=== PATIENT | male | born 1945 | race Caucasian/White ===

== ENCOUNTER 2024-12-24 07:53 | Inpatient (IN) | payer MEDICARE, OTHER, SELFPAY ==
[2024-12-24] VITALS (36 sets, daily range): BP systolic 103–167; BP diastolic 47–131; PULSE 38–113; RESP 10–22; TEMP 36.4–36.8; O2SAT 91–98; BMI 27.1; BMI 26.4; BMI 27.6
--- NOTE | 2024-12-24 08:01 | ECG_ITS ---
APPROVED REPORT Exam: Resting ECG HR:100 bpm ECG Measurements Heart Rate 100 AXES LA 153 P 52 QRSd 88 QRS 58 QT 340 T 80 QTc 397 Conclusion Sinus tachycardia with numerous PVCs Electronically signed by : IRASEMA GAONA, 12/24/2024 15:26:17
[2024-12-24] MEDS: ASPIRIN 81MG CHEWABLE TABLET 324 MG PO (08:07)
--- OUTSIDE RECORDS SUMMARY | 2024-12-24 08:07 | XMS_ITS | Encounter Summary ---
Author Name [facility] [place] [facility] [place] [facility] [place] Address [address] [place] [address] Care Team Providers Care Flue Dust Laborer Name Role Phone MALU MCKENZIE Primary Care Provider Unavailabl e Insurance Providers: All historical and current Section Date Range: From patient's date of to the date document was created. This section includes the names of all active insurance providers for the patient. Insurance Provider Type of Coverage Plan Name Start of Policy Coverage End of Policy Coverage Group Number Member ID Insurance Provider's Telephone Number Policy Coker's Name Patient's Relationship to Policy Coker MEDICARE (WNR) MEDICARE (M) PART A Sep 09, 2011 PART A [id number] RODDY CARRILLO PATIENT MEDICARE (WNR) MEDICARE (M) PART B Sep 09, 2011 PART B [id number] [id number] RODDY CARRILLO PATIENT MEDICARE (WNR) MEDICARE (M) PART A Sep 09, 2011 PART A [id number] RODDY CARRILLO PATIENT MEDICARE (WNR) MEDICARE (M) PART B Sep 09, 2011 PART B [id number] RODDY CARRILLO PATIENT FOR LIFE TRICA RE FOR LIFE Sep 09, 2009 FOR LIFE [id number] RODDY CARRILLO PATIENT Selected Encounter This section includes the information on record at [place] for the Encounter. Date/Time Encounter Type Encounter Description Reason Provider Source Jun 10, 2024 08:30 AM INTRM OPH EXAM EST PATIENT OPHTHALMOLOGY ICD-10-CM H25.811 Combined forms of age-related cataract, right eye PENNY ALVAREZ IHMarielos Encounter Template Text not used by [place] Assessments - Encounter Diagnoses This section includes the primary and secondary diagnoses documented for the Encounter. Date/Time Primary/Secondary Diagnosis Diagnosis Name Provider Source Jun 10, 2024 12:01 PM PRIMARY Combined forms of age-related cataract, right eye [facility] Jun 10, 2024 12:01 PM SECONDARY Cataract extraction status, left eye PAMELARITESH BOLIVAR [facility] Jun 10, 2024 12:01 PM SECONDARY Dry eye syndrome of bilateral lacrimal glands RITESH REINOSO [facility] Plan of Treatment: Future Appointments (+ 6 months) and Future Tests (+/- 45 days) The Plan of Treatment section includes future care activities for the patient from all [place] treatmentfacilities. This section includes future appointments and future orders which are active, pending or scheduled. Future Appointments This section includes appointments that were scheduled to occur 6 months from the date of the Encounter, up to a maximum of 20 appointments. The data comes from all [place] treatment facilities. Appointment Date/Time Appointment Type Appointme nt Facility Name Sep 29, 2024 09:30 AM AMBULATORY - MEDICINE [facility] Social History: Smoking Status (Most current) and Tobacco Use (All prior to encounter date) This section includes the most current, and the historical, smoking and tobacco- related health factors from the [place] facility where the Encounter took place. Current Smoking Status This section includes the most current smoking, or tobacco-related health factor, from the [place] facility where the Encounter took place. Date/Time Current Smoking Status Comment Svitlana ity Jul 06, 2004 10:16 AM HF V9 CURRENT NON-SMOKER pipe [facility] Tobacco Use History This section includes a history of the smoking, or tobacco-related health factors, that were collected on or before the date of the Encounter. The data comes from the [place] facility where the Encounter took place. 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 [facility] Encounter Notes: All associated encounter notes This section contains the clinical notes associated to the Encounter. Date/Time Encounter Note(s) Provider Source Jun 10, 2024 11:59 AM OPHTHALMOLOGY RESI DENT NOTE: LOCAL TITLE: OPHTHALMOLOGY CLINIC PHYSICIAN NOTE STANDARD TITLE: OPHTHALMOLOGY RESIDENT NOTE DATE OF NOTE: JUN 10, 2024@11:59 ENTRY DATE: JUN 10, 2024@11:59:11 AUTHOR: RITESH REINOSO COSIGNER: PENNY ALVAREZ URGENCY: STATUS: COMPLETED OPHTHALMOLOGY CLINIC PHYSICIAN NOTE Has ADDENDA Please see scanned note for details of this examination. Education on instillation of drops provided. I have seen and discussed the patient with Dr. Alvarez and they agree with the assessment and plan. Date VA:OD ^ VA:OS IOP Notes 06/10/24 *40-2/ NI ^ *-2/ -- Sub-specialty Specific HX: Right Eye: # Senile Combined Cataracts OD - Likely approaching visual significance, but pt content with VA and is able to conduct all activities of daily living. -MAC OCT flat today - Prefers to wait. > Obs # BARBIE OU - PEE OS inferiorly. No lagophthalmos. > Recommend artificial tears PRN Left Eye: # PCIOL OS - Doing well, clear lens. MAC OCT flat today - Wears readers only. > obs # BARBIE OU - PEE OS inferiorly. No lagophthalmos. > Recommend artificial tears PRN Plan: Obs F/U: 1 year general * in VA column= without correction * in IOP column= didn't take most recent dose or otherwise non-adherent = Not Addressed at this visit /italo/ RITESH REINOSO Ophthalmology Resident Signed: 06/10/2024 12:02 /itlao/ PENNY ALVAREZ Attending Physician Cosigned: 06/10/2024 14:52 06/10/2024 ADDENDUM STATUS: COMPLETED This service was performed in whole or in part by a resident at a [place] Medical Center or Clinic, supervised in accordance with [place] policy. I have discussed the patient with the examining resident. I agree with the assessment and plan. /italo/ PENNY ALVAREZ Attending Physician Signed: 06/10/2024 14:53 RITESH REINOSO-RENAY [facility] Jun 10, 2024 10:21 AM SURGERY SCANNED NO TE: LOCAL TITLE: OPHTHALMOLOGY SCANNING NOTE STANDARD TITLE: SURGERY SCANNED NOTE DATE OF NOTE: JUN 10, 2024@10:21 ENTRY DATE: JUN 11, 2024@10:22:07 AUTHOR: MAK VELAZQUEZER: URGENCY: STATUS: COMPLETED The scanned document may be viewed in [employer]. /italo/ MAK VELAZQUEZ COMMERCIAL REAL ESTATE BROKER Signed: 06/11/2024 10:22 MAK VELAZQUEZINGTON-CDD [facility] Jun 10, 2024 08:42 AM OPHTHALMOLOGY NOTE : LOCAL TITLE: OPHTHALMOLOGY NURSE/TECH CLINIC NOTE STANDARD TITLE: OPHTHALMOLOGY NOTE DATE OF NOTE: JUN 10, 2024@08:42 ENTRY DATE: JUN 10, 2024@08:42:03 AUTHOR: MONTSERRAT ANTONYIGNER: URGENCY: STATUS: COMPLETED Date VA:OD ^ VA:OS IOP Notes 06/10/24 *40-2/ NI ^ *20-2/ -- Sub-specialty Specific HX: Right Eye: Left Eye: Plan: F/U: * in VA column= without correction * in IOP column= didn't take most recent dose or otherwise non-adherent = Not Addressed at this visit /italo/ MONTSERRAT ANTONY Signed: 06/10/2024 08:47 MONTSERRAT ANTONY-JUDYD [facility] Jun 10, 2024 08:40 AM SURGERY NURSING NO TE: LOCAL TITLE: SURGERY CLINIC INTAKE NOTE STANDARD TITLE: SURGERY NURSING NOTE DATE OF NOTE: JUN 10, 2024@08:40 ENTRY DATE: JUN 10, 2024@08:40:17 AUTHOR: MONTSERRAT ANTONY EXP COSIGNER: URGENCY: STATUS: COMPLETED The patient was given a list of his/her medications, instructed to review and discuss any changes or problems with their provider. Patient advised to carry a list of current medications and any allergies with them in the event of emergency situations. Allergies: local and remote Patient has answered NKA No Remote Allergy/ADR Data available for this patient Medication Reconciliation MRR1 - Med Reconciliation INCLUDED IN THIS LIST: Alphabetical list of active outpatient prescriptions dispensed from this [place] (local) and dispensed from another [place] or [facility] facility (remote) as well as inpatient orders (local pending and active), local clinic medications, locally documented non-VA medications, and local prescriptions that have or been discontinued in the past 90 days. Non-VA Meds Last Documented On: Mar 14, 2017 NOTE The display of VA prescriptions dispensed from another [place] or [facility] facility (remote) is limited to active outpatient prescription entries matched to National Drug File at the originating site and may not include some items such as investigational drugs, compounds, etc. NOT INCLUDED IN THIS LIST: Medications self-entered by the patient into personal health records (i.e. [employer]) are NOT included in this list. Non-VA medications documented outside this [place], remote inpatient orders (regardless of status) and remote clinic medications are NOT included in this list. The patient and provider must always discuss medications the patient is taking, regardless of where the medication was dispensed or obtained. Non-VA ATENOLOL 25MG TAB TAKE ONE-HALF TABLET BY MOUTH DAILY Patient wants to buy from Non-VA pharmacy. Non-VA TRAZODONE HCL 50MG TAB TAKE ONE TABLET BY MOUTH AT BEDTIME NEEDED Patient wants to buy from Non-VA pharmacy. SUPPLIES /italo/ MONTSERRAT ANTONY Signed: 06/10/2024 08:41 MONTSERRAT ANTONY-RENAY [facility]
--- OUTSIDE RECORDS SUMMARY | 2024-12-24 08:08 | XMS_ITS | Encounter Summary ---
Author Name [facility] [place] Address [address] [place] [address] Care Team Providers Care Media Marketing Coordinator Name Role Phone MALU MCKENZIE Primary Care [...] PART A Sep 09, 2011 PART A [id number] 68A RODDY CARRILLO PATIENT MEDICARE (WNR) MEDICARE (M) PART B Sep 09, 2011 PART B [id number] 68A RODDY CARRILLO PATIENT MEDICARE (WNR) MEDICARE (M) PART A Sep 09, 2011 PART A [id number] FR06 RODDY CARRILLO PATIENT MEDICARE (WNR) MEDICARE (M) PART B Sep 09, 2011 PART B [id number] FR06 RODDY CARRILLO PATIENT FOR LIFE TRICA RE FOR LIFE Sep 09, 2009 FOR LIFE [id number] RODDY CARRILLO PATIENT Selected Encounter This section includes the information on record at [place] for the Encounter. Date/Time Encounter Type Encounter Description Reason Pro vider Source Dec 21, 2024 01:12 PM Outpatient Encounter ADMIN PAT ACTIVTIES (EMILYNONCT) IHMarielos Encounter Template Text not used by [place] Social History: Smoking Status (Most current) and Tobacco Use (All prior to encounter date) This section includes the most current, and the historical, smoking and tobacco- related health factors from the [place] facility where the Encounter took place. Current Smoking Status This section includes the most current smoking, or tobacco-related health factor, from the [place] facility where the Encounter took place. Date/Time Current Smoking Status Comment Svitlana ity Jul 06, 2004 10:16 AM HF V9 CURRENT NON-SMOKER pipe [facility] Tobacco Use History This section includes a history of the smoking, or tobacco-related health factors, that were collected on or before the date of the Encounter. The data comes from the [place] facility where the Encounter took place. 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 [facility] Encounter Notes: All associated encounter notes This section contains the clinical notes associated to the Encounter. Date/Time Encounter Note(s) Provider Source Dec 21, 2024 01:12 PM PRIMARY CARE ADMIN ISTRATIVE NOTE: LOCAL TITLE: PC ADMINISTRATIVE NOTE STANDARD TITLE: PRIMARY CARE ADMINISTRATIVE NOTE DATE OF NOTE: DEC 21, 2024@13:12 ENTRY DATE: DEC 21, 2024@13:12:39 AUTHOR: BOUBACAR SORIANO COSIGNER: URGENCY: STATUS: COMPLETED PC ADMINISTRATIVE NOTE Has ADDENDA Received Fax from: [employer] Placed in Provider's Box. /italo/ Boubacar TINEO Signed: 12/21/2024 13:13 12/23/2024 ADDENDUM STATUS: COMPLETED Signed, please fax it back. /es/ MALU MCKENZIE M.D. PRIMARY CARE STAFF PHYSICIAN Signed: 12/23/2024 10:55 Receipt Acknowledged By: * AWAITING SIGNATURE * ML BELLAMY,BOUBACAR LOUISE-Karey [facility]
--- OUTSIDE RECORDS SUMMARY | 2024-12-24 08:08 | XMS_ITS | Encounter Summary ---
Author Name [facility] [place] [facility] [place] Address [address] [place] [address] Care Team Providers Care Manager Quality Systems Name Role Phone MALU MCKENZIE Primary Care [...] PART A Sep 09, 2011 PART A [id number] 68A RODDY CARRILLO PATIENT MEDICARE (WNR) MEDICARE (M) PART B Sep 09, 2011 PART B [id number] 68A RODDY CARRILLO PATIENT MEDICARE (WNR) MEDICARE (M) PART A Sep 09, 2011 PART A [id number] FR06 RODDY CARRILLO PATIENT MEDICARE (WNR) MEDICARE (M) PART B Sep 09, 2011 PART B [id number] RODDY CARRILLO PATIENT FOR LIFE TRICA RE FOR LIFE Sep 09, 2009 FOR LIFE [id number] RODDY CARRILLO PATIENT Selected Encounter This section includes the information on record at [place] for the Encounter. Date/Time Encounter Type Encounter Description Reason Pro vider Source Nov 06, 2024 11:33 AM Outpatient Encounter ADMIN HEATHER RUSHING (EMILYNONCT) IHMarielos Encounter Template Text not used by [place] Lab Results: +/- 30 days of the encounter This section includes the Chemistry and Hematology Lab Results on record with [place] for the patient. Radiology Reports and Pathology Reports are provided separately, in subsequent sections. Lab Results This section contains the Chemistry/Hematology Results that were resulted 30 days before or 30 daysafter the date of the Encounter. Date/Time Source Result Type Result - Unit Interpretation Reference Range Specimen Type Comment Oct 19, 2024 12:00 AM [facility] N OCCULT BLOOD FIT X1 SCREEN FECES Specimen Typ e: FECES Comment: Test cancelled. Collection date could not be determined. Sample integrity cannot be ensured. Please recollect specimen and resubmit for testing. Ordering Provider: MALU MCKENZIE Report Released Date/Time: Sep 29, 2024 09:36 AM Reporting Lab: [address] [id number] Performing Lab: [address] [address] OCCULT BLOOD (FIT) #1 OF 1 can [employer]at [employer] Social History: Smoking Status (Most current) and Tobacco Use (All prior to encounter date) This section includes the most current, and the historical, smoking and tobacco- related health factors from the [place] facility where the Encounter took place. Current Smoking Status This section includes the most current smoking, or tobacco-related health factor, from the [place] facility where the Encounter took place. Date/Time Current Smoking Status Comment Facil ity Sep 29, 2024 09:30 AM [place]-TOBACCO USE MELODY E DAYS OTHER TYPE [facility] Tobacco Use History This section includes a history of the smoking, or tobacco-related health factors, that were collected on or before the date of the Encounter. The data comes from the [place] facility where the Encounter took place. Date/Time Smoking Status/Tobacco Use Comment F acility Sep 29, 2024 09:30 AM MO-TOBACCO USE ADVICE [facility] Sep 29, 2024 09:30 AM [place]-TOBACCO USE BIT SETTER NO [facility] Sep 29, 2024 09:30 AM VA-TOBACCO USE FOR JARRETT CIGARETTES [facility] Sep 29, 2024 09:30 AM VA-TOBACCO USE MED NO [facility] Sep 29, 2024 09:30 AM VA-TOBACCO USE MELODY E DAYS CIGARS/PIPES [facility] Sep 29, 2024 09:30 AM VA-TOBACCO USE MELODY E DAYS OTHER TYPE [facility] Oct 03, 2023 08:30 AM VA-TOBACCO USE 5 TO 15 YEARS [facility] Oct 03, 2023 08:30 AM VA-TOBACCO USE ADVICE [facility] Oct 03, 2023 08:30 AM VA-TOBACCO USE BIT SETTER NO [facility] Oct 03, 2023 08:30 AM VA-TOBACCO USE MED NO [facility] Oct 03, 2023 08:30 AM VA-TOBACCO USE WI 30 MIN OF WAKEUP [facility] Oct 03, 2023 08:30 AM VA-TOBACCO USER SOME DAYS [facility] Oct 03, 2022 10:00 AM VA-TOBACCO DOESNT USE WI 30 MIN WAKEUP [facility] Oct 03, 2022 10:00 AM VA-TOBACCO USE 5 TO 15 YEARS [facility] Oct 03, 2022 10:00 AM VA-TOBACCO USE ADVICE [facility] Oct 03, 2022 10:00 AM VA-TOBACCO USE BIT SETTER NO [facility] Oct 03, 2022 10:00 AM VA-TOBACCO USE MED NO [facility] Oct 03, 2022 10:00 AM VA-TOBACCO USER SOME DAYS [facility] Jun 28, 2021 08:00 AM VA-TOBACCO DOESNT USE WI 30 MIN WAKEUP [facility] Jun 28, 2021 08:00 AM VA-TOBACCO USE 30 YEARS OR MORE [facility] Jun 28, 2021 08:00 AM VA-TOBACCO USE ADVICE [facility] Jun 28, 2021 08:00 AM VA-TOBACCO USE BIT SETTER NO [facility] Jun 28, 2021 08:00 AM VA-TOBACCO USE MED NO [facility] Jun 28, 2021 08:00 AM VA-TOBACCO USER SOME DAYS [facility] May 23, 2020 01:19 PM VA-TOBACCO FORMER USER [facility] May 23, 2020 01:19 PM VA-TOBACCO QUIT 15 YRS OR MORE [facility] Sep 08, 2018 09:20 AM VA-TOBACCO FORMER USER [facility] Sep 08, 2018 09:20 AM VA-TOBACCO QUIT 15 YRS OR MORE [facility] Mar 14, 2018 07:49 AM V9 LIFETIME NON-USER OF TOBACCO [facility] Mar 14, 2017 08:12 AM V9 LIFETIME NON-USER OF TOBACCO [facility] Mar 09, 2016 08:41 AM V9 LIFETIME NON-USER OF TOBACCO [facility] Mar 09, 2015 07:49 AM V9 QUIT TOBACCO >7 YEARS AGO [facility] Mar 24, 2014 09:06 AM V9 QUIT TOBACCO >7 YEARS AGO [facility] Mar 24, 2014 09:06 AM V9 TOBACCO OFFERED [facility] Mar 23, 2013 10:19 AM TOBACCO OFFERRED P T MEDS (PROVIDER) [facility] Mar 23, 2013 10:19 AM V9 CURRENT TOBACCO USER [facility] Mar 23, 2013 10:19 AM V9 TOBACCO OFFERED [facility] May 28, 2012 08:45 AM TOBACCO OFFERRED P T MEDS (PROVIDER) [facility] May 28, 2012 08:45 AM V9 CURRENT TOBACCO USER [facility] May 28, 2012 08:45 AM V9 TOBACCO OFFERED [facility] May 28, 2011 08:12 AM TOBACCO OFFERRED P T MEDS (PROVIDER) [facility] May 28, 2011 08:12 AM V9 CURRENT TOBACCO USER [facility] May 28, 2011 08:12 AM V9 TOBACCO OFFERED [facility] Apr 20, 2011 10:34 AM V9 CURRENT TOBACCO USER [facility] May 24, 2010 07:45 AM TOBACCO OFFERRED P T MEDS (PROVIDER) [facility] May 24, 2010 07:45 AM V9 CURRENT TOBACCO USER [facility] May 24, 2010 07:45 AM V9 TOBACCO OFFERED [facility] May 17, 2009 08:40 AM TOBACCO OFFERRED P T MEDS (PROVIDER) [facility] May 17, 2009 08:40 AM V9 CURRENT TOBACCO USER [facility] May 17, 2009 08:40 AM V9 TOBACCO OFFERED [facility] Oct 14, 2008 09:59 AM V9 CURRENT TOBACCO USER [facility] Oct 14, 2008 09:59 AM V9 TOBACCO OFFERED [facility] January 20, 2007 06:36 AM TOBACCO OFFERRED P T MEDS (PROVIDER) [facility] January 20, 2007 06:36 AM V9 CURRENT TOBACCO USER [facility] January 20, 2007 06:36 AM V9 TOBACCO OFFERED [facility] Jul 17, 2006 12:49 PM HF V9 CURRENT SMOKER pipe [facility] Encounter Notes: All associated encounter notes This section contains the clinical notes associated to the Encounter. Date/Time Encounter Note(s) Provider Source Oct 27, 2024 11:33 AM NONVA NOTE: LOCAL TITLE: OUTSIDE MEDICAL RECORD-OTHER STANDARD TITLE: NONVA NOTE DATE OF NOTE: OCT 27, 2024@11:33 ENTRY DATE: NOV 06, 2024@11:33:15 AUTHOR: DHAVAL CARTER EXP COSIGNER: URGENCY: STATUS: COMPLETED The scanned image may be viewed in [employer]. /italo/ DHAVAL CARTER fileclerk Signed: 11/06/2024 11:33 DHAVAL CARTER [facility]
--- OUTSIDE RECORDS SUMMARY | 2024-12-24 08:08 | XMS_ITS | Encounter Summary ---
Author Name [facility] [place] [facility] [facility] [place] Address [address] [place] [address] Care Team Providers Care Weatherseal Technician Name Role Phone MALU MCKENZIE Primary Care [...] PART A Sep 09, 2011 PART A [id number] RODDY PEREZ PATIENT MEDICARE (WNR) MEDICARE (M) PART B Sep 09, 2011 PART B [id number] RODDY PEREZ PATIENT MEDICARE (WNR) MEDICARE (M) PART A Sep 09, 2011 PART A [id number] RODDY PEREZ PATIENT MEDICARE (WNR) MEDICARE (M) PART B Sep 09, 2011 PART B [id number] [phone] RODDY PEREZ PATIENT FOR LIFE TRICA RE FOR LIFE Sep 09, 2009 FOR LIFE [id number] RODDY PEREZ PATIENT Selected Encounter This section includes the information on record at [place] for the Encounter. Date/Time Encounter Type Encounter Description Reason Provider Source Sep 29, 2024 09:30 AM OFFICE O/P EST MOD 30 MIN PRIMARY CARE/MEDICINE ICD-10-CM I10 Essential (primary) hypertension MALU MCKENZIE [facility] Encounter Template Text not used by [place] Assessments - Encounter Diagnoses This section includes the primary and secondary diagnoses documented for the Encounter. Date/Time Primary/Secondary Diagnosis Diagnosis Name Provider Source Sep 29, 2024 10:08 AM PRIMARY Essential (primary) hypertension [facility] Sep 29, 2024 10:08 AM SECONDARY Insomnia, unspecified MALU MCKENZIE [facility] Sep 29, 2024 10:08 AM SECONDARY Tobacco use MALU MCKENZIE [facility] Lab Results: +/- 30 days of the encounter This section includes the Chemistry and Hematology Lab Results on record with [place] for the patient. Radiology Reports and Pathology Reports are provided separately, in subsequent sections. Lab Results This section contains the Chemistry/Hematology Results that were resulted 30 days before or 30 daysafter the date of the Encounter. Date/Time Source Result Type Result - Unit Interpretation Reference Range Specimen Type Comment Oct 19, 2024 12:00 AM [facility] N OCCULT BLOOD FIT X1 SCREEN FECES Specimen Typ e: FECES Comment: Test cancelled. Collection date could not be determined. Sample integrity cannot be ensured. Please recollect specimen and resubmit for testing. Ordering Provider: MALU MCKENZIE Report Released Date/Time: Sep 29, 2024 09:36 AM Reporting Lab: [address] [address] Performing Lab: [address] [address] OCCULT BLOOD (FIT) #1 OF 1 canc Negat marvel Sep 29, 2024 10:01 AM [facility] GLYCOHEMOGLOBIN BLOOD Specimen Type: BLOOD Comment: [place] guidelines for A1c interpretation: Glycemic control targets are based on Shared Decision Making between clinicians and patients. Criteria used to establish an A1c target recommendation can be found at https://www.co.gov/qualityandpatientsafety/ and include the use of result accuracy and precision(CV) of the A1c tests clinicians utilize at their own sites of practice. Values obtained from A1C measurements can vary. For typical A1C assays, a reported value of 7.0 could actually be between 6.72 and 7.28 if measured by a reference method. A reported value of 9.0 could actually be between 8.73 and 9.27. Ref: https://ngsp.org/CAPdata.asp. The in-house [employer] D-100 analyzer has a historical CV <= 2%. Contact the laboratory for further performance characteristics of this assay. Ordering Provider: MALU MCKENZIE Report Released Date/Time: Sep 29, 2024 09:36 AM Reporting Lab: [address] [address] Performing Lab: [address] [address] GLYCOHEMOGLOBIN 5.3 4.4-6.4 Sep 29, 2024 10:01 AM [facility] ALT PLASMA Specimen Type: PLASM A Comment: Estimated Glomerular Filtration Rate (eGFR) calculated using the 2020 Chronic Kidney Disease-Epidemiology (CKD-EPI) Collaboration creatinine equation; units of measure are mL/min/1.73 m2. Results are only valid for adults (>=18 years) whose serum creatinine is in a steady state. eGFR calculations are not valid for patients with acute kidney injury and for patients on dialysis. Creatinine-based estimates of kidney function may also be inaccurate in patients with reduced creatinine generation due to decreased muscle mass (e.g., malnutrition, severe hypoalbuminemia, sarcopenia, chronic neuromuscular disease, amputations, severe heart failure or liver disease) and in patients with increased creatinine generation due to increased muscle mass (e.g., muscle builders, anabolic steroids) or increased dietary intake. As drug clearance is proportional to total GFR and not GFR indexed to body surface area (BSA), in individuals with a BSA substantially different than 1.73 m2, drug dosing should be based on the reported eGFR value de-indexed from BSA by multiplying by the individual's BSA and dividing by 1.73. CKD is diagnosed based on abnormalities of kidney structure or function, present for >3 months, with implications for health and disease. CKD is classified and staged based on cause, eGFR and albuminuria (quantified as urine albumin to creatinine ratio). An eGFR >60 mL/min/1.73 m2 in the absence of increased urine albumin excretion or structural abnormalities does not represent CKD. eGFR CKD Interpretation (mL/min/1.73 m2) stage >=90 G1 Normal 60-89 G2 Mild decrease 45-59 G3A Mild to moderate decrease 30-44 G3B Moderate to severe decrease 15-29 G4 Severe decrease <15 G5 Kidney failure Ordering Provider: MALU MCKENZIE Report Released Date/Time: Sep 29, 2024 09:36 AM Reporting Lab: [address] [address] Performing Lab: [address] [address] ALT 11 U/L 0-55 Sep 29, 2024 10:01 AM [facility] AST PLASMA Specimen Type: PLASM A Comment: Estimated Glomerular Filtration Rate (eGFR) calculated using the 2020 Chronic Kidney Disease-Epidemiology (CKD-EPI) Collaboration creatinine equation; units of measure are mL/min/1.73 m2. Results are only valid for adults (>=18 years) whose serum creatinine is in a steady state. eGFR calculations are not valid for patients with acute kidney injury and for patients on dialysis. Creatinine-based estimates of kidney function may also be inaccurate in patients with reduced creatinine generation due to decreased muscle mass (e.g., malnutrition, severe hypoalbuminemia, sarcopenia, chronic neuromuscular disease, amputations, severe heart failure or liver disease) and in patients with increased creatinine generation due to increased muscle mass (e.g., muscle builders, anabolic steroids) or increased dietary intake. As drug clearance is proportional to total GFR and not GFR indexed to body surface area (BSA), in individuals with a BSA substantially different than 1.73 m2, drug dosing should be based on the reported eGFR value de-indexed from BSA by multiplying by the individual's BSA and dividing by 1.73. CKD is diagnosed based on abnormalities of kidney structure or function, present for >3 months, with implications for health and disease. CKD is classified and staged based on cause, eGFR and albuminuria (quantified as urine albumin to creatinine ratio). An eGFR >60 mL/min/1.73 m2 in the absence of increased urine albumin excretion or structural abnormalities does not represent CKD. eGFR CKD Interpretation (mL/min/1.73 m2) stage >=90 G1 Normal 60-89 G2 Mild decrease 45-59 G3A Mild to moderate decrease 30-44 G3B Moderate to severe decrease 15-29 G4 Severe decrease <15 G5 Kidney failure Ordering Provider: MALU MCKENZIE Report Released Date/Time: Sep 29, 2024 09:36 AM Reporting Lab: [address] [address] Performing Lab: [address] [address] AST 14 U/L 5-34 Sep 29, 2024 10:01 AM [facility] LIPID PROFILE PLASMA Specimen Type: PLASM A Comment: Estimated Glomerular Filtration Rate (eGFR) calculated using the 2020 Chronic Kidney Disease-Epidemiology (CKD-EPI) Collaboration creatinine equation; units of measure are mL/min/1.73 m2. Results are only valid for adults (>=18 years) whose serum creatinine is in a steady state. eGFR calculations are not valid for patients with acute kidney injury and for patients on dialysis. Creatinine-based estimates of kidney function may also be inaccurate in patients with reduced creatinine generation due to decreased muscle mass (e.g., malnutrition, severe hypoalbuminemia, sarcopenia, chronic neuromuscular disease, amputations, severe heart failure or liver disease) and in patients with increased creatinine generation due to increased muscle mass (e.g., muscle builders, anabolic steroids) or increased dietary intake. As drug clearance is proportional to total GFR and not GFR indexed to body surface area (BSA), in individuals with a BSA substantially different than 1.73 m2, drug dosing should be based on the reported eGFR value de-indexed from BSA by multiplying by the individual's BSA and dividing by 1.73. CKD is diagnosed based on abnormalities of kidney structure or function, present for >3 months, with implications for health and disease. CKD is classified and staged based on cause, eGFR and albuminuria (quantified as urine albumin to creatinine ratio). An eGFR >60 mL/min/1.73 m2 in the absence of increased urine albumin excretion or structural abnormalities does not represent CKD. eGFR CKD Interpretation (mL/min/1.73 m2) stage >=90 G1 Normal 60-89 G2 Mild decrease 45-59 G3A Mild to moderate decrease 30-44 G3B Moderate to severe decrease 15-29 G4 Severe decrease <15 G5 Kidney failure Ordering Provider: MALU MCKENZIE Report Released Date/Time: Sep 29, 2024 09:36 AM Reporting Lab: [address] [address] Performing Lab: [address] [address] CHOLESTEROL 161 mg/dL 0-199 TRIGLYCERIDE 72 mg/dL 0-149 HDL CHOLESTEROL 61 mg/dL 40-69 DIRECT LDL CHOL. 94 mg/dL 0-100 Sep 29, 2024 10:01 AM [facility] PANEL 1 PLASMA Specimen Type: PLASM A Comment: Estimated Glomerular Filtration Rate (eGFR) calculated using the 2020 Chronic Kidney Disease-Epidemiology (CKD-EPI) Collaboration creatinine equation; units of measure are mL/min/1.73 m2. Results are only valid for adults (>=18 years) whose serum creatinine is in a steady state. eGFR calculations are not valid for patients with acute kidney injury and for patients on dialysis. Creatinine-based estimates of kidney function may also be inaccurate in patients with reduced creatinine generation due to decreased muscle mass (e.g., malnutrition, severe hypoalbuminemia, sarcopenia, chronic neuromuscular disease, amputations, severe heart failure or liver disease) and in patients with increased creatinine generation due to increased muscle mass (e.g., muscle builders, anabolic steroids) or increased dietary intake. As drug clearance is proportional to total GFR and not GFR indexed to body surface area (BSA), in individuals with a BSA substantially different than 1.73 m2, drug dosing should be based on the reported eGFR value de-indexed from BSA by multiplying by the individual's BSA and dividing by 1.73. CKD is diagnosed based on abnormalities of kidney structure or function, present for >3 months, with implications for health and disease. CKD is classified and staged based on cause, eGFR and albuminuria (quantified as urine albumin to creatinine ratio). An eGFR >60 mL/min/1.73 m2 in the absence of increased urine albumin excretion or structural abnormalities does not represent CKD. eGFR CKD Interpretation (mL/min/1.73 m2) stage >=90 G1 Normal 60-89 G2 Mild decrease 45-59 G3A Mild to moderate decrease 30-44 G3B Moderate to severe decrease 15-29 G4 Severe decrease <15 G5 Kidney failure Ordering Provider: MALU MCKENZIE Report Released Date/Time: Sep 29, 2024 09:36 AM Reporting Lab: [address] [address] Performing Lab: [address] [address] CREATININE 1.18 mg/dL 0.72-1.25 UREA NITROGEN 16 mg/dL 9-25 GLUCOSE 115 mg/dL H 74-100 SODIUM 141 mmol/L 136-145 POTASSIUM 4.5 mmol/L 3.5-5.1 CHLORIDE 104 mmol/L 98-107 CO2 30 mmol/L H 22-29 CALCIUM 9.7 mg/dL 8.4-10.2 ANION GAP 7 meq/L 3-19 eGFR (CKD-EPI) 64 Sep 29, 2024 10:01 AM [facility] CBC/PLT BLOOD Specimen Type: BLOOD No comment entered. Ordering Provider: MALU MCKENZIE Report Released Date/Time: Sep 29, 2024 09:36 AM Reporting Lab: [address] [address] Performing Lab: [address] [address] WBC 7.6 10*3/uL 5.0-10.0 RBC 4.69 10*6/uL 4.6-6.2 HGB 15.0 g/dL 14.0-18.0 HCT 45.9 42.0-52.0 MCV 97.9 fL H 80.0-94.0 MCH 32.0 pg H 27.0-31.0 MCHC 32.7 g/dL 32.0-36.0 PLT 216 10*3/uL 150-450 MPV 10.5 fL 9.0-13.1 RDW 13.0 11.0-16.0 NRBC 0.0 0.0-0.0 Vital Signs: All taken on the encounter date This section contains inpatient and outpatient Vital Signs collected on the date of the Encounter. Date/Time Temperature Pulse Blood Pressure Respiratory Rate SP02 Pain Height Weight Body Mass Index Source Sep 29, 2024 09:17 AM 80 138/[address] [place] [facility] Sep 29, 2024 09:16 AM 97.4 82 144/72 93 0 71 200.[address] [place] [facility] Social History: Smoking Status (Most current) and Tobacco Use (All prior to encounter date) This section includes the most current, and the historical, smoking and tobacco- related health factors from the [place] facility where the Encounter took place. Current Smoking Status This section includes the most current smoking, or tobacco-related health factor, from the [place] facility where the Encounter took place. Date/Time Current Smoking Status Comment Svitlana garcia Sep 29, 2024 09:30 AM VA-TOBACCO USE FOR JARRETT CIGARETTES [facility] Tobacco Use History This section includes a history of the smoking, or tobacco-related health factors, that were collected on or before the date of the Encounter. The data comes from the [place] facility where the Encounter took place. 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 [facility] Sep 29, 2024 09:30 AM VA-TOBACCO USE FOR JARRETT CIGARETTES [facility] Sep 29, 2024 09:30 AM VA-TOBACCO USE MED NO [facility] Sep 29, 2024 09:30 AM VA-TOBACCO USE MELODY E DAYS CIGARS/PIPES [facility] Sep 29, 2024 09:30 AM VA-TOBACCO USE MELODY E DAYS OTHER TYPE [facility] Oct 03, 2023 08:30 AM VA-TOBACCO USE 5 TO 15 YEARS [facility] Oct 03, 2023 08:30 AM VA-TOBACCO USE ADVICE [facility] Oct 03, 2023 08:30 AM 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 [facility] Oct 03, 2023 08:30 AM VA-TOBACCO USE MED NO [facility] Oct 03, 2023 08:30 AM VA-TOBACCO USE WI 30 MIN OF WAKEUP [facility] Oct 03, 2023 08:30 AM VA-TOBACCO USER SOME DAYS [facility] Oct 03, 2022 10:00 AM VA-TOBACCO DOESNT USE WI 30 MIN WAKEUP [facility] Oct 03, 2022 10:00 AM VA-TOBACCO USE 5 TO 15 YEARS [facility] Oct 03, 2022 10:00 AM VA-TOBACCO USE ADVICE [facility] Oct 03, 2022 10:00 AM 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 [facility] Oct 03, 2022 10:00 AM VA-TOBACCO USE MED NO [facility] Oct 03, 2022 10:00 AM VA-TOBACCO USER SOME DAYS [facility] Jun 28, 2021 08:00 AM VA-TOBACCO DOESNT USE WI 30 MIN WAKEUP [facility] Jun 28, 2021 08:00 AM VA-TOBACCO USE 30 YEARS OR MORE [facility] Jun 28, 2021 08:00 AM VA-TOBACCO USE ADVICE [facility] Jun 28, 2021 08:00 AM 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 [facility] Jun 28, 2021 08:00 AM VA-TOBACCO USE MED NO [facility] Jun 28, 2021 08:00 AM VA-TOBACCO USER SOME DAYS [facility] May 23, 2020 01:19 PM VA-TOBACCO FORMER USER [facility] May 23, 2020 01:19 PM VA-TOBACCO QUIT 15 YRS OR MORE [facility] Sep 08, 2018 09:20 AM VA-TOBACCO FORMER USER [facility] Sep 08, 2018 09:20 AM VA-TOBACCO QUIT 15 YRS OR MORE [facility] Mar 14, 2018 07:49 AM V9 LIFETIME NON-USER OF TOBACCO [facility] Mar 14, 2017 08:12 AM V9 LIFETIME NON-USER OF TOBACCO [facility] Mar 09, 2016 08:41 AM V9 LIFETIME NON-USER OF TOBACCO [facility] Mar 09, 2015 07:49 AM V9 QUIT TOBACCO >7 YEARS AGO [facility] Mar 24, 2014 09:06 AM V9 QUIT TOBACCO >7 YEARS AGO [facility] Mar 24, 2014 09:06 AM V9 TOBACCO OFFERED [facility] Mar 23, 2013 10:19 AM TOBACCO OFFERRED P T MEDS (PROVIDER) [facility] Mar 23, 2013 10:19 AM V9 CURRENT TOBACCO USER [facility] Mar 23, 2013 10:19 AM V9 TOBACCO OFFERED [facility] May 28, 2012 08:45 AM TOBACCO OFFERRED P T MEDS (PROVIDER) [facility] May 28, 2012 08:45 AM V9 CURRENT TOBACCO USER [facility] May 28, 2012 08:45 AM V9 TOBACCO OFFERED [facility] May 28, 2011 08:12 AM TOBACCO OFFERRED P T MEDS (PROVIDER) [facility] May 28, 2011 08:12 AM V9 CURRENT TOBACCO USER [facility] May 28, 2011 08:12 AM V9 TOBACCO OFFERED [facility] Apr 20, 2011 10:34 AM V9 CURRENT TOBACCO USER [facility] May 24, 2010 07:45 AM TOBACCO OFFERRED P T MEDS (PROVIDER) [facility] May 24, 2010 07:45 AM V9 CURRENT TOBACCO USER [facility] May 24, 2010 07:45 AM V9 TOBACCO OFFERED [facility] May 17, 2009 08:40 AM TOBACCO OFFERRED P T MEDS (PROVIDER) [facility] May 17, 2009 08:40 AM V9 CURRENT TOBACCO USER [facility] May 17, 2009 08:40 AM V9 TOBACCO OFFERED [facility] Oct 14, 2008 09:59 AM V9 CURRENT TOBACCO USER [facility] Oct 14, 2008 09:59 AM V9 TOBACCO OFFERED [facility] January 20, 2007 06:36 AM TOBACCO OFFERRED P T MEDS (PROVIDER) [facility] January 20, 2007 06:36 AM V9 CURRENT TOBACCO USER [facility] January 20, 2007 06:36 AM V9 TOBACCO OFFERED [facility] Jul 17, 2006 12:49 PM HF V9 CURRENT SMOKER pipe [facility] Encounter Notes: All associated encounter notes This section contains the clinical notes associated to the Encounter. Date/Time Encounter Note(s) Provider Source Sep 30, 2024 09:28 AM PRIMARY CARE LETTE RS: LOCAL TITLE: PC LETTER TEST RESULTS STANDARD TITLE: PRIMARY CARE LETTERS DATE OF NOTE: SEP 30, 2024@09:28 ENTRY DATE: SEP 30, 2024@09:28:11 AUTHOR: MALU MCKENZIEER: URGENCY: STATUS: COMPLETED [facility] [address] [place] [address] Nolvia PEREZ [address] [place] [address] SEP 30, 2024 Dear Mr. JAY PEREZ Your Primary Care Provider has reviewed your recent tests, and wanted to let you know that everything was in acceptable range. Sincerely, /italo/ MALU MCKENZIE M.D. PRIMARY CARE STAFF PHYSICIAN Patient Record Number [id number] MALU MCKENZIE [facility] Sep 29, 2024 10:09 AM MEDICATION MGT NOT E: LOCAL TITLE: OUTPATIENT ESSENTIAL MEDICATION LIST FOR REVIEW (EM STANDARD TITLE: MEDICATION MGT NOTE DATE OF NOTE: SEP 29, 2024@10:09 ENTRY DATE: SEP 29, 2024@10:09:24 AUTHOR: MALU MCKENZIE: URGENCY: STATUS: COMPLETED Review of medications include: Patient allergies (Remote and Local) and active and pending prescriptions dispensed from this [place] (local) and dispensed from another [place] or [place] facility (remote and pending) as well as local inpatient orders (pending and active) and clinic medications (IMOs), locally documented non-VA medications and local prescriptions that have or been discontinued in the past 90 days. With the exception of Allergies, if a category is not listed below, it means there were no relevant medications for the patient. ALLERGIES: Patient has answered NKA No Remote Allergy/ADR Data available for this patient ACTIVE OUTPATIENT MEDICATIONS LOCAL/REMOTE No local medications found. No remote medications found. PENDING OUTPATIENT MEDICATIONS (LOCAL/REMOTE): No local medications found. No remote medications found. ACTIVE NONVA MEDICATIONS (LOCAL): ATENOLOL 25MG TAB Directions: 12.5MG MOUTH DAILY Status: ACTIVE TRAZODONE HCL 50MG TAB Directions: 50MG MOUTH AT BEDTIME NEEDED Status: ACTIVE OUTPATIENT MEDICATIONS (LOCAL)WITHIN 90 DAYS: No local medications found. DISCONTINUED OUTPATIENT MEDICATIONS (LOCAL) WITHIN 90 DAYS: No local medications found. CLINIC MEDICATIONS (LOCAL): No local medications found. /italo/ MALU MCKENZIE M.D. PRIMARY CARE STAFF PHYSICIAN Signed: 09/29/2024 10:09 MALU MCKENZIE [facility] Sep 29, 2024 09:36 AM PRIMARY CARE NOTE: LOCAL TITLE: PC PROGRESS NOTE STANDARD TITLE: PRIMARY CARE NOTE DATE OF NOTE: SEP 29, 2024@09:36 ENTRY DATE: SEP 29, 2024@09:36:52 AUTHOR: MALU MCKENZIE EXP COSIGNER: URGENCY: STATUS: COMPLETED ch com: f/up on ongoing med issues. HPI: Mr Perez presents today for f/up on ongoing med issues. He has Essential HTN, on low dose Atenolol, home BP logs in 120/70 range. He takes trazadone prn (about 5 times/week) for Insomnia. Pt occasionally smokes pipe (about once a month), quit cigs about 30 yrs ago, declines help with quitting. Pt offers no complaints today and claims to be doing well. list of problems and related history: Active problems - Computerized Problem List is the source for the followin. Tobacco use 2. Low back pain 3. Hypertension 4. Gastroesophageal reflux disease 5. Overweight 6. Insomnia 7. Overweight 8. VACCIN FOR INFLUENZA 9. Hyperlipidemia 10. Insomnia * 11. Tobacco dependence syndrome 12. Osteoarthritis * 13. Dermatitis * 14. INHIBITED SEX EXCITEMENT 15. HYPERTENSION NOS 16. CHRONIC SINUSITIS NOS 17. ESOPHAGEAL REFLUX 18. Low back pain ros: no cp, sob, garcia, dizziness, gi, gu problems reported all: Patient has answered NKA med: Active Outpatient Medications (including Supplies): Active Non-VA Medications Status 1) Non-VA ATENOLOL 25MG TAB 12.5MG MOUTH DAILY ACTIVE 2) Non-VA TRAZODONE HCL 50MG TAB 50MG MOUTH AT BEDTIME ACTIVE NEEDED sh: quit cigs >30 yrs ago, rare pipe smoker, rare etoh use pe: bp: 138/70 (09/29/2024 09:17) pulse: 80 (09/29/2024 09:17) resp: 12 (06/28/2021 07:53) temp: 97.4 F [36.3 C] (09/29/2024 09:16) ht: 71 in [180.3 cm] (09/29/2024 09:16) wt: 200.6 lb [90.99 kg] (09/29/2024 09:16) pain: 0 (09/29/2024 09:16) bmi: BODY MASS INDEX - 28.0 gen: nad head: no trauma eyes: conjunctivae clear neck: supple lungs: ctab heart: s1s2+ reg abd: soft, ntnd back: nt ext: no edema neuro: grossly intact assessment/plan: 1. Essential HTN: ct Atenolol, panel 1 today 2. Insomnia: ct prn Trazadone 3. Tobacco use: rare pipe smoker, quit cigs about 30 yrs ago, declines help with quitting, pt aware of risks including CA. 4. Last colonoscopy in 2009 normal, pt prefers FIT test for colon CA screening 5. CBC, HbA1c, lipid profile, Panel 1 etc today, f/up in 1yr The Outpatient Essential Medication List for review (EMLR) was reviewed with the patient/caregiver and the patient was provided an updated reconciled medication list. Discrepancies were corrected or sent to the ordering provider to correct. Problem list updated as needed and pt will be notified of lab results. The voiced understanding of topics covered/discussed at today's visit and has no further questions at this time. Follow Up Colonoscopy: Colonoscopy is due based on information available to this reminder. Patient declined screening/surveillance. Comment: Pt will do FIT test Tobacco Use Screening: The patient is a former cigarette smoker. The patient uses other type(s) of tobacco some days. Other Tobacco Type(s) used: Cigars/pipes/small cigars Patient was advised to stop smoking and/or using other tobacco products. Advised patient that a combination of behavioral counseling and FDA-approved cessation medications is the most effective way to ensure their success in stopping to smoke and/or using other tobacco products. The patient was not interested in additional information about behavioral counseling and other support strategies discussed. Informed patient that medications can help with cravings and withdrawal symptoms, and they greatly increase the chances of successfully stopping your tobacco use. The patient was not interested in a prescription for tobacco cessation medications. PCV20: The patient declines to receive the recommended dose of PPSV23 vaccine. Immunization: PNEUMOCOCCAL POLYSACCHARIDE PPV23 Refusal Reason: PATIENT DECISION Patient refuses all immunization(s) in the PneumoPPV group Date Documented: 09/29/24 09:41 RSV Immunization: Respiratory Syncytial Virus (RSV) Vaccine: Refused [email or web address] (RSV vaccine, adjuvanted, Arexvy). Immunization: RSV, RECOMBINANT, PROTEIN SUBUNIT RSVPREF3, ADJUVANT RECONSTITUTED, 0.5 ML, PF Refusal Reason: PATIENT DECISION Patient refuses all immunization(s) in the RSV group Date Documented: 09/29/24 09:41 /italo/ MALU MCKENZIE M.D. PRIMARY CARE STAFF PHYSICIAN Signed: 09/29/2024 10:09 MALU MCKENZIE [facility] Sep 29, 2024 09:18 AM PRIMARY CARE NURSI NG NOTE: LOCAL TITLE: [employer]/newspaper correspondent Note STANDARD TITLE: PRIMARY CARE NURSING NOTE DATE OF NOTE: SEP 29, 2024@09:18 ENTRY DATE: SEP 29, 2024@09:18:11 AUTHOR: VERA AMES COSIGNER: URGENCY: STATUS: COMPLETED The patient was given a list of his current medications, instructed to review and discuss any changes or problems with their provider. Patient advised to carry a list of current medications and any allergies with them in the event of emergency situations. Yes - /Caregiver verbalized understanding of topics discussed and education provided Provider notified of elevated B/P >/= 140/90. Not Applicable Alcohol Use Screen (AUDIT-C): Alcohol Screen: SCREEN FOR ALCOHOL (AUDIT-C) An alcohol screening test (AUDIT-C) was negative (score=2). 1. How often did you have a drink containing alcohol in the past year? Consider a drink to be a 12 ounce can or bottle of regular beer, 8 ounces of malt liquor, a 5 ounce glass of table wine, or a 1.5 ounce shot of liquor (like scotch, gin, or vodka). Monthly or less 2. How many drinks containing alcohol did you have on a typical day when you were drinking in the past year? One or two drinks 3. How often did you have six or more drinks on one occasion in the past year? Less than monthly Depression Screening: Perform PHQ-2 A PHQ-2 screen was performed. The score was 0 which is a negative screen for depression. Over the past two weeks, how often have you been bothered by the following problems? 1. Little interest or pleasure in doing things Not at all 2. Feeling down, depressed, or hopeless Not at all Homelessness/Food Insecurity Screen: In the past 2 months, have you been living in stable housing that you own, rent, or stay in as part of a household? Yes - Living in stable housing. Are you worried or concerned that in the next 2 months you may NOT have stable housing that you own, rent, or stay in as part of a household? No - Not worried about housing near future The [place] reports the following: Within the past 12 months, you worried whether your food would run out before you got money to buy more. Never true Within the past 12 months, the food you bought just didn't last and you didn't have money to get more. Never true Suicide Screen: C-SSRS Screening [place]-Suicide Severity Rating Scale (C-SSRS Screener) 1. Over the past month, have you wished you were or wished you could go to sleep and not wake up? No 2. Over the past month, have you had any actual thoughts of killing yourself? No 3. Over the past month, have you been thinking about how you might do this? Response not required due to responses to other questions. 4. Over the past month, have you had these thoughts and had some intention of acting on them? Response not required due to responses to other questions. 5. Over the past month, have you started to work out or worked out the details of how to kill yourself? Response not required due to responses to other questions. 6. If yes, at any time in the past month did you intend to carry out this plan? Response not required due to responses to other questions. 7. In your lifetime, have you ever done anything, started to do anything, or prepared to do anything to end your life (for example, collected pills, obtained a gun, gave away valuables, went to the roof but didn't jump)? No 8. If YES, was this within the past 3 months? Response not required due to responses to other questions. Sexual Orientation: The patient thinks of their sexual orientation as: Straight or Heterosexual MST Screening: Patient denies experiencing sexual trauma (MST). PTSD Screening: PC-PTSD-5 A PTSD screening test (PC-PTSD-5) was negative (score=0). IN THE PAST MONTH, have you ever had any experience that was so frightening, horrible or traumatic. For example: A serious accident or fire a physical or sexual assault or abuse An earthquake or flood A war Seeing someone be killed or seriously injured Having a loved one through homicide or suicide 1. Have you ever experienced this kind of event? NO 2. Had nightmares about the event(s) or thought about the event(s) when you did not want to? Response not required due to responses to other questions. 3. Tried hard not to think about the event(s) or went out of your way to avoid situations that reminded you of the event(s)? Response not required due to responses to other questions. 4. Been constantly on guard, watchful, or easily startled? Response not required due to responses to other questions. 5. [place] numb or detached from people, activities, or your surroundings? Response not required due to responses to other questions. 6. [place] guilty or unable to stop blaming yourself or others for the event(s) or any problems the event(s) may have caused? Response not required due to responses to other questions. /italo/ VERA AMES Signed: 09/29/2024 09:20 VERA AMES [facility]
--- OUTSIDE RECORDS SUMMARY | 2024-12-24 08:08 | XMS_ITS | Encounter Summary ---
Author Name [facility] [facility] [place] [facility] [place] Address [address] [place] [address] Care Team Providers Care Awning Hanger Supervisor Name Role Phone MALU MCKENZIE Primary Care [...] PART A Sep 09, 2011 PART A [id number] RODDY CARRILLO PATIENT MEDICARE (WNR) MEDICARE (M) PART B Sep 09, 2011 PART B [id number] [phone] [id number] RODDY CARRILLO PATIENT MEDICARE (WNR) MEDICARE (M) PART A Sep 09, 2011 PART A [id number] [id number] RODDY CARRILLO PATIENT MEDICARE (WNR) MEDICARE (M) PART B Sep 09, 2011 PART B [id number] RODDY CARRILLO PATIENT FOR LIFE TRICA RE FOR LIFE Sep 09, 2009 FOR LIFE [id number] RODDY CARRILLO PATIENT Selected Encounter This section includes the information on [place] at [place] for the Encounter. Date/Time Encounter Type Encounter Description Reason Pro vider Source Oct 27, 2024 11:16 AM Outpatient Encounter ADMIN HEATHER RUSHING (EMILYNONCT) [facility] Encounter Template Text not used by [place] Lab Results: +/- 30 days of the encounter This section includes the Chemistry and Hematology Lab Results on record with [place] for the patient. Radiology Reports and Pathology Reports are provided separately, in subsequent sections. Lab Results This section contains the Chemistry/Hematology Results that were resulted 30 days before or 30 daysafter the date of the Encounter. Date/Time Source Result Type Result - Unit Interpretation Reference Range Specimen Type Comment Oct 19, 2024 12:00 AM [facility] OCCULT BLOOD FIT X1 SCREEN FECES Specimen Typ e: FECES Comment: Test cancelled. Collection date could not be determined. Sample integrity cannot be ensured. Please recollect specimen and resubmit for testing. Ordering Provider: MALU MCKENZIE Report Released Date/Time: Sep 29, 2024 09:36 AM Reporting Lab: [address] [address] Performing Lab: [address] [address] OCCULT BLOOD (FIT) #1 OF 1 canc Negat marvel Sep 29, 2024 10:01 AM [facility] ALT PLASMA Specimen Type: PLASM A Comment: [...] Sep 29, 2024 09:36 AM Reporting Lab: [address] [address] Performing Lab: [address] [address] ALT 11 U/L 0-55 Sep 29, 2024 10:01 AM [facility] LIPID PROFILE PLASMA Specimen Type: PLASM A [...] Sep 29, 2024 09:36 AM Reporting Lab: [address] [address] Performing Lab: [address] [address] CHOLESTEROL 161 mg/dL 0-199 TRIGLYCERIDE 72 mg/dL 0-149 HDL CHOLESTEROL 61 mg/dL 40-69 DIRECT LDL CHOL. 94 mg/dL 0-100 Sep 29, 2024 10:01 AM [facility] AST PLASMA Specimen Type: PLASM A [...] Sep 29, 2024 09:36 AM Reporting Lab: [address] [address] Performing Lab: [address] [address] AST 14 U/L 5-34 Sep 29, 2024 10:01 AM [facility] GLYCOHEMOGLOBIN BLOOD Specimen Type: BLOOD Comment: [place] guidelines for A1c interpretation: Glycemic control targets are based on Shared Decision Making between clinicians and patients. Criteria used to establish an A1c target recommendation can be found at https://www.va.gov/qualityandpatientsafety/ and include the use of result accuracy [...] 8.73 and 9.27. Ref: https://ngsp.org/CAPdata.asp. The in-house [employer] D-100 analyzer has a historical CV <= 2%. Contact the laboratory for further performance characteristics of this assay. Ordering Provider: MALU MCKENZIE Report Released Date/Time: Sep 29, 2024 09:36 AM Reporting Lab: [address] [address] Performing Lab: [address] [address] GLYCOHEMOGLOBIN 5.3 4.4-6.4 Sep 29, 2024 10:01 AM [facility] PANEL 1 PLASMA Specimen Type: PLASM A [...] Sep 29, 2024 09:36 AM Reporting Lab: [address] [address] Performing Lab: [place] [id number] CREATININE 1.18 mg/dL 0.72-1.25 UREA NITROGEN 16 mg/dL 9-25 GLUCOSE 115 mg/dL H 74-100 SODIUM 141 mmol/L 136-145 POTASSIUM 4.5 mmol/L 3.5-5.1 CHLORIDE 104 mmol/L 98-107 CO2 30 mmol/L H 22-29 CALCIUM 9.7 mg/dL 8.4-10.2 ANION GAP 7 meq/L 3-19 eGFR (CKD-EPI) 64 Sep 29, 2024 10:01 AM [facility] CBC/PLT BLOOD Specimen Type: BLOOD No comment entered. Ordering Provider: MALU MCKENZIE Report Released Date/Time: Sep 29, 2024 09:36 AM Reporting Lab: [address] [address] Performing Lab: [address] [address] WBC 7.6 10*3/uL 5.0-10.0 RBC 4.69 10*6/uL 4.6-6.2 HGB 15.0 g/dL 14.0-18.0 HCT 45.9 42.0-52.0 MCV 97.9 fL H 80.0-94.0 MCH 32.0 pg H 27.0-31.0 MCHC 32.7 g/dL 32.0-36.0 PLT 216 10*3/uL 150-450 MPV 10.5 fL 9.0-13.1 RDW 13.0 11.0-16.0 NRBC 0.0 0.0-0.0 Social History: Smoking Status (Most current) and Tobacco Use (All prior to encounter date) This section includes the most current, and the historical, smoking and tobacco- related health factors from the [place] facility where the Encounter took place. Current Smoking Status This section includes the most current smoking, or tobacco-related health factor, from the [facility] where the Encounter took place. Date/Time Current Smoking Status Comment Svitlana garcia Jul 06, 2004 10:16 AM HF V9 CURRENT NON-SMOKER pipe [facility] Tobacco Use History This section includes a history of the smoking, or tobacco-related health factors, that were collected on or before the date of the Encounter. The data comes from the [place] facility where the Encounter took place. 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 [facility] Encounter Notes: All associated encounter notes This section contains the clinical notes associated to the Encounter. Date/Time Encounter Note(s) Provider Source Oct 27, 2024 12:34 PM ADDENDUM: LOCAL TITLE: Addendum STANDARD TITLE: ADDENDUM DATE OF NOTE: OCT 27, 2024@12:34:17 ENTRY DATE: OCT 27, 2024@12:34:18 AUTHOR: MALU MCKENZIE EXP COSIGNER: URGENCY: STATUS: COMPLETED Atenolol 12.5mg daily x 90 days with 3 refills ordered, please fax it back. /italo/ MALU MCKENZIE M.D. PRIMARY CARE STAFF PHYSICIAN Signed: 10/27/2024 12:34 Receipt Acknowledged By: 10/29/2024 09:40 /italo/ ML BELLAMY ADVANCED OVENS SUPERVISOR --- Original Document --- 10/27/24 PC ADMINISTRATIVE NOTE: Received Fax from: [facility] Total of 1 page Renewal Atenolol tabs 25 mg. Placed into Provider's Box. /italo/ Boubacar TINEO Signed: 10/27/2024 11:17 MALU MCKENZIE [facility] Oct 27, 2024 11:16 AM PRIMARY CARE ADMIN ISTRATIVE NOTE: LOCAL TITLE: PC ADMINISTRATIVE NOTE STANDARD TITLE: PRIMARY CARE ADMINISTRATIVE NOTE DATE OF NOTE: OCT 27, 2024@11:16 ENTRY DATE: OCT 27, 2024@11:16:10 AUTHOR: BOUBACAR SORIANO EXP COSIGNER: URGENCY: STATUS: COMPLETED PC ADMINISTRATIVE NOTE Has ADDENDA Received Fax from: [facility] Total of 1 page Renewal Atenolol tabs 25 mg. Placed into Provider's Box. /italo/ Boubacar TINEO Signed: 10/27/2024 11:17 10/27/2024 ADDENDUM STATUS: COMPLETED Atenolol 12.5mg daily x 90 days with 3 refills ordered, please fax it back. /italo/ MALU MCKENZIE M.D. PRIMARY CARE STAFF PHYSICIAN Signed: 10/27/2024 12:34 Receipt Acknowledged By: 10/29/2024 09:40 /rocky BELLAMY ADVANCED OVENS SUPERVISOR 10/29/2024 ADDENDUM STATUS: COMPLETED faxed back [id number] confirmation rec'd /rocky BELLAMY ADVANCED OVENS SUPERVISOR Signed: 10/29/2024 09:41 BOUBACAR SORIANOKarey [facility]
--- OUTSIDE RECORDS SUMMARY | 2024-12-24 08:08 | XMS_ITS | Encounter Summary ---
Author Name [facility] [place] [facility] [place] Address [address] [place] [address] Care Team Providers Care Platinum And Palladium Kettle Tender Name Role Phone MALU MCKENZIE Primary Care [...] PART A Sep 09, 2011 PART A [id number] RODDY CARRILLO PATIENT MEDICARE (WNR) MEDICARE (M) PART B Sep 09, 2011 PART B [id number] [id number] RODDY CARRILLO PATIENT MEDICARE (WNR) MEDICARE (M) PART A Sep 09, 2011 PART A [id number] RODDY CARRILLO PATIENT MEDICARE (WNR) MEDICARE (M) PART B Sep 09, 2011 PART B [id number] RODDY CARRILLO PATIENT FOR LIFE TRICA RE FOR LIFE Sep 09, 2009 FOR LIFE [id number] RODDY CARRILLO PATIENT Selected Encounter This section includes the information on record at [place] for the Encounter. Date/Time Encounter Type Encounter Description Reason Pro vider Source Dec 21, 2024 02:27 PM Outpatient Encounter ADMIN PAT ACTIVTIES (MERCEDEZ) [facility] Encounter Template Text not used by [place] Social History: Smoking Status (Most current) and Tobacco Use (All prior to encounter date) This section includes the most current, and the historical, smoking and tobacco- related health factors from the [place] facility where the Encounter took place. Current Smoking Status This section includes the most current smoking, or tobacco-related health factor, from the [place] facility where the Encounter took place. Date/Time Current Smoking Status Comment Facil ity Sep 29, 2024 09:30 AM VA-TOBACCO USE FOR JARRETT CIGARETTES [facility] Tobacco Use History This section includes a history of the smoking, or tobacco-related health factors, that were collected on or before the date of the Encounter. The data comes from the [place] facility where the Encounter took place. Date/Time Smoking Status/Tobacco Use Comment F acility Sep 29, 2024 09:30 AM VA-TOBACCO USE ADVICE [facility] Sep 29, 2024 09:30 AM VA-TOBACCO USE CHIEF MINISTER NO [facility] Sep 29, 2024 09:30 AM VA-TOBACCO USE FOR JARRETT CIGARETTES [facility] Sep 29, 2024 09:30 AM VA-TOBACCO USE MED NO [facility] Sep 29, 2024 09:30 AM VA-TOBACCO USE MELODY E DAYS CIGARS/PIPES [facility] Sep 29, 2024 09:30 AM VA-TOBACCO USE MELODY E DAYS OTHER TYPE [facility] Oct 03, 2023 08:30 AM VA-TOBACCO USE 5 TO 15 YEARS [facility] Oct 03, 2023 08:30 AM VA-TOBACCO USE ADVICE [facility] Oct 03, 2023 08:30 AM VA-TOBACCO USE CHIEF MINISTER NO [facility] Oct 03, 2023 08:30 AM VA-TOBACCO USE MED NO [facility] Oct 03, 2023 08:30 AM VA-TOBACCO USE WI 30 MIN OF WAKEUP [facility] Oct 03, 2023 08:30 AM VA-TOBACCO USER SOME DAYS [facility] Oct 03, 2022 10:00 AM VA-TOBACCO DOESNT USE WI 30 MIN WAKEUP [facility] Oct 03, 2022 10:00 AM VA-TOBACCO USE 5 TO 15 YEARS [facility] Oct 03, 2022 10:00 AM VA-TOBACCO USE ADVICE [facility] Oct 03, 2022 10:00 AM VA-TOBACCO USE CHIEF MINISTER NO [facility] Oct 03, 2022 10:00 AM VA-TOBACCO USE MED NO [facility] Oct 03, 2022 10:00 AM VA-TOBACCO USER SOME DAYS [facility] Jun 28, 2021 08:00 AM VA-TOBACCO DOESNT USE WI 30 MIN WAKEUP [facility] Jun 28, 2021 08:00 AM VA-TOBACCO USE 30 YEARS OR MORE [facility] Jun 28, 2021 08:00 AM VA-TOBACCO USE ADVICE [facility] Jun 28, 2021 08:00 AM VA-TOBACCO USE CHIEF MINISTER NO [facility] Jun 28, 2021 08:00 AM VA-TOBACCO USE MED NO [facility] Jun 28, 2021 08:00 AM VA-TOBACCO USER SOME DAYS [facility] May 23, 2020 01:19 PM VA-TOBACCO FORMER USER [facility] May 23, 2020 01:19 PM VA-TOBACCO QUIT 15 YRS OR MORE [facility] Sep 08, 2018 09:20 AM VA-TOBACCO FORMER USER [facility] Sep 08, 2018 09:20 AM VA-TOBACCO QUIT 15 YRS OR MORE [facility] Mar 14, 2018 07:49 AM V9 LIFETIME NON-USER OF TOBACCO [facility] Mar 14, 2017 08:12 AM V9 LIFETIME NON-USER OF TOBACCO [facility] Mar 09, 2016 08:41 AM V9 LIFETIME NON-USER OF TOBACCO [facility] Mar 09, 2015 07:49 AM V9 QUIT TOBACCO >7 YEARS AGO [facility] Mar 24, 2014 09:06 AM V9 QUIT TOBACCO >7 YEARS AGO [facility] Mar 24, 2014 09:06 AM V9 TOBACCO OFFERED [facility] Mar 23, 2013 10:19 AM TOBACCO OFFERRED P T MEDS (PROVIDER) [facility] Mar 23, 2013 10:19 AM V9 CURRENT TOBACCO USER [facility] Mar 23, 2013 10:19 AM V9 TOBACCO OFFERED [facility] May 28, 2012 08:45 AM TOBACCO OFFERRED P T MEDS (PROVIDER) [facility] May 28, 2012 08:45 AM V9 CURRENT TOBACCO USER [facility] May 28, 2012 08:45 AM V9 TOBACCO OFFERED [facility] May 28, 2011 08:12 AM TOBACCO OFFERRED P T MEDS (PROVIDER) [facility] May 28, 2011 08:12 AM V9 CURRENT TOBACCO USER [facility] May 28, 2011 08:12 AM V9 TOBACCO OFFERED [facility] Apr 20, 2011 10:34 AM V9 CURRENT TOBACCO USER [facility] May 24, 2010 07:45 AM TOBACCO OFFERRED P T MEDS (PROVIDER) [facility] May 24, 2010 07:45 AM V9 CURRENT TOBACCO USER [facility] May 24, 2010 07:45 AM V9 TOBACCO OFFERED [facility] May 17, 2009 08:40 AM TOBACCO OFFERRED P T MEDS (PROVIDER) [facility] May 17, 2009 08:40 AM V9 CURRENT TOBACCO USER [facility] May 17, 2009 08:40 AM V9 TOBACCO OFFERED [facility] Oct 14, 2008 09:59 AM V9 CURRENT TOBACCO USER [facility] Oct 14, 2008 09:59 AM V9 TOBACCO OFFERED [facility] January 20, 2007 06:36 AM TOBACCO OFFERRED P T MEDS (PROVIDER) [facility] January 20, 2007 06:36 AM V9 CURRENT TOBACCO USER [facility] January 20, 2007 06:36 AM V9 TOBACCO OFFERED [facility] Jul 17, 2006 12:49 PM HF V9 CURRENT SMOKER pipe [facility] Encounter Notes: All associated encounter notes This section contains the clinical notes associated to the Encounter. Date/Time Encounter Note(s) Provider Source Dec 04, 2024 02:27 PM NONVA NOTE: LOCAL TITLE: OUTSIDE MEDICAL RECORD-OTHER STANDARD TITLE: NONVA NOTE DATE OF NOTE: DEC 04, 2024@14:27 ENTRY DATE: DEC 21, 2024@14:27:46 AUTHOR: DHAVAL CARTER EXP COSIGNER: URGENCY: STATUS: COMPLETED The scanned image may be viewed in [employer]. /italo/ DHAVAL CARTER fileclerk Signed: 12/21/2024 14:28 DHAVAL CARTER[facility]
--- OUTSIDE RECORDS SUMMARY | 2024-12-24 08:08 | XMS_ITS | Encounter Summary ---
Author Name [facility] Address [address] [place] [address] Care Team Providers Care Skid Adzer Name Role Phone MALU MCKENZIE Primary Care [...] PART A Sep 09, 2011 PART A [id number] RODDY CARRILLO PATIENT MEDICARE (WNR) MEDICARE (M) PART B Sep 09, 2011 PART B [id number] RODDY CARRILLO PATIENT MEDICARE (WNR) MEDICARE (M) PART A Sep 09, 2011 PART A [id number] RODDY CARRILLO PATIENT MEDICARE (WNR) MEDICARE (M) PART B Sep 09, 2011 PART B [id number] RODDY CARRILLO PATIENT FOR LIFE [facility] RE FOR LIFE Sep 09, 2009 FOR LIFE [id number] RODDY CARRILLO PATIENT Selected Encounter This section includes the information on record at [place] for the Encounter. Date/Time Encounter Type Encounter Description Reason Pro vider Source Dec 03, 2024 11:12 AM Outpatient Encounter ADMIN PAT ACTIVTIES (EMILYNONCT) [facility] Encounter Template Text not used by [place] Social History: Smoking Status (Most current) and Tobacco Use (All prior to encounter date) This section includes the most current, and the historical, smoking and tobacco- related health factors from the [place] facility where the Encounter took place. Current Smoking Status This section includes the most current smoking, or tobacco-related health factor, from the [place] facility where the Encounter took place. Date/Time Current Smoking Status Comment Svitlana ity Jul 06, 2004 10:16 AM HF V9 CURRENT NON-SMOKER pipe [facility] Tobacco Use History This section includes a history of the smoking, or tobacco-related health factors, that were collected on or before the date of the Encounter. The data comes from the [place] facility where the Encounter took place. 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 [facility] Encounter Notes: All associated encounter notes This section contains the clinical notes associated to the Encounter. Date/Time Encounter Note(s) Provider Source Dec 04, 2024 03:49 PM ADDENDUM: LOCAL TITLE: Addendum STANDARD TITLE: ADDENDUM DATE OF NOTE: DEC 04, 2024@15:49:44 ENTRY DATE: DEC 04, 2024@15:49:45 AUTHOR: MALU MCKENZIE EXP COSIGNER: URGENCY: STATUS: COMPLETED Med ordered, please fax it back. /italo/ MALU MCKENZIE M.D. PRIMARY CARE STAFF PHYSICIAN Signed: 12/04/2024 15:49 Receipt Acknowledged By: 12/07/2024 10:55 /es/ ML BELLAMY [employer]ER --- Original Document --- 12/03/24 PC ADMINISTRATIVE NOTE: [facility] rec for Trazodone placed in provider's inbox. /italo/ WILL HOWE [employer]ER TENDER Signed: 12/03/2024 11:16 12/07/2024 ADDENDUM STATUS: COMPLETED faxed back, confirmationed rec'd /rocky BELLAMY [employer] T[employer]ER Signed: 12/07/2024 10:56 MALU MCKENZIE [facility] Dec 03, 2024 11:13 AM PRIMARY CARE ADMIN ISTRATIVE NOTE: LOCAL TITLE: PC ADMINISTRATIVE NOTE STANDARD TITLE: PRIMARY CARE ADMINISTRATIVE NOTE DATE OF NOTE: DEC 03, 2024@11:13 ENTRY DATE: DEC 03, 2024@11:16:14 AUTHOR: WILL HOWE EXP COSIGNER: URGENCY: STATUS: COMPLETED PC ADMINISTRATIVE NOTE Has ADDENDA [employer] rec for Trazodone placed in provider's inbox. /rocky HOWE [employer] T[employer]ER Signed: 12/03/2024 11:16 12/04/2024 ADDENDUM STATUS: COMPLETED Med ordered, please fax it back. /italo/ MALU MCKENZIE M.D. PRIMARY CARE STAFF PHYSICIAN Signed: 12/04/2024 15:49 Receipt Acknowledged By: 12/07/2024 10:55 /rocky [employer]LL[employer]ER 12/07/2024 ADDENDUM STATUS: COMPLETED faxed back, confirmationed rec'd /rocky BELLAMY [employer] T[employer]ER Signed: 12/07/2024 10:56 WILL HOWE [facility]
--- OUTSIDE RECORDS SUMMARY | 2024-12-24 08:08 | XMS_ITS | Continuity of Care Document ---
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 It does not include entries that were removed or entered in error. Problem Status Onset Date Problem Type Date of Resolution Comments Source CHRONIC SINUSITIS NOS Active Condition [facility] Dermatitis * (ICD-9-CM 692.9) Active Condition [facility] ESOPHAGEAL REFLUX [facility] Gastroesophageal reflux disease Active Condition [facility] Hyperlipidemia Active [facility] Hy[facility]ension Active Condition [facility] HYPERTENSION NOS Active Condition [facility] INHIBITED SEX EXCITEMENT Active Condition [facility] Insomnia Active Condition [facility] Insomnia * (ICD-9-CM 780.52) Active Condition [facility] Low back pain Active Condition [facility] Osteoarthritis * (ICD-9-CM 715.90) Active 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 Diagnosis: ICD-10-CM H90.3 Sensorineural hearing loss, bilateral Active Diagnosis [facility] Medications Combined list of outpatient medications from [facility] and [facility] facilities.Medications provided include 1) outpatient medications from the last 15 months, and 2) patient-reported medications. Medication Details Route Status Patient Instructions Prescription Expires Prescription Number Last Dispense Date Ordering Provider Order Date Order Qty Source ATENOLOL 25MG TAB TAKE ONE-HALF TABLET BY MOUTH DAILY ORAL ACTIVE AIXA PRASAD 2010 [place] [facility] CARBAMIDE PEROXIDE 6.5%/GLYCER IN SOLN,OTIC INSTILL 4 DROPS IN BOTH EARS TWICE A DAY FOR EAR WAX REMOVAL -ALLOW DROPS TO REMAIN IN EAR FOR AT LEAST 15 MINUTES. FLUSH EAR WITH WARM WATER USING BULB EAR SYRINGE. AURICU LAR (OTIC) 11/02/2023 [id number] KALA MCKENZIE EK R 2023 15 [place] [facility] TRAZODONE HCL 50MG TAB TAKE ONE TABLET BY MOUTH AT BEDTIME NEEDED ORAL ACTIVE KALA MCKENZIE EK R 2016 [facility] Immunizations Combined list of available immunizations from the Department of Defense and Veterans Affairs facilities. Immunization Series Date Given Administered By Site Reaction Lot Number CVX Code Drug Program Project Manager Status Comments Source COVID-19 (PFIZER), MRNA, LNP-S, PF, GEOVANNA-SUCROSE, 30 MCG/0.3 ML (AGES 12+ YEARS) 5 2023 309 complet ed HISTORICA L INFORMATI ON - FROM OTHER REGISTRY, [facility] INFLUENZA, HIGH-DOSE, TRIVALENT, PF 7 2023 135 complet ed HISTORICA L INFORMATI ON - FROM OTHER REGISTRY, [facility] INFLUENZA, UNSPECIFIED FORMULATION 2022 88 complet ed Completed Series, HISTORICA L INFORMATI ON - FROM PATIENT'S RECALL, [facility] INFLUENZA VACCINE, QUADRIVALENT, ADJUVANTED 6 2022 205 complet ed HISTORICA L INFORMATI ON - FROM OTHER REGISTRY, [facility] [facility] COVID-19 (MODERNA), MRNA, LNP-S, BIVALENT BOOSTER, PF, 50 MCG/0.5 ML OR 25MCG/0.25 ML DOSE 2021 229 complet ed Booster for Series, HISTORICA L INFORMATI ON - FROM PARENT'S RECALL, [place] [facility] COVID-19 (MODERNA), MRNA, LNP-S, BIVALENT BOOSTER, PF, 50 MCG/0.5 ML OR 25MCG/0.25 ML DOSE 2021 229 complet ed Booster for Series, HISTORICA L INFORMATI ON - FROM PARENT'S RECALL, [place] [facility] INFLUENZA, HIGH-DOSE, QUADRIVALENT 5 2021 197 complet ed HISTORICA L INFORMATI ON - FROM OTHER REGISTRY, [place] [facility] INFLUENZA, UNSPECIFIED FORMULATION 2021 88 complet ed Completed Series, HISTORICA L INFORMATI ON - FROM PARENT'S RECALL, [place] [facility] COVID-19 (MODERNA), MRNA, LNP-S, PF, 100 MCG/0.5ML DOSE OR 50 MCG/0.25ML DOSE 3 2020 207 complet ed HISTORICA L INFORMATI ON - FROM OTHER REGISTRY, [place] [facility] INFLUENZA, UNSPECIFIED FORMULATION 2020 88 complet ed [facility] INFLUENZA, HIGH-DOSE, QUADRIVALENT 4 2020 197 complet ed HISTORICA L INFORMATI ON - FROM OTHER REGISTRY, [place] [facility] COVID-19 (MODERNA), MRNA, LNP-S, PF, 100 MCG/0.5 ML DOSE 2 2020 207 complet ed [facility] COVID-19 (MODERNA), MRNA, LNP-S, PF, 100 MCG/0.5 ML DOSE 1 2020 207 complet ed [facility] INFLUENZA, HIGH-DOSE, QUADRIVALENT 3 2019 197 complet ed HISTORICA L INFORMATI ON - FROM OTHER REGISTRY, [place] [facility] INFLUENZA, UNSPECIFIED FORMULATION 2019 88 complet ed [facility] ZOSTER RECOMBINANT 1 2018 187 complet ed [place] [facility] INFLUENZA, SEASONAL, INJECTABLE 2017 141 complet ed [facility] ZOSTER RECOMBINANT 2 2017 187 complet ed [place] [facility] INFLUENZA A & B (HISTORICAL) 2016 88 complet ed [facility] INFLUENZA, HIGH DOSE SEASONAL 2 2016 135 complet ed HISTORICA L INFORMATI ON - FROM OTHER REGISTRY, [place] [facility] PNEUMOCOCCAL CONJUGATE PCV 13 2016 133 complet ed [place] [facility] 115 complet [facility] ZOSTER LIVE 2016 121 complet ed [facility] INFLUENZA A & B (HISTORICAL) 2015 88 complet ed [facility] INFLUENZA, HIGH DOSE SEASONAL 1 2015 135 complet ed HISTORICA L INFORMATI ON - FROM OTHER REGISTRY, [place] [facility] INFLUENZA A & B (HISTORICAL) 2014 88 complet ed [facility] [facility] OTHPIT23-QIK (HISTORICAL) 2014 33 complet ed [facility] [facility] PNEUMOCOCCAL, UNSPECIFIED FORMULATION 2014 109 complet ed [facility] INFLUENZA A & B (HISTORICAL) 2013 88 complet ed [facility] INFLUENZA A & B (HISTORICAL) 2012 88 complet ed [place] [facility] FLU,3 YRS (HISTORICAL) 2011 88 complet ed [facility] FLU,3 YRS (HISTORICAL) 2010 88 complet ed [facility] INFLUENZA A & B (HISTORICAL) 2009 88 complet ed [facility] FLU,3 YRS (HISTORICAL) 2008 88 complet ed [facility] INFLUENZA A & B (HISTORICAL) 2008 88 complet ed [facility] FLU,3 YRS (HISTORICAL) 2006 88 complet ed [facility] INFLUENZA A & B (HISTORICAL) 2005 88 complet ed [facility] TD(ADULT) UNSPECIFIED FORMULATION 2005 139 complet ed less than 10 years ago/unsur e of [facility] 2005 115 complet ed [facility] INFLUENZA, UNSPECIFIED FORMULATION 2002 NONE 88 complet ed Completed Series, [id number] [place] INFLUENZA, UNSPECIFIED FORMULATION 2001 88 complet ed up to date. [place] [facility] INFLUENZA, UNSPECIFIED FORMULATION 2000 88 complet ed takes yearly [facility] [facility] TD(ADULT) UNSPECIFIED FORMULATION 1996 139 complet ed up to date. [place] [facility] Results Combined list of recent chemistry, hematology and other laboratory results from Department of Defense and Veterans Affairs, ranging from 15 months to all on record, depending upon the facility. Order Name Results Value Reference Range Date Interpretation Specimen Comments Source OCCULT BLOOD FIT X1 SCREEN HEMOGLOBIN. GASTROINTES TINAL.LOWER [PRESENCE] IN STOOL BY IMMUNOASSAY [facility] 10/19 Specimen Type: FECES Comment: Test cancelled. Collection date could not be determined. Sample integrity cannot be ensured. Please recollect specimen and resubmit for testing. Ordering Provider: MALU MCKENZIE Report Released Date/Time: Sep 29, 2024 09:36 AM Reporting Lab: [facility] [address] [address] Performing Lab: [facility] [address] [address] PSYCHIATRIC GLYCOHEMO GLOBIN HEMOGLOBIN A1C/HEMOGLO BIN.TOTAL IN BLOOD BY HPLC 5.3 4.4 - 6.4 09/29 Specimen Type: BLOOD Comment: [place]-DoD guidelines for A1c interpretat ion: Glycemic control targets are based on Shared Decision Making between clinicians and patients. Criteria used to establish an A1c target recommendat ion can be found at https://www .va.gov/elias lityandpati entsafety/ and include the use of result accuracy and precision(C V) of the A1c tests clinicians utilize at their own sites of practice. Values obtained from A1C measurement s can vary. For typical A1C assays, a reported value of 7.0 could actually be between 6.72 and 7.28 if measured by a reference method. A reported value of 9.0 could actually be between 8.73 and 9.27. Ref: https://ngs p.org/CAPda ta.asp. The in-house [employer] D-100 analyzer has a historical CV <= 2%. Contact the laboratory for further performance characteris tics of this assay. Ordering Provider: MALU MCKENZIE Report Released Date/Time: Sep 29, 2024 09:36 AM Reporting Lab: [address] [phone] Performing Lab: [address] [address] PSYCHIATRIC ALT ALANINE AMINOTRANSF ERASE [ENZYMATIC ACTIVITY/VO LUME] IN SERUM OR PLASMA 11 U/L 0 - 55 09/29 Specimen Type: PLASMA Comment: Estimated Glomerular Filtration Rate (eGFR) calculated using the 2020 Chronic Kidney Disease-Epi demiology (CKD-EPI) Collaborati on creatinine equation; units of measure are mL/min/1.73 m2. Results are only valid for adults (>=18 years) whose serum creatinine is in a steady state. eGFR calculation s are not valid for patients with acute kidney injury and for patients on dialysis. Creatinine- based estimates of kidney function may also be inaccurate in patients with reduced creatinine generation due to decreased muscle mass (e.g., malnutritio n, severe hypoalbumin emia, sarcopenia, chronic neuromuscul ar disease, amputations , severe heart failure or liver disease) and in patients with increased creatinine generation due to increased muscle mass (e.g., muscle builders, anabolic steroids) or increased dietary intake. As drug clearance is proportiona l to total GFR and not GFR indexed to body surface area (BSA), in individuals with a BSA substantial ly different than 1.73 m2, drug dosing should be based on the reported eGFR value de-indexed from BSA by multiplying by the individual' s BSA and dividing by 1.73. CKD is diagnosed based on abnormaliti es of kidney structure or function, present for >3 months, with implication s for health and disease. CKD is classified and staged based on cause, eGFR and albuminuria (quantified as urine albumin to creatinine ratio). An eGFR >60 mL/min/1.73 m2 in the absence of increased urine albumin excretion or structural abnormaliti es does not represent CKD. eGFR CKD Interpretat ion (mL/min/1.7 3 m2) stage >=90 G1 Normal 60-89 G2 Mild decrease 45-59 G3A Mild to moderate decrease 30-44 G3B Moderate to severe decrease 15-29 G4 Severe decrease <15 G5 Kidney failure Ordering Provider: MALU MCKENZIE Report Released Date/Time: Sep 29, 2024 09:36 AM Reporting Lab: [address] [phone] Performing Lab: [address] [address] PSYCHIATRIC AST ASPARTATE AMINOTRANSF ERASE [ENZYMATIC ACTIVITY/VO LUME] IN SERUM OR PLASMA 14 U/L 5 - 34 09/29 Specimen Type: PLASMA Comment: Estimated Glomerular Filtration Rate (eGFR) calculated using the 2020 Chronic Kidney Disease-Epi demiology (CKD-EPI) Collaborati on creatinine equation; units of measure are mL/min/1.73 m2. Results are only valid for adults (>=18 years) whose serum creatinine is in a steady state. eGFR calculation s are not valid for patients with acute kidney injury and for patients on dialysis. Creatinine- based estimates of kidney function may also be inaccurate in patients with reduced creatinine generation due to decreased muscle mass (e.g., malnutritio n, severe hypoalbumin emia, sarcopenia, chronic neuromuscul ar disease, amputations , severe heart failure or liver disease) and in patients with increased creatinine generation due to increased muscle mass (e.g., muscle builders, anabolic steroids) or increased dietary intake. As drug clearance is proportiona l to total GFR and not GFR indexed to body surface area (BSA), in individuals with a BSA substantial ly different than 1.73 m2, drug dosing should be based on the reported eGFR value de-indexed from BSA by multiplying by the individual' s BSA and dividing by 1.73. CKD is diagnosed based on abnormaliti es of kidney structure or function, present for >3 months, with implication s for health and disease. CKD is classified and staged based on cause, eGFR and albuminuria (quantified as urine albumin to creatinine ratio). An eGFR >60 mL/min/1.73 m2 in the absence of increased urine albumin excretion or structural abnormaliti es does not represent CKD. eGFR CKD Interpretat ion (mL/min/1.7 3 m2) stage >=90 G1 Normal 60-89 G2 Mild decrease 45-59 G3A Mild to moderate decrease 30-44 G3B Moderate to severe decrease 15-29 G4 Severe decrease <15 G5 Kidney failure Ordering Provider: MALU MCKENZIE Report Released Date/Time: Sep 29, 2024 09:36 AM Reporting Lab: [facility] [address] [phone] Performing Lab: [facility] [address] [address] PSYCHIATRIC LIPID PROFILE CHOLESTEROL [MASS/VOLUM E] IN SERUM OR PLASMA 161 mg/dL 0 - 199 09/29 Specimen Type: PLASMA Comment: Estimated Glomerular Filtration Rate (eGFR) calculated using the 2020 Chronic Kidney Disease-Epi demiology (CKD-EPI) Collaborati on creatinine equation; units of measure are mL/min/1.73 m2. Results are only valid for adults (>=18 years) whose serum creatinine is in a steady state. eGFR calculation s are not valid for patients with acute kidney injury and for patients on dialysis. Creatinine- based estimates of kidney function may also be inaccurate in patients with reduced creatinine generation due to decreased muscle mass (e.g., malnutritio n, severe hypoalbumin emia, sarcopenia, chronic neuromuscul ar disease, amputations , severe heart failure or liver disease) and in patients with increased creatinine generation due to increased muscle mass (e.g., muscle builders, anabolic steroids) or increased dietary intake. As drug clearance is proportiona l to total GFR and not GFR indexed to body surface area (BSA), in individuals with a BSA substantial ly different than 1.73 m2, drug dosing should be based on the reported eGFR value de-indexed from BSA by multiplying by the individual' s BSA and dividing by 1.73. CKD is diagnosed based on abnormaliti es of kidney structure or function, present for >3 months, with implication s for health and disease. CKD is classified and staged based on cause, eGFR and albuminuria (quantified as urine albumin to creatinine ratio). An eGFR >60 mL/min/1.73 m2 in the absence of increased urine albumin excretion or structural abnormaliti es does not represent CKD. eGFR CKD Interpretat ion (mL/min/1.7 3 m2) stage >=90 G1 Normal 60-89 G2 Mild decrease 45-59 G3A Mild to moderate decrease 30-44 G3B Moderate to severe decrease 15-29 G4 Severe decrease <15 G5 Kidney failure Ordering Provider: MALU MCKENZIE Report Released Date/Time: Sep 29, 2024 09:36 AM Reporting Lab: [facility] [address] [address] Performing Lab: [facility] [address] [phone] PSYCHIATRIC LIPID PROFILE TRIGLYCERID E [MASS/VOLUM E] IN SERUM OR PLASMA 72 mg/dL 0 - 149 09/29 Specimen Type: PLASMA Comment: Estimated Glomerular Filtration Rate (eGFR) calculated using the 2020 Chronic Kidney Disease-Epi demiology (CKD-EPI) Collaborati on creatinine equation; units of measure are mL/min/1.73 m2. Results are only valid for adults (>=18 years) whose serum creatinine is in a steady state. eGFR calculation s are not valid for patients with acute kidney injury and for patients on dialysis. Creatinine- based estimates of kidney function may also be inaccurate in patients with reduced creatinine generation due to decreased muscle mass (e.g., malnutritio n, severe hypoalbumin emia, sarcopenia, chronic neuromuscul ar disease, amputations , severe heart failure or liver disease) and in patients with increased creatinine generation due to increased muscle mass (e.g., muscle builders, anabolic steroids) or increased dietary intake. As drug clearance is proportiona l to total GFR and not GFR indexed to body surface area (BSA), in individuals with a BSA substantial ly different than 1.73 m2, drug dosing should be based on the reported eGFR value de-indexed from BSA by multiplying by the individual' s BSA and dividing by 1.73. CKD is diagnosed based on abnormaliti es of kidney structure or function, present for >3 months, with implication s for health and disease. CKD is classified and staged based on cause, eGFR and albuminuria (quantified as urine albumin to creatinine ratio). An eGFR >60 mL/min/1.73 m2 in the absence of increased urine albumin excretion or structural abnormaliti es does not represent CKD. eGFR CKD Interpretat ion (mL/min/1.7 3 m2) stage >=90 G1 Normal 60-89 G2 Mild decrease 45-59 G3A Mild to moderate decrease 30-44 G3B Moderate to severe decrease 15-29 G4 Severe decrease <15 G5 Kidney failure Ordering Provider: MALU MCKENZIE Report Released Date/Time: Sep 29, 2024 09:36 AM Reporting Lab: [facility] [address] [phone] Performing Lab: [facility] [address] [phone] PSYCHIATRIC LIPID PROFILE CHOLESTEROL IN HDL [MASS/VOLUM E] IN SERUM OR PLASMA 61 mg/dL 40 - 69 09/29 Specimen Type: PLASMA Comment: Estimated Glomerular Filtration Rate (eGFR) calculated using the 2020 Chronic Kidney Disease-Epi demiology (CKD-EPI) Collaborati on creatinine equation; units of measure are mL/min/1.73 m2. Results are only valid for adults (>=18 years) whose serum creatinine is in a steady state. eGFR calculation s are not valid for patients with acute kidney injury and for patients on dialysis. Creatinine- based estimates of kidney function may also be inaccurate in patients with reduced creatinine generation due to decreased muscle mass (e.g., malnutritio n, severe hypoalbumin emia, sarcopenia, chronic neuromuscul ar disease, amputations , severe heart failure or liver disease) and in patients with increased creatinine generation due to increased muscle mass (e.g., muscle builders, anabolic steroids) or increased dietary intake. As drug clearance is proportiona l to total GFR and not GFR indexed to body surface area (BSA), in individuals with a BSA substantial ly different than 1.73 m2, drug dosing should be based on the reported eGFR value de-indexed from BSA by multiplying by the individual' s BSA and dividing by 1.73. CKD is diagnosed based on abnormaliti es of kidney structure or function, present for >3 months, with implication s for health and disease. CKD is classified and staged based on cause, eGFR and albuminuria (quantified as urine albumin to creatinine ratio). An eGFR >60 mL/min/1.73 m2 in the absence of increased urine albumin excretion or structural abnormaliti es does not represent CKD. eGFR CKD Interpretat ion (mL/min/1.7 3 m2) stage >=90 G1 Normal 60-89 G2 Mild decrease 45-59 G3A Mild to moderate decrease 30-44 G3B Moderate to severe decrease 15-29 G4 Severe decrease <15 G5 Kidney failure Ordering Provider: MALU MCKENZIE Report Released Date/Time: Sep 29, 2024 09:36 AM Reporting Lab: [facility] [address] [address] Performing Lab: [facility] [address] [address] PSYCHIATRIC LIPID PROFILE CHOLESTEROL IN LDL [MASS/VOLUM E] IN SERUM OR PLASMA BY DIRECT ASSAY 94 mg/dL 0 - 100 09/29 Specimen Type: PLASMA Comment: Estimated Glomerular Filtration Rate (eGFR) calculated using the 2020 Chronic Kidney Disease-Epi demiology (CKD-EPI) Collaborati on creatinine equation; units of measure are mL/min/1.73 m2. Results are only valid for adults (>=18 years) whose serum creatinine is in a steady state. eGFR calculation s are not valid for patients with acute kidney injury and for patients on dialysis. Creatinine- based estimates of kidney function may also be inaccurate in patients with reduced creatinine generation due to decreased muscle mass (e.g., malnutritio n, severe hypoalbumin emia, sarcopenia, chronic neuromuscul ar disease, amputations , severe heart failure or liver disease) and in patients with increased creatinine generation due to increased muscle mass (e.g., muscle builders, anabolic steroids) or increased dietary intake. As drug clearance is proportiona l to total GFR and not GFR indexed to body surface area (BSA), in individuals with a BSA substantial ly different than 1.73 m2, drug dosing should be based on the reported eGFR value de-indexed from BSA by multiplying by the individual' s BSA and dividing by 1.73. CKD is diagnosed based on abnormaliti es of kidney structure or function, present for >3 months, with implication s for health and disease. CKD is classified and staged based on cause, eGFR and albuminuria (quantified as urine albumin to creatinine ratio). An eGFR >60 mL/min/1.73 m2 in the absence of increased urine albumin excretion or structural abnormaliti es does not represent CKD. eGFR CKD Interpretat ion (mL/min/1.7 3 m2) stage >=90 G1 Normal 60-89 G2 Mild decrease 45-59 G3A Mild to moderate decrease 30-44 G3B Moderate to severe decrease 15-29 G4 Severe decrease <15 G5 Kidney failure Ordering Provider: MALU MCKENZIE Report Released Date/Time: Sep 29, 2024 09:36 AM Reporting Lab: [facility] [address] [address] Performing Lab: [facility] [address] [address] PSYCHIATRIC PANEL 1 CREATININE [MASS/VOLUM E] IN SERUM OR PLASMA 1.18 mg/dL 0.72 - 1.25 09/29 Specimen Type: PLASMA Comment: Estimated Glomerular Filtration Rate (eGFR) calculated using the 2020 Chronic Kidney Disease-Epi demiology (CKD-EPI) Collaborati on creatinine equation; units of measure are mL/min/1.73 m2. Results are only valid for adults (>=18 years) whose serum creatinine is in a steady state. eGFR calculation s are not valid for patients with acute kidney injury and for patients on dialysis. Creatinine- based estimates of kidney function may also be inaccurate in patients with reduced creatinine generation due to decreased muscle mass (e.g., malnutritio n, severe hypoalbumin emia, sarcopenia, chronic neuromuscul ar disease, amputations , severe heart failure or liver disease) and in patients with increased creatinine generation due to increased muscle mass (e.g., muscle builders, anabolic steroids) or increased dietary intake. As drug clearance is proportiona l to total GFR and not GFR indexed to body surface area (BSA), in individuals with a BSA substantial ly different than 1.73 m2, drug dosing should be based on the reported eGFR value de-indexed from BSA by multiplying by the individual' s BSA and dividing by 1.73. CKD is diagnosed based on abnormaliti es of kidney structure or function, present for >3 months, with implication s for health and disease. CKD is classified and staged based on cause, eGFR and albuminuria (quantified as urine albumin to creatinine ratio). An eGFR >60 mL/min/1.73 m2 in the absence of increased urine albumin excretion or structural abnormaliti es does not represent CKD. eGFR CKD Interpretat ion (mL/min/1.7 3 m2) stage >=90 G1 Normal 60-89 G2 Mild decrease 45-59 G3A Mild to moderate decrease 30-44 G3B Moderate to severe decrease 15-29 G4 Severe decrease <15 G5 Kidney failure Ordering Provider: MALU MCKENZIE Report Released Date/Time: Sep 29, 2024 09:36 AM Reporting Lab: [facility]ON[facility] SOR[facility] [address] [address] Performing Lab: [facility]ONICA SOR[facility] [address] [address] PSYCHIATRIC PANEL 1 UREA NITROGEN [MASS/VOLUM E] IN SERUM OR PLASMA 16 mg/dL 09/29 Specimen Type: PLASMA Comment: Estimated Glomerular Filtration Rate (eGFR) calculated using the 2020 Chronic Kidney Disease-Epi demiology (CKD-EPI) Collaborati on creatinine equation; units of measure are mL/min/1.73 m2. Results are only valid for adults (>=18 years) whose serum creatinine is in a steady state. eGFR calculation s are not valid for patients with acute kidney injury and for patients on dialysis. Creatinine- based estimates of kidney function may also be inaccurate in patients with reduced creatinine generation due to decreased muscle mass (e.g., malnutritio n, severe hypoalbumin emia, sarcopenia, chronic neuromuscul ar disease, amputations , severe heart failure or liver disease) and in patients with increased creatinine generation due to increased muscle mass (e.g., muscle builders, anabolic steroids) or increased dietary intake. As drug clearance is proportiona l to total GFR and not GFR indexed to body surface area (BSA), in individuals with a BSA substantial ly different than 1.73 m2, drug dosing should be based on the reported eGFR value de-indexed from BSA by multiplying by the individual' s BSA and dividing by 1.73. CKD is diagnosed based on abnormaliti es of kidney structure or function, present for >3 months, with implication s for health and disease. CKD is classified and staged based on cause, eGFR and albuminuria (quantified as urine albumin to creatinine ratio). An eGFR >60 mL/min/1.73 m2 in the absence of increased urine albumin excretion or structural abnormaliti es does not represent CKD. eGFR CKD Interpretat ion (mL/min/1.7 3 m2) stage >=90 G1 Normal 60-89 G2 Mild decrease 45-59 G3A Mild to moderate decrease 30-44 G3B Moderate to severe decrease 15-29 G4 Severe decrease <15 G5 Kidney failure Ordering Provider: MALU MCKENZIE Report Released Date/Time: Sep 29, 2024 09:36 AM Reporting Lab: [facility]ON[facility] [address] [address] Performing Lab: [facility]ONICA SOR[facility] [address] [address] PSYCHIATRIC PANEL 1 GLUCOSE [MASS/VOLUM E] IN SERUM OR PLASMA 115 mg/dL 74 - 100 09/29 H Specimen Type: PLASMA Comment: Estimated Glomerular Filtration Rate (eGFR) calculated using the 2020 Chronic Kidney Disease-Epi demiology (CKD-EPI) Collaborati on creatinine equation; units of measure are mL/min/1.73 m2. Results are only valid for adults (>=18 years) whose serum creatinine is in a steady state. eGFR calculation s are not valid for patients with acute kidney injury and for patients on dialysis. Creatinine- based estimates of kidney function may also be inaccurate in patients with reduced creatinine generation due to decreased muscle mass (e.g., malnutritio n, severe hypoalbumin emia, sarcopenia, chronic neuromuscul ar disease, amputations , severe heart failure or liver disease) and in patients with increased creatinine generation due to increased muscle mass (e.g., muscle builders, anabolic steroids) or increased dietary intake. As drug clearance is proportiona l to total GFR and not GFR indexed to body surface area (BSA), in individuals with a BSA substantial ly different than 1.73 m2, drug dosing should be based on the reported eGFR value de-indexed from BSA by multiplying by the individual' s BSA and dividing by 1.73. CKD is diagnosed based on abnormaliti es of kidney structure or function, present for >3 months, with implication s for health and disease. CKD is classified and staged based on cause, eGFR and albuminuria (quantified as urine albumin to creatinine ratio). An eGFR >60 mL/min/1.73 m2 in the absence of increased urine albumin excretion or structural abnormaliti es does not represent CKD. eGFR CKD Interpretat ion (mL/min/1.7 3 m2) stage >=90 G1 Normal 60-89 G2 Mild decrease 45-59 G3A Mild to moderate decrease 30-44 G3B Moderate to severe decrease 15-29 G4 Severe decrease <15 G5 Kidney failure Ordering Provider: MALU MCKENZIE Report Released Date/Time: Sep 29, 2024 09:36 AM Reporting Lab: [facility] [address] [address] Performing Lab: VERONICA SOR[facility] [address] [address] PSYCHIATRIC PANEL 1 SODIUM [MOLES/VOLU ME] IN SERUM OR PLASMA 141 mmol/L 136 - 145 09/29 Specimen Type: PLASMA Comment: Estimated Glomerular Filtration Rate (eGFR) calculated using the 2020 Chronic Kidney Disease-Epi demiology (CKD-EPI) Collaborati on creatinine equation; units of measure are mL/min/1.73 m2. Results are only valid for adults (>=18 years) whose serum creatinine is in a steady state. eGFR calculation s are not valid for patients with acute kidney injury and for patients on dialysis. Creatinine- based estimates of kidney function may also be inaccurate in patients with reduced creatinine generation due to decreased muscle mass (e.g., malnutritio n, severe hypoalbumin emia, sarcopenia, chronic neuromuscul ar disease, amputations , severe heart failure or liver disease) and in patients with increased creatinine generation due to increased muscle mass (e.g., muscle builders, anabolic steroids) or increased dietary intake. As drug clearance is proportiona l to total GFR and not GFR indexed to body surface area (BSA), in individuals with a BSA substantial ly different than 1.73 m2, drug dosing should be based on the reported eGFR value de-indexed from BSA by multiplying by the individual' s BSA and dividing by 1.73. CKD is diagnosed based on abnormaliti es of kidney structure or function, present for >3 months, with implication s for health and disease. CKD is classified and staged based on cause, eGFR and albuminuria (quantified as urine albumin to creatinine ratio). An eGFR >60 mL/min/1.73 m2 in the absence of increased urine albumin excretion or structural abnormaliti es does not represent CKD. eGFR CKD Interpretat ion (mL/min/1.7 3 m2) stage >=90 G1 Normal 60-89 G2 Mild decrease 45-59 G3A Mild to moderate decrease 30-44 G3B Moderate to severe decrease 15-29 G4 Severe decrease <15 G5 Kidney failure Ordering Provider: MALU MCKENZIE Report Released Date/Time: Sep 29, 2024 09:36 AM Reporting Lab: [facility]ONICA SORIANO [place] [id number] [facility] [phone] Performing Lab: VERONICA SORIANO [place] [id number] [facility] [address] PSYCHIATRIC PANEL 1 POTASSIUM [MOLES/VOLU ME] IN SERUM OR PLASMA 4.5 mmol/L 3.5 - 5.1 09/29 Specimen Type: PLASMA Comment: Estimated Glomerular Filtration Rate (eGFR) calculated using the 2020 Chronic Kidney Disease-Epi demiology (CKD-EPI) Collaborati on creatinine equation; units of measure are mL/min/1.73 m2. Results are only valid for adults (>=18 years) whose serum creatinine is in a steady state. eGFR calculation s are not valid for patients with acute kidney injury and for patients on dialysis. Creatinine- based estimates of kidney function may also be inaccurate in patients with reduced creatinine generation due to decreased muscle mass (e.g., malnutritio n, severe hypoalbumin emia, sarcopenia, chronic neuromuscul ar disease, amputations , severe heart failure or liver disease) and in patients with increased creatinine generation due to increased muscle mass (e.g., muscle builders, anabolic steroids) or increased dietary intake. As drug clearance is proportiona l to total GFR and not GFR indexed to body surface area (BSA), in individuals with a BSA substantial ly different than 1.73 m2, drug dosing should be based on the reported eGFR value de-indexed from BSA by multiplying by the individual' s BSA and dividing by 1.73. CKD is diagnosed based on abnormaliti es of kidney structure or function, present for >3 months, with implication s for health and disease. CKD is classified and staged based on cause, eGFR and albuminuria (quantified as urine albumin to creatinine ratio). An eGFR >60 mL/min/1.73 m2 in the absence of increased urine albumin excretion or structural abnormaliti es does not represent CKD. eGFR CKD Interpretat ion (mL/min/1.7 3 m2) stage >=90 G1 Normal 60-89 G2 Mild decrease 45-59 G3A Mild to moderate decrease 30-44 G3B Moderate to severe decrease 15-29 G4 Severe decrease <15 G5 Kidney failure Ordering Provider: MALU MCKENZIE Report Released Date/Time: Sep 29, 2024 09:36 AM Reporting Lab: VERONICA SORIANO [address] [address] Performing Lab: VERONICA SORIANO [address] [address] PSYCHIATRIC PANEL 1 CHLORIDE [MOLES/VOLU ME] IN SERUM OR PLASMA 104 mmol/L 98 - 107 09/29 Specimen Type: PLASMA Comment: Estimated Glomerular Filtration Rate (eGFR) calculated using the 2020 Chronic Kidney Disease-Epi demiology (CKD-EPI) Collaborati on creatinine equation; units of measure are mL/min/1.73 m2. Results are only valid for adults (>=18 years) whose serum creatinine is in a steady state. eGFR calculation s are not valid for patients with acute kidney injury and for patients on dialysis. Creatinine- based estimates of kidney function may also be inaccurate in patients with reduced creatinine generation due to decreased muscle mass (e.g., malnutritio n, severe hypoalbumin emia, sarcopenia, chronic neuromuscul ar disease, amputations , severe heart failure or liver disease) and in patients with increased creatinine generation due to increased muscle mass (e.g., muscle builders, anabolic steroids) or increased dietary intake. As drug clearance is proportiona l to total GFR and not GFR indexed to body surface area (BSA), in individuals with a BSA substantial ly different than 1.73 m2, drug dosing should be based on the reported eGFR value de-indexed from BSA by multiplying by the individual' s BSA and dividing by 1.73. CKD is diagnosed based on abnormaliti es of kidney structure or function, present for >3 months, with implication s for health and disease. CKD is classified and staged based on cause, eGFR and albuminuria (quantified as urine albumin to creatinine ratio). An eGFR >60 mL/min/1.73 m2 in the absence of increased urine albumin excretion or structural abnormaliti es does not represent CKD. eGFR CKD Interpretat ion (mL/min/1.7 3 m2) stage >=90 G1 Normal 60-89 G2 Mild decrease 45-59 G3A Mild to moderate decrease 30-44 G3B Moderate to severe decrease 15-29 G4 Severe decrease <15 G5 Kidney failure Ordering Provider: MALU MCKENZIE Report Released Date/Time: Sep 29, 2024 09:36 AM Reporting Lab: VERONICA SOR[facility] [address] [address] Performing Lab: VERONICA SORIANO [address] [address] PSYCHIATRIC PANEL 1 CARBON DIOXIDE, TOTAL [MOLES/VOLU ME] IN SERUM OR PLASMA 30 mmol/L 22 - 09/29 H Specimen Type: PLASMA Comment: Estimated Glomerular Filtration Rate (eGFR) calculated using the 2020 Chronic Kidney Disease-Epi demiology (CKD-EPI) Collaborati on creatinine equation; units of measure are mL/min/1.73 m2. Results are only valid for adults (>=18 years) whose serum creatinine is in a steady state. eGFR calculation s are not valid for patients with acute kidney injury and for patients on dialysis. Creatinine- based estimates of kidney function may also be inaccurate in patients with reduced creatinine generation due to decreased muscle mass (e.g., malnutritio n, severe hypoalbumin emia, sarcopenia, chronic neuromuscul ar disease, amputations , severe heart failure or liver disease) and in patients with increased creatinine generation due to increased muscle mass (e.g., muscle builders, anabolic steroids) or increased dietary intake. As drug clearance is proportiona l to total GFR and not GFR indexed to body surface area (BSA), in individuals with a BSA substantial ly different than 1.73 m2, drug dosing should be based on the reported eGFR value de-indexed from BSA by multiplying by the individual' s BSA and dividing by 1.73. CKD is diagnosed based on abnormaliti es of kidney structure or function, present for >3 months, with implication s for health and disease. CKD is classified and staged based on cause, eGFR and albuminuria (quantified as urine albumin to creatinine ratio). An eGFR >60 mL/min/1.73 m2 in the absence of increased urine albumin excretion or structural abnormaliti es does not represent CKD. eGFR CKD Interpretat ion (mL/min/1.7 3 m2) stage >=90 G1 Normal 60-89 G2 Mild decrease 45-59 G3A Mild to moderate decrease 30-44 G3B Moderate to severe decrease 15-29 G4 Severe decrease <15 G5 Kidney failure Ordering Provider: MALU MCKENZIE Report Released Date/Time: Sep 29, 2024 09:36 AM Reporting Lab: [facility] [address] [address] Performing Lab: [facility] [address] [address] PSYCHIATRIC PANEL 1 CALCIUM [MASS/VOLUM E] IN SERUM OR PLASMA 9.7 mg/dL 8.4 - 10.2 09/29 Specimen Type: PLASMA Comment: Estimated Glomerular Filtration Rate (eGFR) calculated using the 2020 Chronic Kidney Disease-Epi demiology (CKD-EPI) Collaborati on creatinine equation; units of measure are mL/min/1.73 m2. Results are only valid for adults (>=18 years) whose serum creatinine is in a steady state. eGFR calculation s are not valid for patients with acute kidney injury and for patients on dialysis. Creatinine- based estimates of kidney function may also be inaccurate in patients with reduced creatinine generation due to decreased muscle mass (e.g., malnutritio n, severe hypoalbumin emia, sarcopenia, chronic neuromuscul ar disease, amputations , severe heart failure or liver disease) and in patients with increased creatinine generation due to increased muscle mass (e.g., muscle builders, anabolic steroids) or increased dietary intake. As drug clearance is proportiona l to total GFR and not GFR indexed to body surface area (BSA), in individuals with a BSA substantial ly different than 1.73 m2, drug dosing should be based on the reported eGFR value de-indexed from BSA by multiplying by the individual' s BSA and dividing by 1.73. CKD is diagnosed based on abnormaliti es of kidney structure or function, present for >3 months, with implication s for health and disease. CKD is classified and staged based on cause, eGFR and albuminuria (quantified as urine albumin to creatinine ratio). An eGFR >60 mL/min/1.73 m2 in the absence of increased urine albumin excretion or structural abnormaliti es does not represent CKD. eGFR CKD Interpretat ion (mL/min/1.7 3 m2) stage >=90 G1 Normal 60-89 G2 Mild decrease 45-59 G3A Mild to moderate decrease 30-44 G3B Moderate to severe decrease 15-29 G4 Severe decrease <15 G5 Kidney failure Ordering Provider: MALU MCKENZIE Report Released Date/Time: Sep 29, 2024 09:36 AM Reporting Lab: VERONICA SOR[facility] [address] [address] Performing Lab: VERONICA SORIANO [address] [address] PSYCHIATRIC PANEL 1 ANION GAP 3 IN SERUM OR PLASMA 7 meq/L 3 - 19 09/29 Specimen Type: PLASMA Comment: Estimated Glomerular Filtration Rate (eGFR) calculated using the 2020 Chronic Kidney Disease-Epi demiology (CKD-EPI) Collaborati on creatinine equation; units of measure are mL/min/1.73 m2. Results are only valid for adults (>=18 years) whose serum creatinine is in a steady state. eGFR calculation s are not valid for patients with acute kidney injury and for patients on dialysis. Creatinine- based estimates of kidney function may also be inaccurate in patients with reduced creatinine generation due to decreased muscle mass (e.g., malnutritio n, severe hypoalbumin emia, sarcopenia, chronic neuromuscul ar disease, amputations , severe heart failure or liver disease) and in patients with increased creatinine generation due to increased muscle mass (e.g., muscle builders, anabolic steroids) or increased dietary intake. As drug clearance is proportiona l to total GFR and not GFR indexed to body surface area (BSA), in individuals with a BSA substantial ly different than 1.73 m2, drug dosing should be based on the reported eGFR value de-indexed from BSA by multiplying by the individual' s BSA and dividing by 1.73. CKD is diagnosed based on abnormaliti es of kidney structure or function, present for >3 months, with implication s for health and disease. CKD is classified and staged based on cause, eGFR and albuminuria (quantified as urine albumin to creatinine ratio). An eGFR >60 mL/min/1.73 m2 in the absence of increased urine albumin excretion or structural abnormaliti es does not represent CKD. eGFR CKD Interpretat ion (mL/min/1.7 3 m2) stage >=90 G1 Normal 60-89 G2 Mild decrease 45-59 G3A Mild to moderate decrease 30-44 G3B Moderate to severe decrease 15-29 G4 Severe decrease <15 G5 Kidney failure Ordering Provider: MALU MCKENZIE Report Released Date/Time: Sep 29, 2024 09:36 AM Reporting Lab: [facility]ONICA SOR[facility] [address] [address] Performing Lab: VERONICA SORIANO [address] [address] [facility] 1 GLOMERULAR FILTRATION RATE/1.73 SQ M.PREDICTED [VOLUME RATE/AREA] IN SERUM, PLASMA OR BLOOD BY CREATININE- BASED FORMULA (CKD-EPI 2020) 64 09/29 Specimen Type: PLASMA Comment: Estimated Glomerular Filtration Rate (eGFR) calculated using the 2020 Chronic Kidney Disease-Epi demiology (CKD-EPI) Collaborati on creatinine equation; units of measure are mL/min/1.73 m2. Results are only valid for adults (>=18 years) whose serum creatinine is in a steady state. eGFR calculation s are not valid for patients with acute kidney injury and for patients on dialysis. Creatinine- based estimates of kidney function may also be inaccurate in patients with reduced creatinine generation due to decreased muscle mass (e.g., malnutritio n, severe hypoalbumin emia, sarcopenia, chronic neuromuscul ar disease, amputations , severe heart failure or liver disease) and in patients with increased creatinine generation due to increased muscle mass (e.g., muscle builders, anabolic steroids) or increased dietary intake. As drug clearance is proportiona l to total GFR and not GFR indexed to body surface area (BSA), in individuals with a BSA substantial ly different than 1.73 m2, drug dosing should be based on the reported eGFR value de-indexed from BSA by multiplying by the individual' s BSA and dividing by 1.73. CKD is diagnosed based on abnormaliti es of kidney structure or function, present for >3 months, with implication s for health and disease. CKD is classified and staged based on cause, eGFR and albuminuria (quantified as urine albumin to creatinine ratio). An eGFR >60 mL/min/1.73 m2 in the absence of increased urine albumin excretion or structural abnormaliti es does not represent CKD. eGFR CKD Interpretat ion (mL/min/1.7 3 m2) stage >=90 G1 Normal 60-89 G2 Mild decrease 45-59 G3A Mild to moderate decrease 30-44 G3B Moderate to severe decrease 15-29 G4 Severe decrease <15 G5 Kidney failure Ordering Provider: MALU MCKENZIE Report Released Date/Time: Sep 29, 2024 09:36 AM Reporting Lab: [place] [phone] Performing Lab: [address] CBC/PLT LEUKOCYTES [#/VOLUME] IN BLOOD BY AUTOMATED COUNT 7.6 10*3/u L 5.0 - 10.0 09/29 Specimen Type: BLOOD No comment entered. Ordering Provider: MALU MCKENZIE Report Released Date/Time: Sep 29, 2024 09:36 AM Reporting Lab: [place] [phone] Performing Lab: [place] [id number] PSYCHIATRIC CBC/PLT ERYTHROCYTE S [#/VOLUME] IN BLOOD BY AUTOMATED COUNT 4.69 10*6/u L 4.6 - 6.2 09/29 Specimen Type: BLOOD No comment entered. Ordering Provider: MALU MCKENZIE Report Released Date/Time: Sep 29, 2024 09:36 AM Reporting Lab: [place] [phone] Performing Lab: [place] [phone] [place] [address] CBC/PLT HEMOGLOBIN [MASS/VOLUM E] IN BLOOD 15.0 g/dL 14.0 - 18.0 09/29 Specimen Type: BLOOD No comment entered. Ordering Provider: MALU MCKENZIE Report Released Date/Time: Sep 29, 2024 09:36 AM Reporting Lab: [place] [phone] Performing Lab: [place] [phone] PSYCHIATRIC CBC/PLT HEMATOCRIT [VOLUME FRACTION] OF BLOOD BY AUTOMATED COUNT 45.9 42.0 - 52.0 09/29 Specimen Type: BLOOD No comment entered. Ordering Provider: MALU MCKENZIE Report Released Date/Time: Sep 29, 2024 09:36 AM Reporting Lab: [place] [phone] Performing Lab: [place] [phone] PSYCHIATRIC CBC/PLT MCV [ENTITIC VOLUME] BY AUTOMATED COUNT 97.9 fL 80.0 - 94.0 09/29 H Specimen Type: BLOOD No comment entered. Ordering Provider: MALU MCKENZIE Report Released Date/Time: Sep 29, 2024 09:36 AM Reporting Lab: [place] [phone] Performing Lab: [place] [phone] PSYCHIATRIC CBC/PLT MCH [ENTITIC MASS] BY AUTOMATED COUNT 32.0 pg 27.0 - 31.0 09/29 H Specimen Type: BLOOD No comment entered. Ordering Provider: MALU MCKENZIE Report Released Date/Time: Sep 29, 2024 09:36 AM Reporting Lab: [address] [phone] Performing Lab: [address] [address] PSYCHIATRIC CBC/PLT MCHC [MASS/VOLUM E] BY AUTOMATED COUNT 32.7 g/dL 32.0 - 36.0 09/29 Specimen Type: BLOOD No comment entered. Ordering Provider: MALU MCKENZIE Report Released Date/Time: Sep 29, 2024 09:36 AM Reporting Lab: [place] [address] Performing Lab: [place] [phone] CBC/PLT PLATELETS [#/VOLUME] IN BLOOD 216 10*3/u L 150 - 450 09/29 Specimen Type: BLOOD No comment entered. Ordering Provider: MALU MCKENZIE Report Released Date/Time: Sep 29, 2024 09:36 AM Reporting Lab: [place] [address] Performing Lab: [address] CBC/PLT PLATELET MEAN VOLUME [ENTITIC VOLUME] IN BLOOD 10.5 fL 9.0 - 13.1 09/29 Specimen Type: BLOOD No comment entered. Ordering Provider: MALU MCKENZIE Report Released Date/Time: Sep 29, 2024 09:36 AM Reporting Lab: [place] [phone] Performing Lab: [address] CBC/PLT ERYTHROCYTE DISTRIBUTIO N WIDTH [ENTITIC VOLUME] BY AUTOMATED COUNT 13.0 11.0 - 16.0 09/29 Specimen Type: BLOOD No comment entered. Ordering Provider: MALU MCKENZIE Report Released Date/Time: Sep 29, 2024 09:36 AM Reporting Lab: [place] [address] Performing Lab: [address] CBC/PLT NUCLEATED ERYTHROCYTE S/100 ERYTHROCYTE S IN BLOOD 0.0 0.0 - 0.0 09/29 Specimen Type: BLOOD No comment entered. Ordering Provider: MALU MCKENZIE Report Released Date/Time: Sep 29, 2024 09:36 AM Reporting Lab: [address] [address] Performing Lab: [address] [address] PSYCHIATRIC OCCULT BLOOD FIT X1 SCREEN HEMOGLOBIN. GASTROINTES TINAL.LOWER [PRESENCE] IN STOOL BY IMMUNOASSAY [facility] 10/16 Specimen Type: FECES Comment: Test cancelled. Collection date could not be determined. Sample integrity cannot be ensured. Please recollect specimen and resubmit for testing. Ordering Provider: MALU MCKENZIE Report Released Date/Time: Oct 03, 2023 08:31 AM Reporting Lab: [address] [phone] Performing Lab: [address] [address] PSYCHIATRIC ALT ALANINE AMINOTRANSF ERASE [ENZYMATIC ACTIVITY/VO LUME] IN SERUM OR PLASMA 11 U/L 0 - 55 10/03 Specimen Type: PLASMA Comment: Estimated Glomerular Filtration Rate (eGFR) calculated using the 2020 Chronic Kidney Disease-Epi demiology (CKD-EPI) Collaborati on creatinine equation; units of measure are mL/min/1.73 m2. Results are only valid for adults (>=18 years) whose serum creatinine is in a steady state. eGFR calculation s are not valid for patients with acute kidney injury and for patients on dialysis. Creatinine- based estimates of kidney function may also be inaccurate in patients with reduced creatinine generation due to decreased muscle mass (e.g., malnutritio n, severe hypoalbumin emia, sarcopenia, chronic neuromuscul ar disease, amputations , severe heart failure or liver disease) and in patients with increased creatinine generation due to increased muscle mass (e.g., muscle builders, anabolic steroids) or increased dietary intake. As drug clearance is proportiona l to total GFR and not GFR indexed to body surface area (BSA), in individuals with a BSA substantial ly different than 1.73 m2, drug dosing should be based on the reported eGFR value de-indexed from BSA by multiplying by the individual' s BSA and dividing by 1.73. CKD is diagnosed based on abnormaliti es of kidney structure or function, present for >3 months, with implication s for health and disease. CKD is classified and staged based on cause, eGFR and albuminuria (quantified as urine albumin to creatinine ratio). An eGFR >60 mL/min/1.73 m2 in the absence of increased urine albumin excretion or structural abnormaliti es does not represent CKD. eGFR CKD Interpretat ion (mL/min/1.7 3 m2) stage >=90 G1 Normal 60-89 G2 Mild decrease 45-59 G3A Mild to moderate decrease 30-44 G3B Moderate to severe decrease 15-29 G4 Severe decrease <15 G5 Kidney failure Ordering Provider: MALU MCKENZIE Report Released Date/Time: Oct 03, 2023 08:31 AM Reporting Lab: [facility] S[facility] [address] [address] Performing Lab: [facility] [address] [address] PSYCHIATRIC LIPID PROFILE CHOLESTEROL [MASS/VOLUM E] IN SERUM OR PLASMA 158 mg/dL 0 - 199 10/03 Specimen Type: PLASMA Comment: Estimated Glomerular Filtration Rate (eGFR) calculated using the 2020 Chronic Kidney Disease-Epi demiology (CKD-EPI) Collaborati on creatinine equation; units of measure are mL/min/1.73 m2. Results are only valid for adults (>=18 years) whose serum creatinine is in a steady state. eGFR calculation s are not valid for patients with acute kidney injury and for patients on dialysis. Creatinine- based estimates of kidney function may also be inaccurate in patients with reduced creatinine generation due to decreased muscle mass (e.g., malnutritio n, severe hypoalbumin emia, sarcopenia, chronic neuromuscul ar disease, amputations , severe heart failure or liver disease) and in patients with increased creatinine generation due to increased muscle mass (e.g., muscle builders, anabolic steroids) or increased dietary intake. As drug clearance is proportiona l to total GFR and not GFR indexed to body surface area (BSA), in individuals with a BSA substantial ly different than 1.73 m2, drug dosing should be based on the reported eGFR value de-indexed from BSA by multiplying by the individual' s BSA and dividing by 1.73. CKD is diagnosed based on abnormaliti es of kidney structure or function, present for >3 months, with implication s for health and disease. CKD is classified and staged based on cause, eGFR and albuminuria (quantified as urine albumin to creatinine ratio). An eGFR >60 mL/min/1.73 m2 in the absence of increased urine albumin excretion or structural abnormaliti es does not represent CKD. eGFR CKD Interpretat ion (mL/min/1.7 3 m2) stage >=90 G1 Normal 60-89 G2 Mild decrease 45-59 G3A Mild to moderate decrease 30-44 G3B Moderate to severe decrease 15-29 G4 Severe decrease <15 G5 Kidney failure Ordering Provider: MALU MCKENZIE Report Released Date/Time: Oct 03, 2023 08:31 AM Reporting Lab: [facility] [address] [address] Performing Lab: [facility] [address] [address] PSYCHIATRIC LIPID PROFILE TRIGLYCERID E [MASS/VOLUM E] IN SERUM OR PLASMA 71 mg/dL 0 - 149 10/03 Specimen Type: PLASMA Comment: Estimated Glomerular Filtration Rate (eGFR) calculated using the 2020 Chronic Kidney Disease-Epi demiology (CKD-EPI) Collaborati on creatinine equation; units of measure are mL/min/1.73 m2. Results are only valid for adults (>=18 years) whose serum creatinine is in a steady state. eGFR calculation s are not valid for patients with acute kidney injury and for patients on dialysis. Creatinine- based estimates of kidney function may also be inaccurate in patients with reduced creatinine generation due to decreased muscle mass (e.g., malnutritio n, severe hypoalbumin emia, sarcopenia, chronic neuromuscul ar disease, amputations , severe heart failure or liver disease) and in patients with increased creatinine generation due to increased muscle mass (e.g., muscle builders, anabolic steroids) or increased dietary intake. As drug clearance is proportiona l to total GFR and not GFR indexed to body surface area (BSA), in individuals with a BSA substantial ly different than 1.73 m2, drug dosing should be based on the reported eGFR value de-indexed from BSA by multiplying by the individual' s BSA and dividing by 1.73. CKD is diagnosed based on abnormaliti es of kidney structure or function, present for >3 months, with implication s for health and disease. CKD is classified and staged based on cause, eGFR and albuminuria (quantified as urine albumin to creatinine ratio). An eGFR >60 mL/min/1.73 m2 in the absence of increased urine albumin excretion or structural abnormaliti es does not represent CKD. eGFR CKD Interpretat ion (mL/min/1.7 3 m2) stage >=90 G1 Normal 60-89 G2 Mild decrease 45-59 G3A Mild to moderate decrease 30-44 G3B Moderate to severe decrease 15-29 G4 Severe decrease <15 G5 Kidney failure Ordering Provider: MALU MCKENZIE Report Released Date/Time: Oct 03, 2023 08:31 AM Reporting Lab: [facility] [address] [address] Performing Lab: [facility] S[facility] [address] [address] PSYCHIATRIC LIPID PROFILE CHOLESTEROL IN HDL [MASS/VOLUM E] IN SERUM OR PLASMA 58 mg/dL 40 - 69 10/03 Specimen Type: PLASMA Comment: Estimated Glomerular Filtration Rate (eGFR) calculated using the 2020 Chronic Kidney Disease-Epi demiology (CKD-EPI) Collaborati on creatinine equation; units of measure are mL/min/1.73 m2. Results are only valid for adults (>=18 years) whose serum creatinine is in a steady state. eGFR calculation s are not valid for patients with acute kidney injury and for patients on dialysis. Creatinine- based estimates of kidney function may also be inaccurate in patients with reduced creatinine generation due to decreased muscle mass (e.g., malnutritio n, severe hypoalbumin emia, sarcopenia, chronic neuromuscul ar disease, amputations , severe heart failure or liver disease) and in patients with increased creatinine generation due to increased muscle mass (e.g., muscle builders, anabolic steroids) or increased dietary intake. As drug clearance is proportiona l to total GFR and not GFR indexed to body surface area (BSA), in individuals with a BSA substantial ly different than 1.73 m2, drug dosing should be based on the reported eGFR value de-indexed from BSA by multiplying by the individual' s BSA and dividing by 1.73. CKD is diagnosed based on abnormaliti es of kidney structure or function, present for >3 months, with implication s for health and disease. CKD is classified and staged based on cause, eGFR and albuminuria (quantified as urine albumin to creatinine ratio). An eGFR >60 mL/min/1.73 m2 in the absence of increased urine albumin excretion or structural abnormaliti es does not represent CKD. eGFR CKD Interpretat ion (mL/min/1.7 3 m2) stage >=90 G1 Normal 60-89 G2 Mild decrease 45-59 G3A Mild to moderate decrease 30-44 G3B Moderate to severe decrease 15-29 G4 Severe decrease <15 G5 Kidney failure Ordering Provider: MALU MCKENZIE Report Released Date/Time: Oct 03, 2023 08:31 AM Reporting Lab: [facility] [address] [address] Performing Lab: [facility]ON[facility] SOR[facility] [address] [address] PSYCHIATRIC LIPID PROFILE CHOLESTEROL IN LDL [MASS/VOLUM E] IN SERUM OR PLASMA BY DIRECT ASSAY 83 mg/dL 0 - 100 10/03 Specimen Type: PLASMA Comment: Estimated Glomerular Filtration Rate (eGFR) calculated using the 2020 Chronic Kidney Disease-Epi demiology (CKD-EPI) Collaborati on creatinine equation; units of measure are mL/min/1.73 m2. Results are only valid for adults (>=18 years) whose serum creatinine is in a steady state. eGFR calculation s are not valid for patients with acute kidney injury and for patients on dialysis. Creatinine- based estimates of kidney function may also be inaccurate in patients with reduced creatinine generation due to decreased muscle mass (e.g., malnutritio n, severe hypoalbumin emia, sarcopenia, chronic neuromuscul ar disease, amputations , severe heart failure or liver disease) and in patients with increased creatinine generation due to increased muscle mass (e.g., muscle builders, anabolic steroids) or increased dietary intake. As drug clearance is proportiona l to total GFR and not GFR indexed to body surface area (BSA), in individuals with a BSA substantial ly different than 1.73 m2, drug dosing should be based on the reported eGFR value de-indexed from BSA by multiplying by the individual' s BSA and dividing by 1.73. CKD is diagnosed based on abnormaliti es of kidney structure or function, present for >3 months, with implication s for health and disease. CKD is classified and staged based on cause, eGFR and albuminuria (quantified as urine albumin to creatinine ratio). An eGFR >60 mL/min/1.73 m2 in the absence of increased urine albumin excretion or structural abnormaliti es does not represent CKD. eGFR CKD Interpretat ion (mL/min/1.7 3 m2) stage >=90 G1 Normal 60-89 G2 Mild decrease 45-59 G3A Mild to moderate decrease 30-44 G3B Moderate to severe decrease 15-29 G4 Severe decrease <15 G5 Kidney failure Ordering Provider: MALU MCKENZIE Report Released Date/Time: Oct 03, 2023 08:31 AM Reporting Lab: [facility] S[facility] [address] [address] Performing Lab: [facility]ON[facility] SOR[facility] [address] [address] PSYCHIATRIC Vital Signs Combined list of inpatient and outpatient Vital Signs from Department of Defense and [facility] Affairs, ranging from 12 months to all on record, depending upon the facility. Vital Sign Value Date Comments Source SYSTOLIC BLOOD PRESSURE 144 09/29/2024 09:16:15 [facility] DIASTOLIC BLOOD PRESSURE 72 09/29/2024 09:16:15 [facility] PULSE OXIMETRY 93 09/29/2024 09:16:15 [facility] WEIGHT 200.6 09/29/2024 09:16:15 [facility] BMI 28 kg/m2 09/29/2024 09:16:15 [facility] PAIN 0 09/29/2024 09:16:15 [facility] HEIGHT 71 09/29/2024 09:16:15 [facility] TEMPERATURE 97.4 09/29/2024 09:16:15 AMRIK LOTT [facility] PULSE 82 09/29/2024 09:16:15 [facility] Encounters Combined list of: 1) Encounters from Department of [facility] facilities going backup to the last 18 months, not all [place] inpatient encounters are included; 2) Encounters from the Department of [facility] facilities going backup to 280 months. Location Location Details Encounter Type Encounter Number Reason For Visit Attending Provider ADM Date DC Date Status Disposition Source PSYCHIATRIC Outpatient Encounter [id number] 07/18 [place] [facility] Outpatient Encounter [id number] 08/30 [place] Outpatient Encounter [id number] 09/13 [place] OFFICE O/P EST MOD 30 MIN [id number] Diagnos is: ICD-10- CM I10 Bobbyenti al (primar y) hyperte nsJUDY Rosales R 10/03 [place] [facility] HEARING AID REPAIR/MOD IFYING [id number] Diagnos is: ICD-10- CM H90.3 Sensori neural hearing loss, CHRISTOPH Gamboa S 10/03 [place] Outpatient Encounter [id number] 10/31 [place] Outpatient Encounter [id number] 11/05 [place] Outpatient Encounter [id number] 12/08 [place] Outpatient Encounter [id number] 02/12 [place] [facility] Outpatient Encounter [id number] 05/05 [place] [facility] INTRM OPH EXAM EST PATIENT [id number] Diagnos is: ICD-10- CM 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, right eye NILTONTIFFANI A R 06/10 [place] Outpatient Encounter [id number] 06/23 [place] [facility] Outpatient Encounter [id number] 09/04 [place] Outpatient Encounter [id number] 09/29 [place] [facility] OFFICE O/P EST MOD 30 MIN [id number] Diagnos is: ICD-10- CM I10 Essenti al (primar y) hyperte nsion JUDY MCKENZIE K R 09/29 [place] [facility] Outpatient Encounter [id number] 10/27 [place] Outpatient Encounter [id number] 11/06 [place] [facility] Outpatient Encounter [id number] 12/03 [place] Outpatient Encounter [id number] 12/21 [place] Outpatient Encounter [id number] 12/21 [place] [facility] Social History Combined list of available smoking, tobacco, and other social history from Department of Defense and Veterans Affairs facilities. Social History Type Response Date Comment Source Tobacco smoking status WIIS [place]-TOBACCO USE FORMER CIGARETTES 09/29/2024 [facility] History of tobacco use FL-TOBACCO USE SOME DAYS OTHER TYPE 09/29/2024 [facility] History of tobacco use FL-TOBACCO USER SOME DAYS 10/03/2023 [facility] History of tobacco use FL-TOBACCO USER SOME DAYS 10/03/2022 [facility] History of tobacco use FL-TOBACCO USER SOME DAYS 06/28/2021 [facility] History of tobacco use FL-TOBACCO FORMER USER 05/23/2020 [facility] History of tobacco use FL-TOBACCO FORMER USER 09/08/2018 [facility] History of tobacco use V9 LIFETIME NON-USER OF TOBACCO 03/14/2018 [facility] History of tobacco use V9 LIFETIME NON-USER OF TOBACCO 03/14/2017 [facility] History of tobacco use V9 LIFETIME NON-USER OF TOBACCO 03/09/2016 [facility] History of tobacco use V9 QUIT TOBACCO >7 YEARS AGO 03/09/2015 [facility] History of tobacco use V9 QUIT TOBACCO >7 YEARS AGO 03/24/2014 [facility] History of tobacco use V9 CURRENT TOBACCO USER 03/23/2013 [facility] History of tobacco use V9 CURRENT TOBACCO USER 05/28/2012 [facility] History of tobacco use V9 CURRENT TOBACCO USER 05/28/2011 [facility] History of tobacco use V9 CURRENT TOBACCO USER 04/20/2011 [facility] History of tobacco use V9 CURRENT TOBACCO USER 05/24/2010 [facility] History of tobacco use V9 CURRENT TOBACCO USER 05/17/2009 [facility] History of tobacco use V9 CURRENT TOBACCO USER 10/14/2008 [facility] History of tobacco use V9 CURRENT TOBACCO USER 01/20/2007 [facility] History of tobacco use HF V9 CURRENT SMOKER 07/17/2006 pipe [facility] History of tobacco use HF V9 CURRENT NON-SMOKER 07/06/2004 pipe [facility] 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 History of tobacco use HF V9 CURRENT SMOKER 02/26/2002 smokes a pipe now and then - one pk tobacco [facility] about [facility] mo[facility]
--- OUTSIDE RECORDS SUMMARY | 2024-12-24 08:08 | XMS_ITS | Encounter Summary ---
Author Name [facility] [facility] [place] [facility] [place] Address [address] [place] [address] Care Team Providers Care Group Home Worker Name Role Phone MALU MCKENZIE Primary Care [...] PART A Sep 09, 2011 PART A [id number] RODDY CARRILLO PATIENT MEDICARE (WNR) MEDICARE (M) PART B Sep 09, 2011 PART B [id number] [phone] RODDY CARRILLO PATIENT MEDICARE (WNR) MEDICARE (M) PART A Sep 09, 2011 PART A [id number] RODDY CARRILLO PATIENT MEDICARE (WNR) MEDICARE (M) PART B Sep 09, 2011 PART B [id number] RODDY CARRILLO PATIENT FOR LIFE TRICA RE FOR LIFE Sep 09, 2009 FOR LIFE [id number] RODDY CARRILLO PATIENT Selected Encounter This section includes the information on record at [place] for the Encounter. Date/Time Encounter Type Encounter Description Reason Pro vider Source Sep 04, 2024 02:26 PM Outpatient Encounter ADMIN HEATHER СЕРГЕЙ (EMILYNONCT) IHMarielos Encounter Template Text not used by [place] Plan of Treatment: Future Appointments (+ 6 months) and Future Tests (+/- 45 days) The Plan of Treatment section includes future care activities for the patient from all [place] treatmentfacilities. This section includes future appointments and future orders which are active, pending or scheduled. Future Appointments This section includes appointments that were scheduled to occur 6 months from the date of the Encounter, up to a maximum of 20 appointments. The data comes from all [place] treatment facilities. Appointment Date/Time Appointment Type Appointme nt Facility Name Sep 29, 2024 09:30 AM AMBULATORY - MEDICINE [facility] Lab Results: +/- 30 days of the encounter This section includes the Chemistry and Hematology Lab Results on record with [place] for the patient. Radiology Reports and Pathology Reports are provided separately, in subsequent sections. Lab Results This section contains the Chemistry/Hematology Results that were resulted 30 days before or 30 daysafter the date of the Encounter. Date/Time Source Result Type Result - Unit Interpretation Reference Range Specimen Type Comment Sep 29, 2024 10:01 AM [facility] GLYCOHEMOGLOBIN BLOOD Specimen Type: BLOOD Comment: [place] guidelines for A1c interpretation: Glycemic control targets are based on Shared Decision Making between clinicians and patients. Criteria used to establish an A1c target recommendation can be found at https://www.ri.g ov/qualityandpat ientsafety/ and include the use of result accuracy and precision(CV) of the A1c tests clinicians utilize at their own sites of practice. Values obtained from A1C measurements can vary. For typical A1C assays, a reported value of 7.0 could actually be between 6.72 and 7.28 if measured by a reference method. A reported value of 9.0 could actually be between 8.73 and 9.27. Ref: https://ngsp.org /CAPdata.asp. The in-house [employer] D-100 analyzer has a historical CV <= 2%. Contact the laboratory for further performance characteristics of this assay. Ordering Provider: MALU MCKENZIE Report Released Date/Time: Sep 29, 2024 09:36 AM Reporting Lab: [facility] [address] [facility] [address] Performing Lab: [facility] [address] [address] GLYCOHEMOGLOBIN 5.3 4.4-6.4 Sep 29, 2024 10:01 AM [facility]ASMA Specimen Type: PLASM A Comment: [...] Sep 29, 2024 09:36 AM Reporting Lab: [address] [address] Performing Lab: [address] [address] ALT 11 U/L 0-55 Sep 29, 2024 10:01 AM [facility] AST PLASMA Specimen Type: PLASM A [...] Sep 29, 2024 09:36 AM Reporting Lab: [facility] [address] [address] Performing Lab: [address] [address] AST 14 U/L 5-34 Sep 29, 2024 10:01 AM [facility] LIPID PROFILE PLASMA Specimen Type: [...] Sep 29, 2024 09:36 AM Reporting Lab: [facility] [address] [address] Performing Lab: [facility] [address] [address] CHOLESTEROL 161 mg/dL 0-199 TRIGLYCERIDE 72 mg/dL 0-149 HDL CHOLESTEROL 61 mg/dL 40-69 DIRECT LDL CHOL. 94 mg/dL 0-100 Sep 29, 2024 10:01 AM [facility] PANEL 1 PLASMA Specimen Type: PLASM [...] Sep 29, 2024 09:36 AM Reporting Lab: [address] [address] Performing Lab: [address] [address] CREATININE 1.18 mg/dL 0.72-1.25 UREA NITROGEN 16 mg/dL 9-25 GLUCOSE 115 mg/dL H 74-100 SODIUM 141 mmol/L 136-145 POTASSIUM 4.5 mmol/L 3.5-5.1 CHLORIDE 104 mmol/L 98-107 CO2 30 mmol/L H 22-29 CALCIUM 9.7 mg/dL 8.4-10.2 ANION GAP 7 meq/L 3-19 eGFR (CKD-EPI) 64 Sep 29, 2024 10:01 AM [facility] CBC/PLT BLOOD Specimen Type: BLOOD No comment entered. Ordering Provider: MALU MCKENZIE Report Released Date/Time: Sep 29, 2024 09:36 AM Reporting Lab: [address] [address] Performing Lab: [address] [address] WBC 7.6 10*3/uL 5.0-10.0 RBC 4.69 10*6/uL [...] 10:16 AM HF V9 CURRENT NON-SMOKER pipe [facility] Tobacco Use History This section includes a history of the smoking, or tobacco-related health factors, that were collected on or before the date of the Encounter. The data comes from the [place] facility where the Encounter took place. 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 [facility] Encounter Notes: All associated encounter notes This section contains the clinical notes associated to the Encounter. Date/Time Encounter Note(s) Provider Source Sep 07, 2024 12:28 PM ADDENDUM: LOCAL TITLE: Addendum STANDARD TITLE: ADDENDUM DATE OF NOTE: SEP 07, 2024@12:28:55 ENTRY DATE: SEP 07, 2024@12:28:56 AUTHOR: MALU MCKENZIE COSIGNER: URGENCY: STATUS: COMPLETED Med refilled, please fax the order back. /italo/ MALU MCKENZIE M.D. PRIMARY CARE STAFF PHYSICIAN Signed: 09/07/2024 12:29 Receipt Acknowledged By: 09/10/2024 12:13 /italo/ ML BELLAMY [employer] CONSULTANT --- Original Document --- 09/04/24 ADMINISTRATIVE NOTE: Received Fax from: [facility] Refill request for: Trazodone Placed in Provider's Box. /italo/ Boubacar TINEO Signed: 09/04/2024 14:27 MALU MCKENZIE [facility] Sep 04, 2024 02:26 PM PRIMARY CARE ADMIN ISTRATIVE NOTE: LOCAL TITLE: PC ADMINISTRATIVE NOTE STANDARD TITLE: PRIMARY CARE ADMINISTRATIVE NOTE DATE OF NOTE: SEP 04, 2024@14:26 ENTRY DATE: SEP 04, 2024@14:26:30 AUTHOR: BOUBACAR SORIANO COSIGNER: URGENCY: STATUS: COMPLETED PC ADMINISTRATIVE NOTE Has ADDENDA Received Fax from: [facility] Refill request for: Trazodone Placed in Provider's Box. /italo/ Boubacar TINEO Signed: 09/04/2024 14:27 09/07/2024 ADDENDUM STATUS: COMPLETED Med refilled, please fax the order back. /italo/ MALU MCKENZIE M.D. PRIMARY CARE STAFF PHYSICIAN Signed: 09/07/2024 12:29 Receipt Acknowledged By: * AWAITING SIGNATURE * ML BELLAMY LOLA A [place]
[2024-12-24 08:17] LABS: Albumin Level 4.3 g/dl (3.5-5.0); Chloride 103 mmol/L (98-107); Potassium 4.5 mmoL/L (3.5-5.1); Sodium 141 mmol/L (136-145)
[2024-12-24 08:19] LABS: Alanine Aminotransferase 16 U/L (12-78); Aspartate Amino Transferase 24 U/L (17-59); Blood Urea Nitrogen 12 mg/dl (9-20); Creatinine Clearance Estimated 65 mL/min (50-200); Estimated Glomerular Filt Rate 59 ml/min (>60); GFR (African American) 71 ML/MIN (>60)
[2024-12-24 08:20] LABS: Albumin/Globulin Ratio 1.2 (1.1-1.8); Alkaline Phosphatase 65 U/L (38-126); Anion Gap 12.5 mEq/L (5-15); Carbon Dioxide 30 mmol/L (22.0-30.0); Globulin 3.6 g/dL (1.3-3.2); Glucose 114 mg/dl (74-100); Magnesium 1.8 mg/dl (1.6-2.3); Total Protein,Serum 7.9 g/dl (6.3-8.2)
[2024-12-24 08:21] LABS: Activated Partial Thrombo Time 27.1 seconds (22.8-30.6); INR 0.97 (0.9-1.1); Prothrombin Time 10.9 seconds (10.1-12.5)
--- NOTE | 2024-12-24 08:24 | XR_ITS ---
FINAL REPORT CLINICAL HISTORY: CP diaphoresis, palpitations FINDINGS: SINGLE VIEW CHEST The heart is normal in size. The mediastinum is unremarkable. There are mild chronic changes in both lungs. There is no pneumothorax. IMPRESSION: No acute process. Reviewed, Interpreted and Dictated by Victoriano Sargent MD Transcribed by Judy Yates Authenticated and [facility]
--- NOTE | 2024-12-24 08:28 | ED_ITS ---
Discharge Plan Disposition Patient Disposition: Admitted Chief Complaint: Arrhythmia/Palpitations Clinical Impressions Clinical Impression: New onset of congestive heart failure, Bigeminy, Pre-syncope Discharge ED Provider: Jose Eduardo Welch General Adult HPI General Chief complaint: Arrhythmia/Palpitations Stated complaint: dizziness, low heart rate (30's), irr BP Time Seen by Provider: 12/24/24 07:56 Mode of Arrival: Family Vehicle Source of Information: Patient and Medical Record Description of Symptoms (Recalled from ER Triage Doc. by RN): Pt presents to ER with concerns of chills, sweating, and shakiness to his body since 12a. States manjinder has been feeling dizzy and light-headed for 3 days. This morning when he woke up to take his BP and medications he noted his HR was in the 30s. He does take blood pressure medicine to lower my heart rate . He also reports SOA at rest. Denies any recent fall, trauma, or fevers. History of Present Illness HPI narrative: Please note that above description of symptoms, in this electronic medical record under categorization of recalled from ER triage doctor by RN are reflective of an initial nursing assessment, however, is not reflective of my full history and physical exam that was personally taken and clarified. Consequentially, this preceding description of symptoms, which may include the patient's categorized chief complaint in the EMR, do not reflect my personal clinical impression, and the ultimate description of history of present illness and patient stated complaints should be deferred to this section of the note. Unless stated otherwise or congruent with this section of the note, additional signs, symptoms, or incongruence should be interpreted as inaccurate with my clinical impression. Related Data Home Medications ?Medication ?Instructions ?Recorded ?Confirmed atenolol 25 mg tablet 25 mg PO DAILY 12/24/24 12/24/24 trazodone 50 mg tablet 50 mg PO HS 12/24/24 12/24/24 Allergies Allergy/AdvReac Type Severity Reaction Status Date / Time No Known Allergies Allergy Verified 08/30/18 10:31 [facility] Disclaimer: The information contained in this section may have been updated after the patient was seen, as this information can be updated by other users. Medical History HTN (hypertension) History of stent insertion of renal artery Surgical History History of nasal surgery Social History Smoking Status: Former smoker alcohol intake: never current occupational status: retired Travel in the last 8 weeks: None Have you lived/traveled outside US in past 30 days?: No Contact w/someone who lives/traveled outside US past 30 days?: No Exposure to someone with infectious disease in past 14 days?: No Do you have a fever (greater than 100.4 F or 38 C)?: No Have you tested positive for COVID-19: No Exposed to someone with COVID-19 in past 14 days?: No Do you have a sore throat?: No Do you have a cough?: No Do you have any weakness?: No Do you have any diarrhea?: No Are you experiencing any unusual bleeding?: No Do you have any muscle aches/pain?: No Do you have any abdominal pain?: No Are you experiencing loss of taste or smell?: No ROS Obtained: Yes All systems reviewed & no additional complaints except as documented Physical Exam General General appearance: alert and in no apparent distress Head Head exam: atraumatic and normocephalic Eye Eye exam: Present normal appearance, PERRL and EOMI Neck Neck exam: Present normal inspection, full ROM and trachea midline Respiratory Respiratory exam: Present normal lung sounds bilaterally; Absent respiratory distress, wheezes, stridor, accessory muscle use or prolonged expiratory phase Cardiovascular Cardiovascular exam: Present regular rate, normal rhythm, normal heart sounds and other (Pulses equal symmetric in upper and lower extremities) Abdominal Exam Abdominal exam: Present soft; Absent distention, tenderness, guarding, rebound, rigidity or pulsatile mass Extremities Exam Extremities exam: Absent edema Neurological Exam Neurological exam: Present alert, oriented X3 and CN II-XII intact; Absent motor sensory deficit Skin Skin exam: Present warm and dry; Absent diaphoresis or erythema Medical Decision Making Medical Records Medical records reviewed: Yes I reviewed the patient's medical records. Screening: Per USPSTF and CDC recommendations, given the prevalence of disease in our region, it is our hospital?s policy to screen for HIV and viral Hepatitis for all patients aged 18 and over and those with ongoing risk factors. Ramakrishna Inquiry Pt receiving controlled substance: No Ramakirshna was queried for this patient: No Vital Signs: 12/24/24 07:58 12/24/24 08:06 12/24/24 08:31 Temperature 97.8 F Temperature Source Oral Pulse Rate 47 L 78 Pulse Rate [Right] 113 H Respiratory Rate 16 12 14 Blood Pressure 156/131 H 140/102 H Blood Pressure [Right Arm] 164/110 H Blood Pressure Mean Blood Pressure Mean [Right Arm] 128 Blood Pressure Source [Right Arm] Automatic Cuff 02 Sat by Pulse Oximetry 98 97 96 Oxygen Delivery Method Room Air Room Air Room Air 12/24/24 09:01 12/24/24 09:32 12/24/24 10:01 Temperature Temperature Source Pulse Rate 84 38 L 71 Pulse Rate [Right] Respiratory Rate 14 10 L 14 Blood Pressure 130/85 103/82 L 132/66 Blood Pressure [Right Arm] Blood Pressure Mean 89 Blood Pressure Mean [Right Arm] Blood Pressure Source [Right Arm] 02 Sat by Pulse Oximetry 96 97 97 Oxygen Delivery Method Room Air Room Air 12/24/24 10:31 12/24/24 10:45 12/24/24 11:01 Temperature Temperature Source Pulse Rate 38 L 43 L 66 Pulse Rate [Right] Respiratory Rate 13 10 L 12 Blood Pressure 132/58 L 132/58 L 137/72 Blood Pressure [Right Arm] Blood Pressure Mean 95 Blood Pressure Mean [Right Arm] Blood Pressure Source [Right Arm] 02 Sat by Pulse Oximetry 97 98 97 Oxygen Delivery Method Room Air 12/24/24 11:41 12/24/24 12:01 Temperature Temperature Source Pulse Rate 50 L 39 L Pulse Rate [Right] Respiratory Rate 21 13 Blood Pressure 159/70 H 136/68 Blood Pressure [Right Arm] Blood Pressure Mean 104 98 Blood Pressure Mean [Right Arm] Blood Pressure Source [Right Arm] 02 Sat by Pulse Oximetry 96 96 Oxygen Delivery Method Lab Data Lab Results 12/24/24 08:00: WBC 8.8, RBC 4.73, Hgb 15.4, Hct 45.5, MCV 96.2 H, MCH 32.6 H, MCHC 33.8, RDW 12.9, Plt Count 254, MPV 10.6 H, Neut % (Auto) 65.3, Lymph % (Auto) 25.1, [place] % (Auto) 6.9, Eos % (Auto) 2.2, Baso % (Auto) 0.2, Neut # (Auto) 5.7, Lymph # (Auto) 2.2, [place] # (Auto) 0.6, Eos # (Auto) 0.2, Baso # (Auto) 0.0, PT 10.9, INR 0.97, APTT 27.1 12/24/24 08:00: APTT 27.1 L, D-Dimer 0.74 H, Sodium 141, Potassium 4.5, Chloride 103, Carbon Dioxide 30, Anion Gap 12.5, BUN 12, Creatinine 1.20, Estimated Creat Clear 65, Estimated GFR 59, Est GFR ( Amer) 71, Glucose 114 H, Calcium 9.0, Magnesium 1.8, Total Bilirubin 1.0, AST 24, ALT 16, Alkaline Phosphatase 65, Troponin I < 0.01, Total Protein 7.9, Albumin 4.3, Globulin 3.6 H, Albumin/Globulin Ratio 1.2, TSH 4.24, Thyroxine (T4) 11.2 H, HCV Ab EDGARDO w/Rflx PCR Qn Negative, HIV Ag/Ab Combo Qual Negative 12/24/24 10:02: NT-Pro-B Natriuret Pep 2990 H 12/24/24 10:09: Troponin I < 0.01 12/24/24 08:00 12/24/24 08:00 Orders (Tests/Meds): ED MEDICATIONS Generic Name Dose Route Start Last Admin Trade Name Freq PRN Reason Stop Dose Admin Atorvastatin Calcium 80 mg 12/24/24 21:00 Atorvastatin 40mg Tablet PO 01/23/25 20:59 HS SANDY Diazepam 5 mg 12/24/24 11:48 Diazepam 5mg Tablet PO 01/23/25 11:47 ONCE PRN Anxiety Fentanyl Citrate 50 mcg 12/24/24 11:48 Fentanyl 100mcg/2ml Vial IV 12/24/24 23:48 Q3MINP PRN Sedation Fentanyl Citrate 25 mcg 12/24/24 11:48 Fentanyl 100mcg/2ml Vial IV 12/24/24 23:48 Q3MINP PRN Sedation Flumazenil 0.2 mg 12/24/24 11:48 Flumazenil 0.1mg/Ml 5ml Vial IV 12/24/24 23:48 NEEDED PRN Sedation Heparin Sodium (Porcine) 5,000 unit 12/24/24 11:48 Heparin 1,000 Units/Ml 10ml Vial ([employer] Analysis [employer]) IV 12/24/24 15:48 NEEDED PRN Emergency Box Practice Or Student Teacher Hydralazine HCl 20 mg 12/24/24 11:48 Hydralazine 20mg/Ml Vial IV 12/24/24 15:48 ONCE PRN sbp>160 Heparin Sodium/Dextrose 500 mls @ 20 mls/hr 12/24/24 11:45 Heparin 25,000 Units In D5w 500ml Premix IV 01/23/25 11:44 .Q25H SANDY 1,000 UNITS/HR Adenosine 180 mg/ Sodium 90 mls @ 465.388 mls/hr 12/24/24 11:48 Chloride IV 12/24/24 15:48 ONCE PRN fractional flow reserve 180 MCG/KG/MIN Adenosine 90 mg/ Sodium 90 mls @ 930.776 mls/hr 12/24/24 11:48 Chloride IV 12/24/24 15:48 ONCE PRN fractional flow reserve 180 MCG/KG/MIN Sodium Chloride 1,000 mls @ 25 mls/hr 12/24/24 12:00 Sod Chloride 0.9% 500ml Bag IV 12/25/24 11:48 .Q25H SANDY Labetalol HCl 20 mg 12/24/24 11:48 Labetalol 20mg/4ml Syringe IV 12/24/24 15:48 ONCE PRN sbp>160 Lorazepam 1 mg 12/24/24 11:48 Lorazepam 2mg/Ml Vial IV 01/23/25 11:47 ONCE PRN Anxiety Midazolam HCl 1 mg 12/24/24 11:48 Midazolam 2mg/2ml Vial IV 12/24/24 23:48 Q3MINP PRN Sedation Midazolam HCl 1 mg 12/24/24 11:48 Midazolam Hcl 1mg/Ml 5ml Vial IV 12/24/24 23:48 Q3MINP PRN Sedation Naloxone HCl 0.4 mg 12/24/24 11:48 Naloxone 0.4mg/Ml Vial IV 12/24/24 23:48 Q5MINP PRN Decreased Respirations Nitroglycerin 800 mcg 12/24/24 11:48 Nitroglycerin 800mcg/8ml Syr ([employer]) IA 12/24/24 15:48 NEEDED PRN Emergency Box Practice Or Student Teacher Ondansetron HCl 4 mg 12/24/24 11:48 Ondansetron 4mg/2ml Vial IV NEEDED PRN Nausea Promethazine HCl 25 mg 12/24/24 11:48 Promethazine Hcl 25mg/Ml 1ml Vial IV NEEDED PRN Nausea And Vomiting Protamine Sulfate 50 mg 12/24/24 11:48 Protamine Sulfate 50mg/5ml Vial ([employer]) IV 12/24/24 15:48 ONCE PRN act>200 Sodium Chloride 10 ml 12/24/24 11:48 Sodium Chloride 0.9% 10ml Vial IV 01/23/25 11:47 NEEDED PRN to Dilute Lorazepam inj Discontinued Medications Generic Name Dose Route Start Last Admin Trade Name Freq PRN Reason Stop Dose Admin Aspirin 324 mg 12/24/24 07:58 12/24/24 08:07 Aspirin 81mg Chewable Tablet PO 12/24/24 07:59 324 mg ONCE ONE Administration Atenolol 25 mg 12/24/24 11:22 Atenolol 25mg Tablet PO 12/24/24 11:23 ONCE ONE Diphenhydramine HCl 50 mg 12/24/24 11:48 Diphenhydramine 50mg/Ml Vial IV 12/24/24 11:49 ONCE ONE Heparin Sodium (Porcine) 4,000 unit 12/24/24 11:45 Heparin Sodium 5,000 Unit/Ml Vial IV 12/24/24 11:46 ONCE ONE Heparin Sodium/Sodium Chloride 3,000 unit 12/24/24 11:48 Heparin 1,000 Units/500ml Ns ([employer]) IV 12/24/24 11:49 ONCE ONE Magnesium Sulfate 2 gm in 50 mls @ 50 mls/hr 12/24/24 08:26 12/24/24 08:44 Magnesium Sulfate 2gm/50ml Premix IV 12/24/24 09:25 50 mls/hr ONCE ONE Administration Lidocaine HCl 10 ml 12/24/24 11:48 Lidocaine 1% 10ml Mdv IJ 12/24/24 11:49 ONCE ONE Lidocaine HCl 10 ml 12/24/24 11:48 Lidocaine 1% 5ml Pf Vial IJ 12/24/24 11:49 ONCE ONE Magnesium Oxide 800 mg 12/24/24 08:26 12/24/24 08:44 Magnesium Oxide 400mg Tablet PO 12/24/24 08:27 800 mg ONCE ONE Administration Miscellaneous 1 each 12/24/24 11:30 Heparin Drip Consult NOTAPPLIC 01/23/25 11:29 CONSULT PHARMACY [facility] Morphine Sulfate 4 mg 12/24/24 11:48 Morphine 4mg/Ml Syringe IV 12/24/24 11:49 ONCE ONE Sodium Chloride 25 ml 12/24/24 11:48 Sodium Chloride 0.9% 25ml Bag IV 12/24/24 11:49 ONCE ONE Verapamil HCl 2.5 mg 12/24/24 11:48 Verapamil 2.5mg/Ml 2ml Vial IV 12/24/24 11:49 ONCE ONE ORDERS Category Date Time Status Cardiology Consult [Consult to Cardiology] [CONS] Cons 12/24/24 09:14 Active Routine CXR --portable [XR chest portable] Stat Exams 12/24/24 08:24 Completed BNP [NT Pro Brain Natriuretic Pep.] Stat Lab 12/24/24 10:02 Completed Complete Blood Count Auto Diff AMLAB Lab 12/25/24 06:00 Ordered Complete Blood Count Auto Diff Stat Lab 12/24/24 08:00 Completed Comprehensive Metabolic Panel AMLAB Lab 12/25/24 06:00 Ordered Comprehensive Metabolic Panel Stat Lab 12/24/24 08:00 Completed D-Dimer Stat Lab 12/24/24 08:00 Completed HIV Combo Stat Lab 12/24/24 08:00 Completed Heparin drip PTT [PTT Heparin (inpatient only)] Stat Lab 12/24/24 17:30 Ordered Hepatitis C Ab Qual. W/ RFX Stat Lab 12/24/24 08:00 Completed Lipid Panel AMLAB Lab 12/25/24 06:00 Ordered Magnesium AMLAB Lab 12/25/24 06:00 Ordered Magnesium Stat Lab 12/24/24 08:00 Completed PT INR [Prothrombin Time INR] Stat Lab 12/24/24 08:00 Completed PTT Heparin (inpatient only) Stat Lab 12/24/24 08:00 Completed PTT [Activated Partial Thrombo Time] Stat Lab 12/24/24 08:00 Completed T4 (Thyroxine) Stat Lab 12/24/24 08:00 Completed TSH [Thyroid Stimulating Hormone] Stat Lab 12/24/24 08:00 Completed Troponin I Q3H Lab 12/24/24 10:09 Completed Troponin I Q3H Lab 12/24/24 14:00 Ordered Troponin I Stat Lab 12/24/24 08:00 Completed CA echo doppler complete Stat Y 12/24/24 09:18 Completed Holter Monitor Req by Nse/Dr Stat Y 12/24/24 09:18 Ordered HEART Score History (anamnesis): Moderately suspicious ECG: Non-specific disturbance Age: >65 years Risk factors: 1-2 risk factors Troponin: </= normal limit HEART Score: 5 Medical Decision Narrative: 79-year-old male history of hypertension on atenolol, renal stenting, presenting with multiple cardiac complaints. Patient states that for the past 3 to 4 days, he has felt intermittently lightheaded, which has been associated with intermittent clamminess/diaphoresis, chest pressure that is epigastric/substernal and does not radiate. Not associate with shortness of breath, overt pain, syncope, nausea, vomiting. He thinks this is related to abdominal discomfort, he states that he intermittently has abdominal bloating and this is followed closely by the substernal discomfort. States that today, 12/24 around midnight up until around 3 AM, he kept breaking out into cold sweats and having this epigastric/substernal pressure. Came in for further evaluation after taking his atenolol because he noticed that my blood pressure was erratic up and down, as well as my heart rate was in the 30s and 40s. No history of stents, CHF, CO, or any other cardiac disease. History was obtained via conversation with patient and family at bedside. On arrival, patient hemodynamically stable, alert, oriented x4, appropriate, GCS 15, moving all extremities spontaneously, pupils equal and reactive to light. Full physical exam performed and significant for 79-year-old male is in no acute distress. He speaking in full sentences, very pleasant, appropriately interactive, alert and oriented. Neurologically intact. No lower extremity edema. Cardiac exam with no murmurs gallops or rubs, however he does seem to be in bigeminy with coupled beats nearly every cardiac cycle. Lungs are clear, abdomen soft, nontender, nondistended. Differential includes PUD, gastritis, microvascular coronary artery disease, CHF, ACS, CO, coronary artery dissection, pneumothorax, PE, dissection, pericarditis, myocarditis, pneumothorax, aortic aneurysm, pneumonia, bronchitis, among others. Patient placed on continuous cardiac monitoring and continuous pulse ox with initial blood pressure 164/110, heart rate 113, saturation 98% on room air. Independent interpretation of EKG shows sinus tachycardia with frequent PVCs. No acute ischemic change. Ventricular rate 100 bpm, VT 153, QRS 88, QTc 397 with normal axis. Patient was given 324 mg aspirin for symptomatic management and correction of underlying abnormalities. Workup independently interpreted and significant for mild hypomagnesemia at 1.8, this was repleted with 800 p.o. and 2 g IV. Rest of labs nonactionable. Troponin negative, D-dimer 0.74, but age-adjusted negative and years negative. On independent interpretation of imaging, no cardiopulmonary airspace disease on chest x-ray. See radiology read for full review of final results. Heart score 5. Cardiology was consulted given new bigeminy, presyncopal symptoms. Recommended placing head girls golf coach for outpatient follow-up and echocardiogram in the emergency department. Patient was placed in observation beginning at 9:30 AM in order to continue cardiac monitoring, received echocardiogram, p.o. challenge, perform orthostatics and determine need for admission versus home-going. Repeat EKG 9:17 AM with ventricular rate 76 bpm overall, in bigeminy. VT 178, QRS 88, QTc 390. Normal axis. Independent of PVCs, negative AV rate around 45 bpm. Still no acute ischemic change. Second troponin negative. The patient was provided serial exams, cardiac monitoring, echocardiogram formal while awaiting results. Independent interpretation of results demonstrated echocardiogram with reduced EF 20 to 25%. BNP added by cardiology consult on independent to rotation, this is newly elevated nearly 3000 with no baseline with which to compare. On reevaluation, patient resting comfortably, has no complaints. At this time, I feel patient is appropriate for admission. Total observation time 3 hours. Cardiology wants to take patient to the catheterization lab. Patient started on heparin drip by cardiology prior to procedure. Hospitalist contacted and case was discussed at length, to be admitted. Sales And Merchandising Associate disclaimer Much of this encounter note is an electronic glass carrier spoken language to printed text. Electronic glass carrier of the spoken language may permit errors. Although I have reviewed the note, some errors may still exist. Critical Care Critical Care Time Critical Care Time: Yes (Cardiac) Attestation: On 12/24/24, the high probability of a clinically significant, sudden or life threatening deterioration of the following system(s) required my full and direct attention, intervention and personal management. The time I documented below is in addition to time spent performing reported procedures but includes the following listed in this critical care notation. Total Time Total Critical Care Time: 35
--- NOTE | 2024-12-24 08:30 | PC.NURSE ---
xray at bs
[2024-12-24 08:37] LABS: Basophils % 0.2 % (0.1-2.0); Eosinophils # 0.2 K/mm3 (0.0-0.4); Eosinophils % 2.2 % (0.1-12.0); Hematocrit 45.5 % (42.0-52.0); Hemoglobin 15.4 g/dL (14.1-18.0); Lymphocytes # 2.2 K/mm3 (0.7-4.5); Lymphocytes % 25.1 % (10-50); Mean Corpuscular HGB Conc 33.8 g/dL (31.8-35.4); Mean Corpuscular Hemoglobin 32.6 pg (27.0-31.2); Mean Corpuscular Volume 96.2 fl (80-94); Mean Platelet Volume 10.6 fl (7.4-10.4); Monocytes # 0.6 K/mm3 (0.1-1.0); Monocytes % 6.9 % (1.7-9.3); Neutrophils # 5.7 K/mm3 (1.8-7.8); Neutrophils % 65.3 % (37.0-80.0); Nucleated Red Blood Cells # 0 10^3/uL; Nucleated Red Blood Cells % 0 %; Platelet Count 254 K/mm3 (142-424); Red Blood Count 4.73 M/mm3 (4.60-6.20); Red Cell Distribution Width 12.9 % (11.5-17.5); T4 (Thyroxine) 11.2 ug/dl (5.53-11.0); White Blood Count 8.8 K/mm3 (4.8-10.8)
[2024-12-24 08:39] LABS: Troponin I < 0.01 ng/ml (0.00-0.034)
[2024-12-24] MEDS: MAGNESIUM OXIDE 400MG TABLET 800 MG PO (08:44)
[2024-12-24] MEDS: MAGNESIUM SULFATE IN WATER 2 GM/50 ML PIGGYBACK IV (08:44)
[2024-12-24 08:51] LABS: Thyroid Stimulating Hormone 4.24 uIU/mL (0.465-4.68)
[2024-12-24 08:54] LABS: D-Dimer 0.74 ug/mL (0.0-0.5)
--- NOTE | 2024-12-24 09:06 | PC.NURSE ---
Rebecca EDMONDS called cardiology for a consult per
--- NOTE | 2024-12-24 09:10 | PC.NURSE ---
cardiology office called.
[2024-12-24 09:17] LABS: HIV Combo NEGATIVE (Negative)
--- NOTE | 2024-12-24 09:17 | ECG_ITS ---
APPROVED REPORT Exam: Resting ECG HR:76 bpm ECG Measurements Heart Rate 76 AXES NJ 178 P 99 QRSd 88 QRS 54 QT 360 T 73 QTc 390 Conclusion Brittani Electronically signed by : IRASEMA GAONA, 12/24/2024 15:27:07
--- NOTE | 2024-12-24 09:18 | CA_ITS ---
APPROVED REPORT EXAM: Comprehensive 2D, Doppler, and color-flow Echocardiogram Knockout Machine Operator: Iona Lam CRT Ht: 5 ft 11 in Wt: 190lbs BSA: 2.06 BP: 103/82 mmHg Indications: Lightheaded, ex smoker, SOB, KD, HTN, bradycardia last night/this morning. 2D Dimensions LA Volume 50.80 mL LA Volume Index 24.54 mL/m2 (M/F) 16-34 M-Mode Dimensions RVDd 2.45 cm (0.9-2.6) LA Diam 4.36 cm (1.9-4.0) LVDd 5.51 cm (3.5-5.7) LVDs 4.99 cm (3.5-5.7) IVSd 0.97 cm (0.6-1.1) PWd 0.76 cm (0.6-1.1) EF (Teich) 20.50% FS 9.40% EDV (Teich) 148.00 mL ESV (Teich) 117.70 mL LV Diastology E Decel Time 163 (160-240 msec) E/A Ratio 1.2 Mitral Valve MV E Max Delvis. 76.0 (40-130 cm/s) MV A Velocity 64.0 (40-130 cm/s) E/A Ratio 1.19 MV PHT 48.0 ms Left Ventricle The left ventricle is normal size. The left ventricular systolic function is moderately to severely reduced. There is moderate to severe global hypokinesis. The septal and anteroseptal LV [place] are severely hypokinetic. There is increased LV wall thickness. Diastolic function is indeterminate. LVEF is 30%. Right Ventricle The right ventricle is mildly dilated. Right ventricle is mildly hypokinetic. Atria The left atrium is mildly dilated. Right atrium is mildly dilated. There is no Doppler evidence of interatrial shunt. Aortic Valve The aortic valve is mildly thickened. Trace aortic regurgitation. There is no aortic valvular stenosis. Mitral Valve The mitral valve is normal in structure. Trace mitral regurgitation. Tricuspid Valve Tricuspid valve is grossly normal in structure and function. Trace tricuspid regurgitation. There is insufficient TR jet to estimate RVSP. Pulmonic Valve The pulmonary valve is normal in structure. Trace pulmonic regurgitation. Great Vessels The aortic root is normal in size. IVC is normal in size and collapses >50% with inspiration. Pericardium There is no pericardial effusion. Other Information Study Quality: Fair Conclusion Moderate to severe reduction in LV systolic function (LVEF 30%). Severe hypokinesis of the septal and anterior septal LV [place]. Mild RV dilation with mild reduction in RV function. Mild biatrial dilation. No significant valvular stenosis or regurgitation. Electronically signed by : Floresita Woods MD 12/24/2024 13:35:57
--- NOTE | 2024-12-24 09:18 | PC.NURSE ---
Dr. Welch speaking with Douglas Mcnamara, Cardiology.
[2024-12-24 09:25] LABS: Hepatitis C Ab Qual. W/ RFX NEGATIVE (Negative)
--- NOTE | 2024-12-24 09:31 | PC.NURSE ---
is bedside updating the pt on results and plan of care.
--- NOTE | 2024-12-24 09:35 | PC.NURSE ---
Hanna, echo at bedside.
--- NOTE | 2024-12-24 09:58 | PC.NURSE ---
Bedside echo complete
[2024-12-24 10:37] LABS: Troponin I < 0.01 ng/ml (0.00-0.034)
--- NOTE | 2024-12-24 10:42 | PC.NURSE ---
cardiology office called and left message for Douglas to come see patient.
--- NOTE | 2024-12-24 10:55 | PC.NURSE ---
Douglas Ford from cardiology at bedside
--- NOTE | 2024-12-24 11:00 | PC.NURSE ---
Addendum entered by Snehal Thurston RN 12/24/24 11:38: states he will call back in a few minutes. Original Note: is speaking with about admitting the pt.
[2024-12-24 11:02] LABS: NT Pro Brain Natriuretic Pep. 2990 pg/mL (0-450)
--- NOTE | 2024-12-24 11:23 | IR_ITS ---
APPROVED REPORT Patient Location: Inpatient PROCEDURES Selective coronary angiogram Drug-eluting stent deployment to the proximal and mid large circumflex artery Drug-eluting stent deployment to the ostial and proximal subtotally occluded left anterior descending artery Drug-eluting stent deployment to the proximal and mid dominant right coronary artery INDICATION Critical three-vessel coronary artery disease, Ischemic cardiomyopathy, Reduced ejection fraction Informed consent was obtained prior to the procedure. COMPLICATIONS NONE Estimated Blood Loss: LESS THAN 10 ML TECHNIQUE One percent lidocaine used to anesthetize the right anterior aspect of the wrist. The right radial artery was accessed via the Seldinger technique. A 6 Yoruba sheath was placed in the right radial artery. 2.5 mg of Verapamil, 800 mcg of nitroglycerin, 1mg Lidocaine and 5000 U Heparin were given through the arterial sheath. The 6 Yoruba JL 3 guide catheter was used to perform selective coronary angiogram. At the end of the diagnostic angiogram therapeutic heparin was administered giving a therapeutic ACT and the guide catheter was placed in left main artery followed by Choice PT extra-support wire placed on the circumflex artery. A 3 mm x 15 mm Pk frontier stent was deployed at 22 cristel reducing the critical stenosis to 0%. PRIETO-3 flow was present before and after the procedure. Following this the LAD was predilated due to being subtotally occluded and a 3.5 x 38 mm Kp frontier stent was placed in the proximal LAD and deployed at 16 cristel reducing the critical stenosis. An additional 3.5 x 12 mm [place] frontier stent was placed proximal to the for stent yet still overlapping and placed exactly in the ostium of the LAD and deployed at 22 cristel. The balloon was advanced and deployed at 24 cristel throughout the 3.5 mm stents. PRIETO II flow was present at the beginning of the procedure with PRIETO-3 flow at the end of the procedure. Following this the guide catheter was placed in the right coronary artery followed by Choice PT extra-support wire placed distally in the right coronary artery. A 4 mm x 38 mm Kp frontier stent was deployed at 20 cristel reducing the critical stenosis to 0%. PRIETO-3 flow was present before and after the procedure. At the end of the procedure the apparatus was removed the sheath was removed and hemostasis was achieved using TR banding patient was transferred to the postop putting in stable condition. At the beginning the procedure patient was having frequent ventricular ectopy with bigeminy and significant couplets. At the end the procedure all PVCs had resolved following revascularization. ANGIOGRAPHIC RESULTS The left main artery Normal The left anterior descending artery Has an ostial 70% stenosis with subtotal occlusion in the proximal segment accompanied initially by PRIETO II flow The circumflex artery Large nondominant with a critical greater than 90% mid vessel stenosis The right coronary artery Large and dominant with a proximal calcified concentric 70% stenosis followed by long 50% stenosis. Distally there are diffuse 30% stenoses The ANDINO ventriculogram reveals Not performed The left ventricular end-diastolic pressure Not measured IMPRESSION Critical three-vessel coronary disease as described above Successful percutaneous revascularization of a subtotally occluded ostial and proximal LAD. Critical disease reduced to 0% with 2 contiguous drug-eluting stents Successful percutaneous revascularization of a critically diseased large circumflex artery critical disease reduced to 0% with 1 drug-eluting stent Successful percutaneous revascularization of a critically diseased proximal and mid dominant right coronary critical disease reduced to 0% with 1 drug-eluting stent PLAN 1. Plavix and aspirin 2. LDL less than 55 to be achieved with high intensity statin 3. If appropriate consider LifeVest while ejection fraction improves following hibernation 4. Standard therapy for LV dysfunction 5. Standard risk factor modification 6. Cardiac rehabilitation Electronically signed by : Silvestre Alva MD 12/24/2024 15:44:23
[2024-12-24 11:38] LABS: PTT Heparin (inpatient only) 27.1 Seconds (50-75)
--- NOTE | 2024-12-24 11:39 | PC.NURSE ---
called back and is speaking with about admitting the pt.
--- NOTE | 2024-12-24 11:40 | P.CONPHA_ITS ---
[facility] Pharmacy Heparin Dosing Demographic Data Admission date:: 12/24/24 Date: 12/24/24 Time: 11:41 Allergies Allergy/AdvReac Type Severity Reaction Status Date / Time No Known Allergies Allergy Verified 08/30/18 10:31 Height: 1.8 m Weight: 86.183 kg Indication Medication therapy:: Heparin Current Active Problems (Updated 12/25/24 @ 12:48 by MONI Riddle) HTN (hypertension) (Chronic) Pre-syncope (Acute) Bigeminy (Acute) New onset of congestive heart failure (Acute) Angina pectoris (Acute) Ventricular bigeminy (Acute) HFrEF (heart failure with reduced ejection fraction) (Acute) CVA?: No Bleeding problem?: No Kidney disease?: No DC?: No Desired PTT range:: 50-75 seconds Comments:: ACS Labs Anticoagulation Lab Results:: 12/24/24 08:00 Hgb 15.4 Hct 45.5 Plt Count 254 Monitoring Dose Monitor 1: Date: 12/24/24 Time: 11:41 PTT Result:: PTT 27.1 AT 0800 Infusion Rate:: HEPARIN BOLUS 4000 UNITS; HEPARIN 1000 UNITS/HR DRIP. Core Measures Is INR > or = 2 at discharge?: No Most Recent Labs:: Laboratory Results - last 24 hr 12/24/24 08:00: WBC 8.8, RBC 4.73, Hgb 15.4, Hct 45.5, MCV 96.2 H, MCH 32.6 H, MCHC 33.8, RDW 12.9, Plt Count 254, MPV 10.6 H, Neut % (Auto) 65.3, Lymph % (Auto) 25.1, [place] % (Auto) 6.9, Eos % (Auto) 2.2, Baso % (Auto) 0.2, Neut # (Auto) 5.7, Lymph # (Auto) 2.2, [place] # (Auto) 0.6, Eos # (Auto) 0.2, Baso # (Auto) 0.0, PT 10.9, INR 0.97, APTT 27.1 12/24/24 08:00: APTT 27.1 L, D-Dimer 0.74 H, Sodium 141, Potassium 4.5, Chloride 103, Carbon Dioxide 30, Anion Gap 12.5, BUN 12, Creatinine 1.20, Estimated Creat Clear 65, Estimated GFR 59, Est GFR ( Amer) 71, Glucose 114 H, Calcium 9.0, Magnesium 1.8, Total Bilirubin 1.0, AST 24, ALT 16, Alkaline Phosphatase 65, Troponin I < 0.01, Total Protein 7.9, Albumin 4.3, Globulin 3.6 H, Albumin/Globulin Ratio 1.2, TSH 4.24, Thyroxine (T4) 11.2 H, HCV Ab EDGARDO w/Rflx PCR Qn Negative, HIV Ag/Ab Combo Qual Negative 12/24/24 10:02: NT-Pro-B Natriuret Pep 2990 H 12/24/24 10:09: Troponin I < 0.01 If INR was < than 2.0 why was therapy stopped?: HEPARIN DRIP NOT STARTED. PT WENT TO PATIENT FINANCIAL SERVICES MANAGER. Were Heparin and Warfarin started on the same day?: No If not, why?: HEPARIN DRIP NOT STARTED. PT WENT TO PATIENT FINANCIAL SERVICES MANAGER.
--- NOTE | 2024-12-24 11:40 | PC.NURSE ---
Notified HS of the pts acceptance for admission by post heart cath.
--- NOTE | 2024-12-24 11:40 | EXP.CARD.CON ---
History of Present Illness History of Present Illness Consult date: 12/24/24 Requesting physician: Jose Eduardo Welch Consult reason: chest pain Chief complaint: low HR History of present illness: 79-year-old white male former smoker with well-controlled high blood pressure otherwise no known cardiovascular disease or risk factors presents to the emergency room with complaints of low heart rate. Patient states he typically maintains an active lifestyle without symptoms but 4 to 5 days ago he awoke diaphoretic and short of breath. The following day he had elevated blood pressure and low heart rates in the 30s according to his pulse oximeter. This continued for days and was associated with mild worsening SOA so at the insistence of his family he presented to the emergency room today. On arrival he is in no distress but is has ongoing ventricular bigeminy. First troponin is normal. 2D echo was performed and shows new LV dysfunction, EF 30-35%. We discussed he may have had [facility] this [facility] and needs [facility] to eval for underlying ischemia. He is agreeable. He is [facility] and was offered transfer to their facility which he declined. [facility] Disclaimer: The information contained in this section may have been updated after the patient was seen, as this information can be updated by other users. Medical History HTN (hypertension) History of stent insertion of renal artery Surgical History History of nasal surgery Social History Smoking Status: Former smoker alcohol intake: never current occupational status: retired Travel in the last 8 weeks: None Have you lived/traveled outside US in past 30 days?: No Contact w/someone who lives/traveled outside US past 30 days?: No Exposure to someone with infectious disease in past 14 days?: No Do you have a fever (greater than 100.4 F or 38 C)?: No Have you tested positive for COVID-19: No Exposed to someone with COVID-19 in past 14 days?: No Do you have a sore throat?: No Do you have a cough?: No Do you have any weakness?: No Do you have any diarrhea?: No Are you experiencing any unusual bleeding?: No Do you have any muscle aches/pain?: No Do you have any abdominal pain?: No Are you experiencing loss of taste or smell?: No Review of Systems Constitutional Constitutional: Denies fatigue and Reports weakness Eyes Eyes: Denies loss of vision ENT Ears, Nose, Mouth, and Throat: Denies hearing loss and Denies vertigo *Cardiovascular Cardiovascular: Reports chest pain, Reports dyspnea and Denies syncope *Respiratory Respiratory: Denies cough and Reports dyspnea *Gastrointestinal Gastrointestinal: Denies change in stool character, Denies nausea and Denies vomiting *Genitourinary Genitourinary: Denies difficulty urinating *Musculoskeletal Musculoskeletal: Denies muscle weakness Integumentary/Breasts Skin/Breast: Denies changing lesions *Neurologic Neurologic: Denies loss of vision, Denies syncope, Denies vertigo and Reports weakness Endocrine Endocrine: Denies fatigue Exam Data for Last 24 hours Vital signs and Labs for Last 24 Hours: Temp Pulse Resp BP Pulse Ox O2 Del Method 97.8 F 66 12 137/72 97 Room Air 12/24/24 07:58 12/24/24 11:01 12/24/24 11:01 12/24/24 11:01 12/24/24 11:01 12/24/24 11:01 Laboratory Results - last 24 hr 12/24/24 08:00: WBC 8.8, RBC 4.73, Hgb 15.4, Hct 45.5, MCV 96.2 H, MCH 32.6 H, MCHC 33.8, RDW 12.9, Plt Count 254, MPV 10.6 H, Neut % (Auto) 65.3, Lymph % (Auto) 25.1, [place] % (Auto) 6.9, Eos % (Auto) 2.2, Baso % (Auto) 0.2, Neut # (Auto) 5.7, Lymph # (Auto) 2.2, [place] # (Auto) 0.6, Eos # (Auto) 0.2, Baso # (Auto) 0.0, PT 10.9, INR 0.97, APTT 27.1 12/24/24 08:00: APTT 27.1 L, D-Dimer 0.74 H, Sodium 141, Potassium 4.5, Chloride 103, Carbon Dioxide 30, Anion Gap 12.5, BUN 12, Creatinine 1.20, Estimated Creat Clear 65, Estimated GFR 59, Est GFR ( Amer) 71, Glucose 114 H, Calcium 9.0, Magnesium 1.8, Total Bilirubin 1.0, AST 24, ALT 16, Alkaline Phosphatase 65, Troponin I < 0.01, Total Protein 7.9, Albumin 4.3, Globulin 3.6 H, Albumin/Globulin Ratio 1.2, TSH 4.24, Thyroxine (T4) 11.2 H, HCV Ab EDGARDO w/Rflx PCR Qn Negative, HIV Ag/Ab Combo Qual Negative 12/24/24 10:02: NT-Pro-B Natriuret Pep 2990 H 12/24/24 10:09: Troponin I < 0.01 I & O for Last 24 hours: Intake & Output 12/21/24 12/22/24 12/23/24 12/24/24 23:59 23:59 23:59 23:59 Weight 190 lb Constitutional Constitutional: no acute distress and cooperative *Routine HEENT Exam Eye: Present PERRL *Routine Respiratory Exam Respiratory: Present CTA bilaterally; Absent accessory muscle use, wheezes or crackles *Routine Cardiovascular Exam Cardiovascular: Present Normal S1, Normal S2 and irregular rhythm; Absent murmur, gallop or rubs *Routine Abdominal Exam Abdominal: Present soft; Absent tenderness *Routine Extremities Exam Extremities: Present pulses intact; Absent cyanosis or edema *Routine Skin Exam Skin: Present intact; Absent erythema or wounds *Routine Neurological Exam Neurological: Present alert and oriented X3 Routine Psychiatric Exam Psychiatric: Present cooperative Meds Home Medications and Allergies Home Medications ?Medication ?Instructions ?Recorded ?Confirmed ?Type atenolol 25 mg tablet 25 mg PO DAILY 12/24/24 12/24/24 History trazodone 50 mg tablet 50 mg PO HS 12/24/24 12/24/24 History New Prescriptions to Start Prescriptions: Allergies Allergy/AdvReac Type Severity Reaction Status Date / Time No Known Allergies Allergy Verified 08/30/18 10:31 Assessment and Plan *Assessment and plan (1) HFrEF (heart failure with reduced ejection fraction): Status: Acute Category: Medical Code(s): I50.20 - Unspecified systolic (congestive) heart failure (2) Ventricular bigeminy: Status: Acute Category: Medical Code(s): I49.8 - Other specified cardiac arrhythmias (3) Angina pectoris: Status: Acute Category: Medical Code(s): I20.9 - Angina pectoris, unspecified Plan HFrEF, Ventricular Bigeminy, Angina Pectoris - all new dx this visit - symptoms started about 4-5 days when awaking from sleep with diaphoresis and SOA, mild lingering chest tightness since then with PVCs and new LV dysfunction - normal trop here, no sig ST changes on EKG - CXR clear Plan: - Load ASA, Heparin - Resume home dose Atenolol - Add Statin - [facility] today - Consider LifeVest Former Tob - 30 pack years, quit 20 years ago Htn - well controlled with Atenolol 25mg at home Plan: - cont home dose Atenolol
--- NOTE | 2024-12-24 11:41 | P.HP_ITS ---
History of Present Illness *Admission Date: 12/24/24 *Reason for visit:: Slow heart rate, weakness *History of present illness: Mr. Perez is a 79-year-old male with history of hypertension that is well- controlled. Not have any other cardiac history that he is aware of. Used to smoke but stopped over 25 years ago. He presented to the ED today with complaint of heart rate being low. Was feeling weak and fatigued. States that for the past 4 to 5 days he has had shortness of breath, diaphoresis when he awakes in the morning. Heart rate has dropped to as low as the 30s according to his pulse oximeter at home. Because of his symptoms, came to the ER today at the insistence of his family for evaluation. On arrival he was in no acute distress. Found to be in ventricular bigeminy. Initial troponin was undetectable. 2D echo performed in the ED showing decreased LV function with EF approximately 30%. Case discussed with ER doctor, request admission for cards eval and further management. Labs remarkable for T4 of 11.2, normal kidney function BUN of 12, creatinine 1.2. White count normal at 8.8. BNP elevated at 2900. Patient was taken urgently for heart cath after echo findings. Evaluated after his heart cath. Found to have critical three-vessel disease. Patient is chest pain-free. Having occasional PVCs but no longer in bigeminy on telemetry. Stable on room air. Alert and oriented x 4. [facility] Disclaimer: The information contained in this section may have been updated after the patient was seen, as this information can be updated by other users. Medical History (Updated 12/24/24 @ 17:15 by Wenceslao Ledesma MD) HTN (hypertension) History of stent insertion of renal artery Surgical History History of nasal surgery Family History Other No significant family history Social History Smoking Status: Former smoker alcohol intake: never current occupational status: retired Travel in the last 8 weeks: None Have you lived/traveled outside US in past 30 days?: No Contact w/someone who lives/traveled outside US past 30 days?: No Exposure to someone with infectious disease in past 14 days?: No Do you have a fever (greater than 100.4 F or 38 C)?: No Have you tested positive for COVID-19: No Exposed to someone with COVID-19 in past 14 days?: No Do you have a sore throat?: No Do you have a cough?: No Do you have any weakness?: No Are you experiencing any nausea/vomitting?: No Do you have any diarrhea?: No Are you experiencing any unusual bleeding?: No Do you have any muscle aches/pain?: No Do you have any abdominal pain?: No Are you experiencing loss of taste or smell?: No Review of Systems Review of Systems Review of systems (narrative): 14 point review of systems performed, pertinent positives and negatives as per [facility] Meds Home Medications and Allergies Home Medications ?Medication ?Instructions ?Recorded ?Confirmed ?Type atenolol 25 mg tablet 25 mg PO DAILY 12/24/24 12/24/24 History trazodone 50 mg tablet 50 mg PO HS 12/24/24 12/24/24 History New Prescriptions to Start Prescriptions: Allergies Allergy/AdvReac Type Severity Reaction Status Date / Time No Known Allergies Allergy Verified 08/30/18 10:31 Exam Data for Last 24 hours Vital signs and Labs for Last 24 Hours: Temp Pulse Resp BP Pulse Ox O2 Del Method 97.8 F 66 12 137/72 97 Room Air 12/24/24 07:58 12/24/24 11:01 12/24/24 11:01 12/24/24 11:01 12/24/24 11:01 12/24/24 11:01 Laboratory Results - last 24 hr 12/24/24 08:00: WBC 8.8, RBC 4.73, Hgb 15.4, Hct 45.5, MCV 96.2 H, MCH 32.6 H, M CHC 33.8, RDW 12.9, Plt Count 254, MPV 10.6 H, Neut % (Auto) 65.3, Lymph % (Auto) 25.1, [place] % (Auto) 6.9, Eos % (Auto) 2.2, Baso % (Auto) 0.2, Neut # (Auto) 5.7, Lymph # (Auto) 2.2, [place] # (Auto) 0.6, Eos # (Auto) 0.2, Baso # (Auto) 0.0, PT 10.9, INR 0.97, APTT 27.1 12/24/24 08:00: APTT 27.1 L, D-Dimer 0.74 H, Sodium 141, Potassium 4.5, Chloride 103, Carbon Dioxide 30, Anion Gap 12.5, BUN 12, Creatinine 1.20, Estimated Creat Clear 65, Estimated GFR 59, Est GFR ( Amer) 71, Glucose 114 H, Calcium 9.0, Magnesium 1.8, Total Bilirubin 1.0, AST 24, ALT 16, Alkaline Phosphatase 65, Troponin I < 0.01, Total Protein 7.9, Albumin 4.3, Globulin 3.6 H, Album in/Globulin Ratio 1.2, TSH 4.24, Thyroxine (T4) 11.2 H, HCV Ab EDGARDO w/Rflx PCR Qn Negative, HIV Ag/Ab Combo Qual Negative 12/24/24 10:02: NT-Pro-B Natriuret Pep 2990 H 12/24/24 10:09: Troponin I < 0.01 I & O for Last 24 hours: Intake & Output 12/21/24 12/22/24 12/23/24 12/24/24 23:59 23:59 23:59 23:59 Weight 86.183 kg Constitutional Constitutional: no acute distress, average body habitus and cooperative *Routine HEENT Exam Head: Present normocephalic Eye: Present EOMI and PERRL ENT: Present mucous membranes moist *Routine Neck Exam Neck: Present supple; Absent lymphadenopathy *Routine Respiratory Exam Respiratory: Present CTA bilaterally; Absent rhonchi, wheezes or crackles *Routine Cardiovascular Exam Cardiovascular: Present RRR *Routine Abdominal Exam Abdominal: Present soft and normoactive bowel sounds; Absent tenderness *Routine Rectal Exam Rectal:: deferred *Routine Genitalia Exam Genitalia:: deferred *Routine Extremities Exam Extremities: Absent cyanosis, clubbing or edema *Routine Skin Exam Skin: Present warm; Absent rash *Routine Neurological Exam Neurological: Present alert, oriented X3 and moving all extremities; Absent altered mental status Routine Psychiatric Exam Psychiatric: Present normal affect Assessment and Plan *Assessment and plan (1) New onset of congestive heart failure: Status: Acute Category: Medical Code(s): I50.9 - Heart failure, unspecified (2) Bigeminy: Status: Acute Category: Medical Code(s): I49.8 - Other specified cardiac arrhythmias (3) HFrEF (heart failure with reduced ejection fraction): Status: Acute Category: Medical Code(s): I50.20 - Unspecified systolic (congestive) heart failure (4) Ventricular bigeminy: Status: Acute Category: Medical Code(s): I49.8 - Other specified cardiac arrhythmias (5) Pre-syncope: Status: Acute Category: Medical Code(s): R55 - Syncope and collapse (6) HTN (hypertension): Status: Chronic Category: Medical Code(s): I10 - Essential (primary) hypertension Plan 79-year-old male who presented with symptomatic low heart rate. Found to be in bigeminy. Medicine consulted for admission. Discussed case with ER physician, request admission for cards eval. I agreed to admit. Cardiology evaluated and preliminary echo showed new finding of HFrEF. In light of his bigeminy and HFrEF, taken for urgent left heart cath. Multivessel disease identified. Tolerated cath well with placement of 4 stents. Showing some improvement. Necessitating continued inpatient management. Problems addressed as follows: CAD Acute HFrEF Ventricular bigeminy Hypertension - Taken for left heart cath, found to have critical three-vessel disease with successful revascularization of a subtotally occluded ostial and proximal LAD. Critical disease reduced to 0% with 2 contiguous stents. Successful revascularization of critical disease large circumflex with 1 stent. Successful revascularization of critically diseased proximal and mid dominant RCA with placement of 1 stent. -Discussed case with cardiology, recommend continuing DAPT therapy. Will need monitoring at least until the morning. Further management pending symptoms in the morning. - Continue aspirin 81 mg daily, Plavix 75 mg daily. - Lipid panel ordered for the morning, initiate - Echo obtained, formal read with a EF of 30%. Severe hypokinesis of septal and anterior septal LV [place]. Mild RV dilation. Will consider LifeVest prior to discharge - Kidney function normal BUN 12, creatinine 1.2. Potassium 4.5. Repeat CBC, CMP, magnesium ordered for the morning. Hemoglobin normal at 15.4 - BNP 2900. Will consider initiation of diuretics in the morning. Able to lay flat without shortness of breath. No oxygen requirement at this time. Does not appear frankly volume overloaded. Chest imaging with no pulmonary edema per my review Full code Heparinized in [employer], continue DAPT Cardiac diet
--- NOTE | 2024-12-24 11:47 | PC.NURSE ---
consent signed, pt clipped right wrist and bilateral groin.
--- NOTE | 2024-12-24 12:09 | PC.NURSE ---
SPOKE WITH ECONOMIC ANALYSIS DIRECTOR SHE IS AWARE OF ADMISSION AND STATES THE PT IN 217 WAS BEING MOVED TO ROOM 211 AND ONCE ROOM 217 IS CLEAN MED SURG WOULD BE READY FOR THIS PT
--- NOTE | 2024-12-24 12:40 | PC.NURSE ---
Attempted to call report, Charge nurse states the room was just cleaned but will need re-cleaned d/t remaining odor.
--- NOTE | 2024-12-24 13:30 | PC.NURSE ---
Called Cardiology and s.w Douglas [place] regarding home Atenolol & Heparin gtt. Pt stated he already took his home dose today. Douglas stated not to give another dose. This was adjusted on NOV. Douglas also stated to hold off on the Heparin gtt until heart cath if it would be within an hr. coreroom foundry laborer states it will be no more than an hr until they come to get pt. Update Shar Velasquez RN on this information.
--- NOTE | 2024-12-24 13:42 | PC.NURSE ---
2nd floor staff in ER to collect pt.
--- NOTE | 2024-12-24 14:24 | PC.NURSE ---
pt to laborer cheesemaking via wheelchair @[phone]
[2024-12-24] MEDS: diphenhydrAMINE 50MG/ML VIAL 50 MG IV (14:34)
[2024-12-24] MEDS: LIDOCAINE 1% 10ML MDV 10 ML IJ (14:34)
[2024-12-24] MEDS: HEPARIN 1,000 UNITS/ML 10ML VIAL (CATH LAB) 5000 UNIT IV (14:34)
[2024-12-24] MEDS: VERAPAMIL 2.5MG/ML 2ML VIAL 2.5 MG IV (14:34)
[2024-12-24] MEDS: NITROGLYCERIN 800MCG/8ML SYR (CATH LAB) 800 MCG IA (14:34)
[2024-12-24] MEDS: FENTANYL 100MCG/2ML VIAL 50 MCG IV (14:35)
[2024-12-24] MEDS: MIDAZOLAM HCL 1MG/ML 5ML VIAL 1 MG IV (14:35)
[2024-12-24] MEDS: HEPARIN 1,000 UNITS/500ML NS (CATH LAB) 3000 UNIT IV (14:35)
[2024-12-24] MEDS: 0.9 % SODIUM CHLORIDE 500 ML 25 ML IV (14:35)
[2024-12-24 14:40] LABS: Troponin I < 0.01 ng/ml (0.00-0.034)
[2024-12-24] MEDS: CLOPIDOGREL 300MG TABLET 600 MG PO (15:29)
[2024-12-24] MEDS: IOPAMIDOL-370 (76%);100ML BOTTLE 100 ML IV (15:40)
[2024-12-24 15:42] LABS: CATHL Activated Clotting Time > 400 SEC (74-125)
--- NOTE | 2024-12-24 15:57 | PC.NURSE ---
pt is back from lab rn via [employer] @ [phone]. pt is settled in their room, bed alarm is on and call light is within reach.
--- NOTE | 2024-12-24 17:41 | PC.NURSE ---
Addendum entered by Caren Velasquez RN 12/24/24 18:25: 1735 2ml of [facility], no hematoma or bleeding noted at site. 1750 radial band removed. cleaned with chlorhexadine and dressing of telfa and tegaderm placed Original Note: 1620 2ml of air removed from band from H [place], no hematoma or bleeding noted at site. 1635 2ml of air removed from band from C [place], no hematoma or bleeding noted at site. 1650 2ml of air removed from band from C [place], no hematoma or bleeding noted at site. 1705 2ml of air [facility] no hematoma or bleeding noted at site. 1720 2ml of air removed from band from H [place], no hematoma or bleeding noted at site.
[2024-12-24] MEDS: ATORVASTATIN 40MG TABLET 80 MG PO (21:20)
[2024-12-25] VITALS (7 sets, daily range): BP systolic 120–169; BP diastolic 62–83; PULSE 66–84; RESP 16–23; TEMP 36.6–36.8; O2SAT 94–97; BMI 27.9
[2024-12-25 06:21] LABS: Albumin Level 3.7 g/dl (3.5-5.0); Chloride 104 mmol/L (98-107)
[2024-12-25 06:22] LABS: Potassium 4.2 mmoL/L (3.5-5.1); Sodium 138 mmol/L (136-145)
[2024-12-25 06:24] LABS: Alanine Aminotransferase 15 U/L (12-78); Albumin/Globulin Ratio 1.2 (1.1-1.8); Alkaline Phosphatase 59 U/L (38-126); Anion Gap 10.2 mEq/L (5-15); Aspartate Amino Transferase 31 U/L (17-59); Bilirubin,Total 1.1 mg/dl (0.2-1.3); Blood Urea Nitrogen 16 mg/dl (9-20); Carbon Dioxide 28 mmol/L (22.0-30.0); Creatinine Clearance Estimated 71 mL/min (50-200); Estimated Glomerular Filt Rate 65 ml/min (>60); GFR (African American) 78 ML/MIN (>60); Globulin 3.1 g/dL (1.3-3.2); Total Protein,Serum 6.8 g/dl (6.3-8.2)
[2024-12-25 06:25] LABS: Calcium 8.6 mg/dl (8.4-10.2); Chol/HDL Ratio 2.7 (1-3.5); Cholesterol 139 mg/dl (140-200); Glucose 92 mg/dl (74-100); HDL Cholesterol 51 mg/dl (40-60); Magnesium 2.2 mg/dl (1.6-2.3); Triglycerides 85 mg/dl (30-150); VLDL Cholesterol 17 mg/dL (0-40)
[2024-12-25 06:30] LABS: Basophils % 0.3 % (0.1-2.0); Eosinophils # 0.1 K/mm3 (0.0-0.4); Eosinophils % 0.9 % (0.1-12.0); Hemoglobin 14.1 g/dL (14.1-18.0); Lymphocytes # 1.5 K/mm3 (0.7-4.5); Lymphocytes % 14.3 % (10-50); Mean Corpuscular HGB Conc 33.6 g/dL (31.8-35.4); Mean Corpuscular Hemoglobin 32.3 pg (27.0-31.2); Mean Corpuscular Volume 96.1 fl (80-94); Mean Platelet Volume 10.8 fl (7.4-10.4); Monocytes # 0.6 K/mm3 (0.1-1.0); Monocytes % 6.3 % (1.7-9.3); Neutrophils # 7.9 K/mm3 (1.8-7.8); Neutrophils % 77.9 % (37.0-80.0); Nucleated Red Blood Cells # 0 10^3/uL; Nucleated Red Blood Cells % 0 %; Platelet Count 192 K/mm3 (142-424); Red Blood Count 4.37 M/mm3 (4.60-6.20); Red Cell Distribution Width 12.6 % (11.5-17.5); Red Cell Distribution Width-SD 45.1 fL; White Blood Count 10.2 K/mm3 (4.8-10.8)
[2024-12-25 06:36] LABS: Direct LDL Cholesterol 60.83 mg/dL (100-129)
--- OUTSIDE RECORDS SUMMARY | 2024-12-25 08:35 | XMS_ITS | Encounter Summary ---
Author Name [facility] [place] [facility] [place] Address [address] [place] [address] Care Team Providers Care Molder Inflated Ball Name Role Phone MALU MCKENZIE Primary Care [...] Policy Coker MEDICARE (WNR) MEDICARE (M) PART B Sep 09, 2011 PART B [id number] RODDY CARRILLO PATIENT MEDICARE (WNR) MEDICARE (M) PART A Sep 09, 2011 PART A [id number] RODDY CARRILLO PATIENT MEDICARE (WNR) MEDICARE (M) PART A Sep 09, 2011 PART A [id number] RODDY CARRILLO PATIENT MEDICARE (WNR) MEDICARE (M) PART B Sep 09, 2011 PART B [id number] RODDY CARRILLO PATIENT FOR LIFE TRICA RE FOR LIFE Sep 09, 2009 FOR LIFE [id number] RODDY CRARILLO PATIENT Selected Encounter This section includes the information on record at [place] for the Encounter. Date/Time Encounter Type Encounter Description Reason Pro vider Source Dec 24, 2024 11:00 AM Outpatient Encounter ADMIN PAT ACTIVTIES (LUMACT) [facility] Encounter Template Text not used by [place] Social History: Smoking Status (Most current) and Tobacco Use (All prior to encounter date) This section includes the most current, and the historical, smoking and tobacco- related health factors from the [place] facility where the Encounter took place. Current Smoking Status This section includes the most current smoking, or tobacco-related health factor, from the [place] facility where the Encounter took place. Date/Time Current Smoking Status Comment Facil ity Sep 29, 2024 09:30 AM VA-TOBACCO USE FOR JARRETT CIGARETTES [facility] Tobacco Use History This section includes a history of the smoking, or tobacco-related health factors, that were collected on or before the date of the Encounter. The data comes from the [place] facility where the Encounter took place. Date/Time Smoking Status/Tobacco Use Comment F acility Sep 29, 2024 09:30 AM VA-TOBACCO USE ADVICE [facility] Sep 29, 2024 09:30 AM VA-TOBACCO USE RECONNAISSANCE MAN NO [facility] Sep 29, 2024 09:30 AM VA-TOBACCO USE FOR JARRETT CIGARETTES [facility] Sep 29, 2024 09:30 AM VA-TOBACCO USE MED NO [facility] Sep 29, 2024 09:30 AM VA-TOBACCO USE MELODY E DAYS CIGARS/PIPES [facility] Sep 29, 2024 09:30 AM VA-TOBACCO USE MELODY E DAYS OTHER TYPE [facility] Oct 03, 2023 08:30 AM VA-TOBACCO USE 5 TO 15 YEARS [facility] Oct 03, 2023 08:30 AM VA-TOBACCO USE ADVICE [facility] Oct 03, 2023 08:30 AM VA-TOBACCO USE RECONNAISSANCE MAN NO [facility] Oct 03, 2023 08:30 AM VA-TOBACCO USE MED NO [facility] Oct 03, 2023 08:30 AM VA-TOBACCO USE WI 30 MIN OF WAKEUP [facility] Oct 03, 2023 08:30 AM VA-TOBACCO USER SOME DAYS [facility] Oct 03, 2022 10:00 AM VA-TOBACCO DOESNT USE WI 30 MIN WAKEUP [facility] Oct 03, 2022 10:00 AM VA-TOBACCO USE 5 TO 15 YEARS [facility] Oct 03, 2022 10:00 AM VA-TOBACCO USE ADVICE [facility] Oct 03, 2022 10:00 AM VA-TOBACCO USE RECONNAISSANCE MAN NO [facility] Oct 03, 2022 10:00 AM VA-TOBACCO USE MED NO [facility] Oct 03, 2022 10:00 AM VA-TOBACCO USER SOME DAYS [facility] Jun 28, 2021 08:00 AM VA-TOBACCO DOESNT USE WI 30 MIN WAKEUP [facility] Jun 28, 2021 08:00 AM VA-TOBACCO USE 30 YEARS OR MORE [facility] Jun 28, 2021 08:00 AM VA-TOBACCO USE ADVICE [facility] Jun 28, 2021 08:00 AM VA-TOBACCO USE RECONNAISSANCE MAN NO [facility] Jun 28, 2021 08:00 AM VA-TOBACCO USE MED NO [facility] Jun 28, 2021 08:00 AM VA-TOBACCO USER SOME DAYS [facility] May 23, 2020 01:19 PM VA-TOBACCO FORMER USER [facility] May 23, 2020 01:19 PM VA-TOBACCO QUIT 15 YRS OR MORE [facility] Sep 08, 2018 09:20 AM VA-TOBACCO FORMER USER [facility] Sep 08, 2018 09:20 AM VA-TOBACCO QUIT 15 YRS OR MORE [facility] Mar 14, 2018 07:49 AM V9 LIFETIME NON-USER OF TOBACCO [facility] Mar 14, 2017 08:12 AM V9 LIFETIME NON-USER OF TOBACCO [facility] Mar 09, 2016 08:41 AM V9 LIFETIME NON-USER OF TOBACCO [facility] Mar 09, 2015 07:49 AM V9 QUIT TOBACCO >7 YEARS AGO [facility] Mar 24, 2014 09:06 AM V9 QUIT TOBACCO >7 YEARS AGO [facility] Mar 24, 2014 09:06 AM V9 TOBACCO OFFERED [facility] Mar 23, 2013 10:19 AM TOBACCO OFFERRED P T MEDS (PROVIDER) [facility] Mar 23, 2013 10:19 AM V9 CURRENT TOBACCO USER [facility] Mar 23, 2013 10:19 AM V9 TOBACCO OFFERED [facility] May 28, 2012 08:45 AM TOBACCO OFFERRED P T MEDS (PROVIDER) [facility] May 28, 2012 08:45 AM V9 CURRENT TOBACCO USER [facility] May 28, 2012 08:45 AM V9 TOBACCO OFFERED [facility] May 28, 2011 08:12 AM TOBACCO OFFERRED P T MEDS (PROVIDER) [facility] May 28, 2011 08:12 AM V9 CURRENT TOBACCO USER [facility] May 28, 2011 08:12 AM V9 TOBACCO OFFERED [facility] Apr 20, 2011 10:34 AM V9 CURRENT TOBACCO USER [facility] May 24, 2010 07:45 AM TOBACCO OFFERRED P T MEDS (PROVIDER) [facility] May 24, 2010 07:45 AM V9 CURRENT TOBACCO USER [facility] May 24, 2010 07:45 AM V9 TOBACCO OFFERED [facility] May 17, 2009 08:40 AM TOBACCO OFFERRED P T MEDS (PROVIDER) [facility] May 17, 2009 08:40 AM V9 CURRENT TOBACCO USER [facility] May 17, 2009 08:40 AM V9 TOBACCO OFFERED [facility] Oct 14, 2008 09:59 AM V9 CURRENT TOBACCO USER [facility] Oct 14, 2008 09:59 AM V9 TOBACCO OFFERED [facility] January 20, 2007 06:36 AM TOBACCO OFFERRED P T MEDS (PROVIDER) [facility] January 20, 2007 06:36 AM V9 CURRENT TOBACCO USER [facility] January 20, 2007 06:36 AM V9 TOBACCO OFFERED [facility] Jul 17, 2006 12:49 PM HF V9 [facility]RENT [facility]KER [facility] Encounter Notes: All associated encounter notes This section contains the clinical notes associated to the Encounter. Date/Time Encounter Note(s) Provider Source Dec 24, 2024 12:00 PM ADDENDUM: LOCAL TITLE: Addendum STANDARD TITLE: ADDENDUM DATE OF NOTE: DEC 24, 2024@12:00 ENTRY DATE: DEC 25, 2024@06:49:36 AUTHOR: NEVA PATHAK EXP COSIGNER: URGENCY: STATUS: COMPLETED [facility] Scanned Document - Addendum. 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 refused to transfer 12/24/2024 at 11:02 AM Form was signed by: Cookie Carvajal Witnessed by: No witness The form was scanned into the medical record 12/25/2024 and may be viewed under [facility]. /italo/ NEVA PATHAK [employer]fac[employer] Nanosystems Engineer Signed: 12/25/2024 06:46 NEVA PATHAK-CDD [facility] Dec 24, 2024 11:00 AM SCANNED NOTE: LOCAL TITLE: REFUSAL OF TRANSFER TO [facility] SCAN STANDARD TITLE: SCANNED NOTE DATE OF NOTE: DEC 24, 2024@11:00 ENTRY DATE: DEC 25, 2024@06:43:19 AUTHOR: NEVA PATHAK EXP COSIGNER: URGENCY: STATUS: COMPLETED SUBJECT: Refusal of Transfer to [facility] FORM [id number] REFUSAL OF TRANSFER TO [facility] SCANNED Has ADDENDA The faxed [facility] FORM [id number] Refusal of Transfer to [facility] was received 12/24/2024 from [facility]. refused to transfer 12/24/2024 at 11:02 AM Form was signed by: Cookie Carvajal Witnessed by: No witness The form was scanned into the medical record 12/25/2024 and may be viewed under [facility]. /italo/ NEVA PATHAK [employer]fac[employer] Nanosystems Engineer Signed: 12/25/2024 06:46 12/24/2024 ADDENDUM STATUS: COMPLETED [facility] Scanned Document - Addendum. Refusal of Transfer to [facility] FORM [id number] SCANNED DOCUMENT SIGNATURE NOT REQUIRED Electronically Filed: 12/25/2024 by: NEVA PATHAK [employer]fac[employer] Nanosystems Engineer Receipt Acknowledged By: * AWAITING SIGNATURE * PATIENCE CALERO * AWAITING SIGNATURE * TASNEEM ABRAHAM BEV L [place]
--- OUTSIDE RECORDS SUMMARY | 2024-12-25 08:35 | XMS_ITS | Encounter Summary ---
Author Name [facility] [place] [facility] [place] Address [address] [place] [address] Care Team Providers Care Diabetes Education Coordinator Name Role Phone MALU MCKENZIE Primary [...] PART B Sep 09, 2011 PART B [id number] RODDY CARRILLO PATIENT MEDICARE (WNR) MEDICARE (M) PART A Sep 09, 2011 PART A [id number] [id number] RODDY CARRILLO PATIENT MEDICARE (WNR) MEDICARE (M) PART A Sep 09, 2011 PART A [id number] RODYD CARRILLO PATIENT MEDICARE (WNR) MEDICARE (M) PART B Sep 09, 2011 PART B [id number] RODDY CARRILLO PATIENT FOR LIFE TRICA RE FOR LIFE Sep 09, 2009 FOR LIFE [id number] RODDY CARRILLO PATIENT Selected Encounter This section includes the information on record at [place] for the Encounter. Date/Time Encounter Type Encounter Description Reason Pro vider Source Dec 24, 2024 07:53 AM Outpatient Encounter ADMIN PAT ACTIVTIES (MASNONCT) [facility] Encounter Template Text not used by [place] Social History: Smoking Status (Most current) and Tobacco Use (All prior to encounter date) This section includes the most current, and the historical, smoking and tobacco- related health factors from the [place] facility where the Encounter took place. Current Smoking Status This section includes the most current smoking, or tobacco-related health factor, from the [place] facility where the Encounter took place. Date/Time Current Smoking Status Comment Svitlana ity Jul 06, 2004 10:16 AM HF V9 CURRENT NON-SMOKER pipe [facility] Tobacco Use History This section includes a history of the smoking, or tobacco-related health factors, that were collected on or before the date of the Encounter. The data comes from the [place] facility where the Encounter took place. 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 [facility] Encounter Notes: All associated encounter notes This section contains the clinical notes associated to the Encounter. Date/Time Encounter Note(s) Provider Source Dec 24, 2024 07:53 AM NONVA NOTE: LOCAL TITLE: [facility] SELF PRESENTING CARE COORD PLAN STANDARD TITLE: NONVA NOTE DATE OF NOTE: DEC 24, 2024@07:53 ENTRY DATE: DEC 25, 2024@07:26:46 AUTHOR: TASNEEM ABRAHAM COSIGNER: URGENCY: STATUS: COMPLETED Emergency Notification Intake Date Presenting to the Facility: Dec Date of note has been modified to reflect Date of Service. Reason for modification: Date presented:12/24/24 Date facility notified: 12/24/24 Method of Contact: CPRS alert Notification ID: [id number] [facility] Name: Hospital: [facility] Address: City: [place] State: [place] Zip Code: Phone : Community Facility Point of Contact: Name: Phone: Chief complaint: Arrhythmia/palpitations Primary Diagnosis: Disposition Admitted Route of Admission: ER Date of Admission: Dec Admitting Diagnosis: Arrhythmia/palpitations [facility] Provider: Confirm Level of Care: Acute Inpatient Care /italo/ Tasneem PATRICIO, EDGING MACHINE SETTERCHIEF [employer] Signed: 12/25/2024 07:43 Receipt Acknowledged By: 12/25/2024 07:58 /italo/ MALU MCKENZIE M.D. PRIMARY CARE STAFF PHYSICIAN * AWAITING SIGNATURE * CARMEN ROUSE,TASNEEM [place]-RENAY [facility]
--- OUTSIDE RECORDS SUMMARY | 2024-12-25 08:36 | XMS_ITS | Continuity of Care Document ---
Author Name [facility] Organization [facility] Care Team Providers Care Freight Sales Broker Name Role Phone [facility] Unavailable Unavailable Problems Combined list of problems from [facility] and [facility] facilities. It does not include entries that were removed or entered in error. Problem Status Onset Date Problem Type Date of Resolution Comments Source CHRONIC SINUSITIS NOS Active Condition [facility] Dermatitis * (ICD-9-CM 692.9) Active Condition [facility] ESOPH[facility]AL REFLUX [facility] Gastroesophageal reflux disease Active Condition [facility] Hyperlipidemia [facility] Hypertension Active Condition [facility] HYPERTENSION NOS Active Condition [facility] INHIBITED SEX EXCITEMENT Active Condition [facility] Insomnia Active Condition [facility] Insomnia * (ICD-9-CM 780.52) Active Condition [facility] Low back pain Active Condition [facility] Osteoarthritis * (ICD-9-CM 715.90) Active [facility] Overweight Active Condition [facility] Tobacco dependence syndrome Active Condition [facility] Tobacco use Active Condition [facility] VACCIN FOR INFLUENZA Active Condition [facility] Diagnosis: ICD-10-CM I10 Essential (primary) hypertension Active Diagnosis [facility] Diagnosis: ICD-10-CM 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 Medication Details Route Status Patient Instructions Prescription Expires Prescription Number Last Dispense Date Ordering Provider Order Date Order Qty Source ATENOLOL 25MG TAB TAKE ONE-HALF TABLET BY MOUTH DAILY ORAL ACTIVE AIXA PRASAD 2010 [place] [facility] CARBAMIDE PEROXIDE 6.5%/GLYCER IN SOLN,OTIC INSTILL 4 DROPS IN BOTH EARS TWICE A DAY FOR EAR WAX REMOVAL -ALLOW DROPS TO REMAIN IN EAR FOR AT LEAST 15 MINUTES. FLUSH EAR WITH WARM WATER USING BULB EAR SYRINGE. AURICU LAR (OTIC) 11/02/2023 [id number] KALA MCKENZIE EK R 2023 15 [place] [facility] TRAZODONE HCL 50MG TAB TAKE ONE TABLET BY MOUTH AT BEDTIME NEEDED ORAL ACTIVE KALA MCKENZIE EK R 2016 [place] [facility] Immunizations Combined list of available immunizations from the Department of Defense and Veterans Affairs facilities. Immunization Series Date Given Administered By Site Reaction Lot Number CVX Code Drug Shipping And Receiving Coordinator Status Comments Source COVID-19 (PFIZER), MRNA, LNP-S, PF, GEOVANNA-SUCROSE, 30 MCG/0.3 ML (AGES 12+ YEARS) 5 2023 309 complet ed HISTORICA L INFORMATI ON - FROM OTHER REGISTRY, [place] [facility] INFLUENZA, HIGH-DOSE, TRIVALENT, PF 7 2023 135 complet ed HISTORICA L INFORMATI ON - FROM OTHER REGISTRY, [place] [facility] INFLUENZA, UNSPECIFIED FORMULATION 2022 88 complet ed Completed Series, HISTORICA L INFORMATI ON - FROM PATIENT'S RECALL, [place] [facility] INFLUENZA VACCINE, QUADRIVALENT, ADJUVANTED 6 2022 205 complet ed HISTORICA L INFORMATI ON - FROM OTHER REGISTRY, [place] [facility] COVID-19 (MODERNA), MRNA, LNP-S, BIVALENT BOOSTER, PF, 50 MCG/0.5 ML OR 25MCG/0.25 ML DOSE 2021 229 complet ed Booster for Series, HISTORICA L INFORMATI ON - FROM PARENT'S RECALL, [place] [facility] COVID-19 (MODERNA), MRNA, LNP-S, BIVALENT BOOSTER, PF, [...] INFLUENZA, UNSPECIFIED FORMULATION 2020 88 complet ed [facility] INFLUENZA, HIGH-DOSE, QUADRIVALENT 4 2020 197 [...] ZOSTER RECOMBINANT 1 2018 187 complet ed [place] [facility] INFLUENZA, SEASONAL, INJECTABLE 2017 141 complet ed [place] [facility] ZOSTER RECOMBINANT 2 2017 187 complet ed [place] [facility] INFLUENZA A & [...] 88 complet ed [place] [facility] [id number] (HISTORICAL) 2014 33 complet ed [place] [...] ago/unsur e of date [place] [facility] TDAP (HISTORICAL) 2005 115 complet ed [place] [facility] FLU,3 YRS (HISTORICAL) 2002 VARINDER AMANDA H 88 complet ed [place] INFLUENZA, UNSPECIFIED FORMULATION 2001 88 complet ed up to date. [place] [facility] INFLUENZA, UNSPECIFIED FORMULATION 2000 88 complet ed takes yearly [place] [facility] E[facility]ORY [facility] TD(ADULT) UNSPECIFIED FORMULATION 1996 139 complet ed up to date. [place] [facility] Results Combined list of recent chemistry, hematology and other laboratory results from Department of Defense and Veterans Affairs, ranging from 15 months to all on record, depending upon the facility. Order Name Results Value Reference Range Date Interpretation Specimen Comments Source OCCULT BLOOD FIT X1 SCREEN HEMOGLOBIN. GASTROINTES TINAL.LOWER [PRESENCE] IN STOOL BY IMMUNOASSAY [facility] 10/19 Specimen Type: FECES Comment: Test cancelled. Collection date could not be determined. Sample integrity cannot be ensured. Please recollect specimen and resubmit for testing. Ordering Provider: MALU MCKENZIE Report Released Date/Time: Sep 29, 2024 09:36 AM Reporting Lab: VERONICA SORIANO [address] [address] Performing Lab: VERONICA SORIANO [address] [address] [facility] GLYCOHEMO GLOBIN HEMOGLOBIN A1C/HEMOGLO BIN.TOTAL IN BLOOD BY HPLC 5.3 4.4 - 6.4 09/29 Specimen Type: BLOOD Comment: [place]-DoD guidelines for A1c interpretat ion: Glycemic control [...] 9.27. Ref: [email or web address] p.[email or web address] ta.asp. The in-house [employer] Sirloin D-100 analyzer has a historical CV <= 2%. Contact the laboratory for further performance characteris tics of this assay. Ordering Provider: MALU MCKENZIE Report Released Date/Time: Sep 29, 2024 09:36 AM Reporting Lab: [address] [address] Performing Lab: [address] [address] [facility] ALT ALANINE AMINOTRANSF ERASE [ENZYMATIC ACTIVITY/VO LUME] [...] Sep 29, 2024 09:36 AM Reporting Lab: [address] [address] Performing Lab: [address] [address] [facility] AST ASPARTATE AMINOTRANSF ERASE [ENZYMATIC ACTIVITY/VO LUME] [...] 2024 09:36 AM Reporting Lab: VERONICA SORIANO [address] [address] Performing Lab: VERONICA SORIANO [address] [address] [facility] LIPID PROFILE CHOLESTEROL [MASS/VOLUM E] IN SERUM [...] 2024 09:36 AM Reporting Lab: VERONICA SORIANO [address] [address] Performing Lab: VERONICA SORIANO [address] [address] [facility] LIPID PROFILE TRIGLYCERID E [MASS/VOLUM E] IN [...] 2024 09:36 AM Reporting Lab: VERONICA SORIANO [address] [address] Performing Lab: VERONICA SORIANO [address] [address] [facility] LIPID PROFILE CHOLESTEROL IN HDL [MASS/VOLUM E] [...] 2024 09:36 AM Reporting Lab: VERONICA SORIANO [address] [address] Performing Lab: VERONICA SORIANO [address] [address] [facility] LIPID PROFILE CHOLESTEROL IN LDL [MASS/VOLUM E] [...] 2024 09:36 AM Reporting Lab: VERONICA SORIANO [address] [address] Performing Lab: VERONICA SORIANO [address] [address] [facility] PANEL 1 CREATININE [MASS/VOLUM E] IN SERUM [...] 2024 09:36 AM Reporting Lab: VERONICA SORIANO [address] [address] Performing Lab: VERONICA SORIANO [address] [address] [facility] PANEL 1 UREA NITROGEN [MASS/VOLUM E] IN SERUM OR PLASMA 16 mg/dL 9 09/29 Specimen Type: PLASMA Comment: Estimated Glomerular [...] 2024 09:36 AM Reporting Lab: VERONICA SORIANO [address] [address] Performing Lab: VERONICA SORIANO [address] [address] [facility] PANEL 1 GLUCOSE [MASS/VOLUM E] IN SERUM [...] 2024 09:36 AM Reporting Lab: VERONICA SORIANO [address] [address] Performing Lab: VERONICA SORIANO [address] [address] [facility] PANEL 1 SODIUM [MOLES/VOLU ME] IN SERUM [...] 2024 09:36 AM Reporting Lab: VERONICA SORIANO [facility] [address] [facility] [address] [address] Performing Lab: VERONICA SORIANO [facility] [address] [facility] [address] [facility] PANEL 1 POTASSIUM [MOLES/VOLU ME] IN SERUM [...] 2024 09:36 AM Reporting Lab: VERONICA SORIANO [place] [id number] [facility] [address] Performing Lab: VERONICA SORIANO [address] [address] [facility] PANEL 1 CHLORIDE [MOLES/VOLU ME] IN SERUM [...] 2024 09:36 AM Reporting Lab: VERONICA SORIANO [address] [address] Performing Lab: VERONICA SORIANO [address] [address] [facility] PANEL 1 CARBON DIOXIDE, TOTAL [MOLES/VOLU ME] IN SERUM OR PLASMA 30 mmol/L 22 - 29 09/29 H Specimen Type: PLASMA Comment: Estimated [...] 2024 09:36 AM Reporting Lab: VERONICA SORIANO [address] [address] Performing Lab: VERONICA SORIANO [address] [address] [facility] PANEL 1 CALCIUM [MASS/VOLUM E] IN SERUM [...] 2024 09:36 AM Reporting Lab: VERONICA SORIANO [address] [address] Performing Lab: VERONICA SORIANO [address] [address] [facility] PANEL 1 ANION GAP 3 IN SERUM [...] 2024 09:36 AM Reporting Lab: VERONICA SORIANO [address] [address] Performing Lab: VERONICA SORIANO [address] [address] [facility] 1 GLOMERULAR FILTRATION RATE/1.73 SQ M.PREDICTED [VOLUME [...] Sep 29, 2024 09:36 AM Reporting Lab: [place] [phone] Performing Lab: [address] CBC/PLT LEUKOCYTES [#/VOLUME] IN BLOOD BY AUTOMATED COUNT 7.6 10*3/u L 5.0 - 10.0 09/29 Specimen Type: BLOOD No comment entered. Ordering Provider: MALU MCKENZIE Report Released Date/Time: Sep 29, 2024 09:36 AM Reporting Lab: [place] [phone] Performing Lab: [place] [phone] [facility] CBC/PLT ERYTHROCYTE S [#/VOLUME] IN BLOOD BY AUTOMATED COUNT 4.69 10*6/u L 4.6 - 6.2 09/29 Specimen Type: BLOOD No comment entered. Ordering Provider: MALU MCKENZIE Report Released Date/Time: Sep 29, 2024 09:36 AM Reporting Lab: [place] [phone] Performing Lab: [address] [address] [facility] CBC/PLT HEMOGLOBIN [MASS/VOLUM E] IN BLOOD 15.0 g/dL 14.0 - 18.0 09/29 Specimen Type: BLOOD No comment entered. Ordering Provider: MALU MCKENZIE Report Released Date/Time: Sep 29, 2024 09:36 AM Reporting Lab: [place] [phone] Performing Lab: [place] [phone] [facility] CBC/PLT HEMATOCRIT [VOLUME FRACTION] OF BLOOD BY AUTOMATED COUNT 45.9 42.0 - 52.0 09/29 Specimen Type: BLOOD No comment entered. Ordering Provider: MALU MCKENZIE Report Released Date/Time: Sep 29, 2024 09:36 AM Reporting Lab: [place] [phone] Performing Lab: [place] [phone] [facility] CBC/PLT MCV [ENTITIC VOLUME] BY AUTOMATED COUNT 97.9 fL 80.0 - 94.0 09/29 H Specimen Type: BLOOD No comment entered. Ordering Provider: MALU MCKENZIE Report Released Date/Time: Sep 29, 2024 09:36 AM Reporting Lab: [place] [phone] Performing Lab: [place] [phone] [facility] CBC/PLT MCH [ENTITIC MASS] BY AUTOMATED COUNT 32.0 pg 27.0 - 31.0 09/29 H Specimen Type: BLOOD No comment entered. Ordering Provider: MALU MCKENZIE Report Released Date/Time: Sep 29, 2024 09:36 AM Reporting Lab: [place] [phone] Performing Lab: [address] [address] [facility] CBC/PLT MCHC [MASS/VOLUM E] BY AUTOMATED COUNT 32.7 g/dL 32.0 - 36.0 09/29 Specimen Type: BLOOD No comment entered. Ordering Provider: MALU MCKENZIE Report Released Date/Time: Sep 29, 2024 09:36 AM Reporting Lab: [place] [address] Performing Lab: [place] [phone] CBC/PLT PLATELETS [#/VOLUME] IN BLOOD 216 10*3/u L 150 - 450 09/29 Specimen Type: BLOOD No comment entered. Ordering Provider: MALU MCKENZIE Report Released Date/Time: Sep 29, 2024 09:36 AM Reporting Lab: [place] [address] Performing Lab: [address] CBC/PLT PLATELET MEAN VOLUME [ENTITIC VOLUME] IN BLOOD 10.5 fL 9.0 - 13.1 09/29 Specimen Type: BLOOD No comment entered. Ordering Provider: MALU MCKENZIE Report Released Date/Time: Sep 29, 2024 09:36 AM Reporting Lab: [place] [address] Performing Lab: [address] CBC/PLT ERYTHROCYTE DISTRIBUTIO N WIDTH [ENTITIC VOLUME] BY AUTOMATED COUNT 13.0 11.0 - 16.0 09/29 Specimen Type: BLOOD No comment entered. Ordering Provider: MALU MCKENZIE Report Released Date/Time: Sep 29, 2024 09:36 AM Reporting Lab: [place] [address] Performing Lab: [address] CBC/PLT NUCLEATED ERYTHROCYTE S/100 ERYTHROCYTE S IN BLOOD 0.0 0.0 - 0.0 09/29 Specimen Type: BLOOD No comment entered. Ordering Provider: MALU MCKENZIE Report Released Date/Time: Sep 29, 2024 09:36 AM Reporting Lab: [address] [address] Performing Lab: [address] [address] [facility] OCCULT BLOOD FIT X1 SCREEN HEMOGLOBIN. GASTROINTES TINAL.LOWER [PRESENCE] IN STOOL BY IMMUNOASSAY [facility] 10/16 Specimen Type: FECES Comment: Test cancelled. Collection date could not be determined. Sample integrity cannot be ensured. Please recollect specimen and resubmit for testing. Ordering Provider: MALU MCKENZIE Report Released Date/Time: Oct 03, 2023 08:31 AM Reporting Lab: [address] [address] Performing Lab: [address] [address] [facility] ALT ALANINE AMINOTRANSF ERASE [ENZYMATIC ACTIVITY/VO LUME] [...] 2023 08:31 AM Reporting Lab: VERONICA SORIANO [address] [address] Performing Lab: VERONICA SORIANO [address] [address] [facility] LIPID PROFILE CHOLESTEROL [MASS/VOLUM E] IN SERUM [...] 2023 08:31 AM Reporting Lab: VERONICA SORIANO [address] [address] Performing Lab: VERONICA SORIANO [address] [address] [facility] LIPID PROFILE TRIGLYCERID E [MASS/VOLUM E] IN [...] 2023 08:31 AM Reporting Lab: VERONICA SORIANO [address] [address] Performing Lab: VERONICA SORIANO [address] [address] [facility] LIPID PROFILE CHOLESTEROL IN HDL [MASS/VOLUM E] [...] 2023 08:31 AM Reporting Lab: VERONICA SORIANO [address] [address] Performing Lab: VERONICA SORIANO [address] [address] [facility] LIPID PROFILE CHOLESTEROL IN LDL [MASS/VOLUM E] [...] 2023 08:31 AM Reporting Lab: VERONICA SORIANO [address] [address] Performing Lab: VERONICA SORIANO [address] [address] [facility] Vital Signs Combined list of inpatient and outpatient Vital Signs from Department of Defense and Veterans Affairs, ranging from 12 months to all on record, depending upon the facility. Vital Sign Value Date Comments Source SYSTOLIC BLOOD PRESSURE 144 09/29/2024 09:16:15 [facility] DIASTOLIC BLOOD PRESSURE 72 09/29/2024 09:16:15 [facility] PULSE OXIMETRY 93 09/29/2024 09:16:15 [facility] WEIGHT 200.6 09/29/2024 09:16:15 ANDREW ALCARAZ [facility] BMI 28 kg/m2 09/29/2024 09:16:15 ANDREW ANIL [facility] PAIN 0 09/29/2024 09:16:15 ANDREW ALCARAZ [facility] HEIGHT 71 09/29/2024 09:16:15 ANDREW ANIL [facility] TEMPERATURE 97.4 09/29/2024 09:16:15 AMRIK LOTT [facility] PULSE 82 09/29/2024 09:16:15 ANDREW ANIL [facility] Encounters Combined list of: 1) Encounters from Department of [facility] Affairs facilities going backup to the last 18 months, not all [place] inpatient encounters are included; 2) Encounters from the Department of [facility] facilities going backup to 280 months. Location Location Details Encounter Type Encounter Number Reason For Visit Attending Provider ADM Date DC Date Status Disposition Source [facility] Outpatient Encounter [id number] 07/18 [place] [facility] Out[facility] Encounter [id number] 08/30 [place] Outpatient Encounter [id number] 09/13 [place] OFFICE O/P EST MOD 30 MIN [id number] Diagnos is: ICD-10- CM I10 Essenti al (primar y) hyperte nsion JUDY MCKENZIE K R 10/03 [place] [facility] HEARING AID REPAIR/MOD IFYING [id number] Diagnos is: ICD-10- CM H90.3 Sensori neural hearing loss, CHRISTOPH Gamboa S 10/03 [place] Outpatient Encounter [id number] 10/31 [place] Outpatient Encounter [id number] 11/05 [place] [facility] Outpatient Encounter [id number] 12/08 [place] [facility] Outpatient Encounter [id number] 02/12 [place] [facility] Outpatient Encounter [id number] 05/05 [place] [facility] INTRM OPH EXAM EST PATIENT [id number] Diagnos is: ICD-10- CM 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, right eye NILTONRUTHAaron Ocampo R 06/10 [place] [facility] Outpatient Encounter [id number] 06/23 [place] [facility] Outpatient Encounter [id number] 09/04 [place] [facility] Outpatient Encounter [id number] 09/29 [place] [facility] OFFICE O/P EST MOD 30 MIN [id number] Diagnos is: ICD-10- CM I10 Essenti al (primar y) hyperte nsion JUDY MCKENZIE K R 09/29 [place] [facility] Outpatient Encounter [id number] 10/27 [place] [facility] Outpatient Encounter [id number] 11/06 [place] [facility] Outpatient Encounter [id number] 12/03 [place] [facility] Outpatient Encounter [id number] 12/21 [place] [facility] Outpatient Encounter [id number] 12/21 [place] [facility] Outpatient Encounter [id number] 12/24 [place] [facility] Outpatient Encounter [id number] 12/24 [place] [facility] Social History Combined list of available smoking, tobacco, and other social history from Department of Defense and Veterans Affairs facilities. Social History Type Response Date Comment Source Tobacco smoking status [place]-TOB[place] USE FORMER CIGARETTES 09/29/2024 [facility] History of tobacco use TX-TOBACCO USE SOME DAYS OTHER TYPE 09/29/2024 [facility] History of tobacco use TX-TOBACCO USE 5 TO 15 YEARS 10/03/2023 [facility] History of tobacco use TX-TOBACCO USER SOME DAYS 10/03/2022 [facility] History of tobacco use TX-TOBACCO USER SOME DAYS 06/28/2021 [facility] History of tobacco use TX-TOBACCO FORMER USER 05/23/2020 [facility] History of tobacco use TX-TOBACCO QUIT 15 YRS OR MORE 09/08/2018 [facility] History of tobacco use V9 LIFETIME NON-USER OF TOBACCO 03/14/2018 [facility] History of tobacco use V9 LIFETIME NON-USER OF TOBACCO 03/14/2017 [facility] History of tobacco use V9 LIFETIME NON-USER OF TOBACCO 03/09/2016 [facility] History of tobacco use V9 QUIT TOBACCO >7 YEARS AGO 03/09/2015 [facility] History of tobacco use V9 QUIT TOBACCO >7 YEARS AGO 03/24/2014 [facility] History of tobacco use V9 CURRENT TOBACCO USER 03/23/2013 [facility] History of tobacco use V9 CURRENT TOBACCO USER 05/28/2012 [facility] History of tobacco use V9 CURRENT TOBACCO USER 05/28/2011 [facility] History of tobacco use V9 CURRENT TOBACCO USER 04/20/2011 [facility] History of tobacco use V9 CURRENT TOBACCO USER 05/24/2010 [facility] History of tobacco use V9 CURRENT TOBACCO USER 05/17/2009 [facility] History of tobacco use V9 CURRENT TOBACCO USER 10/14/2008 [facility] History of tobacco use V9 CURRENT TOBACCO USER 01/20/2007 [facility] History of tobacco use HF V9 CURRENT SMOKER 07/17/2006 pipe [facility] History of tobacco use HF V9 CURRENT NON-SMOKER 07/06/2004 pipe [facility] 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 [facility]
[2024-12-25] MEDS: CLOPIDOGREL 75MG TAB 75 MG PO (09:26)
[2024-12-25] MEDS: ASPIRIN EC 81MG TABLET 81 MG PO (09:26)
--- NOTE | 2024-12-25 09:32 | PC.NURSE ---
Patient able to walk from bed to bathroom then back to bed
[2024-12-25] MEDS: SPIRONOLACTONE 25MG TABLET 25 MG PO (10:26)
[2024-12-25] MEDS: SACUBITRIL/VALSARTAN 24-26MG TABLET 1 EACH PO (10:26)
[2024-12-25] MEDS: METOPROLOL SUCCINATE XL 25MG TABLET 25 MG PO (10:27)
--- NOTE | 2024-12-25 12:07 | EXP.DC.SUM ---
General Admission date:: 12/24/24 Discharge date: 12/25/24 HPI HPI HPI: Mr. Perez is a 79-year-old male with history of hypertension that is well-controlled. Not have any other cardiac history that he is aware of. Used to smoke but stopped over 25 years ago. He presented to the ED today with complaint of heart rate being low. Was feeling weak and fatigued. States that for the past 4 to 5 days he has had shortness of breath, diaphoresis when he awakes in the morning. Heart rate has dropped to as low as the 30s according to his pulse oximeter at home. Because of his symptoms, came to the ER today at the insistence of his family for evaluation. On arrival he was in no acute distress. Found to be in ventricular bigeminy. Initial troponin was undetectable. 2D echo performed in the ED showing decreased LV function with EF approximately 30%. Case discussed with ER doctor, request admission for cards eval and further management. Labs remarkable for T4 of 11.2, normal kidney function BUN of 12, creatinine 1.2. White count normal at 8.8. BNP elevated at 2900. Patient was taken urgently for heart cath after echo findings. Evaluated after his heart cath. Found to have critical three-vessel disease. Patient is chest pain-free. Having occasional PVCs but no longer in bigeminy on telemetry. Stable on room air. Alert and oriented x 4. Hospital Course Hospital Course Hospital Course: 79-year-old male who presented with symptomatic low heart rate. Found to be in bigeminy. Medicine consulted for admission. Discussed case with ER physician, request admission for cards eval. I agreed to admit. Cardiology evaluated and preliminary echo showed new finding of HFrEF. In light of his bigeminy and HFrEF, taken for urgent left heart cath. Multivessel disease identified. Tolerated cath well with placement of 4 stents. Remained hemodynamically stable overnight. Improvement in his arrhythmia. Medically stable to discharge home. Meeting criteria for LifeVest, placed prior to discharge. Will follow-up with cardiology in the next 1 to 2 weeks. Problems addressed as follows: CAD Acute HFrEF Ventricular bigeminy Hypertension - Taken for left heart cath at time of admission, found to have critical three-vessel disease with successful revascularization of a subtotally occluded ostial and proximal LAD. Critical disease reduced to 0% with 2 contiguous stents. Successful revascularization of critical disease large circumflex with 1 stent. Successful revascularization of critically diseased proximal and mid dominant RCA with placement of 1 stent. Cardiology assisted with care. Initiated on dual antiplatelet therapy with aspirin 81 mg daily and Plavix 75 mg daily. Patient appears euvolemic. Cardiology recommends initiating Entresto 24/26 mg twice daily, spironolactone 25 mg daily.will hold at this time initiating SGLT2 and consider later at follow-up. Will need repeat echocardiogram in 1 month due to finding on echo of EF of 30%. LifeVest placed prior to discharge as EF is less than 35% with new HFrEF finding. Patient treated on Lipitor 80 mg nightly. Will initiate metoprolol succinate for benefit of rate control and heart failure. Extensive discussion with cardiology on day of discharge and with patient about medication regimen. Total time spent on discharge 32 minutes in counseling, documentation, chart review, and direct care with patient. Exam Data for Last 24 hours Vital signs and Labs for Last 24 Hours: Temp Pulse Resp BP Pulse Ox O2 Del Method 97.8 F 77 19 151/79 H 97 Room Air 12/25/24 08:00 12/25/24 10:00 12/25/24 10:00 12/25/24 10:00 12/25/24 10:00 12/25/24 11:05 Laboratory Results - last 24 hr 12/24/24 14:05: Troponin I < 0.01 12/24/24 14:38: Activated Clotting Time > 400 H* 12/25/24 05:34: WBC 10.2, RBC 4.37 L, Hgb 14.1, Hct 42.0, MCV 96.1 H, MCH 32.3 H, MCHC 33.6, RDW 12.6, Plt Count 192, MPV 10.8 H, Neut % (Auto) 77.9, Lymph % (Auto) 14.3, Canadian % (Auto) 6.3, Eos % (Auto) 0.9, Baso % (Auto) 0.3, Neut # (Auto) 7.9 H, Lymph # (Auto) 1.5, Canadian # (Auto) 0.6, Eos # (Auto) 0.1, Baso # (Auto) 0.0, Sodium 138, Potassium 4.2, Chloride 104, Carbon Dioxide 28, Anion Gap 10.2, BUN 16 D, Creatinine 1.10, Estimated Creat Clear 71, Estimated GFR 65, Est GFR ( Amer) 78, Glucose 92, Calcium 8.6, Magnesium 2.2 D, Total Bilirubin 1.1, AST 31 D, ALT 15, Alkaline Phosphatase 59, Total Protein 6.8, Albumin 3.7 D, Globulin 3.1, Albumin/Globulin Ratio 1.2, Triglycerides 85, Cholesterol 139 L, LDL Cholesterol Direct 60.83 L, VLDL Cholesterol 17, HDL Cholesterol 51, Cholesterol/HDL Ratio 2.7 I & O for Last 24 hours: Intake & Output 12/22/24 12/23/24 12/24/24 12/25/24 23:59 23:59 23:59 23:59 Intake Total 335 / 335 105 / 105 Output Total 300 / 600 580 / 580 Balance 35 / -265 -475 / -475 Weight 89.868 kg 90.446 kg Constitutional Constitutional: no acute distress, average body habitus and cooperative *Routine HEENT Exam Head: Present normocephalic Eye: Present EOMI and PERRL ENT: Present mucous membranes moist *Routine Neck Exam Neck: Present supple; Absent lymphadenopathy *Routine Respiratory Exam Respiratory: Present CTA bilaterally; Absent rhonchi, wheezes or crackles *Routine Cardiovascular Exam Comments: Irregularly irregular rhythm due to ectopy, rate controlled *Routine Abdominal Exam Abdominal: Present soft and normoactive bowel sounds; Absent tenderness *Routine Rectal Exam Patient deferred: visual exam *Routine Exam Patient deferred: penile exam *Routine Extremities Exam Extremities: Absent cyanosis, clubbing or edema *Routine Skin Exam Skin: Present warm; Absent rash *Routine Neurological Exam Neurological: Present alert, oriented X3 and moving all extremities; Absent altered mental status Results Data Completed and Pending Labs on day of discharge: Labs from last 24 hours 12/25/24 12/24/24 12/24/24 05:34 14:38 14:05 WBC 10.2 RBC 4.37 L Hgb 14.1 Hct 42.0 MCV 96.1 H MCH 32.3 H MCHC 33.6 RDW 12.6 Plt Count 192 MPV 10.8 H Neut % (Auto) 77.9 Lymph % (Auto) 14.3 Canadian % (Auto) 6.3 Eos % (Auto) 0.9 Baso % (Auto) 0.3 Neut # (Auto) 7.9 H Lymph # (Auto) 1.5 Canadian # (Auto) 0.6 Eos # (Auto) 0.1 Baso # (Auto) 0.0 Activated Clotting Time > 400 H* Sodium 138 Potassium 4.2 Chloride 104 Carbon Dioxide 28 Anion Gap 10.2 BUN 16 D Creatinine 1.10 Estimated Creat Clear 71 Estimated GFR 65 Est GFR ( Amer) 78 Glucose 92 Calcium 8.6 Magnesium 2.2 D Total Bilirubin 1.1 AST 31 D ALT 15 Alkaline Phosphatase 59 Troponin I < 0.01 Total Protein 6.8 Albumin 3.7 D Globulin 3.1 Albumin/Globulin Ratio 1.2 Triglycerides 85 Cholesterol 139 L LDL Cholesterol Direct 60.83 L VLDL Cholesterol 17 HDL Cholesterol 51 Cholesterol/HDL Ratio 2.7 DS: Diagnosis Discharge Diagnosis (1) New onset of congestive heart failure: Status: Acute Code(s): I50.9 - Heart failure, unspecified (2) Bigeminy: Status: Acute Code(s): I49.8 - Other specified cardiac arrhythmias (3) HFrEF (heart failure with reduced ejection fraction): Status: Acute Code(s): I50.20 - Unspecified systolic (congestive) heart failure (4) Pre-syncope: Status: Acute Code(s): R55 - Syncope and collapse (5) HTN (hypertension): Status: Chronic Code(s): I10 - Essential (primary) hypertension Meds Home Medications and Allergies Home Medications ?Medication ?Instructions ?Recorded ?Confirmed ?Type trazodone 50 mg tablet 50 mg PO HS 12/24/24 12/24/24 History aspirin 81 mg tablet,delayed 81 mg PO DAILY 30 days #30 tabs 12/25/24 Rx release atorvastatin 40 mg tablet 80 mg (2 x 40 mg) PO HS 30 days 12/25/24 Rx #60 tabs clopidogrel 75 mg tablet 75 mg PO DAILY 30 days #30 tabs 12/25/24 Rx metoprolol succinate 25 mg 25 mg PO DAILY 30 days #30 tabs 12/25/24 Rx tablet,extended release 24 hr sacubitril 24 mg-valsartan 26 mg 1 tab PO BID 30 days #60 tabs 12/25/24 Rx tablet (Entresto) spironolactone 25 mg tablet 25 mg PO DAILY 30 days #30 tabs 12/25/24 Rx New Prescriptions to Start Prescriptions: Wenceslao Coreasder,Wenceslao clopidogrel Wenceslao Ledesma metoprolol succinate Wenceslao Ledesma sacubitril-valsartan [Entresto] Wenceslao Ledesma spironolactone Wenceslao Ledesma Allergies Allergy/AdvReac Type Severity Reaction Status Date / Time No Known Allergies Allergy Verified 08/30/18 10:31 Discharge Plan Disposition Patient Disposition: Home, Self-Care Condition: Fair Discharge Order Discharge Orders: Discharge Order (Routine); Ordered 12/25/24 Ordered By: Wenceslao Ledesma Follow up Plan Follow up with: Carlos Mckenzie MD [Referring] - 01/01/25 1:00 pm Erick Woods MD [Staff Physician] - 12/29/24 1:45 pm Prescriptions/Medication Reconciliation: New atorvastatin 40 mg Tablet 80 mg PO HS 30 Days Qty: 60 0RF clopidogrel 75 mg Tablet 75 mg PO DAILY 30 Days Qty: 30 0RF aspirin 81 mg Tablet,Delayed Release (Dr/Ec) 81 mg PO DAILY 30 Days Qty: 30 0RF spironolactone 25 mg Tablet 25 mg PO DAILY 30 Days Qty: 30 0RF metoprolol succinate 25 mg Tablet Extended Release 24 Hr 25 mg PO DAILY 30 Days Qty: 30 0RF Entresto 24-26 mg Tablet 1 tab PO BID 30 Days Qty: 60 0RF Continued trazodone 50 mg tablet 50 mg PO HS Discontinued atenolol 25 mg tablet 25 mg PO DAILY Problem Reconciliation Problems Reviewed?: Yes Patient Discharge Instructions ACTIVITY: Continue current activity DIET: continue same diet Patient Instructions: Congestive Heart Failure (Alternative Therapy), Cardiac Catheterization, DI for Heart Failure, DI for Surgical Site Infection Print Language: Azeri Providers Primary Care Provider: Provider,Referral Admit Provider: Wenceslao Ledesma Attending Provider: Wenceslao Ledesma
--- NOTE | 2024-12-25 12:47 | EXP.CARD.PN ---
Subjective Subjective Date: 12/25/24 Time: 09:30 Interval history: Left heart cath yesterday revealed extensive three-vessel disease which was stented successfully. Patient was transferred to the floor overnight and reports he is feeling excellent this morning. No questions or concerns at this time. Exam Data for Last 24 hours Vital signs and Labs for Last 24 Hours: Temp Pulse Resp BP Pulse Ox O2 Del Method 97.8 F 84 16 169/83 H 96 Room Air 12/25/24 12:00 12/25/24 12:00 12/25/24 12:00 12/25/24 12:00 12/25/24 12:00 12/25/24 12:00 Laboratory Results - last 24 hr 12/24/24 14:05: Troponin I < 0.01 12/24/24 14:38: Activated Clotting Time > 400 H* 12/25/24 05:34: WBC 10.2, RBC 4.37 L, Hgb 14.1, Hct 42.0, MCV 96.1 H, MCH 32.3 H, MCHC 33.6, RDW 12.6, Plt Count 192, MPV 10.8 H, Neut % (Auto) 77.9, Lymph % (Auto) 14.3, Sebastian % (Auto) 6.3, Eos % (Auto) 0.9, Baso % (Auto) 0.3, Neut # (Auto) 7.9 H, Lymph # (Auto) 1.5, Sebastian # (Auto) 0.6, Eos # (Auto) 0.1, Baso # (Auto) 0.0, Sodium 138, Potassium 4.2, Chloride 104, Carbon Dioxide 28, Anion Gap 10.2, BUN 16 D, Creatinine 1.10, Estimated Creat Clear 71, Estimated GFR 65, Est GFR ( Amer) 78, Glucose 92, Calcium 8.6, Magnesium 2.2 D, Total Bilirubin 1.1, AST 31 D, ALT 15, Alkaline Phosphatase 59, Total Protein 6.8, Albumin 3.7 D, Globulin 3.1, Albumin/Globulin Ratio 1.2, Triglycerides 85, Cholesterol 139 L, LDL Cholesterol Direct 60.83 L, VLDL Cholesterol 17, HDL Cholesterol 51, Cholesterol/HDL Ratio 2.7 I & O for Last 24 hours: Intake & Output 12/22/24 12/23/24 12/24/24 12/25/24 23:59 23:59 23:59 23:59 Intake Total 335 / 335 105 / 105 Output Total 300 / 600 580 / 580 Balance 35 / -265 -475 / -475 Weight 198 lb 2 oz 199 lb 6.4 oz Constitutional Constitutional: no acute distress and cooperative *Routine HEENT Exam Eye: Present PERRL *Routine Respiratory Exam Respiratory: Present CTA bilaterally; Absent accessory muscle use, wheezes or crackles *Routine Cardiovascular Exam Cardiovascular: Present RRR, Normal S1 and Normal S2; Absent murmur, gallop or rubs Comments: Right radial cath site normal on inspection and palpation *Routine Abdominal Exam Abdominal: Present soft; Absent tenderness *Routine Extremities Exam Extremities: Present pulses intact; Absent cyanosis or edema *Routine Skin Exam Skin: Present intact; Absent erythema or wounds *Routine Neurological Exam Neurological: Present alert and oriented X3 Routine Psychiatric Exam Psychiatric: Present cooperative Progress Note: A&P Assessment and plan (1) CAD (coronary artery disease): Status: Acute (2) New onset of congestive heart failure: Status: Acute (3) Bigeminy: Status: Acute (4) HFrEF (heart failure with reduced ejection fraction): Status: Acute (5) Pre-syncope: Status: Acute (6) HTN (hypertension): Status: Chronic Assessment and Plan Assessment and Plan for All Diagnoses:: HFrEF - ischemic CM, new dx this admission with EF 30% and multivessel dz on cath - pt euvolemic on exam - add Entresto, Aldactone. 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 Will start GDMT and order LifeVest today. If both are well-tolerated he could reasonably discharge home later today with close outpatient follow-up next week.
--- NOTE | 2024-12-28 15:49 | SW/DCPLANNER ---
Spoke with patients . Patients stated that he is doing well. Patient stated that he is aware of his upcoming appointments. Patient stated that he was able to get his medicine picked up. Patient stated that he has no concerns or questions at this time. Brian Smith
== END 2024-12-25 16:39 | disposition home or self-care (01) | DRG 321 ==
LOC: ER 11:30 → 2ND 12:07
PROVIDERS: Internal Medicine; Physician Assistant; Admitting Provider Internal Medicine Adolescent Medicine; Emergency Provider Emergency Medicine; Visit Provider Internal Medicine Adolescent Medicine
PROC: 02H13DZ Insertion of Intraluminal Device into Coronary Artery, Two Arteries, Percutaneous Approach (ICD-10-PCS; principal; 2024-12-24 13:00)
DX: I25.10 Atherosclerotic heart disease of native coronary artery without angina pectoris (principal); I50.21 Acute systolic (congestive) heart failure; I11.0 Hypertensive heart disease with heart failure; I49.8 Other specified cardiac arrhythmias; I49.3 Ventricular premature depolarization; R74.8 Abnormal levels of other serum enzymes; Z87.891 Personal history of nicotine dependence; Z79.02 Long term (current) use of antithrombotics/antiplatelets; Z95.828 Presence of other vascular implants and grafts
CPT/HCPCS: 36415; 71045; 80053; 80061; 83735; 83880; 84436; 84443; 84484; 85025; 85347; 85378; 85610; 85730; 86803; 87389; 92928; 93005; 93306; 93454; 99152; 99153; 99291; C1725; C1769; C1874; C9600; J1200; J1644; J2250; J3010; J3475; Q9967

== ENCOUNTER 2024-12-29 15:35 | Outpatient (CLI) | payer MEDICARE, OTHER, SELFPAY ==
--- OUTSIDE RECORDS SUMMARY | 2024-12-29 15:39 | XMS_ITS | Continuity of Care Document ---
Author Name [facility] Organization [facility] Care Team Providers Care Educational Psychology Teacher Name Role Phone [facility] Unavailable Unavailable Problems Combined list of problems from [facility] and [facility] facilities. It does not include entries that were removed or entered in error. Problem Status Onset Date Problem Type Date of Resolution Comments Source CHRONIC SINUSITIS NOS Active Condition [facility] Dermatitis * (ICD-9-CM 692.9) Active Condition [facility] ESOPHAGEAL REFLUX [facility] Gastroesophageal reflux disease Active Condition [facility] Hyperlipidemia [facility]pertension Active Condition [facility] HYPERTENSION NOS Active Condition [facility] INHIBITED SEX EXCITEMENT Active Condition [facility] Insomnia Active Condition [facility] Insomnia * (ICD-9-CM 780.52) Active Condition [facility] Low back pain Active Condition [facility] Osteoarthritis * (ICD-9-CM 715.90) 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 Diagnosis: ICD-10-CM H90.3 Sensorineural hearing loss, bilateral Active Diagnosis [facility] Medications Combined list of outpatient medications from [facility] and [facility] facilities.Medications provided include 1) outpatient medications from the last 15 months, and 2) patient-reported medications. Medication Details Route Status Patient Instructions Prescription Expires Prescription Number Last Dispense Date Ordering Provider Order Date Order Qty Source ATENOLOL (ATENOLOL), 25 MG, TABLET, ORAL, [employer] 1000 ea. BOTTLE Active [id number] 2023 45 Pharmac y Data Transac tion Service Facilit y ATENOLOL 25MG TAB TAKE ONE-HALF TABLET BY MOUTH DAILY ORAL ACTIVE AIXA PRASAD [address] [place] [facility] CARBAMIDE PEROXIDE 6.5%/GLYCER IN SOLN,OTIC INSTILL 4 DROPS IN BOTH EARS TWICE A DAY FOR EAR WAX REMOVAL -ALLOW DROPS TO REMAIN IN EAR FOR AT LEAST 15 MINUTES. FLUSH EAR WITH WARM WATER USING BULB EAR SYRINGE. AURICU LAR (OTIC) 11/02/2023 [id number] KALA MCKENZIE R [address] [place] [facility] carbamide peroxide 65 MG/ML Otic Solution INSTILL 4 DROPS IN BOTH EARS TWICE A DAY FOR EAR WAX REMOVAL -ALLOW DROPS TO REMAIN IN EAR FOR AT LEAST 15 MINUTES. FLUSH EAR WITH WARM WATER USING BULB EAR SYRINGE. 11/02/2023 [id number] MALU MCKENZIE R 2023 15 [place] [facility] carbamide peroxide 65 MG/ML Otic Solution INSTILL 4 DROPS IN BOTH EARS TWICE A DAY FOR EAR WAX REMOVAL -ALLOW DROPS TO REMAIN IN EAR FOR AT LEAST 15 MINUTES. FLUSH EAR WITH WARM WATER USING BULB EAR SYRINGE. 11/02/2023 [id number] 4 MALU MCKENZIE R 2023 15 [place] [facility] TRAZODONE HCL (trazodone HCl), 50 MG, TABLET, ORAL, KIZZY, 1000 ea. BOTTLE Active [id number] 2023 90 Pharmac y Data Transac tion Service Facilit y TRAZODONE HCL 50MG TAB TAKE ONE TABLET BY MOUTH AT BEDTIME NEEDED ORAL ACTIVE KALA MCKENZIE [address] [place] [facility] Immunizations Combined list of available immunizations from the Department of Defense and Veterans Affairs facilities. 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 INFLUENZA, HIGH-DOSE, TRIVALENT, PF 7 2023 135 complet ed HISTORICA L INFORMATI ON - FROM OTHER REGISTRY, [place] [facility] INFLUENZA, UNSPECIFIED FORMULATION 2022 88 complet ed Completed Series, HISTORICA L INFORMATI ON - FROM PATIENT'S RECALL, [place] [facility] INFLUENZA VACCINE, QUADRIVALENT, ADJUVANTED 6 2022 205 complet ed HISTORICA L INFORMATI ON - FROM OTHER REGISTRY, [place] [facility] COVID-19 (MODERNA), MRNA, LNP-S, BIVALENT BOOSTER, PF, 50 MCG/0.5 ML OR 25MCG/0.25 ML DOSE 2021 229 complet ed Booster for Series, HISTORICA L INFORMATI ON - FROM PARENT'S RECALL, [place] [facility] COVID-19 (MODERNA), MRNA, LNP-S, BIVALENT BOOSTER, PF, 50 MCG/0.5 ML OR 25MCG/0.25 ML DOSE 2021 229 complet ed Booster for Series, HISTORICA L INFORMATI ON - FROM PARENT'S RECALL, [place] [facility] INFLUENZA, HIGH-DOSE, QUADRIVALENT 5 2021 197 complet ed HISTORICA L INFORMATI ON - FROM OTHER REGISTRY, [place] [facility] INFLUENZA, UNSPECIFIED FORMULATION 2021 88 complet ed Completed Series, HISTORICA L INFORMATI ON - FROM PARENT'S RECALL, [place] [facility] COVID-19, mRNA, LNP-S, PF, 100 mcg or 50 mcg dose 2020 Matth[employer] (MOD) Not Given COVID-19, mRNA, LNP-S, PF, 100 mcg or 50 mcg dose Luther COVID-19 (MODERNA), MRNA, LNP-S, PF, 100 MCG/0.5ML DOSE OR 50 MCG/0.25ML DOSE 3 2020 207 complet ed HISTORICA L INFORMATI ON - FROM OTHER REGISTRY, [place] [facility] INFLUENZA, UNSPECIFIED FORMULATION 2020 88 complet ed [facility] influenza, high-dose, quadrivalent 2020 [place], () Not Given influenza , high-dose , quadrival ent DoD INFLUENZA, HIGH-DOSE, QUADRIVALENT 4 2020 197 complet ed HISTORICA L INFORMATI ON - FROM OTHER REGISTRY, [place] [facility] COVID-19 (MODERNA), MRNA, LNP-S, PF, 100 MCG/0.5 ML DOSE 2 2020 207 complet ed [place] [facility] COVID-19 (MODERNA), MRNA, LNP-S, PF, 100 MCG/0.5 ML DOSE 1 2020 207 complet ed [place] [facility] influenza, high-dose, quadrivalent 2019 STEPHANI, () Not Given influenza , high-dose , quadrival ent DoD INFLUENZA, HIGH-DOSE, QUADRIVALENT 3 2019 197 complet ed HISTORICA L INFORMATI ON - FROM OTHER REGISTRY, [place] [facility] [place] INFLUENZA, UNSPECIFIED FORMULATION 2019 88 complet ed [place] [facility] [place] ZOSTER RECOMBINANT 1 2018 187 complet ed [place] [facility] INFLUENZA, SEASONAL, INJECTABLE 2017 141 complet ed [place] [facility] ZOSTER RECOMBINANT 2 2017 187 complet ed [place] [facility] [place] INFLUENZA A & B (HISTORICAL) 2016 88 complet ed [place] [facility] Influenza, high dose seasonal 2016 PRAKASH KRAUS () Not Given Influenza , high dose seasonal DoD INFLUENZA, HIGH DOSE SEASONAL 2 2016 135 complet ed HISTORICA L INFORMATI ON - FROM OTHER REGISTRY, [place] [facility] [place] PNEUMOCOCCAL CONJUGATE PCV 13 2016 133 [...] 88 complet ed [place] [facility] Influenza, high dose seasonal 2014 LIZ REYNAGA () Not Given Influenza , high dose seasonal DoD [id number] (HISTORICAL) 2014 33 complet ed [place] [facility] PNEUMOCOCCAL, UNSPECIFIED FORMULATION 2014 109 complet ed [place] [facility] FLU,3 YRS (HISTORICAL) 2013 88 complet ed [place] [facility] INFLUENZA A & B (HISTORICAL) 2012 88 complet ed [place] [facility] INFLUENZA A & B (HISTORICAL) 2011 88 complet ed [place] [...] ago/unsur e of date [place] [facility] TDAP (HISTORICAL) 2005 115 complet ed [place] [facility] FLU,3 YRS (HISTORICAL) 2002 TREASUREVARINDER H 88 complet ed [place] [facility] INFLUENZA, UNSPECIFIED FORMULATION 2001 88 complet ed up to date. [place] [facility] [place] INFLUENZA, UNSPECIFIED FORMULATION 2000 88 complet ed takes yearly [place] [facility] [place] TD(ADULT) UNSPECIFIED FORMULATION 1996 139 complet ed up to date. [place] [facility] Results Combined list of recent chemistry, hematology and other laboratory results from Department of Defense and Veterans Affairs, ranging from 15 months to all on record, depending upon the facility. Order Name Results Value Reference Range Date Interpretation Specimen Comments Source OCCULT BLOOD FIT X1 SCREEN HEMOGLOBIN. GASTROINTES TINAL.LOWER [PRESENCE] IN STOOL BY IMMUNOASSAY [facility] 10/19 Specimen Type: FECES Comment: Test cancelled. Collection date could not be determined. Sample integrity cannot be ensured. Please recollect specimen and resubmit for testing. Ordering Provider: MALU MCKENZIE Report Released Date/Time: Sep 29, 2024 09:36 AM Reporting Lab: VERONICA SORIANO [address] [address] Performing Lab: VERONICA [address] [address] [facility] ALT ALANINE AMINOTRANSF ERASE [ENZYMATIC ACTIVITY/VO LUME] [...] 2024 09:36 AM Reporting Lab: VERONICA SORIANO [address] [address] Performing Lab: VERONICA SORIANO [address] [address] [facility] AST ASPARTATE AMINOTRANSF ERASE [ENZYMATIC ACTIVITY/VO LUME] [...] Sep 29, 2024 09:36 AM Reporting Lab: [address] [address] Performing Lab: [place] [phone] [facility] CBC/PLT LEUKOCYTES [#/VOLUME] IN BLOOD BY AUTOMATED COUNT 7.6 10*3/u L 5.0 - 10.0 09/29 Specimen Type: BLOOD No comment entered. Ordering Provider: MALU MCKENZIE Report Released Date/Time: Sep 29, 2024 09:36 AM Reporting Lab: [address] [address] Performing Lab: [address] [address] [facility] CBC/PLT ERYTHROCYTE S [#/VOLUME] IN BLOOD BY AUTOMATED COUNT 4.69 10*6/u L 4.6 - 6.2 09/29 Specimen Type: BLOOD No comment entered. Ordering Provider: MALU MCKENZIE Report Released Date/Time: Sep 29, 2024 09:36 AM Reporting Lab: [place] [address] Performing Lab: [address] CBC/PLT HEMOGLOBIN [MASS/VOLUM E] IN BLOOD 15.0 g/dL 14.0 - 18.0 09/29 Specimen Type: BLOOD No comment entered. Ordering Provider: MALU MCKENZIE Report Released Date/Time: Sep 29, 2024 09:36 AM Reporting Lab: [place] [address] Performing Lab: [address] CBC/PLT HEMATOCRIT [VOLUME FRACTION] OF BLOOD BY AUTOMATED COUNT 45.9 42.0 - 52.0 09/29 Specimen Type: BLOOD No comment entered. Ordering Provider: MALU MCKENZIE Report Released Date/Time: Sep 29, 2024 09:36 AM Reporting Lab: [place] [address] Performing Lab: [address] CBC/PLT MCV [ENTITIC VOLUME] BY AUTOMATED COUNT 97.9 fL 80.0 - 94.0 09/29 H Specimen Type: BLOOD No comment entered. Ordering Provider: MALU MCKENZIE Report Released Date/Time: Sep 29, 2024 09:36 AM Reporting Lab: [place] [address] Performing Lab: [address] CBC/PLT MCH [ENTITIC MASS] BY AUTOMATED COUNT 32.0 pg 27.0 - 31.0 09/29 H Specimen Type: BLOOD No comment entered. Ordering Provider: MCKENZIE,MALU R Report Released Date/Time: Sep 29, 2024 09:36 AM Reporting Lab: [place] [phone] Performing Lab: [place] [phone] [place] [address] CBC/PLT MCHC [MASS/VOLUM E] BY AUTOMATED COUNT 32.7 g/dL 32.0 - 36.0 09/29 Specimen Type: BLOOD No comment entered. Ordering Provider: MALU MCKENZIE Report Released Date/Time: Sep 29, 2024 09:36 AM Reporting Lab: [place] [phone] Performing Lab: [place] [phone] [place] [address] CBC/PLT PLATELETS [#/VOLUME] IN BLOOD 216 10*3/u L 150 - 450 09/29 Specimen Type: BLOOD No comment entered. Ordering Provider: MALU MCKENZIE Report Released Date/Time: Sep 29, 2024 09:36 AM Reporting Lab: [address] [address] Performing Lab: [place] [phone] [facility] CBC/PLT PLATELET MEAN VOLUME [ENTITIC VOLUME] IN BLOOD 10.5 fL 9.0 - 13.1 09/29 Specimen Type: BLOOD No comment entered. Ordering Provider: MALU MCKENZIE Report Released Date/Time: Sep 29, 2024 09:36 AM Reporting Lab: [place] [phone] Performing Lab: [place] [phone] [facility] CBC/PLT ERYTHROCYTE DISTRIBUTIO N WIDTH [ENTITIC VOLUME] BY AUTOMATED COUNT 13.0 11.0 - 16.0 09/29 Specimen Type: BLOOD No comment entered. Ordering Provider: MALU MCKENZIE Report Released Date/Time: Sep 29, 2024 09:36 AM Reporting Lab: [address] [address] Performing Lab: [address] [address] [facility] CBC/PLT NUCLEATED ERYTHROCYTE S/100 ERYTHROCYTE S IN BLOOD 0.0 0.0 - 0.0 09/29 Specimen Type: BLOOD No comment entered. Ordering Provider: MALU MCKENZIE Report Released Date/Time: Sep 29, 2024 09:36 AM Reporting Lab: [address] [address] Performing Lab: [address] [address] [facility] GLYCOHEMO GLOBIN HEMOGLOBIN A1C/HEMOGLO BIN.TOTAL IN BLOOD BY HPLC 5.3 4.4 - 6.4 09/29 Specimen Type: BLOOD Comment: [facility] guidelines for A1c interpretat ion: Glycemic control targets are based on Shared Decision Making between clinicians and patients. Criteria used to establish an A1c target recommendat ion can be found at https://www .[place].gov/elias lityandpati entsafety/ and include the use of [...] 9.27. Ref: https://ngs p.org/CAPda ta.asp. The in-house [employer]ometry[employer] D-100 analyzer has a historical CV <= 2%. Contact the laboratory for further performance characteris tics of this assay. Ordering Provider: MALU MCKENZIE Report Released Date/Time: Sep 29, 2024 09:36 AM Reporting Lab: [address] [address] Performing Lab: [place] [phone] [facility] LIPID PROFILE CHOLESTEROL [MASS/VOLUM E] IN SERUM [...] 2024 09:36 AM Reporting Lab: VERONICA SORIANO [address] [address] Performing Lab: VERONICA SORIANO [address] [address] [facility] LIPID PROFILE TRIGLYCERID E [MASS/VOLUM E] IN [...] 2024 09:36 AM Reporting Lab: VERONICA SORIANO [address] [address] Performing Lab: VERONICA SORIANO [facility] [address] [facility] [address] [facility] LIPID PROFILE CHOLESTEROL IN HDL [MASS/VOLUM E] [...] 29, 2024 09:36 AM Reporting Lab: VERONICA CHRISTIE [facility] [address] [facility] [address] Performing Lab: VERONICA CHRISTIE [facility] [address] [facility] [address] [facility] LIPID PROFILE CHOLESTEROL IN LDL [MASS/VOLUM E] [...] 2024 09:36 AM Reporting Lab: VERONICA SORIANO [facility] [address] [facility] [address] Performing Lab: VERONICA SORIANO [facility] [address] [facility] [address] [facility] PANEL 1 CREATININE [MASS/VOLUM E] IN SERUM [...] 2024 09:36 AM Reporting Lab: VERONICA SORIANO [address] [address] Performing Lab: ASP[place]-Keena SORIANO [address] [address] [facility] PANEL 1 UREA NITROGEN [MASS/VOLUM E] IN [...] 29, 2024 09:36 AM Reporting Lab: ASPENKeena [facility] [address] [facility] [address] Performing Lab: [address] [address] [facility] PANEL 1 GLUCOSE [MASS/VOLUM E] IN SERUM [...] 2024 09:36 AM Reporting Lab: VERONICA SORIANO [address] [address] Performing Lab: VERONICA SORIANO [address] [address] [facility] PANEL 1 SODIUM [MOLES/VOLU ME] IN SERUM [...] 2024 09:36 AM Reporting Lab: VERONICA SORIANO [address] [address] Performing Lab: VERONICA SORIANO [address] [address] [facility] PANEL 1 POTASSIUM [MOLES/VOLU ME] IN SERUM [...] 2024 09:36 AM Reporting Lab: VERONICA SORIANO [address] [address] Performing Lab: VERONICA SROIANO [address] [address] [facility] PANEL 1 CHLORIDE [MOLES/VOLU ME] IN SERUM [...] 2024 09:36 AM Reporting Lab: VERONICA SORIANO [address] [address] Performing Lab: VERONICA SORIANO [address] [address] [facility] PANEL 1 CARBON DIOXIDE, TOTAL [MOLES/VOLU ME] [...] <15 G5 Kidney failure Ordering Provider: MALU MCKNEZIE Report Released Date/Time: Sep 29, 2024 09:36 AM Reporting Lab: VERONICA SORIANO [address] [address] Performing Lab: VERONICA SORIANO [address] [address] [facility] PANEL 1 CALCIUM [MASS/VOLUM E] IN SERUM [...] 2024 09:36 AM Reporting Lab: VERONICA SORIANO [address] [address] Performing Lab: VERONICA SORIANO [address] [address] [facility] PANEL 1 ANION GAP 3 IN SERUM [...] 2024 09:36 AM Reporting Lab: VERONICA SORIANO [address] [address] Performing Lab: VERONICA SORIANO [address] [address] [facility] PANEL 1 GLOMERULAR FILTRATION RATE/1.73 SQ M.PREDICTED [VOLUME RATE/AREA] IN SERUM, PLASMA OR BLOOD BY CREATININE- BASED FORMULA (CKD-EPI 2020) 64 01/21 /2025 Specimen Type: PLASMA Comment: Estimated Glomerular Filtration [...] 29, 2024 09:36 AM Reporting Lab: VERONICA SROIANO [address] [address] Performing Lab: VERONICA SORIANO [address] [address] [facility] OCCULT BLOOD FIT X1 SCREEN HEMOGLOBIN. GASTROINTES TINAL.LOWER [PRESENCE] IN STOOL BY IMMUNOASSAY [facility] 10/16 Specimen Type: FECES Comment: Test cancelled. Collection date could not be determined. Sample integrity cannot be ensured. Please recollect specimen and resubmit for testing. Ordering Provider: MALU MCKENZIE Report Released Date/Time: Oct 03, 2023 08:31 AM Reporting Lab: [address] [address] Performing Lab: [facility] [address] [address] [facility] ALT ALANINE AMINOTRANSF ERASE [ENZYMATIC ACTIVITY/VO LUME] [...] 2023 08:31 AM Reporting Lab: VERONICA SORIANO [address] [address] Performing Lab: VERONICA SORIANO [address] [address] [facility] LIPID PROFILE CHOLESTEROL [MASS/VOLUM E] IN SERUM [...] 2023 08:31 AM Reporting Lab: VERONICA SORIANO [address] [address] Performing Lab: VERONICA SORIANO [address] [address] [facility] LIPID PROFILE TRIGLYCERID E [MASS/VOLUM E] IN [...] 2023 08:31 AM Reporting Lab: VERONICA SORIANO [address] [address] Performing Lab: VERONICA SORIANO [address] [address] [facility] LIPID PROFILE CHOLESTEROL IN HDL [MASS/VOLUM E] [...] 2023 08:31 AM Reporting Lab: VERONICA SORIANO [address] [address] Performing Lab: VERONICA SORIANO [address] [address] [facility] LIPID PROFILE CHOLESTEROL IN LDL [MASS/VOLUM E] [...] 2023 08:31 AM Reporting Lab: VERONICA SORIANO [address] [address] Performing Lab: VERONICA SORIANO [address] [address] [facility] Vital Signs Combined list of inpatient and outpatient Vital Signs from Department of Defense and Veterans Affairs, ranging from 12 months to all on record, depending upon the facility. Vital Sign Value Date Comments Source SYSTOLIC BLOOD PRESSURE 144 09/29/2024 09:16:15 [place] DIASTOLIC BLOOD PRESSURE 72 09/29/2024 09:16:15 [place] PULSE OXIMETRY 93 09/29/2024 09:16:15 [facility] WE[facility] 200.6 09/29/2024 09:16:15 [facility] BMI 28 kg/m2 09/29/2024 09:16:15 [facility] PAIN 0 09/29/2024 09:16:15 ANDREW ALCARAZ [facility] HEIGHT 71 09/29/2024 09:16:15 ANDREW ALCARAZ [facility] TEMPERATURE 97.4 09/29/2024 09:16:15 AMRIK LOTT [facility] PULSE 82 09/29/2024 09:16:15 ANDREW ANIL [facility] Encounters Combined list of: 1) Encounters from Department of [facility] facilities going backup to the last 18 months, not all [place] inpatient encounters are included; 2) Encounters from the Department of [facility] facilities going backup to 280 months. Location Location Details Encounter Type Encounter Number Reason For Visit Attending Provider ADM Date DC Date Status Disposition Source [facility] Encounter [id number] 07/18 [place] [facility] Outpatient Encounter [id number] 08/30 [place] [facility] Outpatient Encounter [id number] 09/13 [place] [facility] OFFICE O/P EST MOD 30 MIN [id number] Diagnos is: ICD-10- CM I10 Essenti al (primar y) hyperte nsion JUDY MCKENZIE K R 10/03 [place] [facility] HEARING AID REPAIR/MOD IFYING [id number] Diagnos is: ICD-10- CM H90.3 Sensori neural hearing loss, bilater al CHRISTOPH BERRIOS S 10/03 [place] [facility] Outpatient Encounter [id number] 10/31 [place] Outpatient Encounter [id number] 11/05 [place] [facility] Outpatient Encounter [id number] 12/08 [place] [facility] Outpatient Encounter [id number] 02/12 [place] [facility] Outpatient Encounter [id number] 05/05 [place] [facility] INTRM OPH EXAM EST PATIENT [id number] Diagnos is: ICD-10- CM 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, right eye NILTONTIFFANI Carias 06/10 [place] [facility] Outpatient Encounter [id number] 06/23 [place] [facility] Outpatient Encounter [id number] 09/04 [place] [facility] Outpatient Encounter [id number] 09/29 [place] [facility] OFFICE O/P EST MOD 30 MIN [id number] Diagnos is: ICD-10- CM I10 Essenti al (primar y) hyperte nsion JUDY MCKENZIE R 09/29 [place] [facility] Outpatient Encounter [id number] 10/27 [place] [facility] Outpatient Encounter [id number] 11/06 [place] [facility] Outpatient Encounter [id number] 12/03 [place] [facility] Outpatient Encounter [id number] 12/21 [place] Outpatient Encounter [id number] 12/21 [place] [facility] En[facility] [id number] 12/24 [place] Outpatient Encounter [id number] 12/24 [place] [facility] Outpatient Encounter [id number] 12/25 [place] Social History Combined list of available smoking, tobacco, and other social history from [facility] and [facility] facilities. Social History Type Response Date Comment Source Tobacco smoking status UTIS [place]-TO[place]AC[place] USE FORMER CIGARETTES 09/29/2024 [facility] History of tobacco use OK-TOBACCO USE SOME DAYS OTHER TYPE 09/29/2024 [facility] History of tobacco use OK-TOBACCO USER SOME DAYS 10/03/2023 [facility] History of tobacco use OK-TOBACCO DOESNT USE WI 30 MIN WAKEUP 10/03/2022 [facility] History of tobacco use OK-TOBACCO USER SOME DAYS 06/28/2021 [facility] History of tobacco use OK-TOBACCO FORMER USER 05/23/2020 [facility] History of tobacco use OK-TOBACCO FORMER USER 09/08/2018 [facility] History of tobacco use V9 LIFETIME NON-USER OF TOBACCO 03/14/2018 [facility] History of tobacco use V9 LIFETIME NON-USER OF TOBACCO 03/14/2017 [facility] History of tobacco use V9 LIFETIME NON-USER OF TOBACCO 03/09/2016 [facility] History of tobacco use V9 QUIT TOBACCO >7 YEARS AGO 03/09/2015 [facility] History of tobacco use V9 QUIT TOBACCO >7 YEARS AGO 03/24/2014 [facility] History of tobacco use V9 CURRENT TOBACCO USER 03/23/2013 [facility] History of tobacco use V9 CURRENT TOBACCO USER 05/28/2012 [facility] History of tobacco use V9 CURRENT TOBACCO USER 05/28/2011 [facility] History of tobacco use V9 CURRENT TOBACCO USER 04/20/2011 [facility] History of tobacco use V9 CURRENT TOBACCO USER 05/24/2010 [facility] History of tobacco use V9 CURRENT TOBACCO USER 05/17/2009 [facility] History of tobacco use V9 CURRENT TOBACCO USER 10/14/2008 [facility] History of tobacco use V9 CURRENT TOBACCO USER 01/20/2007 [facility] History of tobacco use HF V9 CURRENT SMOKER 07/17/2006 pipe [facility] History of tobacco use HF V9 CURRENT NON-SMOKER 07/06/2004 pipe [facility] 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 [facility] This section is an empty social history section. [facility] Plan of Care List of future care activities from Department of [facility]. Additional future care activities may be listed in the Assessment and Plan section. Date/Time Care Activity Care Activity Detail Facili ty 01/01/2025 AMBULATORY - MEDICINE AMBULATORY - MEDICI NE [facility]
== END 2024-12-29 23:59 | disposition home or self-care (01) ==
LOC: RT 15:37
PROVIDERS: Visit Provider Internal Medicine
DX: I49.8 Other specified cardiac arrhythmias (principal); I25.10 Atherosclerotic heart disease of native coronary artery without angina pectoris; I50.20 Unspecified systolic (congestive) heart failure; E78.49 Other hyperlipidemia
CPT/HCPCS: 93225; 93227

== ENCOUNTER 2025-01-19 15:39 | Outpatient (CLI) | payer MEDICARE, OTHER, SELFPAY ==
--- OUTSIDE RECORDS SUMMARY | 2025-01-19 15:42 | XMS_ITS | Continuity of Care Document ---
Author Name [facility] Organization [facility] Care Team Providers Care Associate Teacher Name Role Phone [facility] Unavailable Unavailable Problems Combined list of problems from [facility] and [facility] facilities. It does not include entries that were removed or entered in error. Problem Status Onset Date Problem Type Date of Resolution Comments Source CHRONIC SINUSITIS NOS Active Condition [facility] Dermatitis * (ICD-9-CM 692.9) Active Condition [facility] ESOPHAGEAL REFLUX Active [facility] Gastroesophageal reflux disease Active Condition [facility] Hyperlipidemia [facility] Hypertension Active Condition [facility] HYPERTENSION NOS Active Condition [facility] INHIBITED SEX EXCITEMENT Active Condition [facility] Insomnia Active Condition [facility] Insomnia * (ICD-9-CM 780.52) Active Condition [facility] Low back pain Active Condition [facility] Osteoarthritis * (ICD-9-CM 715.90) Active Condition [facility] Overweight Active Condition [facility] Tobacco dependence syndrome Active Condition [facility] Tobacco use Active Condition [facility] VACCIN FOR INFLUENZA Active Condition [facility] Diagnosis: ICD-10-CM I10 Essential (primary) hypertension Active Diagnosis [facility] Diagnosis: ICD-10-CM 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 Medication Details Route Status Patient Instructions Prescription Expires Prescription Number Last Dispense Date Ordering Provider Order Date Order Qty Source ATENOLOL (ATENOLOL), 25 MG, TABLET, ORAL, [employer] 1000 ea. BOTTLE Active [id number] 2023 45 Pharmac y Data Transac tion Service Facilit y ATENOLOL 25MG TAB TAKE ONE-HALF TABLET BY MOUTH DAILY ORAL ACTIVE AIXA PRASAD 2010 [place] [facility] TRAZODONE HCL (trazodone HCl), 50 MG, TABLET, ORAL, [employer]EN[employer]iel[employer], 1000 ea. BOTTLE Active [id number] 2023 90 Pharmac y Data Transac tion Service Facilit y TRAZODONE HCL 50MG TAB TAKE ONE TABLET BY MOUTH AT BEDTIME NEEDED ORAL ACTIVE KALA MCKENZIE 2016 [place] [facility] Immunizations Combined list of available immunizations from the Department of Defense and Veterans Affairs facilities. Immunization Series Date Given Administered By Site Reaction Lot Number CVX Code Drug Nutrition Assistant Status Comments Source COVID-19 (PFIZER), MRNA, LNP-S, PF, GEOVANNA-SUCROSE, 30 MCG/0.3 ML (AGES 12+ YEARS) 5 2023 309 complet ed HISTORICA L INFORMATI ON - FROM OTHER REGISTRY, [place] [facility] INFLUENZA, HIGH-DOSE, TRIVALENT, PF 7 2023 135 complet ed HISTORICA L INFORMATI ON - FROM OTHER REGISTRY, [place] [facility] INFLUENZA, UNSPECIFIED FORMULATION 2022 88 complet ed Completed Series, HISTORICA L INFORMATI ON - FROM PATIENT'S RECALL, [place] [facility] INFLUENZA VACCINE, QUADRIVALENT, ADJUVANTED 6 2022 205 complet ed HISTORICA L INFORMATI ON - FROM OTHER REGISTRY, [place] [facility] COVID-19 (MODERNA), MRNA, LNP-S, BIVALENT BOOSTER, PF, 50 MCG/0.5 ML OR 25MCG/0.25 ML DOSE 2021 229 complet ed Booster for Series, HISTORICA L INFORMATI ON - FROM PARENT'S RECALL, [place] [facility] COVID-19 (MODERNA), MRNA, LNP-S, BIVALENT BOOSTER, PF, 50 MCG/0.5 ML OR 25MCG/0.25 ML DOSE 2021 229 complet ed Booster for Series, HISTORICA L INFORMATI ON - FROM PARENT'S RECALL, [place] [facility] INFLUENZA, HIGH-DOSE, QUADRIVALENT 5 2021 197 complet ed HISTORICA L INFORMATI ON - FROM OTHER REGISTRY, [place] [facility] INFLUENZA, UNSPECIFIED FORMULATION 2021 88 complet ed Completed Series, HISTORICA L INFORMATI ON - FROM PARENT'S RECALL, [place] [facility] COVID-19, mRNA, LNP-S, PF, 100 mcg or 50 mcg dose 2020 [employer] (MOD) Not Given COVID-19, mRNA, LNP-S, PF, 100 mcg or 50 mcg dose DoD COVID-19 (MODERNA), MRNA, LNP-S, PF, 100 MCG/0.5ML DOSE OR 50 MCG/0.25ML DOSE 3 2020 207 complet ed HISTORICA L INFORMATI ON - FROM OTHER REGISTRY, [place] [facility] INFLUENZA, UNSPECIFIED FORMULATION 2020 88 complet ed [facility] influenza, high-dose, quadrivalent 2020 [place], () Not Given influenza , high-dose , quadrival ent DoD INFLUENZA, HIGH-DOSE, QUADRIVALENT 4 2020 197 complet ed HISTORICA L INFORMATI ON - FROM OTHER REGISTRY, [place] [facility] COVID-19 (MODERNA), MRNA, LNP-S, PF, 100 MCG/0.5 ML DOSE 2 2020 207 complet ed [place] [facility] COVID-19 (MODERNA), MRNA, LNP-S, PF, 100 MCG/0.5 ML DOSE 1 2020 207 complet ed [place] [facility] influenza, high-dose, quadrivalent 2019 [place], () Not Given influenza , high-dose , quadrival ent DoD INFLUENZA, HIGH-DOSE, QUADRIVALENT 3 2019 197 complet ed HISTORICA L INFORMATI ON - FROM OTHER REGISTRY, [place] [facility] INFLUENZA, UNSPECIFIED FORMULATION 2019 88 complet ed [place] [facility] ZOSTER RECOMBINANT 1 2018 187 complet ed [place] [facility] INFLUENZA, SEASONAL, INJECTABLE 2017 141 complet ed [place] [facility] ZOSTER RECOMBINANT 2 2017 187 complet ed [place] [facility] INFLUENZA A & B (HISTORICAL) 2016 88 complet ed [place] [facility] Influenza, high dose seasonal 2016 PRAKASH [...] Given Influenza , high dose seasonal DoD [id number] (HISTORICAL) 2014 33 complet ed [place] [...] (HISTORICAL) 2005 115 complet ed [place] [facility] INFLUENZA, UNSPECIFIED FORMULATION 2002 NONE 88 complet ed Completed Series, [id number] [place] INFLUENZA, UNSPECIFIED FORMULATION 2001 88 complet ed up to date. [place] [facility] INFLUENZA, UNSPECIFIED FORMULATION 2000 88 complet ed takes yearly [place] [facility] TD(ADULT) UNSPECIFIED FORMULATION 1996 139 complet ed up to date. [place] [facility] Results Combined list of recent chemistry, hematology and other laboratory results from Department of Defense and Veterans Affairs, ranging from 15 months to all on record, depending upon the facility. Order Name Results Value Reference Range Date Interpretation Specimen Comments Source OCCULT BLOOD FIT X1 SCREEN HEMOGLOBIN. GASTROINTES TINAL.LOWER [PRESENCE] IN STOOL BY IMMUNOASSAY [facility] emergency department 10/19 Specimen Type: FECES Comment: Test cancelled. Collection date could not be determined. Sample integrity cannot be ensured. Please recollect specimen and resubmit for testing. Ordering Provider: MALU MCKENZIE Report Released Date/Time: Sep 29, 2024 09:36 AM Reporting Lab: VERONICA SORIANO [address] [address] Performing Lab: VERONICA SORIANO [address] [address] [facility] ALT ALANINE AMINOTRANSF ERASE [ENZYMATIC ACTIVITY/VO LUME] [...] 2024 09:36 AM Reporting Lab: VERONICA SORIANO [facility] [address] [address] Performing Lab: VERONICA SORIANO [facility] [address] [address] [facility] AST ASPARTATE AMINOTRANSF ERASE [ENZYMATIC ACTIVITY/VO LUME] [...] Sep 29, 2024 09:36 AM Reporting Lab: [place] [phone] Performing Lab: [place] [id number] [place] [address] CBC/PLT LEUKOCYTES [#/VOLUME] IN BLOOD BY AUTOMATED COUNT 7.6 10*3/u L 5.0 - 10.0 09/29 Specimen Type: BLOOD No comment entered. Ordering Provider: MALU MCKENZIE Report Released Date/Time: Sep 29, 2024 09:36 AM Reporting Lab: [place] [phone] Performing Lab: [place] [id number] [place] [address] CBC/PLT ERYTHROCYTE S [#/VOLUME] IN BLOOD BY AUTOMATED COUNT 4.69 10*6/u L 4.6 - 6.2 09/29 Specimen Type: BLOOD No comment entered. Ordering Provider: MALU MCKENZIE Report Released Date/Time: Sep 29, 2024 09:36 AM Reporting Lab: [place] [phone] Performing Lab: [place] [id number] [place] [address] CBC/PLT HEMOGLOBIN [MASS/VOLUM E] IN BLOOD 15.0 g/dL 14.0 - 18.0 09/29 Specimen Type: BLOOD No comment entered. Ordering Provider: MALU MCKENZIE Report Released Date/Time: Sep 29, 2024 09:36 AM Reporting Lab: [place] [phone] Performing Lab: [place] [phone] CBC/PLT HEMATOCRIT [VOLUME FRACTION] OF BLOOD BY AUTOMATED COUNT 45.9 42.0 - 52.0 09/29 Specimen Type: BLOOD No comment entered. Ordering Provider: MALU MCKENZIE Report Released Date/Time: Sep 29, 2024 09:36 AM Reporting Lab: [address] [address] Performing Lab: [address] [address] [facility] CBC/PLT MCV [ENTITIC VOLUME] BY AUTOMATED COUNT 97.9 fL 80.0 - 94.0 09/29 H Specimen Type: BLOOD No comment entered. Ordering Provider: MALU MCKENZIE Report Released Date/Time: Sep 29, 2024 09:36 AM Reporting Lab: [address] [address] Performing Lab: [address] [address] [facility] CBC/PLT MCH [ENTITIC MASS] BY AUTOMATED COUNT 32.0 pg 27.0 - 31.0 09/29 H Specimen Type: BLOOD No comment entered. Ordering Provider: MALU MCKENZIE Report Released Date/Time: Sep 29, 2024 09:36 AM Reporting Lab: [address] [address] Performing Lab: [address] [address] [facility] CBC/PLT MCHC [MASS/VOLUM E] BY AUTOMATED COUNT 32.7 g/dL 32.0 - 36.0 09/29 Specimen Type: BLOOD No comment entered. Ordering Provider: MALU MCKENZIE Report Released Date/Time: Sep 29, 2024 09:36 AM Reporting Lab: [address] [address] Performing Lab: [address] [address] [facility] CBC/PLT PLATELETS [#/VOLUME] IN BLOOD 216 10*3/u L 150 - 450 09/29 Specimen Type: BLOOD No comment entered. Ordering Provider: MALU MCKENZIE Report Released Date/Time: Sep 29, 2024 09:36 AM Reporting Lab: [address] [address] Performing Lab: [place] [address] CBC/PLT PLATELET MEAN VOLUME [ENTITIC VOLUME] IN BLOOD 10.5 fL 9.0 - 13.1 09/29 Specimen Type: BLOOD No comment entered. Ordering Provider: MALU MCKENZIE Report Released Date/Time: Sep 29, 2024 09:36 AM Reporting Lab: [place] [address] Performing Lab: [address] CBC/PLT ERYTHROCYTE DISTRIBUTIO N WIDTH [ENTITIC VOLUME] BY AUTOMATED COUNT 13.0 11.0 - 16.0 09/29 Specimen Type: BLOOD No comment entered. Ordering Provider: MALU MCKENZIE Report Released Date/Time: Sep 29, 2024 09:36 AM Reporting Lab: [place] [phone] Performing Lab: [address] CBC/PLT NUCLEATED ERYTHROCYTE S/100 ERYTHROCYTE S IN BLOOD 0.0 0.0 - 0.0 09/29 Specimen Type: BLOOD No comment entered. Ordering Provider: MALU MCKENZIE Report Released Date/Time: Sep 29, 2024 09:36 AM Reporting Lab: [place] [address] Performing Lab: [address] GLYCOHEMO GLOBIN HEMOGLOBIN A1C/HEMOGLO BIN.TOTAL IN BLOOD BY HPLC 5.3 4.4 - 6.4 09/29 Specimen Type: BLOOD Comment: [facility] guidelines for A1c interpretat ion: Glycemic control [...] 9.27. Ref: https://ngs p.org/CAPda ta.asp. The in-house [employer] D-100 analyzer has a historical CV <= 2%. Contact the laboratory for further performance characteris tics of this assay. Ordering Provider: MALU MCKENZIE Report Released Date/Time: Sep 29, 2024 09:36 AM Reporting Lab: [address] [address] Performing Lab: [address] [address] [facility] LIPID PROFILE CHOLESTEROL [MASS/VOLUM E] IN SERUM [...] 2024 09:36 AM Reporting Lab: VERONICA SORIANO [address] [address] Performing Lab: VERONICA SORIANO [address] [address] [facility] LIPID PROFILE TRIGLYCERID E [MASS/VOLUM E] IN [...] 2024 09:36 AM Reporting Lab: VERONICA SORIANO [address] [address] Performing Lab: VERONICA SORAINO [address] [address] [facility] LIPID PROFILE CHOLESTEROL IN HDL [MASS/VOLUM E] [...] 2024 09:36 AM Reporting Lab: VERONICA SORIANO [address] [address] Performing Lab: VERONICA SORIANO [address] [address] [facility] LIPID PROFILE CHOLESTEROL IN LDL [MASS/VOLUM E] [...] 2024 09:36 AM Reporting Lab: VERONICA SORIANO [address] [address] Performing Lab: VERONICA SORIANO [address] [address] [facility] PANEL 1 CREATININE [MASS/VOLUM E] IN SERUM [...] 2024 09:36 AM Reporting Lab: VERONICA SORIANO [address] [address] Performing Lab: VERONICA SORIANO [address] [address] [facility] PANEL 1 UREA NITROGEN [MASS/VOLUM E] IN [...] 2024 09:36 AM Reporting Lab: VERONICA SORIANO [address] [address] Performing Lab: VERONICA SORIANO [address] [address] [facility] PANEL 1 GLUCOSE [MASS/VOLUM E] IN SERUM [...] 2024 09:36 AM Reporting Lab: VERONICA SORIANO [address] [address] Performing Lab: VERONICA SORIANO [address] [address] [facility] PANEL 1 SODIUM [MOLES/VOLU ME] IN SERUM [...] 2024 09:36 AM Reporting Lab: VERONICA SORIANO [address] [address] Performing Lab: VERONICA SORIANO [address] [address] [facility] PANEL 1 POTASSIUM [MOLES/VOLU ME] IN SERUM [...] 2024 09:36 AM Reporting Lab: VERONICA SORIANO [address] [address] Performing Lab: VERONICA SOIRANO [facility] [address] [address] [facility] PANEL 1 CHLORIDE [MOLES/VOLU ME] IN SERUM [...] 2024 09:36 AM Reporting Lab: VERONICA CHRISTIE [facility] [address] [address] Performing Lab: VERONICA SORIANO [facility] [address] [address] [facility] PANEL 1 CARBON DIOXIDE, TOTAL [MOLES/VOLU ME] [...] 2024 09:36 AM Reporting Lab: VERONICA SORIANO [facility] [address] [address] Performing Lab: VERONICA SORIANO [facility] [address] [address] [facility] PANEL 1 CALCIUM [MASS/VOLUM E] IN SERUM [...] 2024 09:36 AM Reporting Lab: VERONICA SORIANO [address] [address] Performing Lab: ASPEN-Keena SORIANO [address] [address] [facility] PANEL 1 ANION GAP 3 IN SERUM [...] Sep 29, 2024 09:36 AM Reporting Lab: [facility] [address] [address] Performing Lab: [address] [address] [facility] 1 GLOMERULAR FILTRATION RATE/1.73 SQ M.PREDICTED [...] Sep 29, 2024 09:36 AM Reporting Lab: [address] [address] Performing Lab: [address] [address] [facility] OCCULT BLOOD FIT X1 SCREEN HEMOGLOBIN. GASTROINTES TINAL.LOWER [PRESENCE] IN STOOL BY IMMUNOASSAY [facility] emergency department 10/16 Specimen Type: FECES Comment: Test cancelled. Collection date could not be determined. Sample integrity cannot be ensured. Please recollect specimen and resubmit for testing. Ordering Provider: MALU MCKENZIE Report Released Date/Time: Oct 03, 2023 08:31 AM Reporting Lab: [address] [address] Performing Lab: [address] [address] [facility] ALT ALANINE AMINOTRANSF ERASE [ENZYMATIC ACTIVITY/VO LUME] [...] 2023 08:31 AM Reporting Lab: VERONICA SORIANO [address] [address] Performing Lab: VERONICA SORIANO [address] [address] [facility] LIPID PROFILE CHOLESTEROL [MASS/VOLUM E] IN SERUM [...] 2023 08:31 AM Reporting Lab: VERONICA SORIANO [address] [address] Performing Lab: VERONICA SORIANO [address] [address] [facility] LIPID PROFILE TRIGLYCERID E [MASS/VOLUM E] IN [...] 2023 08:31 AM Reporting Lab: VERONICA SORIANO [address] [address] Performing Lab: VERONICA SORIANO [address] [address] [facility] LIPID PROFILE CHOLESTEROL IN HDL [MASS/VOLUM E] [...] 2023 08:31 AM Reporting Lab: VERONICA SORIANO [address] [address] Performing Lab: [facility]ICA [facility]O [facility] [address] [address] [facility] LIPID PROFILE CHOLESTEROL IN LDL [MASS/VOLUM E] [...] decrease <15 G5 Kidney failure Ordering Provider: MCKENZIE,MALU R Report Released Date/Time: Oct 03, 2023 08:31 AM Reporting Lab: VERONICA SORIANO [place] [id number] [facility] [address] Performing Lab: VERONICA SORIANO [address] [address] [facility] Vital Signs Combined list of inpatient and outpatient Vital Signs from Department of [facility] and [facility], ranging from 12 months to all on record, depending upon the facility. Vital Sign Value Date Comments Source SYSTOLIC BLOOD PRESSURE 144 09/29/2024 09:16:15 [facility] DIASTOLIC BLOOD PRESSURE 72 09/29/2024 09:16:15 [facility] PULSE OXIMETRY 93 09/29/2024 09:16[facility] 200.6 09/29/2024 09:16:15 [place] [facility] BMI 28 kg/m2 09/29/2024 09:16:15 [place] [facility] PAIN 0 09/29/2024 09:16:15 [place] [facility] HEIGHT 71 09/29/2024 09:16:15 [place] [facility] TEMPERATURE 97.4 09/29/2024 09:16:15 [facility] PULSE 82 09/29/2024 09:16:15 [place] [facility] Encounters Combined list of: 1) Encounters from Department of [facility] facilities going backup to the last 18 months, not all [place] inpatient encounters are included; 2) Encounters from the Department of [facility] facilities going backup to 280 months. Location Location Details Encounter Type Encounter Number Reason For Visit Attending Provider ADM Date DC Date Status Disposition Source [facility] Outpatient Encounter [id number] 08/30 [facility] Outpatient Encounter [id number] 09/13 [facility] O/P EST MOD 30 MIN [id number] Diagnos is: ICD-10- CM I10 Essenti al (primar y) hyperte nsion JUDY MCKENZIE R 10/03 [place] [facility] HEARING AID REPAIR/MOD IFYING [id number] Diagnos is: ICD-10- CM H90.3 Sensori neural hearing loss, bilater al YASH,CHRISTOPH MONTES S 10/03 [place] Outpatient Encounter [id number] 10/31 [place] Outpatient Encounter [id number] 11/05 [place] Outpatient Encounter [id number] 12/08 [place] Outpatient Encounter [id number] 02/12 [place] [facility] Outpatient Encounter [id number] 05/05 [place] [facility] INTRM OPH EXAM EST PATIENT [id number] Diagnos is: ICD-10- CM 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, right eye TIFFANI CALLAWAY R 06/10 [place] [facility] Outpatient Encounter [id number] 06/23 [place] [facility] Outpatient Encounter [id number] 09/04 [place] Outpatient Encounter [id number] 09/29 [place] [facility] OFFICE O/P EST MOD 30 MIN [id number] Diagnos is: ICD-10- CM I10 Essenti al (primar y) hyperte JUDY Miller 09/29 [place] [facility] Outpatient Encounter [id number] 10/27 [place] Outpatient Encounter [id number] 11/06 [place] [facility] Outpatient Encounter [id number] 12/03 [place] Outpatient Encounter [id number] 12/21 [place] [facility] Outpatient Encounter [id number] 12/21 [place] [facility] Outpatient Encounter [id number] 12/24 [place] Outpatient Encounter [id number] 12/24 [place] [facility] Outpatient Encounter [id number] 12/25 [place] [facility] Procedures Combined list of: 1) Procedures from Department of Veterans Affairs facilities going back up to thelast 18 months, not all [place] non-surgical procedures are included; 2) All procedures from the Department of Defense facilities. Procedure Procedure Type Code Date Perfomer Comments Sourc e SUPP &MATERIAL (EXCEPT SPECTACLE),PROVID,THE PHYS/OTH QUALIFIED HEALTH PRESSURE TEST OPERATOR OVER &ABOVE THOSE USUALLY INCLD W THE OFFICE VISIT/OTH SER RENDERED (LIST DRUG,TRAYS,SUPP,OR MATERIAL PROVID) 11/04/2000 [facility]D SUPP &MATERIAL (EXCEPT SPECTACLE),PROVID,THE PHYS/OTH QUALIFIED HEALTH PRESSURE TEST OPERATOR OVER &ABOVE THOSE USUALLY INCLD W THE OFFICE VISIT/OTH SER RENDERED (LIST DRUG,TRAYS,SUPP,OR MATERIAL PROVID) 10/21/2000 [facility] SUPP &MATERIAL (EXCEPT SPECTACLE),PROVID,[facility]/OTH QUALIFIED HEALTH PRESSURE TEST OPERATOR OVER &ABOVE THOSE USUALLY INCLD W THE OFFICE VISIT/OTH SER RENDERED (LIST DRUG,TRAYS,SUPP,OR MATERIAL PROVID) 10/07/2000 [facility] TYMPANOMETRY (IMPEDANCE TESTING) 04/12/2000 [facility] BRONCHOSCOPY, RIGID OR FLEXIBLE, INCLUDING FLUOROSCOPIC GUIDANCE, WHEN PERFORMED; WITH BRONCHIAL OR ENDOBRONCHIAL BIOPSY(S), SINGLE OR MULTIPLE SITES 04/10/2000 [facility] EDUCATIONAL SUPPLIES, SUCH A S BOOKS, TAPES, AND PAMPHLETS, FOR THE PATIENT'S EDUCATION AT COST TO PHYSICIAN OR OTHER QUALIFIED HEALTH PRESSURE TEST OPERATOR 04/09/2000 [facility] BIOPSY, LUNG OR MEDIASTINUM, PERCUTANEOUS NEEDLE 04/08/2000 [facility] Social History Combined list of available smoking, tobacco, and other social history from Department of Defense and Veterans Affairs facilities. Social History Type Response Date Comment Source Tobacco smoking status VAIS VA-TOBACCO USE FORMER CIGARETTES 09/29/2024 [facility] History of tobacco use VA-TOBACCO USE SOME DAYS OTHER TYPE 09/29/2024 [facility] History of tobacco use VA-TOBACCO USER SOME DAYS 10/03/2023 [facility] History of tobacco use VA-TOBACCO USER SOME DAYS 10/03/2022 [facility] History of tobacco use VA-TOBACCO USER SOME DAYS 06/28/2021 [facility] History of tobacco use VA-TOBACCO FORMER USER 05/23/2020 [facility] History of tobacco use VA-TOBACCO FORMER USER 09/08/2018 [facility] History of tobacco use V9 LIFETIME NON-USER OF TOBACCO 03/14/2018 [facility] History of tobacco use V9 LIFETIME NON-USER OF TOBACCO 03/14/2017 [facility] History of tobacco use V9 LIFETIME NON-USER OF TOBACCO 03/09/2016 [facility] History of tobacco use V9 QUIT TOBACCO >7 YEARS AGO 03/09/2015 [facility] History of tobacco use V9 QUIT TOBACCO >7 YEARS AGO 03/24/2014 [facility] History of tobacco use V9 CURRENT TOBACCO USER 03/23/2013 [facility] History of tobacco use V9 CURRENT TOBACCO USER 05/28/2012 [facility] History of tobacco use V9 CURRENT TOBACCO USER 05/28/2011 [facility] History of tobacco use V9 CURRENT TOBACCO USER 04/20/2011 [facility] History of tobacco use V9 CURRENT TOBACCO USER 05/24/2010 [facility] History of tobacco use V9 CURRENT TOBACCO USER 05/17/2009 [facility] History of tobacco use V9 CURRENT TOBACCO USER 10/14/2008 [facility] History of tobacco use V9 CURRENT TOBACCO USER 01/20/2007 [facility] History of tobacco use HF V9 CURRENT SMOKER 07/17/2006 pipe [facility] History of tobacco use HF V9 CURRENT NON-SMOKER 07/06/2004 pipe [facility] History of tobacco use HF V9 [employer] 01/03/2004 pipe [facility] History of tobacco use HF V9 CURRENT SMOKER 01/08/2003 pipe [facility] History of tobacco use HF V9 [employer] 08/27/2002 smokes a pipe about once daily [facility] History of tobacco use HF V9 CURRENT SMOKER 02/26/2002 smokes a pipe now and then - one pk tobacco lasts about 1 mo. [facility] This section is an empty social history section. [facility]
== END 2025-01-19 23:59 | disposition home or self-care (01) ==
LOC: RT 15:40
PROVIDERS: PCP Internal Medicine; Visit Provider Internal Medicine
DX: I47.10 Supraventricular tachycardia, unspecified (principal); I47.20 Ventricular tachycardia, unspecified
CPT/HCPCS: 93270

== ENCOUNTER 2025-02-08 09:57 | Outpatient (CLI) | payer MEDICARE, OTHER, SELFPAY ==
--- OUTSIDE RECORDS SUMMARY | 2025-02-08 09:59 | XMS_ITS | Continuity of Care Document ---
Author Name [facility] Organization [facility] Care Team Providers Care Yard Attendant Name Role Phone [facility] Unavailable Unavailable Problems Combined list of problems from [facility] and [facility] facilities. It does not include entries that were removed or entered in error. Problem Status Onset Date Problem Type Date of Resolution Comments Source CHRONIC SINUSITIS NOS Active Condition [facility] Dermatitis * (ICD-9-CM 692.9) Active Condition [facility] ESOPHAGEAL REFLUX Active [facility] Gastroesophageal reflux disease Active Condition [facility] Hyperlipidemia Active [facility] Hypertension Active Condition [facility] HYPERTENSION NOS Active Condition [facility] INHIBITED SEX EXCITEMENT Active Condition [facility] Insomnia Active Condition [facility] Insomnia * (ICD-9-CM 780.52) Active Condition [facility] Low back pain Active Condition [facility] Osteoarthritis * (ICD-9-CM 715.90) Active Condition [facility] Overweight Active Condition [facility] Tobacco dependence syndrome Active Condition [facility] Tobacco use Active Condition [facility] VACCIN FOR INFLUENZA Active [facility] Diagnosis: ICD-10-CM I10 Essential (primary) hypertension Active Diagnosis 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 Medication Details Route Status Patient Instructions Prescription Expires Prescription Number Last Dispense Date Ordering Provider Order Date Order Qty Source ATENOLOL 25MG TAB TAKE ONE-HALF TABLET BY MOUTH DAILY ORAL ACTIVE AIXA PRASAD 2010 [place] [facility] TRAZODONE HCL (trazodone HCl), 50 MG, TABLET, ORAL, KIZZY, 1000 ea. BOTTLE Active [id number] 2023 90 Pharmac y Data Transac tion Service Facilit y TRAZODONE HCL 50MG TAB TAKE ONE TABLET BY MOUTH AT BEDTIME NEEDED ORAL ACTIVE MCKENZIEKALA 2016 [place] [facility] Immunizations Combined list of available immunizations from the Department of Defense and Veterans Affairs facilities. 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 Status Comments Source COVID-19 (HelloTel), MRNA, LNP-S, PF, GEOVANNA-SUCROSE, 30 MCG/0.3 ML (AGES 12+ YEARS) 5 2023 309 complet ed HISTORICA L INFORMATI ON - FROM OTHER REGISTRY, [place] [facility] INFLUENZA, HIGH-DOSE, TRIVALENT, PF 7 2023 135 complet ed HISTORICA L INFORMATI ON - FROM OTHER REGISTRY, [place] [facility] INFLUENZA, UNSPECIFIED FORMULATION 2022 88 complet ed Completed Series, HISTORICA L INFORMATI ON - FROM PATIENT'S RECALL, [place] [facility] INFLUENZA VACCINE, QUADRIVALENT, ADJUVANTED 6 2022 205 complet ed HISTORICA L INFORMATI ON - FROM OTHER REGISTRY, [place] [facility] COVID-19 (MODERNA), MRNA, LNP-S, BIVALENT BOOSTER, PF, 50 MCG/0.5 ML OR 25MCG/0.25 ML DOSE 2021 229 complet ed Booster for Series, HISTORICA L INFORMATI ON - FROM PARENT'S RECALL, [place] [facility] COVID-19 (MODERNA), MRNA, LNP-S, BIVALENT BOOSTER, PF, [...] FROM OTHER REGISTRY, [place] [facility] COVID-19, mRNA, LNP-S, PF, 100 mcg or 50 mcg dose 2020 SAE SANTIZO [employer] (MOD) Not Given COVID-19, mRNA, LNP-S, PF, 100 mcg or 50 mcg dose DoD INFLUENZA, UNSPECIFIED FORMULATION 2020 88 complet ed [facility] INFLUENZA, HIGH-DOSE, QUADRIVALENT 4 2020 197 complet ed HISTORICA L INFORMATI ON - FROM OTHER REGISTRY, [place] [facility] influenza, high-dose, quadrivalent 2020 [place], () Not Given influenza , high-dose , quadrival ent DoD COVID-19 (MODERNA), MRNA, LNP-S, PF, 100 MCG/0.5 ML DOSE 2 2020 207 complet ed [place] [facility] COVID-19 (MODERNA), MRNA, LNP-S, PF, 100 MCG/0.5 ML DOSE 1 2020 207 complet ed [place] [facility] INFLUENZA, HIGH-DOSE, QUADRIVALENT 3 2019 197 complet ed HISTORICA L INFORMATI ON - FROM OTHER REGISTRY, [place] [facility] INFLUENZA, UNSPECIFIED FORMULATION 2019 88 complet ed [place] [facility] influenza, high-dose, quadrivalent 2019 STEPHANI, () Not Given influenza , high-dose , quadrival ent DoD ZOSTER RECOMBINANT 1 2018 187 complet ed [place] [facility] INFLUENZA, SEASONAL, INJECTABLE 2017 141 complet ed [place] [facility] ZOSTER RECOMBINANT 2 2017 187 complet ed [place] [facility] INFLUENZA A & B (HISTORICAL) 2016 88 complet ed [place] [facility] INFLUENZA, HIGH DOSE SEASONAL 2 2016 135 complet ed HISTORICA L INFORMATI ON - FROM OTHER REGISTRY, [place] [facility] Influenza, high dose seasonal 2016 PRAKASH KRAUS () Not Given Influenza , high dose seasonal DoD PNEUMOCOCCAL CONJUGATE PCV 13 2016 133 complet [...] Given Influenza , high dose seasonal DoD [id number] (HISTORICAL) 2014 33 complet ed [place] [...] (HISTORICAL) 2008 88 complet ed [place] [facility] FLU,3 YRS (HISTORICAL) 2008 88 complet ed [place] [facility] FLU,3 YRS (HISTORICAL) 2006 88 complet ed [place] [facility] INFLUENZA A & B (HISTORICAL) 2005 88 complet ed [place] [facility] TD(ADULT) UNSPECIFIED FORMULATION 2005 139 complet ed less than 10 years ago/unsur e of date [place] [facility] TDAP (HISTORICAL) 2005 115 complet ed [place] [facility] INFLUENZA, UNSPECIFIED FORMULATION 2002 NONE 88 complet ed Completed Series, [id number] [place] INFLUENZA, UNSPECIFIED FORMULATION 2001 88 complet ed up to date. [place] [facility] INFLUENZA, UNSPECIFIED FORMULATION 2000 88 complet ed takes yearly [place] [facility] TD(ADULT) UNSPECIFIED FORMULATION 1996 139 complet ed up to date. [place] [facility] Results Combined list of recent chemistry, hematology and other laboratory results from Department of Defense and Veterans Affairs, ranging from 15 months to all on record, depending upon the facility. Order Name Results Value Reference Range Date Interpretation Specimen Comments Source OCCULT BLOOD FIT X1 SCREEN HEMOGLOBIN. GASTROINTES TINAL.LOWER [PRESENCE] IN STOOL BY IMMUNOASSAY [facility] [place] 10/19 Specimen Type: FECES Comment: Test cancelled. Collection date could not be determined. Sample integrity cannot be ensured. Please recollect specimen and resubmit for testing. Ordering Provider: MALU MCKENZIE Report Released Date/Time: Sep 29, 2024 09:36 AM Reporting Lab: VERONICA SORIANO [address] [address] Performing Lab: VERONICA SORIANO [address] [address] [facility] ALT ALANINE AMINOTRANSF ERASE [ENZYMATIC ACTIVITY/VO [...] 2024 09:36 AM Reporting Lab: VERONICA SORIANO [address] [address] Performing Lab: VERONICA SORIANO [address] [address] [facility] GLYCOHEMO GLOBIN HEMOGLOBIN A1C/HEMOGLO BIN.TOTAL IN BLOOD BY HPLC 5.3 4.4 - 6.4 09/29 Specimen Type: BLOOD Comment: [facility] guidelines for A1c interpretat ion: Glycemic control targets are based on Shared Decision Making between clinicians and patients. Criteria used to establish an A1c target recommendat ion can be found at https://www .[place].gov/elias lityandpati entsafety/ and include the use of [...] 9.27. Ref: https://ngs p.org/CAPda ta.asp. The in-house [employer] D-100 analyzer has a historical CV <= 2%. Contact the laboratory for further performance characteris tics of this assay. Ordering Provider: MALU MCKENZIE Report Released Date/Time: Sep 29, 2024 09:36 AM Reporting Lab: VERONICA [address] [address] Performing Lab: [place] [id number] AST ASPARTATE AMINOTRANSF ERASE [ENZYMATIC ACTIVITY/VO LUME] [...] 2024 09:36 AM Reporting Lab: VERONICA SORIANO [address] [address] Performing Lab: VERONICA SORIANO [address] [address] [facility] LIPID PROFILE CHOLESTEROL [MASS/VOLUM E] IN [...] 2024 09:36 AM Reporting Lab: VERONICA SORIANO [address] [address] Performing Lab: VERONICA SORIANO [address] [address] [facility] LIPID PROFILE TRIGLYCERID E [MASS/VOLUM E] [...] 2024 09:36 AM Reporting Lab: VERONICA SORIANO [address] [address] Performing Lab: VERONICA SORIANO [address] [address] [facility] LIPID PROFILE CHOLESTEROL IN HDL [MASS/VOLUM [...] 2024 09:36 AM Reporting Lab: VERONICA SORIANO [address] [address] Performing Lab: VERONICA SORIANO [address] [address] [facility] LIPID PROFILE CHOLESTEROL IN LDL [MASS/VOLUM [...] 2024 09:36 AM Reporting Lab: VERONICA SORIANO [address] [address] Performing Lab: VERONICA SORIANO [address] [address] [facility] PANEL 1 CREATININE [MASS/VOLUM E] IN [...] 2024 09:36 AM Reporting Lab: VERONICA SORIANO [place] [id number] [facility] [address] Performing Lab: VERONICA SORIANO [facility] [address] [facility] [address] [facility] PANEL 1 UREA NITROGEN [MASS/VOLUM E] [...] 2024 09:36 AM Reporting Lab: VERONICA SORIANO [facility] [address] [facility] [address] Performing Lab: VERONICA SORIANO [facility] [address] [facility] [address] [facility] PANEL 1 GLUCOSE [MASS/VOLUM E] IN [...] 2024 09:36 AM Reporting Lab: VERONICA SORIANO [facility] [address] [facility] [address] Performing Lab: VERONICA [address] [address] [facility] PANEL 1 SODIUM [MOLES/VOLU ME] IN [...] 29, 2024 09:36 AM Reporting Lab: VERONICA [address] [address] Performing Lab: [place] [address] [address] [facility] PANEL 1 POTASSIUM [MOLES/VOLU ME] IN [...] 2024 09:36 AM Reporting Lab: VERONICA SORIANO [address] [address] Performing Lab: VERONICA SORIANO [address] [address] [facility] PANEL 1 CHLORIDE [MOLES/VOLU ME] IN [...] 2024 09:36 AM Reporting Lab: VERONICA SORIANO [address] [address] Performing Lab: VERONICA SORIANO [address] [address] [facility] PANEL 1 CARBON DIOXIDE, TOTAL [MOLES/VOLU [...] 2024 09:36 AM Reporting Lab: VERONICA SORIANO [address] [address] Performing Lab: VERONICA SORIANO [address] [address] [facility] PANEL 1 CALCIUM [MASS/VOLUM E] IN [...] 2024 09:36 AM Reporting Lab: VERONICA SORIANO [address] [address] Performing Lab: VERONICA SORIANO [address] [address] [facility] PANEL 1 ANION GAP 3 IN [...] 2024 09:36 AM Reporting Lab: VERONICA SORIANO [address] [address] Performing Lab: VERONICA SORIANO [address] [address] [facility] PANEL 1 GLOMERULAR FILTRATION RATE/1.73 SQ M.PREDICTED [...] 29, 2024 09:36 AM Reporting Lab: VERONICA [address] [address] Performing Lab: VERONICA [address] [address] [facility] CBC/PLT LEUKOCYTES [#/VOLUME] IN BLOOD BY AUTOMATED COUNT 7.6 10*3/u L 5.0 - 10.0 09/29 Specimen Type: BLOOD No comment entered. Ordering Provider: MALU MCKENZIE Report Released Date/Time: Sep 29, 2024 09:36 AM Reporting Lab: VERONICA [address] [address] Performing Lab: [address] [address] [facility] CBC/PLT ERYTHROCYTE S [#/VOLUME] IN BLOOD BY AUTOMATED COUNT 4.69 10*6/u L 4.6 - 6.2 09/29 Specimen Type: BLOOD No comment entered. Ordering Provider: MALU MCKENZIE Report Released Date/Time: Sep 29, 2024 09:36 AM Reporting Lab: [place] [phone] Performing Lab: [place] [phone] [facility] CBC/PLT HEMOGLOBIN [MASS/VOLUM E] IN BLOOD 15.0 g/dL 14.0 - 18.0 09/29 Specimen Type: BLOOD No comment entered. Ordering Provider: MALU MCKENZIE Report Released Date/Time: Sep 29, 2024 09:36 AM Reporting Lab: [place] [phone] Performing Lab: [place] [phone] [facility] CBC/PLT HEMATOCRIT [VOLUME FRACTION] OF BLOOD BY AUTOMATED COUNT 45.9 42.0 - 52.0 09/29 Specimen Type: BLOOD No comment entered. Ordering Provider: MALU MCKENZIE Report Released Date/Time: Sep 29, 2024 09:36 AM Reporting Lab: [place] [phone] Performing Lab: [place] [phone] [facility] CBC/PLT MCV [ENTITIC VOLUME] BY AUTOMATED COUNT 97.9 fL 80.0 - 94.0 09/29 H Specimen Type: BLOOD No comment entered. Ordering Provider: MALU MCKENZIE Report Released Date/Time: Sep 29, 2024 09:36 AM Reporting Lab: [address] [address] Performing Lab: [address] [facility] CBC/PLT MCH [ENTITIC MASS] BY AUTOMATED COUNT 32.0 pg 27.0 - 31.0 09/29 H Specimen Type: BLOOD No comment entered. Ordering Provider: MALU MCKENZIE Report Released Date/Time: Sep 29, 2024 09:36 AM Reporting Lab: [place] [address] Performing Lab: [address] CBC/PLT MCHC [MASS/VOLUM E] BY AUTOMATED COUNT 32.7 g/dL 32.0 - 36.0 09/29 Specimen Type: BLOOD No comment entered. Ordering Provider: MALU MCKENZIE Report Released Date/Time: Sep 29, 2024 09:36 AM Reporting Lab: [place] [address] Performing Lab: [address] CBC/PLT PLATELETS [#/VOLUME] IN BLOOD 216 10*3/u L 150 - 450 09/29 Specimen Type: BLOOD No comment entered. Ordering Provider: MALU MCKENZIE Report Released Date/Time: Sep 29, 2024 09:36 AM Reporting Lab: [place] [address] Performing Lab: [address] CBC/PLT PLATELET MEAN VOLUME [ENTITIC VOLUME] IN BLOOD 10.5 fL 9.0 - 13.1 09/29 Specimen Type: BLOOD No comment entered. Ordering Provider: MALU MCKENZIE Report Released Date/Time: Sep 29, 2024 09:36 AM Reporting Lab: [place] [address] Performing Lab: [address] CBC/PLT ERYTHROCYTE DISTRIBUTIO N WIDTH [ENTITIC VOLUME] BY AUTOMATED COUNT 13.0 11.0 - 16.0 09/29 Specimen Type: BLOOD No comment entered. Ordering Provider: MALU MCKENZIE Report Released Date/Time: Sep 29, 2024 09:36 AM Reporting Lab: [address] [address] Performing Lab: [place] [phone] [facility] CBC/PLT NUCLEATED ERYTHROCYTE S/100 ERYTHROCYTE S IN BLOOD 0.0 0.0 - 0.0 09/29 Specimen Type: BLOOD No comment entered. Ordering Provider: MALU MCKENZIE Report Released Date/Time: Sep 29, 2024 09:36 AM Reporting Lab: [address] [address] Performing Lab: [place] [phone] [facility] OCCULT BLOOD FIT X1 SCREEN HEMOGLOBIN. GASTROINTES TINAL.LOWER [PRESENCE] IN STOOL BY IMMUNOASSAY [facility] [place] 10/16 Specimen Type: FECES Comment: Test cancelled. Collection date could not be determined. Sample integrity cannot be ensured. Please recollect specimen and resubmit for testing. Ordering Provider: MALU MCKENZIE Report Released Date/Time: Oct 03, 2023 08:31 AM Reporting Lab: [address] [address] Performing Lab: [place] [phone] [facility] ALT ALANINE AMINOTRANSF ERASE [ENZYMATIC ACTIVITY/VO [...] 2023 08:31 AM Reporting Lab: VERONICA SORIANO [address] [address] Performing Lab: VERONICA SORIANO [address] [address] [facility] LIPID PROFILE CHOLESTEROL [MASS/VOLUM E] IN [...] 2023 08:31 AM Reporting Lab: VERONICA SORIANO [address] [address] Performing Lab: VERONICA SORIANO [address] [address] [facility] LIPID PROFILE TRIGLYCERID E [MASS/VOLUM E] [...] 2023 08:31 AM Reporting Lab: VERONICA SORIANO [address] [address] Performing Lab: VERONICA SORIANO [address] [address] [facility] LIPID PROFILE CHOLESTEROL IN HDL [MASS/VOLUM [...] 2023 08:31 AM Reporting Lab: VERONICA SORIANO [address] [address] Performing Lab: VERONICA SORIANO [address] [address] [facility] LIPID PROFILE CHOLESTEROL IN LDL [MASS/VOLUM [...] 03, 2023 08:31 AM Reporting Lab: VERONICA SORAINO [address] [address] Performing Lab: VERONICA SORIANO [address] [address] [facility] Vital Signs Combined list of inpatient and outpatient Vital Signs from Department of [facility] and [facility], ranging from 12 months to all on record, depending upon the facility. Vital Sign Value Date Comments Source SYSTOLIC BLOOD PRESSURE 144 09/29/2024 09:16:15 [facility] DIASTOLIC BLOOD PRESSURE 72 09/29/2024 09:16:15 [facility] PULSE OXIMETRY 93 09/29/2024 09:16:15 [facility] WEIGHT 200.6 09/29/2024 09:16:15 [facility] BMI 28 kg/m2 09/29/2024 09:16:15 [facility] PAIN 0 09/29/2024 09:16:15 [facility] HEIGHT 71 09/29/2024 09:16:15 [facility] TEMPERATURE 97.4 09/29/2024 09:16:15 [facility] PULSE 82 09/29/2024 09:16:15 [facility] Encounters Combined list of: 1) Encounters from Department of Veterans Affairs facilities going backup to the last 18 months, not all [place] inpatient encounters are included; 2) Encounters from the Department of [facility] facilities going backup to 280 months. Location Location Details Encounter Type Encounter Number Reason For Visit Attending Provider ADM Date DC Date Status Disposition Source [facility] Outpatient Encounter [id number] 08/30 [place] Outpatient Encounter [id number] 09/13 [place] OFFICE O/P EST MOD 30 MIN [id number] Diagnos is: ICD-10- CM I10 Essenti al (primar y) hyperte nsJUDY Rosales R 10/03 [place] [facility] HEARING AID REPAIR/MOD IFYING [id number] Diagnos is: ICD-10- CM H90.3 Sensori neural hearing loss, bilater al CHRISTOPH BERRIOS S 10/03 [place] Outpatient Encounter [id number] 10/31 [place] Outpatient Encounter [id number] 11/05 [place] Outpatient Encounter [id number] 12/08 [place] Outpatient Encounter [id number] 02/12 [place] [facility] Outpatient Encounter [id number] 05/05 [place] [facility] INTRM OPH EXAM EST PATIENT [id number] Diagnos is: ICD-10- CM 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, right eye TIFFANI CALLAWAY 06/10 [place] Outpatient Encounter [id number] 06/23 [place] [facility] Outpatient Encounter [id number] 09/04 [place] Outpatient Encounter [id number] 09/29 [place] [facility] OFFICE O/P EST MOD 30 MIN [id number] Diagnos is: ICD-10- CM I10 Essenti al (primar y) hyperte JUDY Miller R 09/29 [place] [facility] Outpatient Encounter [id number] 10/27 [place] Outpatient Encounter [id number] 11/06 [place] [facility] Outpatient Encounter [id number] 12/03 [place] Outpatient Encounter [id number] 12/21 [place] Outpatient Encounter [id number] 12/21 [place] [facility] Outpatient Encounter [id number] 12/24 [place] Outpatient Encounter [id number] 12/24 [place] [facility] Outpatient Encounter [id number] 12/25 [place] [facility] Procedures Combined list of: 1) Procedures from Department of Veterans Affairs facilities going back up to thelast 18 months, not all [place] non-surgical procedures are included; 2) All procedures from the Department of Defense facilities. Procedure Procedure Type Code Date Perfomer Comments Sourc e SUPP &MATERIAL (EXCEPT SPECTACLE),PROVID,THE PHYS/OTH QUALIFIED HEALTH CERTIFIED PERSONAL CHEF OVER &ABOVE THOSE USUALLY INCLD W THE OFFICE VISIT/OTH SER RENDERED (LIST DRUG,TRAYS,SUPP,OR MATERIAL PROVID) 11/04/2000 [facility] SUPP &MATERIAL (EXCEPT SPECTACLE),PROVID,THE PHYS/OTH QUALIFIED HEALTH CERTIFIED PERSONAL CHEF OVER &ABOVE THOSE USUALLY INCLD W THE OFFICE VISIT/OTH SER RENDERED (LIST DRUG,TRAYS,SUPP,OR MATERIAL PROVID) 10/21/2000 [facility] SUPP &MATERIAL (EXCEPT SPECTACLE),PROVID,THE PHYS/OTH QUALIFIED HEALTH CERTIFIED PERSONAL CHEF OVER &ABOVE THOSE USUALLY INCLD W THE OFFICE VISIT/OTH SER RENDERED (LIST DRUG,TRAYS,SUPP,OR MATERIAL PROVID) 10/07/2000 [facility] TYMPANOMETRY (IMPEDANCE TESTING) 04/12/2000 [facility] BRONCHOSCOPY, RIGID OR FLEXIBLE, INCLUDING FLUOROSCOPIC GUIDANCE, WHEN PERFORMED; WITH BRONCHIAL OR ENDOBRONCHIAL BIOPSY(S), SINGLE OR MULTIPLE SITES 04/10/2000 [facility] EDUCATIONAL SUPPLIES, SUCH A S BOOKS, TAPES, AND PAMPHLETS, FOR THE PATIENT'S EDUCATION AT COST TO PHYSICIAN OR OTHER QUALIFIED HEALTH CERTIFIED PERSONAL CHEF 04/09/2000 [facility] BIOPSY, LUNG OR MEDIASTINUM, PERCUTANEOUS NEEDLE 04/08/2000 [facility] Social History Combined list of available smoking, tobacco, and other social history from Department of Defense and Veterans Affairs facilities. Social History Type Response Date Comment Source Tobacco smoking status [facility]-TOBACCO USE FORMER CIGARETTES 09/29/2024 [facility] History of tobacco use VA-TOBACCO USE SOME DAYS OTHER TYPE 09/29/2024 [facility] History of tobacco use VA-TOBACCO USER SOME DAYS 10/03/2023 [facility] History of tobacco use VA-TOBACCO USER SOME DAYS 10/03/2022 [facility] History of tobacco use VA-TOBACCO USER SOME DAYS 06/28/2021 [facility] History of tobacco use [place]-TOBACCO FORMER USER 05/23/2020 [facility] History of tobacco use [place]-TOBACCO FORMER USER 09/08/2018 [facility] History of tobacco use V9 LIFETIME NON-USER OF TOBACCO 03/14/2018 [facility] History of tobacco use V9 LIFETIME NON-USER OF TOBACCO 03/14/2017 [facility] History of tobacco use V9 LIFETIME NON-USER OF TOBACCO 03/09/2016 [facility] History of tobacco use V9 QUIT TOBACCO >7 YEARS AGO 03/09/2015 [facility] History of tobacco use V9 QUIT TOBACCO >7 YEARS AGO 03/24/2014 [facility] History of tobacco use V9 CURRENT TOBACCO USER 03/23/2013 [facility] History of tobacco use V9 CURRENT TOBACCO USER 05/28/2012 [facility] History of tobacco use V9 CURRENT TOBACCO USER 05/28/2011 [facility] History of tobacco use V9 CURRENT TOBACCO USER 04/20/2011 [facility] History of tobacco use V9 CURRENT TOBACCO USER 05/24/2010 [facility] History of tobacco use V9 CURRENT TOBACCO USER 05/17/2009 [facility] History of tobacco use V9 CURRENT TOBACCO USER 10/14/2008 [facility] History of tobacco use V9 CURRENT TOBACCO USER 01/20/2007 [facility] History of tobacco use HF V9 CURRENT SMOKER 07/17/2006 pipe 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 [facility] This section is an empty social history section. [employer]
--- NOTE | 2025-02-08 10:30 | MR_ITS ---
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 Software platform sequences were performed using the Siemens NeuString MR B19 platform. A set of three-plane, low-resolution, large [id number] localizers were initially acquired. Then axial, coronal, sagittal TrueFISP, as well as axial HASTE images, were obtained. These were followed by gated TrueFISP breathold cinematic sequences obtained in the short axis with 8 mm slices and 2 mm gaps, 2-chamber (vertical long axis), 3-chamber, 4-chamber (horizontal long axis). A bolus of contrast was injected intravenously with first-pass sequences obtained in the short axis and four-chamber planes. After approximately 10 minutes, a TI furniture installer sequence was performed to determine the optimal TI time. Using the optimized TI time, delayed contrast enhancement segmented inversion???recovery TurboFLASH sequences were obtained in the short axis, 2-chamber, 3-chamber, and 4-chamber projections. 2D-velocity phase mapping was performed. Functional parameters were calculated by offline analysis on an independent workstation ([employer], [employer]). Contrast: ProHance??? (Gadoteridol) FINDINGS MORPHOLOGY AND FUNCTION Left ventricle: The left ventricle is normal in size. The indexed left ventricular end-diastolic volume (LVEDVi) is 69 ml/m2 (reference range 57-105 ml/m2 in males, 56-96 ml/m2 in females). There is moderate reduction in left ventricular systolic function. There is normal left ventricular wall thickness. There is moderate global hypokinesis present. There is severe hypokinesis of the basal septal, anteroseptal, and inferoseptal LV lunsford. LVEF is calculated at 37.4% (reference range 57-77%). Right ventricle: The right ventricle is normal in size. The indexed right ventricular end-diastolic volume (RVEDVi) is 64 ml/m2 (reference range 61-121 ml/m2 in males, 48-112 ml/m2 in females). There is moderate reduction in right ventricular systolic function. RVEF is calculated at 37.9% (reference range 52-72% in males, 51-71% in females). Atria: The left atrium is moderately. The maximum indexed left atrial volume is 44 ml/m2 (range 26-52 ml/m2 in males, 27-53 ml/m2 in females). The right atrium is normal in size. The maximum indexed right atrial volume is 37 ml/m2 (range 18-90 ml/m2). Aorta: The diameter of the aortic annulus is normal, measuring 26 mm (coronal view reference range 21-30 mm in males, 19-27 mm in females). The diameter of the aortic sinus is normal, measuring 39 mm (coronal view reference range 25-42 mm in males, 24-36 mm in females). The diameter of the sinotubular junction is normal, measuring 34 mm (coronal view reference range 18-32 mm in males, 18-28 mm in females). The diameter of the ascending thoracic aorta is mildly increased, measuring 38 mm in diameter. Main pulmonary artery: The main pulmonary artery diameter is normal. Pericardium: The pericardial thickness is normal. The pericardial thickness measures 2.4 mm (normal < 4.0 mm). There is no pericardial effusion. VALVES The valvular morphologies in the visualized sequences appear normal. There is no significant valvular stenosis or regurgitation of the mitral, aortic, tricuspid, or pulmonic valve noted visually. Systolic anterior motion of the mitral valve is not visualized. Ratio of pulmonary to systemic flow, Qp:Qs ratio = 1.0 (normal < or = 1.2, hemodynamically significant shunt > 1.5), demonstrating no evidence of hemodynamically significant shunt. TISSUE CHARACTERIZATION Resting Perfusion: Normal myocardial blood flow at rest. No evidence of resting hypoperfusion. Myocardial Fibrosis and/or edema: There is an isolated focus of transmural late gadolinium enhancement noted in the basal inferolateral LV wall. 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 T2-weighted imaging demonstrates no evidence of myocardial edema or inflammation. OTHER No other significant findings are noted. However, this exam is focused on the cardiac structure and function. IMPRESSION Normal LV size with moderate reduction in LV systolic function. LVEDVi= 69 ml/m2 and LVEF= 37.4%. Severe hypokinesis of the basal septal, anteroseptal, and inferoseptal LV lunsford. Normal RV size with moderate reduction in RV systolic function. RVEDVi= 64 ml/m2 and RVEF= 37.9%. Biatrial enlargement. Isolated focus of transmural late gadolinium enhancement (LGE) noted in the basal inferolateral LV wall. 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 Perfusion analysis demonstrates normal blood flow at rest with no evidence of resting hypoperfusion. Ratio of pulmonary to systemic flow, Qp:Qs ratio = 1.0 (normal < or = 1.2, hemodynamically significant shunt > 1.5), demonstrating no evidence of hemodynamically significant shunt. The diameter of the ascending thoracic aorta is mildly increased, measuring 38 mm in diameter. The above findings demonstrate moderate reduction in biventricular systolic function. No evidence of dilated cardiomyopathy or infiltrative cardiomyopathy. The findings may be consistent with ischemic cardiomyopathy in the setting of known severe coronary disease. Overall, the absence of significant myocardial LGE is suggestive of viable tissue and increased likehood of myocardial recovery following revascularization. The presence of an LGE focus in the inferolateral LV wall may represent myocardial scarring and nidus for PVCs/ectopy in the appropriate clinical setting. Clinical correlation is suggested. COMPARISON None CRITICAL RESULT None COMMUNICATION The above findings were relayed to the patient at the time of the routine outpatient cardiology follow-up visit, prior to dictation of this report. The findings of this cardiac MR were reviewed, reported, and signed by Erick Woods MD (Marketing Finance Manager). Conclusion Electronically signed by : Floresita Woods MD 02/28/2025 00:56:15
[2025-02-08 10:54] LABS: Blood Urea Nitrogen 14 mg/dl (9-20); Estimated Glomerular Filt Rate 59 ml/min (>60); GFR (African American) 71 ML/MIN (>60)
[2025-02-08] MEDS: 0.9 % SODIUM CHLORIDE 50 ML VIAL 20 ML IV (12:14)
[2025-02-08] MEDS: GADOTERIDOL INJ 20ML SYRINGE 20 ML IV (12:14)
[2025-02-08] MEDS: SODIUM CHLORIDE 0.9% 10ML SYR (RAD ONLY) 10 ML IV (12:14)
== END 2025-02-08 23:59 | disposition home or self-care (01) ==
LOC: RAD 09:58
PROVIDERS: PCP Internal Medicine; Visit Provider Internal Medicine
DX: I51.89 Other ill-defined heart diseases (principal); I25.2 Old myocardial infarction; I51.7 Cardiomegaly; I25.10 Atherosclerotic heart disease of native coronary artery without angina pectoris; I49.8 Other specified cardiac arrhythmias; I50.20 Unspecified systolic (congestive) heart failure; E78.5 Hyperlipidemia, unspecified; R00.8 Other abnormalities of heart beat
CPT/HCPCS: 36415; 75561; 82565; 84520; A9576

== ENCOUNTER 2025-02-25 15:53 | Outpatient (CLI) | payer MEDICARE, OTHER, SELFPAY ==
--- OUTSIDE RECORDS SUMMARY | 2025-02-25 14:25 | XMS_ITS | Continuity of Care Document ---
Author Name [facility] Organization [facility] Care Team Providers Care Financial Analysis Advisor Name Role Phone [facility] Unavailable Unavailable Problems Combined list of problems from [facility] and [facility] facilities. It does not include entries that were removed or entered in error. Problem Status Onset Date Problem Type Date of Resolution Comments Source CHRONIC SINUSITIS NOS Active Condition [facility] Dermatitis * (ICD-9-CM 692.9) Active Condition [facility] ESOPHAGEAL REFLUX Active [facility] Gastroesophageal reflux disease Active Condition [facility] Hyperlipidemia [facility] Hypertension Active Condition [facility] HYPERTENSION NOS Active Condition [facility] INHIBITED SEX EXCITEMENT Active Condition [facility] Insomnia Active Condition [facility] Insomnia * (ICD-9-CM 780.52) Active Condition [facility] Low back pain Active Condition [facility] Osteoarthritis * (ICD-9-CM 715.90) Active Condition [facility] Overweight Active Condition [facility] Tobacco dependence syndrome Active Condition [facility] Tobacco use Active Condition [facility] VACCIN FOR INFLUENZA Active Condition [facility] Diagnosis: ICD-10-CM I10 Essential (primary) hypertension Active Diagnosis [facility] Diagnosis: ICD-10-CM 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 Medication Details Route Status Patient Instructions Prescription Expires Prescription Number Last Dispense Date Ordering Provider Order Date Order Qty Source ATENOLOL 25MG TAB TAKE ONE-HALF TABLET BY MOUTH DAILY ORAL ACTIVE AIXA PRASAD 2010 [place] [facility] TRAZODONE HCL (trazodone HCl), 50 MG, TABLET, ORAL, KIZZY, 1000 ea. BOTTLE Active [id number] 2023 90 Pharmac y Data Transac tion Service Facilit y TRAZODONE HCL 50MG TAB TAKE ONE TABLET BY MOUTH AT BEDTIME NEEDED ORAL ACTIVE MCKENZIEKALA 2016 [place] [facility] Immunizations Combined list of available immunizations from the Department of Defense and Veterans Affairs facilities. 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 INFLUENZA, HIGH-DOSE, TRIVALENT, PF 7 2023 135 complet ed HISTORICA L INFORMATI ON - FROM OTHER REGISTRY, [place] [facility] INFLUENZA, UNSPECIFIED FORMULATION 2022 88 complet ed Completed Series, HISTORICA L INFORMATI ON - FROM PATIENT'S RECALL, [place] [facility] INFLUENZA VACCINE, QUADRIVALENT, ADJUVANTED 6 2022 205 complet ed HISTORICA L INFORMATI ON - FROM OTHER REGISTRY, [place] [facility] COVID-19 (MODERNA), MRNA, LNP-S, BIVALENT BOOSTER, PF, 50 MCG/0.5 ML OR 25MCG/0.25 ML DOSE 2021 229 complet ed Booster for Series, HISTORICA L INFORMATI ON - FROM PARENT'S RECALL, [place] [facility] COVID-19 (MODERNA), MRNA, LNP-S, BIVALENT BOOSTER, PF, 50 MCG/0.5 ML OR 25MCG/0.25 ML DOSE 2021 229 complet ed Booster for Series, HISTORICA L INFORMATI ON - FROM PARENT'S RECALL, [place] [facility] INFLUENZA, HIGH-DOSE, QUADRIVALENT 5 2021 197 complet ed HISTORICA L INFORMATI ON - FROM OTHER REGISTRY, [place] [facility] INFLUENZA, UNSPECIFIED FORMULATION 2021 88 complet ed Completed Series, HISTORICA L INFORMATI ON - FROM PARENT'S RECALL, [place] [facility] COVID-19, mRNA, LNP-S, PF, 100 mcg or 50 mcg dose 2020 Tori PAGAN[employer] (MOD) Not Given COVID-19, mRNA, LNP-S, PF, 100 mcg or 50 mcg dose DoD COVID-19 (MODERNA), MRNA, LNP-S, PF, 100 MCG/0.5ML DOSE OR 50 MCG/0.25ML DOSE 3 2020 207 complet ed HISTORICA L INFORMATI ON - FROM OTHER REGISTRY, [place] [facility] INFLUENZA, UNSPECIFIED FORMULATION 2020 88 complet ed [facility] influenza, high-dose, quadrivalent 2020 [place], () Not Given influenza , high-dose , quadrival ent DoD INFLUENZA, HIGH-DOSE, QUADRIVALENT 4 2020 197 complet ed HISTORICA L INFORMATI ON - FROM OTHER REGISTRY, [place] [facility] COVID-19 (MODERNA), MRNA, LNP-S, PF, 100 MCG/0.5 ML DOSE 2 2020 207 complet ed [place] [facility] COVID-19 (MODERNA), MRNA, LNP-S, PF, 100 MCG/0.5 ML DOSE 1 2020 207 complet ed [place] [facility] influenza, high-dose, quadrivalent 2019 STE[place], () Not Given influenza , high-dose , quadrival ent DoD INFLUENZA, HIGH-DOSE, QUADRIVALENT 3 2019 197 complet ed HISTORICA L INFORMATI ON - FROM OTHER REGISTRY, [place] [facility] INFLUENZA, UNSPECIFIED FORMULATION 2019 88 complet ed [place] [facility] ZOSTER RECOMBINANT 1 2018 187 complet ed Foster [place] [facility] INFLUENZA, SEASONAL, INJECTABLE 2017 141 complet ed [place] [facility] ZOSTER RECOMBINANT 2 2017 187 complet ed Foster [place] [facility] INFLUENZA A & [...] Given Influenza , high dose seasonal DoD [id number] (HISTORICAL) 2014 33 complet ed [place] [...] (HISTORICAL) 2008 88 complet ed [place] [facility] FLU,3 YRS (HISTORICAL) 2008 88 complet ed [place] [facility] FLU,3 YRS (HISTORICAL) 2006 88 complet ed [place] [facility] INFLUENZA A & B (HISTORICAL) 2005 88 complet ed [place] [facility] TD(ADULT) UNSPECIFIED FORMULATION 2005 139 complet ed less than 10 years ago/unsur e of date [place] [facility] TDAP (HISTORICAL) 2005 115 complet ed [place] [facility] INFLUENZA, UNSPECIFIED FORMULATION 2002 NONE 88 complet ed Completed Series, [id number] [place] INFLUENZA, UNSPECIFIED FORMULATION 2001 88 complet ed up to date. [place] [facility] INFLUENZA, UNSPECIFIED FORMULATION 2000 88 complet ed takes yearly [place] [facility] TD(ADULT) UNSPECIFIED FORMULATION 1996 139 complet ed up to date. [place] [facility] Results Combined list of recent chemistry, hematology and other laboratory results from Department of Defense and Veterans Affairs, ranging from 15 months to all on record, depending upon the facility. Order Name Results Value Reference Range Date Interpretation Specimen Comments Source OCCULT BLOOD FIT X1 SCREEN HEMOGLOBIN. GASTROINTES TINAL.LOWER [PRESENCE] IN STOOL BY IMMUNOASSAY [facility] 10/19 Specimen Type: FECES Comment: Test cancelled. Collection date could not be determined. Sample integrity cannot be ensured. Please recollect specimen and resubmit for testing. Ordering Provider: MALU MCKENZIE Report Released Date/Time: Sep 29, 2024 09:36 AM Reporting Lab: VERONICA SORIANO [address] [address] Performing Lab: VERONICA SORIANO [address] [address] PSYCHIATRIC ALT ALANINE AMINOTRANSF ERASE [ENZYMATIC ACTIVITY/VO [...] 2024 09:36 AM Reporting Lab: VERONICA SORIANO [address] [address] Performing Lab: VERONICA SORIANO [address] [address] PSYCHIATRIC AST ASPARTATE AMINOTRANSF ERASE [ENZYMATIC ACTIVITY/VO [...] AM Reporting Lab: VERONICA SORIANO [facility] [address] [place], [place] [id number] Performing Lab: [address] [address] PSYCHIATRIC CBC/PLT LEUKOCYTES [#/VOLUME] IN BLOOD BY AUTOMATED COUNT 7.6 10*3/u L 5.0 - 10.0 09/29 Specimen Type: BLOOD No comment entered. Ordering Provider: MALU MCKENZIE Report Released Date/Time: Sep 29, 2024 09:36 AM Reporting Lab: [address] [address] Performing Lab: [address] [address] PSYCHIATRIC CBC/PLT ERYTHROCYTE S [#/VOLUME] IN BLOOD BY AUTOMATED COUNT 4.69 10*6/u L 4.6 - 6.2 09/29 Specimen Type: BLOOD No comment entered. Ordering Provider: MALU MCKENZIE Report Released Date/Time: Sep 29, 2024 09:36 AM Reporting Lab: [place] [phone] Performing Lab: [place] [phone] PSYCHIATRIC CBC/PLT HEMOGLOBIN [MASS/VOLUM E] IN BLOOD 15.0 g/dL 14.0 - 18.0 09/29 Specimen Type: BLOOD No comment entered. Ordering Provider: MALU MCKENZIE Report Released Date/Time: Sep 29, 2024 09:36 AM Reporting Lab: [place] [phone] Performing Lab: [place] [phone] PSYCHIATRIC CBC/PLT HEMATOCRIT [VOLUME FRACTION] OF BLOOD BY AUTOMATED COUNT 45.9 42.0 - 52.0 09/29 Specimen Type: BLOOD No comment entered. Ordering Provider: MALU MCKENZIE Report Released Date/Time: Sep 29, 2024 09:36 AM Reporting Lab: [address] [address] Performing Lab: [place] [phone] [place] [address] CBC/PLT MCV [ENTITIC VOLUME] BY AUTOMATED COUNT 97.9 fL 80.0 - 94.0 09/29 H Specimen Type: BLOOD No comment entered. Ordering Provider: MALU MCKENZIE Report Released Date/Time: Sep 29, 2024 09:36 AM Reporting Lab: [place] [phone] Performing Lab: [place] [phone] [place] [address] CBC/PLT MCH [ENTITIC MASS] BY AUTOMATED COUNT 32.0 pg 27.0 - 31.0 09/29 H Specimen Type: BLOOD No comment entered. Ordering Provider: MALU MCKENZIE Report Released Date/Time: Sep 29, 2024 09:36 AM Reporting Lab: [place] [phone] Performing Lab: [place] [phone] [place] [address] CBC/PLT MCHC [MASS/VOLUM E] BY AUTOMATED COUNT 32.7 g/dL 32.0 - 36.0 09/29 Specimen Type: BLOOD No comment entered. Ordering Provider: MALU MCKENZEI Report Released Date/Time: Sep 29, 2024 09:36 AM Reporting Lab: [place] [phone] Performing Lab: [place] [phone] [place] [address] CBC/PLT PLATELETS [#/VOLUME] IN BLOOD 216 10*3/u L 150 - 450 09/29 Specimen Type: BLOOD No comment entered. Ordering Provider: MLAU MCKENZIE R Report Released Date/Time: Sep 29, 2024 09:36 AM Reporting Lab: [place] [phone] Performing Lab: [place] [phone] [place] [address] CBC/PLT PLATELET MEAN VOLUME [ENTITIC VOLUME] IN BLOOD 10.5 fL 9.0 - 13.1 09/29 Specimen Type: BLOOD No comment entered. Ordering Provider: MALU MCKENZIE Report Released Date/Time: Sep 29, 2024 09:36 AM Reporting Lab: [place] [address] Performing Lab: [address] CBC/PLT ERYTHROCYTE DISTRIBUTIO N WIDTH [ENTITIC VOLUME] BY AUTOMATED COUNT 13.0 11.0 - 16.0 09/29 Specimen Type: BLOOD No comment entered. Ordering Provider: MALU MCKENZIE Report Released Date/Time: Sep 29, 2024 09:36 AM Reporting Lab: [place] [address] Performing Lab: [address] CBC/PLT NUCLEATED ERYTHROCYTE S/100 ERYTHROCYTE S IN BLOOD 0.0 0.0 - 0.0 09/29 Specimen Type: BLOOD No comment entered. Ordering Provider: MALU MCKENZIE Report Released Date/Time: Sep 29, 2024 09:36 AM Reporting Lab: [place] [phone] Performing Lab: [address] GLYCOHEMO GLOBIN HEMOGLOBIN A1C/HEMOGLO BIN.TOTAL IN BLOOD BY HPLC 5.3 4.4 - 6.4 09/29 Specimen Type: BLOOD Comment: [facility] guidelines for A1c interpretat ion: [...] 9.27. Ref: https://ngs p.org/CAPda ta.asp. The in-house [employer] D-100 analyzer has a historical CV <= 2%. Contact the laboratory for further performance characteris tics of this assay. Ordering Provider: MALU MCKENZIE Report Released Date/Time: Sep 29, 2024 09:36 AM Reporting Lab: VERONICA [address] [address] Performing Lab: [facility] [address] PSYCHIATRIC LIPID PROFILE CHOLESTEROL [MASS/VOLUM E] IN [...] 29, 2024 09:36 AM Reporting Lab: [facility]ENKe[facility] [address] [address] Performing Lab: [facility]EN[facility] [address] [address] PSYCHIATRIC LIPID PROFILE TRIGLYCERID E [MASS/VOLUM E] [...] 2024 09:36 AM Reporting Lab: VERONICA SORIANO [address] [address] Performing Lab: VERONICA SORIANO [address] [address] PSYCHIATRIC LIPID PROFILE CHOLESTEROL IN HDL [MASS/VOLUM [...] 2024 09:36 AM Reporting Lab: VERONICA SORIANO [address] [address] Performing Lab: VERONICA SORIANO [address] [address] PSYCHIATRIC LIPID PROFILE CHOLESTEROL IN LDL [MASS/VOLUM [...] 2024 09:36 AM Reporting Lab: VERONICA SORIANO [address] [address] Performing Lab: VERONICA SORIANO [address] [address] PSYCHIATRIC PANEL 1 CREATININE [MASS/VOLUM E] IN [...] 2024 09:36 AM Reporting Lab: VERONICA SORIANO [address] [address] Performing Lab: VERONICA SORIANO [address] [address] PSYCHIATRIC PANEL 1 UREA NITROGEN [MASS/VOLUM E] IN SERUM OR PLASMA 16 mg/dL 9 - 25 09/29 Specimen Type: PLASMA Comment: Estimated Glomerular [...] 2024 09:36 AM Reporting Lab: VERONICA SORIANO [address] [address] Performing Lab: VERONICA SORIANO [address] [address] PSYCHIATRIC PANEL 1 GLUCOSE [MASS/VOLUM E] IN [...] 2024 09:36 AM Reporting Lab: VERONICA SORIANO [address] [address] Performing Lab: VERONICA SORIANO [address] [address] PSYCHIATRIC PANEL 1 SODIUM [MOLES/VOLU ME] IN [...] 2024 09:36 AM Reporting Lab: VERONICA SORIANO [address] [address] Performing Lab: VERONICA SORIANO [address] [address] PSYCHIATRIC PANEL 1 POTASSIUM [MOLES/VOLU ME] IN [...] 2024 09:36 AM Reporting Lab: VERONICA SORIANO [address] [address] Performing Lab: VERONICA SORIANO [address] [address] PSYCHIATRIC PANEL 1 CHLORIDE [MOLES/VOLU ME] IN [...] 2024 09:36 AM Reporting Lab: VERONICA SORIANO [address] [address] Performing Lab: VERONICA SORIANO [address] [address] PSYCHIATRIC PANEL 1 CARBON DIOXIDE, TOTAL [MOLES/VOLU [...] 2024 09:36 AM Reporting Lab: VERONICA SORIANO [place] [id number] [facility] [address] Performing Lab: VERONICA SORIANO [address] [address] PSYCHIATRIC PANEL 1 CALCIUM [MASS/VOLUM E] IN [...] 2024 09:36 AM Reporting Lab: VERONICA SORIANO [address] [address] Performing Lab: VERONICA SORIANO [address] [address] PSYCHIATRIC PANEL 1 ANION GAP 3 IN [...] AM Reporting Lab: VERONICA CHRISTIE [facility] [address] [facility] [address] Performing Lab: MANNIEKeena SORIANO [facility] [address] [facility] [address] PSYCHIATRIC PANEL 1 GLOMERULAR FILTRATION RATE/1.73 SQ M.PREDICTED [...] Sep 29, 2024 09:36 AM Reporting Lab: [address] [address] Performing Lab: [address] [phone] [place] [address] OCCULT BLOOD FIT X1 SCREEN HEMOGLOBIN. GASTROINTES TINAL.LOWER [PRESENCE] IN STOOL BY IMMUNOASSAY [facility] 10/16 Specimen Type: FECES Comment: Test cancelled. Collection date could not be determined. Sample integrity cannot be ensured. Please recollect specimen and resubmit for testing. Ordering Provider: MALU MCKENZIE Report Released Date/Time: Oct 03, 2023 08:31 AM Reporting Lab: [address] [address] Performing Lab: [place] [phone] PSYCHIATRIC ALT ALANINE AMINOTRANSF ERASE [ENZYMATIC ACTIVITY/VO [...] 2023 08:31 AM Reporting Lab: VERONICA SORIANO [address] [address] Performing Lab: VERONICA SORIANO [address] [address] PSYCHIATRIC LIPID PROFILE CHOLESTEROL [MASS/VOLUM E] IN [...] 2023 08:31 AM Reporting Lab: VERONICA SORIANO [address] [address] Performing Lab: VERONICA SORIANO [address] [address] PSYCHIATRIC LIPID PROFILE TRIGLYCERID E [MASS/VOLUM E] [...] 2023 08:31 AM Reporting Lab: VERONICA SORIANO [address] [address] Performing Lab: VERONICA SORIANO [address] [address] PSYCHIATRIC LIPID PROFILE CHOLESTEROL IN HDL [MASS/VOLUM [...] 2023 08:31 AM Reporting Lab: VERONICA SORIANO [address] [address] Performing Lab: VERONICA SORIANO [address] [address] PSYCHIATRIC LIPID PROFILE CHOLESTEROL IN LDL [MASS/VOLUM [...] 2023 08:31 AM Reporting Lab: VERONICA SORIANO [address] [address] Performing Lab: VERONICA SORIANO [address] [address] PSYCHIATRIC Vital Signs Combined list of inpatient and outpatient Vital Signs from Department of [facility] and [facility], ranging from 12 months to all on record, depending upon the facility. Vital Sign Value Date Comments Source SYSTOLIC BLOOD PRESSURE 144 09/29/2024 09:16:15 [facility] DIASTOLIC BLOOD PRESSURE 72 09/29/2024 09:16:15 [facility] PULSE OXIMETRY 93 09/29/2024 09:16:15 [facility] WEIGHT 200.6 09/29/2024 09:16:15 [place] [facility] BMI 28 kg/m2 09/29/2024 09:16:15 [place] [facility] PAIN 0 09/29/2024 09:16:15 [place] [facility] HEIGHT 71 09/29/2024 09:16:15 [place] [facility] TEMPERATURE 97.4 09/29/2024 09:16:15 [facility] PULSE 82 09/29/2024 09:16:15 [place] [facility] Encounters Combined list of: 1) Encounters from Department of Veterans Affairs facilities going backup to the last 18 months, not all [place] inpatient encounters are included; 2) Encounters from the Department of [facility] facilities going backup to 280 months. Location Location Details Encounter Type Encounter Number Reason For Visit Attending Provider ADM Date DC Date Status Disposition Source [facility] Outpatient Encounter [id number] 08/30 [place] Outpatient Encounter [id number] 09/13 [place] OFFICE O/P EST MOD 30 MIN [id number] Diagnos is: ICD-10- CM I10 Essenti al (primar y) hyperte nsJUDY Rosales R 10/03 [place] [facility] HEARING AID REPAIR/MOD IFYING [id number] Diagnos is: ICD-10- CM H90.3 Sensori neural hearing loss, bilater al CHRISTOPH BERRIOS S 10/03 [place] Outpatient Encounter [id number] 10/31 [place] Outpatient Encounter [id number] 11/05 [place] Outpatient Encounter [id number] 12/08 [place] Outpatient Encounter [id number] 02/12 [place] [facility] Outpatient Encounter [id number] 05/05 [place] [facility] INTRM OPH EXAM EST PATIENT [id number] Diagnos is: ICD-10- CM 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, right eye TIFFANI CALLAWAY 06/10 [place] [facility] Outpatient Encounter [id number] 06/23 [place] [facility] Outpatient Encounter [id number] 09/04 [place] Outpatient Encounter [id number] 09/29 [place] [facility] OFFICE O/P EST MOD 30 MIN [id number] Diagnos is: ICD-10- CM I10 Essenti al (primar y) hyperte JUDY Miller R 09/29 [place] [facility] Outpatient Encounter [id number] 10/27 [place] Outpatient Encounter [id number] 11/06 [place] [facility] Outpatient Encounter [id number] 12/03 [place] Outpatient Encounter [id number] 12/21 [place] Outpatient Encounter [id number] 12/21 [place] [facility] Outpatient Encounter [id number] 12/24 [place] Outpatient Encounter [id number] 12/24 [place] [facility] Outpatient Encounter [id number] 12/25 [place] Procedures Combined list of: 1) Procedures from Department of Veterans Affairs facilities going back up to thelast 18 months, not all [place] non-surgical procedures are included; 2) All procedures from the Department of Defense facilities. Procedure Procedure Type Code Date Perfomer Comments Sourc e SUPP &MATERIAL (EXCEPT SPECTACLE),PROVID,THE PHYS/OTH QUALIFIED HEALTH BARK FITTER OVER &ABOVE THOSE USUALLY INCLD W THE OFFICE VISIT/OTH SER RENDERED (LIST DRUG,TRAYS,SUPP,OR MATERIAL PROVID) 11/04/2000 [facility] SUPP &MATERIAL (EXCEPT SPECTACLE),PROVID,THE PHYS/OTH QUALIFIED HEALTH BARK FITTER OVER &ABOVE THOSE USUALLY INCLD W THE OFFICE VISIT/OTH SER RENDERED (LIST DRUG,TRAYS,SUPP,OR MATERIAL PROVID) 10/21/2000 [facility] SUPP &MATERIAL (EXCEPT SPECTACLE),PROVID,THE PHYS/OTH QUALIFIED HEALTH BARK FITTER OVER &ABOVE THOSE USUALLY INCLD W THE OFFICE VISIT/OTH SER RENDERED (LIST DRUG,TRAYS,SUPP,OR MATERIAL PROVID) 10/07/2000 [facility] TYMPANOMETRY (IMPEDANCE TESTING) 04/12/2000 [facility] BRONCHOSCOPY, RIGID OR FLEXIBLE, INCLUDING FLUOROSCOPIC GUIDANCE, WHEN PERFORMED; WITH BRONCHIAL OR ENDOBRONCHIAL BIOPSY(S), SINGLE OR MULTIPLE SITES 04/10/2000 [facility] EDUCATIONAL SUPPLIES, SUCH A S BOOKS, TAPES, AND PAMPHLETS, FOR THE PATIENT'S EDUCATION AT COST TO PHYSICIAN OR OTHER QUALIFIED HEALTH BARK FITTER 04/09/2000 [facility] BIOPSY, LUNG OR MEDIASTINUM, PERCUTANEOUS NEEDLE 04/08/2000 [facility] Social History Combined list of available smoking, tobacco, and other social history from Department of Defense and Veterans Affairs facilities. Social History Type Response Date Comment Source Tobacco smoking status NEIS [facility]-TOBACCO USE FORMER CIGARETTES 09/29/2024 [facility] History of tobacco use [place]-TO[place]ACCO USE SOME DAYS OTHER TYPE 09/29/2024 [facility] History of tobacco use VA-TOBACCO USE [place] 30 MIN OF WAKEUP 10/03/2023 [facility] History of tobacco use [place]-TOBACCO DOESNT USE WI 30 MIN WAKEUP 10/03/2022 [facility] History of tobacco use [place]-TOBACCO USER SOME DAYS 06/28/2021 [facility] History of tobacco use [place]-TOBACCO FORMER USER 05/23/2020 [facility] History of tobacco use [place]-TOBACCO FORMER USER 09/08/2018 [facility] History of [...] use HF V9 CURRENT NON-SMOKER 07/06/2004 pipe [facility] History of tobacco use 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 [facility] This section is an empty social history section. [facility]
== END 2025-02-25 23:59 | disposition home or self-care (01) ==
LOC: RT 15:54
PROVIDERS: PCP Internal Medicine; Visit Provider Internal Medicine
DX: I49.1 Atrial premature depolarization (principal); I47.19 Other supraventricular tachycardia; I49.3 Ventricular premature depolarization; I47.29 Other ventricular tachycardia; I49.8 Other specified cardiac arrhythmias; Z95.810 Presence of automatic (implantable) cardiac defibrillator
CPT/HCPCS: 93270

== ENCOUNTER 2025-02-27 11:49 | Outpatient (CLI) | payer MEDICARE, OTHER, SELFPAY ==
--- OUTSIDE RECORDS SUMMARY | 2025-02-27 11:51 | XMS_ITS | Continuity of Care Document ---
Author Name [facility] Organization [facility] Care Team Providers Care Digital Strategy Director Name Role Phone [facility] Unavailable Unavailable Problems Combined list of problems from [facility] and [facility] facilities. It does not include entries that were removed or entered in error. Problem Status Onset Date Problem Type Date of Resolution Comments Source CHRONIC SINUSITIS NOS Active Condition [facility] Dermatitis * (ICD-9-CM 692.9) [facility] ESOPHAGEAL REFLUX Active [facility] Gastroesophageal reflux disease Active Condition [facility] Hyperlipidemia [facility] Hypertension Active Condition [facility] HYPERTENSION NOS Active Condition [facility] INHIBITED SEX EXCITEMENT Active Condition [facility] Insomnia Active Condition [facility] Insomnia * (ICD-9-CM 780.52) Active Condition [facility] Low back pain Active Condition [facility] Osteoarthritis * (ICD-9-CM 715.90) Active [facility] Overweight Active Condition [facility] Tobacco dependence syndrome Active Condition [facility] Tobacco use Active Condition [facility] VACCIN FOR INFLUENZA [facility] Diagnosis: ICD-10-CM I10 Essential (primary) hypertension Active Diagnosis [facility] Diagnosis: ICD-10-CM 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 Medication Details Route Status Patient Instructions Prescription Expires Prescription Number Last Dispense Date Ordering Provider Order Date Order Qty Source ATENOLOL 25MG TAB TAKE ONE-HALF TABLET BY MOUTH DAILY ORAL ACTIVE AIXA PRASAD 2010 [place] [facility] TRAZODONE HCL (trazodone HCl), 50 MG, TABLET, ORAL, KIZZY, 1000 ea. BOTTLE Active [id number] 2023 90 Pharmac y Data Transac tion Service Facilit y TRAZODONE HCL 50MG TAB TAKE ONE TABLET BY MOUTH AT BEDTIME NEEDED ORAL ACTIVE MCKENZIEKALA 2016 [place] [facility] Immunizations Combined list of available immunizations from the Department of Defense and Veterans Affairs facilities. Immunization Series Date Given Administered By Site Reaction Lot Number CVX Code Drug Leaf Size Picker Status Comments Source COVID-19 (Virtual[employer]op[employer]), MRNA, LNP-S, PF, GEOVANNA-SUCROSE, 30 MCG/0.3 ML (AGES 12+ YEARS) 5 2023 309 complet ed HISTORICA L INFORMATI ON - FROM OTHER REGISTRY, [place] [facility] INFLUENZA, HIGH-DOSE, TRIVALENT, PF 7 2023 135 complet ed HISTORICA L INFORMATI ON - FROM OTHER REGISTRY, [place] [facility] INFLUENZA, UNSPECIFIED FORMULATION 2022 88 complet ed Completed Series, HISTORICA L INFORMATI ON - FROM PATIENT'S RECALL, [place] [facility] INFLUENZA VACCINE, QUADRIVALENT, ADJUVANTED 6 2022 205 complet ed HISTORICA L INFORMATI ON - FROM OTHER REGISTRY, [place] [facility] COVID-19 (MODERNA), MRNA, LNP-S, BIVALENT BOOSTER, PF, 50 MCG/0.5 ML OR 25MCG/0.25 ML DOSE 2021 229 complet ed Booster for Series, HISTORICA L INFORMATI ON - FROM PARENT'S RECALL, [place] [facility] COVID-19 (MODERNA), MRNA, LNP-S, BIVALENT BOOSTER, PF, [...] 50 mcg dose 2020 [place] [employer] (MOD) Not Given COVID-19, mRNA, LNP-S, PF, 100 mcg or 50 mcg dose DoD INFLUENZA, UNSPECIFIED FORMULATION [address] [facility] INFLUENZA, HIGH-DOSE, QUADRIVALENT 4 2020 197 [...] ZOSTER RECOMBINANT 1 2018 187 complet ed [place] [facility] INFLUENZA, SEASONAL, INJECTABLE 2017 141 complet ed [place] [facility] ZOSTER RECOMBINANT 2 2017 187 complet ed [place] [facility] INFLUENZA A & [...] Given Influenza , high dose seasonal DoD [id number] (HISTORICAL) 2014 33 complet ed [place] [...] 2008 88 complet ed [place] [facility] FLU,3 YRS (HISTORICAL) 2008 88 complet ed [place] [facility] FLU,3 YRS (HISTORICAL) 2006 88 complet ed [place] [facility] INFLUENZA A & B (HISTORICAL) 2005 88 complet ed [place] [facility] TD(ADULT) UNSPECIFIED FORMULATION 2005 139 complet ed less than 10 years ago/unsur e of date [place] [facility] TDAP (HISTORICAL) 2005 115 complet ed [place] [facility] INFLUENZA, UNSPECIFIED FORMULATION 2002 NONE 88 complet ed Completed Series, [id number] [place] INFLUENZA, UNSPECIFIED FORMULATION 2001 88 complet ed up to date. [place] [facility] INFLUENZA, UNSPECIFIED FORMULATION 2000 88 complet ed takes yearly [place] [facility] TD(ADULT) UNSPECIFIED FORMULATION 1996 139 complet ed up to date. [place] [facility] Results Combined list of recent chemistry, hematology and other laboratory results from Department of Defense and Veterans Affairs, ranging from 15 months to all on record, depending upon the facility. Order Name Results Value Reference Range Date Interpretation Specimen Comments Source OCCULT BLOOD FIT X1 SCREEN HEMOGLOBIN. GASTROINTES TINAL.LOWER [PRESENCE] IN STOOL BY IMMUNOASSAY [facility] 10/19 Specimen Type: FECES Comment: Test cancelled. Collection date could not be determined. Sample integrity cannot be ensured. Please recollect specimen and resubmit for testing. Ordering Provider: MALU MCKENZIE Report Released Date/Time: Sep 29, 2024 09:36 AM Reporting Lab: VERONICA SORIANO [address] [address] Performing Lab: VERONICA SORIANO [address] [address] [facility] AST ASPARTATE AMINOTRANSF ERASE [ENZYMATIC ACTIVITY/VO [...] 09:36 AM Reporting Lab: VERONICA SORIANO [address] [address] Performing Lab: VERONICA SORIANO [address] [address] [facility] GLYCOHEMO GLOBIN HEMOGLOBIN A1C/HEMOGLO BIN.TOTAL IN BLOOD BY HPLC 5.3 4.4 - 6.4 09/29 Specimen Type: BLOOD Comment: [place] guidelines for A1c interpretat ion: Glycemic control targets are based on Shared Decision Making between clinicians and patients. Criteria used to establish an A1c target recommendat ion can be found at https://www .[place].gov/elias lityandpati entsafety/ and include the use of [...] 9.27. Ref: https://ngs p.org/CAPda ta.asp. The in-house Bum[employer]-Fastclick D-100 analyzer has a historical CV <= 2%. Contact the laboratory for further performance characteris tics of this assay. Ordering Provider: MALU MCKENZIE Report Released Date/Time: Sep 29, 2024 09:36 AM Reporting Lab: VERONICA SORIANO [address] [address] Performing Lab: ASPENKeena [address] [address] [facility] LIPID PROFILE CHOLESTEROL [MASS/VOLUM E] IN [...] 09:36 AM Reporting Lab: VERONICA SORIANO [address] [address] Performing Lab: VERONICA SORIANO [address] [address] [facility] LIPID PROFILE TRIGLYCERID E [MASS/VOLUM E] [...] 09:36 AM Reporting Lab: VERONICA SORIANO [address] [address] Performing Lab: VERONICA SORIANO [address] [address] [facility] LIPID PROFILE CHOLESTEROL IN HDL [MASS/VOLUM [...] 09:36 AM Reporting Lab: VERONICA SORIANO [address] [address] Performing Lab: VERONICA SORIANO [address] [address] [facility] LIPID PROFILE CHOLESTEROL IN LDL [MASS/VOLUM [...] 09:36 AM Reporting Lab: VERONICA SORIANO [address] [address] Performing Lab: VERONICA SORIANO [address] [address] [facility] PANEL 1 CREATININE [MASS/VOLUM E] IN [...] 09:36 AM Reporting Lab: VERONICA SORIANO [address] [address] Performing Lab: VERONICA SORIANO [address] [address] [facility] PANEL 1 UREA NITROGEN [MASS/VOLUM E] [...] 09:36 AM Reporting Lab: VERONICA SORIANO [facility] [address] [facility] [address] Performing Lab: VERONICA SORIANO [facility] [address] [facility] [address] [facility] PANEL 1 GLUCOSE [MASS/VOLUM E] IN [...] 09:36 AM Reporting Lab: VERONICA SORIANO [facility] [address] [facility] [address] Performing Lab: VERONICA SORIANO [place] [address] [facility] [address] [facility] PANEL 1 SODIUM [MOLES/VOLU ME] IN [...] 09:36 AM Reporting Lab: VERONICA SORIANO [address] [address] Performing Lab: VERONICA SORIANO [address] [address] [facility] PANEL 1 POTASSIUM [MOLES/VOLU ME] IN [...] 29, 2024 09:36 AM Reporting Lab: [facility] [address] [address] Performing Lab: [facility] [address] [address] [facility] PANEL 1 CHLORIDE [MOLES/VOLU ME] IN [...] 09:36 AM Reporting Lab: VERONICA SORIANO [address] [address] Performing Lab: VERONICA SORIANO [address] [address] [facility] PANEL 1 CARBON DIOXIDE, TOTAL [MOLES/VOLU [...] 09:36 AM Reporting Lab: VERONICA SORIANO [address] [address] Performing Lab: VERONICA SORIANO [address] [address] [facility] PANEL 1 CALCIUM [MASS/VOLUM E] IN [...] 09:36 AM Reporting Lab: VERONICA SORIANO [address] [address] Performing Lab: VERONICA SORIANO [address] [address] [facility] PANEL 1 ANION GAP 3 IN [...] 09:36 AM Reporting Lab: VERONICA SORIANO [address] [address] Performing Lab: VERONICA SORIANO [address] [address] [facility] PANEL 1 GLOMERULAR FILTRATION RATE/1.73 SQ [...] Sep 29, 2024 09:36 AM Reporting Lab: [address] [address] Performing Lab: [place] [phone] [facility] CBC/PLT LEUKOCYTES [#/VOLUME] IN BLOOD BY AUTOMATED COUNT 7.6 10*3/u L 5.0 - 10.0 09/29 Specimen Type: BLOOD No comment entered. Ordering Provider: MALU MCKENZIE Report Released Date/Time: Sep 29, 2024 09:36 AM Reporting Lab: [address] [address] Performing Lab: [place] [phone] [facility] CBC/PLT ERYTHROCYTE S [#/VOLUME] IN BLOOD BY AUTOMATED COUNT 4.69 10*6/u L 4.6 - 6.2 09/29 Specimen Type: BLOOD No comment entered. Ordering Provider: MALU MCKENZIE Report Released Date/Time: Sep 29, 2024 09:36 AM Reporting Lab: [place] [address] Performing Lab: [address] CBC/PLT HEMOGLOBIN [MASS/VOLUM E] IN BLOOD 15.0 g/dL 14.0 - 18.0 09/29 Specimen Type: BLOOD No comment entered. Ordering Provider: MALU MCKENZIE Report Released Date/Time: Sep 29, 2024 09:36 AM Reporting Lab: [place] [address] Performing Lab: [address] CBC/PLT HEMATOCRIT [VOLUME FRACTION] OF BLOOD BY AUTOMATED COUNT 45.9 42.0 - 52.0 09/29 Specimen Type: BLOOD No comment entered. Ordering Provider: MALU MCKENZIE Report Released Date/Time: Sep 29, 2024 09:36 AM Reporting Lab: [place] [address] Performing Lab: [address] CBC/PLT MCV [ENTITIC VOLUME] BY AUTOMATED COUNT 97.9 fL 80.0 - 94.0 09/29 H Specimen Type: BLOOD No comment entered. Ordering Provider: MALU MCKENZIE Report Released Date/Time: Sep 29, 2024 09:36 AM Reporting Lab: [place] [address] Performing Lab: [address] CBC/PLT MCH [ENTITIC MASS] BY AUTOMATED COUNT 32.0 pg 27.0 - 31.0 09/29 H Specimen Type: BLOOD No comment entered. Ordering Provider: MALU MCKENZIE Report Released Date/Time: Sep 29, 2024 09:36 AM Reporting Lab: [address] [address] Performing Lab: [address] [phone] [place] [address] CBC/PLT MCHC [MASS/VOLUM E] BY AUTOMATED COUNT 32.7 g/dL 32.0 - 36.0 09/29 Specimen Type: BLOOD No comment entered. Ordering Provider: MALU MCKENZIE Report Released Date/Time: Sep 29, 2024 09:36 AM Reporting Lab: [address] [address] Performing Lab: [place] [phone] [facility] CBC/PLT PLATELETS [#/VOLUME] IN BLOOD 216 10*3/u L 150 - 450 09/29 Specimen Type: BLOOD No comment entered. Ordering Provider: MALU MCKENZIE Report Released Date/Time: Sep 29, 2024 09:36 AM Reporting Lab: [address] [address] Performing Lab: [place] [phone] [facility] CBC/PLT PLATELET MEAN VOLUME [ENTITIC VOLUME] IN BLOOD 10.5 fL 9.0 - 13.1 09/29 Specimen Type: BLOOD No comment entered. Ordering Provider: MALU MCKENZIE Report Released Date/Time: Sep 29, 2024 09:36 AM Reporting Lab: [address] [address] Performing Lab: [address] [address] [facility] CBC/PLT ERYTHROCYTE DISTRIBUTIO N WIDTH [ENTITIC VOLUME] BY AUTOMATED COUNT 13.0 11.0 - 16.0 09/29 Specimen Type: BLOOD No comment entered. Ordering Provider: MALU MCKENZIE Report Released Date/Time: Sep 29, 2024 09:36 AM Reporting Lab: [address] [address] Performing Lab: [address] [place] [address] [facility] CBC/PLT NUCLEATED ERYTHROCYTE S/100 ERYTHROCYTE S IN BLOOD 0.0 0.0 - 0.0 09/29 Specimen Type: BLOOD No comment entered. Ordering Provider: MALU MCKENZIE Report Released Date/Time: Sep 29, 2024 09:36 AM Reporting Lab: [address] [address] Performing Lab: [facility] [address] [address] [facility] ALT ALANINE AMINOTRANSF ERASE [ENZYMATIC ACTIVITY/VO [...] Sep 29, 2024 09:36 AM Reporting Lab: [address] [address] Performing Lab: [address] [address] [facility] OCCULT BLOOD FIT X1 SCREEN HEMOGLOBIN. GASTROINTES TINAL.LOWER [PRESENCE] IN STOOL BY IMMUNOASSAY [facility] 10/16 Specimen Type: FECES Comment: Test cancelled. Collection date could not be determined. Sample integrity cannot be ensured. Please recollect specimen and resubmit for testing. Ordering Provider: MALU MCKENZIE Report Released Date/Time: Oct 03, 2023 08:31 AM Reporting Lab: [address] [address] Performing Lab: [address] [address] [facility] LIPID PROFILE CHOLESTEROL [MASS/VOLUM E] IN [...] 08:31 AM Reporting Lab: VERONICA SORIANO [address] [address] Performing Lab: VERONICA SORIANO [address] [address] [facility] LIPID PROFILE TRIGLYCERID E [MASS/VOLUM E] [...] 08:31 AM Reporting Lab: VERONICA SORIANO [address] [address] Performing Lab: VERONICA SORIANO [address] [address] [facility] LIPID PROFILE CHOLESTEROL IN HDL [MASS/VOLUM [...] 08:31 AM Reporting Lab: VERONICA SORIANO [address] [address] Performing Lab: VERONICA SORIANO [address] [address] [facility] LIPID PROFILE CHOLESTEROL IN LDL [MASS/VOLUM [...] 08:31 AM Reporting Lab: VERONICA SORIANO [address] [address] Performing Lab: VERONICA SORIANO [address] [address] [facility] ALT ALANINE AMINOTRANSF ERASE [ENZYMATIC ACTIVITY/VO [...] 08:31 AM Reporting Lab: VERONICA SORIANO [address] [address] Performing Lab: VERONICA SORIANO [address] [address] [facility] Vital Signs Combined list of inpatient and outpatient Vital Signs from Department of [facility] and [facility], ranging from 12 months to all on record, depending upon the facility. Vital Sign Value Date Comments Source SYSTOLIC BLOOD PRESSURE 144 09/29/2024 09:16:15 [place] DIASTOLIC BLOOD PRESSURE 72 09/29/2024 09:16:15 [place] PULSE OXIMETRY 93 09/29/2024 09:16:15 [place] [facility] WEIGHT 200.6 09/29/2024 09:16:15 [place] [facility] BMI 28 kg/m2 09/29/2024 09:16:15 [place] [facility] PAIN 0 09/29/2024 09:16:15 [place] [facility] HEIGHT 71 09/29/2024 09:16:15 [place] [facility] TEMPERATURE 97.4 09/29/2024 09:16:15 [place] [facility] [facility] PULSE 82 09/29/2024 09:16:15 [place] [facility] Encounters Combined list of: 1) Encounters from Department of Veterans Affairs facilities going backup to the last 18 months, not all [place] inpatient encounters are included; 2) Encounters from the Department of [facility] facilities going backup to 280 months. Location Location Details Encounter Type Encounter Number Reason For Visit Attending Provider ADM Date DC Date Status Disposition Source [facility] Outpatient Encounter [id number] 08/30 [place] Outpatient Encounter [id number] 09/13 [place] OFFICE O/P EST MOD 30 MIN [id number] Diagnos is: ICD-10- CM I10 Essenti al (primar y) hyperte nsJUDY Rosales R 10/03 [place] [facility] HEARING AID REPAIR/MOD IFYING [id number] Diagnos is: ICD-10- CM H90.3 Sensori neural hearing loss, bilater al CHRISTOPH BERRIOS S 10/03 [place] Outpatient Encounter [id number] 10/31 [place] Outpatient Encounter [id number] 11/05 [place] Outpatient Encounter [id number] 12/08 [place] Outpatient Encounter [id number] 02/[address] [place] [address] [facility] Outpatient Encounter [id number] 05/[address] [place] [facility] INTRM OPH EXAM EST PATIENT [id number] Diagnos is: ICD-10- CM 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, right eye TIFFANI CALLAWAY 06/10 [place] Outpatient Encounter [id number] 06/[address] [place] [facility] Outpatient Encounter [id number] 09/04 [place] Outpatient Encounter [id number] 09/[address] [place] [address] [facility] OFFICE O/P EST MOD 30 MIN [id number] Diagnos is: ICD-10- CM I10 Essenti al (primar y) hyperte JUDY Miller R 09/29 [place] [facility] Outpatient Encounter [id number] 10/27 [place] Outpatient Encounter [id number] 11/[address] [place] [facility] Outpatient Encounter [id number] 12/03 [place] Outpatient Encounter [id number] 12/21 [place] Outpatient Encounter [id number] 12/[address] [place] [facility] Outpatient Encounter [id number] 12/24 [place] Outpatient Encounter [id number] 12/[address] [place] [facility] Outpatient Encounter [id number] 12/25 [place] Procedures Combined list of: 1) Procedures from Department of Veterans Affairs facilities going back up to thelast 18 months, not all [place] non-surgical procedures are included; 2) All procedures from the Department of Defense facilities. Procedure Procedure Type Code Date Perfomer Comments Sourc e SUPP &MATERIAL (EXCEPT SPECTACLE),PROVID,THE PHYS/OTH QUALIFIED HEALTH INPATIENT SERVICES DIRECTOR OVER &ABOVE THOSE USUALLY INCLD W THE OFFICE VISIT/OTH SER RENDERED (LIST DRUG,TRAYS,SUPP,OR MATERIAL PROVID) 11/04/2000 [facility]D SUPP &MATERIAL (EXCEPT SPECTACLE),PROVID,THE PHYS/OTH QUALIFIED HEALTH INPATIENT SERVICES DIRECTOR OVER &ABOVE THOSE USUALLY INCLD W THE OFFICE VISIT/OTH SER RENDERED (LIST DRUG,TRAYS,SUPP,OR MATERIAL PROVID) 10/21/2000 [facility]D SUPP &MATERIAL (EXCEPT SPECTACLE),PROVID,THE PHYS/OTH QUALIFIED HEALTH INPATIENT SERVICES DIRECTOR OVER &ABOVE THOSE USUALLY INCLD W THE OFFICE VISIT/OTH SER RENDERED (LIST DRUG,TRAYS,SUPP,OR MATERIAL PROVID) 10/07/2000 [facility] TYMPANOMETRY (IMPEDANCE TESTING) 04/12/2000 [facility] BRONCHOSCOPY, RIGID OR FLEXIBLE, INCLUDING FLUOROSCOPIC GUIDANCE, WHEN PERFORMED; WITH BRONCHIAL OR ENDOBRONCHIAL BIOPSY(S), SINGLE OR MULTIPLE SITES 04/10/2000 [facility] EDUCATIONAL SUPPLIES, SUCH A S BOOKS, TAPES, AND PAMPHLETS, FOR THE PATIENT'S EDUCATION AT COST TO PHYSICIAN OR OTHER QUALIFIED HEALTH INPATIENT SERVICES DIRECTOR 04/09/2000 [facility] BIOPSY, LUNG OR MEDIASTINUM, PERCUTANEOUS NEEDLE 04/08/2000 [facility] Social History Combined list of available smoking, tobacco, and other social history from Department of Defense and Veterans Affairs facilities. Social History Type Response Date Comment Source Tobacco smoking status SDIS [facility]-TOBACCO USE FORMER CIGARETTES 09/29/2024 [place] History of tobacco use MO-TOBACCO USE SOME DAYS OTHER TYPE 09/29/2024 [place] History of tobacco use VA-TOBACCO USE WI 30 MIN OF WAKEUP 10/03/2023 [place] History of tobacco use MO-TOBACCO DOESNT USE WI 30 MIN WAKEUP 10/03/2022 [place] History of tobacco use VA-TOBACCO USER SOME DAYS 06/28/2021 [place] History of tobacco use MO-TOBACCO FORMER USER 05/23/2020 [place] History of tobacco use MO-TOBACCO FORMER USER 09/08/2018 [place] History of [...] use HF V9 CURRENT NON-SMOKER 07/06/2004 pipe [facility] History of tobacco use 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 [facility] This section is an empty social history section. [facility]
[2025-03-01 12:10] LABS: C difficile Toxins AB, EIA Negative (Negative)
== END 2025-02-27 23:59 | disposition home or self-care (01) ==
LOC: LAB 11:50
PROVIDERS: Visit Provider Internal Medicine
DX: A04.72 Enterocolitis due to Clostridium difficile, not specified as recurrent (principal)
CPT/HCPCS: 87324

== ENCOUNTER 2025-06-02 11:46 | Outpatient (CLI) | payer MEDICARE, OTHER, SELFPAY ==
[2025-06-02 12:35] LABS: Chloride 100 mmol/L (98-107); Potassium 4.9 mmoL/L (3.5-5.1); Sodium 138 mmol/L (136-145)
[2025-06-02 12:38] LABS: Anion Gap 11.9 mEq/L (5-15); Blood Urea Nitrogen 13 mg/dl (9-20); Calcium 9.2 mg/dl (8.4-10.2); Carbon Dioxide 31 mmol/L (22.0-30.0); Creatinine,Serum 1.10 mg/dl (0.66-1.25); Estimated Glomerular Filt Rate 65 ml/min (>60); GFR (African American) 78 ML/MIN (>60); Glucose 102 mg/dl (74-100)
== END 2025-06-02 23:59 | disposition home or self-care (01) ==
LOC: LAB 11:48
PROVIDERS: PCP Internal Medicine; Visit Provider Internal Medicine
DX: I11.0 Hypertensive heart disease with heart failure (principal); I50.20 Unspecified systolic (congestive) heart failure; I25.10 Atherosclerotic heart disease of native coronary artery without angina pectoris; E78.5 Hyperlipidemia, unspecified
CPT/HCPCS: 36415; 80048

== ENCOUNTER 2025-06-30 14:25 | Outpatient (CLI) | payer MEDICARE, OTHER, SELFPAY ==
--- NOTE | 2025-06-30 14:30 | CA_ITS ---
APPROVED REPORT EXAM: Comprehensive 2D, Doppler, and color-flow Echocardiogram Clinic Office Coordinator: Hanna Flor RT(R) Ht: 5 ft 11 in Wt: 189lbs BSA: 2.06 BP: 144/76 mmHg Indications: CM 30% 12/24/24, ordered as limited with definity to reassess EF Echo Enhancing Agent Indication: Endocardial border delineation Agent(s) / Amount(s) Used: Definity 2 cc 2D Dimensions EF AP4 61.90 % GL Strain -20.9 % M-Mode Dimensions RVDd 3.10 cm (0.9-2.6) LVDd 5.05 cm (3.5-5.7) LVDs 4.03 cm (3.5-5.7) IVSd 0.81 cm (0.6-1.1) PWd 0.55 cm (0.6-1.1) EF (Teich) 41.10% FS 20.20% EDV (Teich) 121.00 mL ESV (Teich) 71.30 mL Left Ventricle The left ventricle is normal size. Left ventricular systolic function is moderately reduced. There is increased left ventricular wall thickness. The septum is asynchronous. The left ventricular diastolic function is normal. No left ventricle thrombus noted on this study. LVEF is 35-40% Right Ventricle The right ventricle is mildly reduced. The right ventricular systolic function is normal. Atria The left atrium is mildly dilated. The right atrium is mildly dilated. There is no color Doppler evidence of interatrial shunt. Aortic Valve The aortic valve is mildly thickened. There is no hemodynamically significant aortic valvular stenosis. No aortic regurgitation is present. Mitral Valve The mitral valve is normal in structure. No evidence of mitral valve stenosis. Trace mitral regurgitation is present. Tricuspid Valve The tricuspid valve leaflets are thin and pliable. Trace tricuspid regurgitation. There is insufficient TR jet to estimate RVSP. Pulmonic Valve The pulmonary valve is grossly normal in structure. Trace pulmonic valve regurgitation is present. Great Vessels The aortic root is normal in size. IVC is normal in size and collapses >50% with inspiration. Pericardium There is no pericardial effusion. Other Information Study Quality: Fair Conclusion Moderate reduction in LV systolic function (LVEF 35-40%). Mild RV dilation. Mild biatrial dilation. No significant valvular stenosis or regurgitation. Electronically signed by : Floresita Woods MD 07/07/2025 13:05:59
[2025-06-30] MEDS: DEFINITY US ECHO CONTRAST 2ML INJ 2 MG IV (15:18)
== END 2025-06-30 23:59 | disposition home or self-care (01) ==
LOC: RT 14:25
PROVIDERS: PCP Internal Medicine; Visit Provider Internal Medicine
DX: I11.0 Hypertensive heart disease with heart failure (principal); I50.20 Unspecified systolic (congestive) heart failure; I25.10 Atherosclerotic heart disease of native coronary artery without angina pectoris; E78.5 Hyperlipidemia, unspecified; I42.9 Cardiomyopathy, unspecified
CPT/HCPCS: 93308; Q9957

== ENCOUNTER 2025-08-19 08:18 | Outpatient (CLI) | payer MEDICARE, OTHER, SELFPAY ==
[2025-08-19 08:30] LABS: Hematocrit 42.6 % (42.0-52.0); Hemoglobin 14.2 g/dL (14.1-18.0); Immature Granulocytes % 0.2 %; Mean Corpuscular HGB Conc 33.3 g/dL (31.8-35.4); Mean Corpuscular Hemoglobin 32.2 pg (27.0-31.2); Mean Corpuscular Volume 96.6 fl (80-94); Nucleated Red Blood Cells % 0 %; Platelet Count 285 K/mm3 (142-424); Red Blood Count 4.41 M/mm3 (4.60-6.20); Red Cell Distribution Width-SD 45.0 fL; White Blood Count 8.3 K/mm3 (4.8-10.8)
[2025-08-19 09:00] LABS: Albumin Level 4.0 g/dl (3.5-5.0); Chloride 102 mmol/L (98-107); Potassium 4.9 mmoL/L (3.5-5.1); Sodium 141 mmol/L (136-145)
[2025-08-19 09:02] LABS: Blood Urea Nitrogen 16 mg/dl (9-20); Creatinine,Serum 1.10 mg/dl (0.66-1.25); Estimated Glomerular Filt Rate 65 ml/min (>60); GFR (African American) 78 ML/MIN (>60)
[2025-08-19 09:03] LABS: Alanine Aminotransferase 13 U/L (12-78); Alkaline Phosphatase 54 U/L (38-126); Anion Gap 11.9 mEq/L (5-15); Aspartate Amino Transferase 23 U/L (17-59); Bilirubin,Direct 0.0 mg/dl (0.0-0.4); Bilirubin,Indirect 0.6 mg/dL (0.0-0.9); Bilirubin,Total 0.6 mg/dl (0.2-1.3); Bilirubin,Unconjugated 0.6 mg/dL (0.0-1.1); Calcium 9.1 mg/dl (8.4-10.2); Carbon Dioxide 32 mmol/L (22.0-30.0); Cholesterol 145 mg/dl (140-200); Glucose 99 mg/dl (74-100); HDL Cholesterol 57 mg/dl (40-60); Magnesium 2.0 mg/dl (1.6-2.3); Total Protein,Serum 7.2 g/dl (6.3-8.2); Triglycerides 89 mg/dl (30-150)
[2025-08-19 09:22] LABS: Free T4 (Free Thyroxine) 1.01 ng/dl (0.78-2.19)
[2025-08-19 09:36] LABS: Thyroid Stimulating Hormone 2.99 uIU/mL (0.465-4.68)
== END 2025-08-19 23:59 | disposition home or self-care (01) ==
LOC: LAB 08:19
PROVIDERS: PCP Internal Medicine; Visit Provider Physician Assistant
DX: I25.10 Atherosclerotic heart disease of native coronary artery without angina pectoris (principal); I10 Essential (primary) hypertension; E78.49 Other hyperlipidemia
CPT/HCPCS: 36415; 80048; 80061; 80076; 83735; 84439; 84443; 85025

== ENCOUNTER 2025-09-01 18:12 | Emergency (ER) | payer MEDICARE, OTHER, SELFPAY ==
[2025-09-01 18:15] VITALS: BP 167/100; BP 188/95; PULSE 105; PULSE 95; RESP 19; RESP 36; TEMP 37.1; O2SAT 93; O2SAT 95; BMI 25.7
--- NOTE | 2025-09-01 18:15 | XR_ITS ---
PROCEDURE INFORMATION: Exam: XR Chest Exam date and time: 09/01/2025 6:31 PM Age: 79 years old Clinical indication: Shortness of breath; SOA, cough; Additional info: Short of breath TECHNIQUE: Imaging protocol: Radiologic exam of the chest. Views: 1 view. COMPARISON: CR XR CHEST PORTABLE 12/24/2024 8:27 AM FINDINGS: Lungs: No focal airspace opacity. Pleural spaces: No pneumothorax or large pleural effusion. Heart/Mediastinum: Heart size cannot be accurately assessed in this projection. Bones/joints: Unremarkable. IMPRESSION: No acute findings.
--- NOTE | 2025-09-01 18:15 | ECG_ITS ---
APPROVED REPORT Exam: Resting ECG HR:100 bpm ECG Measurements Heart Rate 100 AXES NE 171 P 89 QRSd 89 QRS 70 QT 350 T 66 QTc 407 Conclusion SINUS TACHYCARDIA WITH FREQUENT SUPRAVENTRICULAR PREMATURE COMPLEXES MINIMAL ST DEPRESSION [0.025+ mV ST DEPRESSION] ABNORMAL RHYTHM ECG Electronically signed by : JOHANN LUCIANO, 09/02/2025 07:12:08
--- NOTE | 2025-09-01 18:17 | ED_ITS ---
<Statement entered by Regina Caldera DO - 09/02/25 01:54> I was consulted by the MELQUIADES, and we discussed the complexity of problems being addressed. I approve the treatment and management plan for this patient's care in the emergency department, thus performing a substantial portion of the medical decision making. Regina Caldera DO Discharge Plan Disposition Patient Disposition: Home, Self-Care Condition: Fair Prescriptions Prescriptions: New amoxicillin-pot clavulanate 875-125 mg tablet 1 tab PO BID 5 Days Qty: 10 0RF azithromycin 500 mg tablet 500 mg PO BID 5 Days Qty: 10 0RF No Action prasugrel HCl [Effient] 10 mg tablet 10 mg PO DAILY Qty: 30 2RF losartan 25 mg tablet 12.5 mg PO DAILY 90 Days Qty: 45 2RF metoprolol succinate 50 mg tablet extended release 24 hr 75 mg PO DAILY Qty: 45 5RF aspirin 81 mg Tablet,Delayed Release (Dr/Ec) 81 mg PO DAILY 30 Days Qty: 30 0RF Referrals Follow up/Referrals: Carlos Mckenzie MD [Primary Care Provider, Medical] - See instructions Clinical Impressions Clinical Impression: Pneumonia Stand Alone Forms Stand Alone Forms: Transfer Record - ED Print Language Print Language: Bengali Discharge ED Provider: Regina Caldera HPI <Donna Brizuela (ED), [employer]ER - Last Filed: 09/01/25 18:57> General Chief Complaint: Chest Pain Stated Complaint: chest pain Time Seen by Provider: 09/01/25 18:14 History of Present Illness HPI narrative: 79-year-old male presents to the ED today for complaint of chest pain and shortness of breath that started 5 days ago. He has had nausea and dry heaving but no vomiting. No abdominal pain. states he has had dry heaves but nothing comes out. He has had 4 stents done in December. He just saw Douglas Ford on the or the 11 of this month and he was cleared for 6 months. Patient has history of C. difficile, hyperlipidemia, hypertension, stents of his renal artery, CAD, CHF. Related Data Previous Rx's ?Medication ?Instructions ?Recorded aspirin 81 mg tablet,delayed 81 mg PO DAILY 30 days #3 0 tabs 12/25/24 release losartan 25 mg tablet 12.5 mg (1/2 x 25 mg) PO SUPRIYA LY 90 05/05/25 days #45 tabs metoprolol succinate 50 mg 75 mg (1.5 x 50 mg) PO MACIE Y #45 07/29/25 tablet,extended release 24 hr tabs prasugrel HCl 10 mg tablet 10 mg PO DAILY #30 tabs 07/03 (Effient) amoxicillin 875 mg-potassium 1 tab PO BID 5 days #10 t abs 09/02/25 clavulanate 125 mg tablet azithromycin 500 mg tablet 500 mg PO BID 5 days #10 ta bs 09/02/25 Allergies Allergy/AdvReac Type Severity Reaction Status Date / Time No Known Allergies Allergy Verified 08/18/25 08:54 PFS <Donna Brizulea (ED), FL[employer]ER - Last Filed: 09/01/25 18:57> [facility] Disclaimer: The information contained in this section may have been updated after the patient was seen, as this information can be updated by other users. Medical History Clostridium difficile diarrhea Chronic diarrhea Wound of back HLD (hyperlipidemia) Visit for suture removal HTN (hypertension) History of stent insertion of renal artery Surgical History History of nasal surgery Family History Other No significant family history Social History Smoking Status: Never smoker alcohol intake: never current occupational status: retired Travel in the last 8 weeks?: None Have you lived/traveled outside US in past 30 days?: No Contact w/someone who lives/traveled outside US past 30 days?: No Exposure to someone with infectious disease in past 14 days?: No Do you have a fever (greater than 100.4 F or 38 C)?: No Have you tested positive for COVID-19?: No Exposed to someone with COVID-19 in past 14 days?: No Do you have a sore throat?: No Do you have a cough?: No Do you have any weakness?: No Do you have any diarrhea?: No Are you experiencing any unusual bleeding?: No Do you have any muscle aches/pain?: No Do you have any abdominal pain?: No Are you experiencing loss of taste or smell?: No Other Medical History Have you received the Flu Vaccine for this season: No Have you received the Pneumonia Vaccine: No <Donna Ionlobo (ED), [employer]ER - Last Filed: 09/01/25 18:57> ROS Obtained: Yes Systems reviewed as appropriate & no additional complaints except as documented Constitutional Constitutional: Reports as per HPI Physical Exam <Donna Ionlobo (ED), [employer]ER - Last Filed: 09/01/25 18:57> General General appearance: alert Head Head exam: normocephalic Eye Eye exam: Present PERRL and EOMI ENT ENT exam: Present normal oropharynx Neck Neck exam: Present full ROM and trachea midline Respiratory Respiratory exam: Present normal lung sounds bilaterally Cardiovascular Cardiovascular exam: Present regular rate, normal rhythm, normal heart sounds, +S1 and +S2 Abdominal Exam Abdominal exam: Present soft and normal bowel sounds Extremities Exam Extremities exam: Present full ROM and normal capillary refill Neurological Exam Neurological exam: Present alert and oriented X3 Skin Skin exam: Present warm and dry HEART Score <Donna Brizuela (ED), [employer] - Last Filed: 09/01/25 18:57> HEART Score HEART Score assessment performed?: Yes History (anamnesis): Slightly suspicious ECG: Non-specific disturbance Age: >65 years Risk factors: 3 or more risk factors Troponin: </= normal limit HEART Score: 5 <Regina Caldera DO - Last Filed: 09/02/25 02:02> HEART Score HEART Score: 5 Critical Care <Donna Brizuela (ED), [employer]ER - Last Filed: 09/01/25 18:57> Critical Care Time Critical Care Time: No Medical Decision Making <Donna [facility] (ED), [employer] - Last Filed: 09/01/25 18:57> Ramakrishna Inquiry Pt receiving controlled substance: No Ramakrishna was queried for this patient: No Vital Signs Vital Signs: 09/01/25 18:15 09/01/25 18:15 09/02/25 00:15 Temperature 98.7 F 98.5 F Temperature Source Oral Oral Pulse Rate 95 H 94 H Pulse Rate [Left Radial] 105 H Respiratory Rate 19 36 H 24 Blood Pressure 167/100 H 136/70 Blood Pressure [Right Arm] 188/95 H Blood Pressure Mean [Right Arm] 126 Blood Pressure Source Automatic Cuff Blood Pressure Position Supine 02 Sat by Pulse Oximetry 93 L 95 Oxygen Delivery Method Nasal Cannula Nasal Cannula Nasal Cannula Oxygen Flow Rate (LPM) 2 2 2 Lab Data Labs: Lab Results 09/01/25 18:15: WBC 8.4, RBC 4.83, Hgb 15.5, Hct 45.6, MCV 94.4 H, MCH 32.1 H, MCHC 34.0, RDW 12.8, Plt Count 188, MPV 10.4, Neut % (Auto) 80.6 H, Lymph % (Auto) 11.8, [place] % (Auto) 6.8, Eos % (Auto) 0.2, Baso % (Auto) 0.2, Neut # (Auto) 6.7, Lymph # (Auto) 1.0, [place] # (Auto) 0.6, Eos # (Auto) 0.0, Baso # (Auto) 0.0, D-Dimer 0.99 H, Sodium 136, Potassium 4.5, Chloride 97 L, Carbon Dioxide 29, Anion Gap 14.5, BUN 25 H, Creatinine 1.20, Estimated Creat Clear 60, Estimated GFR 59, Est GFR ( Amer) 71, Glucose 133 H, Calcium 9.4, Magnesium 1.9, Total Bilirubin 1.5 H, AST 53, ALT 38, Alkaline Phosphatase 80, Troponin I < 0.01, Total Protein 9.0 H, Albumin 5.0, Globulin 4.0 H, Albumin/Globulin Ratio 1.3, Lipase 51 09/01/25 18:30: SARS-CoV-2 (PCR) Not detected, Influenza A Untype (PCR) Not detected, Influenza Type B (PCR) Not detected 09/01/25 21:21: Troponin I 0.02 09/01/25 18:15 09/01/25 18:15 Response Orders (Tests/Meds): ED MEDICATIONS Discontinued Medications Generic Name Dose Route Start Last Admin Trade Name Freq PRN Reason Stop Dose Admin Albuterol/Ipratropium 3 ml 09/01/25 20:20 09/01/25 20:29 Ipratropium/Albuterol 3 Ml Neb IH 09/01/25 20:21 3 ml ONCE ONE Administration Aspirin 325 mg 09/01/25 18:15 09/01/25 18:25 Aspirin 325mg Tablet PO 09/01/25 18:16 325 mg ONCE ONE Administration Piperacillin Sod/Tazobactam 100 mls @ 200 mls/hr 09/01/25 20:30 09/01/25 22:19 Sod 4.5 gm/ Sodium Chloride IV 09/11/25 20:29 Infused Q8H SANDY Infusion Piperacillin Sod/Tazobactam 100 mls @ 200 mls/hr 09/01/25 20:58 09/01/25 22:32 Sod 4.5 gm/ Sodium Chloride IV 09/01/25 20:59 Not Given ONCE ONE Azithromycin 500 mg/ Sodium 250 mls @ 250 mls/hr 09/01/25 22:45 09/01/25 23:41 Chloride IV 09/11/25 22:44 Infused Q24H SANDY Infusion Azithromycin 500 mg/ Sodium 250 mls @ 250 mls/hr 09/01/25 22:45 09/02/25 00:34 Chloride IV 09/01/25 23:44 Infused ONCE ONE Infusion Iopamidol 70 ml 09/01/25 19:20 09/01/25 19:26 Iopamidol-370 (76%);100ml Bottle IV 09/01/25 19:21 70 ml ONCE ONE Administration Morphine Sulfate 4 mg 09/01/25 18:15 09/01/25 18:25 Morphine 4mg/Ml Syringe IV 09/01/25 18:16 4 mg ONCE ONE Administration Ondansetron HCl 4 mg 09/01/25 18:15 09/01/25 18:26 Ondansetron 4mg/2ml Vial IV 09/01/25 18:16 4 mg ONCE ONE Administration Sodium Chloride 40 ml 09/01/25 19:20 09/01/25 19:26 0.9 % Sodium Chloride 50 Ml Vial IV 09/01/25 19:21 40 ml ONCE ONE Administration Sodium Chloride 10 ml 09/01/25 19:20 09/01/25 19:26 Sodium Chloride 0.9% 10ml Syr (Rad Only) IV 09/01/25 19:21 10 ml ONCE ONE Administration ORDERS Category Date Time Status CT abdomen pelvis w con Stat Cat Scan 09/01/25 18:59 Completed CTA Chest [CT angio chest PE protocol] Stat Cat Scan 09/01/25 18:58 Completed Chest XR -- portable [XR chest portable] Stat Exams 09/01/25 18:15 Completed CBC [Complete Blood Count Auto Diff] Stat Lab 09/01/25 18:15 Completed Comprehensive Metabolic Panel Stat Lab 09/01/25 18:15 Completed D-Dimer Stat Lab 09/01/25 18:15 Completed Lipase Stat Lab 09/01/25 18:15 Completed Magnesium Stat Lab 09/01/25 18:15 Completed Rapid PCR Covid and Flu A/B Stat Lab 09/01/25 18:30 Completed Trop I [Troponin I] Stat Lab 09/01/25 18:15 Completed Troponin I Q3H Lab 09/01/25 21:21 Completed Blood Culture Stat Micro 09/01/25 20:20 Received MDM Narrative Medical Decision Narrative: patient is a 79-year-old male presenting to the emergency department for evaluation of chest pain shortness of breath that started 5 days ago. He also has nausea and dry heaving. Patient is hemodynamically stable and nontoxic- appearing upon arrival, afebrile. Differential diagnosis includes CT, CAD, viral illness, flu, COVID, PE, among others. Workup will be conducted with hematologic labs, specific imaging. Initial inventions include crystalloid bolus, analgesics. Will give report to Dr. Caldera. <Regina Caldera, DO - Last Filed: 09/02/25 02:02> Vital Signs Vital Signs: 09/01/25 18:15 09/01/25 18:15 09/02/25 00:15 Temperature 98.7 F 98.5 F Temperature Source Oral Oral Pulse Rate 95 H 94 H Pulse Rate [Left Radial] 105 H Respiratory Rate 19 36 H 24 Blood Pressure 167/100 H 136/70 Blood Pressure [Right Arm] 188/95 H Blood Pressure Mean [Right Arm] 126 Blood Pressure Source Automatic Cuff Blood Pressure Position Supine 02 Sat by Pulse Oximetry 93 L 95 Oxygen Delivery Method Nasal Cannula Nasal Cannula Nasal Cannula Oxygen Flow Rate (LPM) 2 2 2 Lab Data Lab results reviewed: Yes I reviewed the patient's lab results. Labs: Lab Results 09/01/25 18:15: WBC 8.4, RBC 4.83, Hgb 15.5, Hct 45.6, MCV 94.4 H, MCH 32.1 H, MCHC 34.0, RDW 12.8, Plt Count 188, MPV 10.4, Neut % (Auto) 80.6 H, Lymph % (Auto) 11.8, [place] % (Auto) 6.8, Eos % (Auto) 0.2, Baso % (Auto) 0.2, Neut # (Auto) 6.7, Lymph # (Auto) 1.0, [place] # (Auto) 0.6, Eos # (Auto) 0.0, Baso # (Auto) 0.0, D-Dimer 0.99 H, Sodium 136, Potassium 4.5, Chloride 97 L, Carbon Dioxide 29, Anion Gap 14.5, BUN 25 H, Creatinine 1.20, Estimated Creat Clear 60, Estimated GFR 59, Est GFR ( Amer) 71, Glucose 133 H, Calcium 9.4, Magnesium 1.9, Total Bilirubin 1.5 H, AST 53, ALT 38, Alkaline Phosphatase 80, Troponin I < 0.01, Total Protein 9.0 H, Albumin 5.0, Globulin 4.0 H, Albumin/Globulin Ratio 1.3, Lipase 51 09/01/25 18:30: SARS-CoV-2 (PCR) Not detected, Influenza A Untype (PCR) Not detected, Influenza Type B (PCR) Not detected 09/01/25 21:21: Troponin I 0.02 Response Orders (Tests/Meds): ED MEDICATIONS Discontinued Medications Generic Name Dose Route Start Last Admin Trade Name Freq PRN Reason Stop Dose Admin Albuterol/Ipratropium 3 ml 09/01/25 20:20 09/01/25 20:29 Ipratropium/Albuterol 3 Ml Neb IH 09/01/25 20:21 3 ml ONCE ONE Administration Aspirin 325 mg 09/01/25 18:15 09/01/25 18:25 Aspirin 325mg Tablet PO 09/01/25 18:16 325 mg ONCE ONE Administration Piperacillin Sod/Tazobactam 100 mls @ 200 mls/hr 09/01/25 20:30 09/01/25 22:19 Sod 4.5 gm/ Sodium Chloride IV 09/11/25 20:29 Infused Q8H SANDY Infusion Piperacillin Sod/Tazobactam 100 mls @ 200 mls/hr 09/01/25 20:58 09/01/25 22:32 Sod 4.5 gm/ Sodium Chloride IV 09/01/25 20:59 Not Given ONCE ONE Azithromycin 500 mg/ Sodium 250 mls @ 250 mls/hr 09/01/25 22:45 09/01/25 23:41 Chloride IV 09/11/25 22:44 Infused Q24H SANDY Infusion Azithromycin 500 mg/ Sodium 250 mls @ 250 mls/hr 09/01/25 22:45 09/02/25 00:34 Chloride IV 09/01/25 23:44 Infused ONCE ONE Infusion Iopamidol 70 ml 09/01/25 19:20 09/01/25 19:26 Iopamidol-370 (76%);100ml Bottle IV 09/01/25 19:21 70 ml ONCE ONE Administration Morphine Sulfate 4 mg 09/01/25 18:15 09/01/25 18:25 Morphine 4mg/Ml Syringe IV 09/01/25 18:16 4 mg ONCE ONE Administration Ondansetron HCl 4 mg 09/01/25 18:15 09/01/25 18:26 Ondansetron 4mg/2ml Vial IV 09/01/25 18:16 4 mg ONCE ONE Administration Sodium Chloride 40 ml 09/01/25 19:20 09/01/25 19:26 0.9 % Sodium Chloride 50 Ml Vial IV 09/01/25 19:21 40 ml ONCE ONE Administration Sodium Chloride 10 ml 09/01/25 19:20 09/01/25 19:26 Sodium Chloride 0.9% 10ml Syr (Rad Only) IV 09/01/25 19:21 10 ml ONCE ONE Administration ORDERS Category Date Time Status CT abdomen pelvis w con Stat Cat Scan 09/01/25 18:59 Completed CTA Chest [CT angio chest PE protocol] Stat Cat Scan 09/01/25 18:58 Completed Chest XR -- portable [XR chest portable] Stat Exams 09/01/25 18:15 Completed CBC [Complete Blood Count Auto Diff] Stat Lab 09/01/25 18:15 Completed Comprehensive Metabolic Panel Stat Lab 09/01/25 18:15 Completed D-Dimer Stat Lab 09/01/25 18:15 Completed Lipase Stat Lab 09/01/25 18:15 Completed Magnesium Stat Lab 09/01/25 18:15 Completed Rapid PCR Covid and Flu A/B Stat Lab 09/01/25 18:30 Completed Trop I [Troponin I] Stat Lab 09/01/25 18:15 Completed Troponin I Q3H Lab 09/01/25 21:21 Completed Blood Culture Stat Micro 09/01/25 20:20 Received MDM Narrative Medical Decision Narrative: patient is a 79-year-old male presenting to the emergency department for evaluation of chest pain shortness of breath that started 5 days ago. He also has nausea and dry heaving. Patient is hemodynamically stable and nontoxic- appearing upon arrival, afebrile. Differential diagnosis includes CT, CAD, viral illness, flu, COVID, PE, among others. Workup will be conducted with hematologic labs, specific imaging. Initial inventions include crystalloid bolus, analgesics. Will give report to Dr. Caldera. I assumed care of the patient at 1500 On evaluation, patient stated that he has been feeling short of breath for the last 5 days. Patient denies any chest pain. Patient reports upper epigastric abdominal pain that is been intermittent patient feels that abdomen is more swollen than usual. Patient's labs were reviewed and interpreted by myself: CBC showed no leukocytosis, hemoglobin was stable. D-dimer was elevated at 0.99. CMP showed an elevated bilirubin at 1.5 up from patient's baseline of 0.6. Initial troponin was less than 0.01, second troponin was 0.02. Respiratory panel was negative. CT PE as well as CT abdomen pelvis were obtained. CT PE showed concern for opacities, patient was given a breathing treatment as well given wheezing on exam. Patient has no pulmonary disease does not smoke. Patient CT abdomen also showed concern for a dilated appendix possible mucocele but possible concern for acute appendicitis. Patient CT scan also showed a dilated common bile duct as well as dilated intrahepatic and extrahepatic biliary ducts concerning for possible neoplasm. Was given a room air challenge and patient was hypoxic requiring oxygen which is new for him. Patient was requiring 2 L nasal cannula. Given my concern for intra-abdominal process as well as pneumonia. Patient was given Zosyn as well as azithromycin. Initially I felt the patient needed transfer for his pneumonia and his possible new pancreatic mass as well as his concern for possible acute appendicitis. After further discussion with the patient, he did not wish to be transferred to another facility, we do not have any MRCP capabilities at this time given the holiday. Given possible acute appendicitis on patient's CT scan I did discuss with our surgeons who stated that the patient could be seen as a consult if patient were to be admitted as he did not think that it was consistent with acute appendicitis and his appendix would not be removed tonight. After further discussion with the patient, he still did not wish to be admitted here to our hospital. Given that patient was hypoxic, oxygen was arranged and patient was discharged on oral antibiotics. Patient was urged to return to the emergency department to be further evaluated and worked up. Was advised to follow-up with his primary care provider. Patient ultimately signed out AMA.
[2025-09-01 18:22] LABS: Hematocrit 45.6 % (42.0-52.0); Hemoglobin 15.5 g/dL (14.1-18.0); Immature Granulocytes % 0.4 %; Mean Corpuscular HGB Conc 34.0 g/dL (31.8-35.4); Mean Corpuscular Hemoglobin 32.1 pg (27.0-31.2); Mean Corpuscular Volume 94.4 fl (80-94); Nucleated Red Blood Cells % 0 %; Platelet Count 188 K/mm3 (142-424); Red Blood Count 4.83 M/mm3 (4.60-6.20); Red Cell Distribution Width-SD 44.3 fL; White Blood Count 8.4 K/mm3 (4.8-10.8)
[2025-09-01] MEDS: ASPIRIN 325MG TABLET 325 MG PO (18:25)
[2025-09-01] MEDS: MORPHINE 4MG/ML SYRINGE 4 MG IV (18:25)
[2025-09-01] MEDS: ONDANSETRON 4MG/2ML VIAL 4 MG IV (18:26)
--- OUTSIDE RECORDS SUMMARY | 2025-09-01 18:32 | XMS_ITS ---
Laboratory report Created on: August 10, 2025 JAY CARRILLO : 1945 Sex: Male Author Organization Unknown PROBLEMS Problems List Code Description RESULTS Laboratory Orders Date Order Code Test 2025-02-27 284224 C DIFFICILE TOXI NS A+B, EIA Laboratory Results Date LOINC Test Value Unit Reference Range Interpre tation 2025-02-27 46127-6 C DIFFICILE TOXI NS A+B, EIA N NEGATIVE
--- OUTSIDE RECORDS SUMMARY | 2025-09-01 18:32 | XMS_ITS ---
Laboratory report Created on: August 10, 2025 JAY CARRILLO : 1945 Sex: Male Author Organization Unknown PROBLEMS Problems List Code Description RESULTS Laboratory Orders Date Order Code Test 2025-02-27 [id number] [facility]AMPYLOBACT[facility] CU LTURE Laboratory Results Date LOINC Test Value Unit Reference Range Interpre tation 2025-02-27 6331-3 CAMPYLOBACTER CULTURE FINAL 2025-02-27 6463-4 RESULT 1 NCI
[2025-09-01 18:36] LABS: Coronavirus 19, PCR Not Detected (NotDetected); Influenza A, PCR Not Detected (NotDetected); Influenza B, PCR Not Detected (NotDetected)
[2025-09-01 18:36] LABS: Alanine Aminotransferase 38 U/L (12-78); Albumin Level 5.0 g/dl (3.5-5.0); Albumin/Globulin Ratio 1.3 (1.1-1.8); Alkaline Phosphatase 80 U/L (38-126); Anion Gap 14.5 mEq/L (5-15); Aspartate Amino Transferase 53 U/L (17-59); Bilirubin,Total 1.5 mg/dl (0.2-1.3); Blood Urea Nitrogen 25 mg/dl (9-20); Calcium 9.4 mg/dl (8.4-10.2); Carbon Dioxide 29 mmol/L (22.0-30.0); Chloride 97 mmol/L (98-107); Creatinine Clearance Estimated 60 mL/min (50-200); Creatinine,Serum 1.20 mg/dl (0.66-1.25); Estimated Glomerular Filt Rate 59 ml/min (>60); GFR (African American) 71 ML/MIN (>60); Globulin 4.0 g/dL (1.3-3.2); Glucose 133 mg/dl (74-100); Lipase 51 U/L (23-300); Magnesium 1.9 mg/dl (1.6-2.3); Potassium 4.5 mmoL/L (3.5-5.1); Sodium 136 mmol/L (136-145); Total Protein,Serum 9.0 g/dl (6.3-8.2)
[2025-09-01 18:40] LABS: D-Dimer 0.99 ug/mL (0.0-0.5)
[2025-09-01 18:48] LABS: Troponin I < 0.01 ng/ml (0.00-0.034)
--- NOTE | 2025-09-01 18:58 | CT_ITS ---
PROCEDURE INFORMATION: Exam: CTA Chest With Contrast Exam date and time: 09/01/2025 7:04 PM Age: 79 years old Clinical indication: Shortness of breath; Additional info: Short of breath TECHNIQUE: Imaging protocol: Computed tomographic angiography of the chest with contrast. Exam focused on the arteries. 3D rendering (Not supervised by radiologist): MIP and/or 3D reconstructed images were created by the technologist. Radiation optimization: All CT scans at this facility use at least one of these dose optimization techniques: automated exposure control; mA and/or kV adjustment per patient size (includes targeted exams where dose is matched to clinical indication); or iterative reconstruction. Contrast material: ISOVUE 370; Contrast volume: 70 ml; Contrast route: INTRAVENOUS (IV); COMPARISON: CT ANGIO CHEST PE PROTOCOL 09/01/2025 7:04 PM FINDINGS: Pulmonary arteries: No pulmonary embolism. Aorta: Intimal calcifications of the aorta and it proximal branch vessels. Trachea: Patent central airways. Lungs: Emphysema. Elongated irregular 1.5 cm nodular opacity in the right upper lobe. Diffuse bronchial wall thickening in the lower lobes with impacted distal airways. Nodular airspace opacities in the right lower lobe. Pleural spaces: No pneumothorax or pleural effusion. Heart: Heart size is normal. No pericardial effusion. Coronary arteries: Coronary artery calcifications. Lymph nodes: Prominent mediastinal and bilateral perihilar lymph nodes. Conglomerate subcarinal lymphadenopathy measures 3.6 x 2.2 cm. Calcified subcarinal lymph nodes. Bones/joints: Unremarkable. No acute fracture. Soft tissues: Unremarkable. IMPRESSION: 1. Bronchial wall thickening in the lower lobes with impacted distal airways. Nodular airspace opacities in the right lower lobe, likely infectious. 2. Emphysema. 3. 1.5 cm nodule in the right upper lobe. For both low risk and high risk patients, consider CT Chest at 3 months, PET/CT, or biopsy. (Reference: Lilly). 4. Bilateral hilar and mediastinal adenopathy with conglomerate subcarinal lymph node mass. REFERENCES: Lilly Myles et al. Guidelines for Management of Incidental Pulmonary Nodules Detected on CT Images: From the Fleischner Society 2017. Radiology. 2017;284(1):228-243.
--- NOTE | 2025-09-01 18:59 | CT_ITS ---
PROCEDURE INFORMATION: Exam: CT Abdomen And Pelvis With Contrast Exam date and time: 09/01/2025 7:04 PM Age: 79 years old Clinical indication: Vomiting TECHNIQUE: Imaging protocol: Computed tomography of the abdomen and pelvis with contrast. 3D rendering (Not supervised by radiologist): MIP and/or 3D reconstructed images were created by the technologist. Radiation optimization: All CT scans at this facility use at least one of these dose optimization techniques: automated exposure control; mA and/or kV adjustment per patient size (includes targeted exams where dose is matched to clinical indication); or iterative reconstruction. Contrast material: ISOVUE; Contrast volume: 70 ml; Contrast route: IV; COMPARISON: MR CARDIAC WO/W CON 02/08/2025 10:55 AM FINDINGS: Lungs: Bronchial wall thickening in the lower lobes with nodular airspace opacities in the right lower lobe, likely infectious. Please see accompanying CT chest report. Liver: Unremarkable. No abnormally enhancing liver lesions. Gallbladder and biliary ducts: The gallbladder is mildly distended. Mild intra and extrahepatic biliary ductal prominence. The common bile duct measures up to 8 mm Pancreas: Ill-defined hypoattenuation of the pancreatic head. Mildly dilated pancreatic duct up to 5 mm proximally. Spleen: Unremarkable. Adrenal glands: The adrenal glands are unremarkable. Kidneys and ureters: Symmetric bilateral renal enhancement. No hydronephrosis. No radiopaque renal or urinary tract stones. Stomach and bowel: The stomach is unremarkable. No bowel obstruction. Colonic diverticulosis without acute diverticulitis. Appendix: The appendix is fluid-filled and measures up to 1.1 cm. There are no periappendiceal inflammatory changes. Intraperitoneal space: Unremarkable. No free air. No significant fluid collection. Vasculature: Atherosclerotic aortoiliac intimal calcifications. Lymph nodes: Unremarkable. No enlarged lymph nodes. Urinary bladder: Unremarkable. Reproductive: Prostate gland is unremarkable. Bones/joints: Degenerative changes of the spine. Mild retrolisthesis L2 on L3 and L3 on L4 No acute fracture or dislocation. Soft tissues: Unremarkable. IMPRESSION: 1. The appendix is fluid-filled and measures up to 1.1 cm. No significant periappendiceal fat stranding. Correlate clinically for acute appendicitis. Appendiceal mucocele is on the differential. Recommend surgical consult. 2. Ill-defined hypoattenuation of the pancreatic head. There is mild upstream dilatation of the proximal pancreatic duct and mild prominence of the intrahepatic and extrahepatic biliary ducts. The gallbladder is distended. Recommend MRI/MRCP with contrast to evaluate for possible pancreatic head or ampullary neoplasm. COMMENTS: THIS REPORT CONTAINS FINDINGS THAT MAY BE CRITICAL TO PATIENT CARE. The exam findings were verbally communicated by me to LIANA SANCHEZ via telephone conference at 7:54 PM EST on 09/01/2025. The findings were acknowledged and understood.
[2025-09-01] MEDS: IOPAMIDOL-370 (76%);100ML BOTTLE 70 ML IV (19:26)
[2025-09-01] MEDS: 0.9 % SODIUM CHLORIDE 50 ML VIAL 40 ML IV (19:26)
[2025-09-01] MEDS: SODIUM CHLORIDE 0.9% 10ML SYR (RAD ONLY) 10 ML IV (19:26)
[2025-09-01] MEDS: PIPERACILLIN/TAZO 4.5 GM in 0.9 % SODIUM CHLORIDE 100 ML IV (20:29)
[2025-09-01] MEDS: IPRATROPIUM/ALBUTEROL 3 ML NEB IH (20:29)
--- NOTE | 2025-09-01 20:29 | PC.NURSE ---
Called [facility] for possible pt xfer
--- NOTE | 2025-09-01 20:39 | PC.NURSE ---
[facility] refused due to need for higher level of care
--- NOTE | 2025-09-01 21:51 | PC.NURSE ---
[facility]S aware of transfer
[2025-09-01 22:01] LABS: Troponin I 0.02 ng/ml (0.00-0.034)
[2025-09-01] MEDS: AZITHROMYCIN 500 MG in 0.9 % SODIUM CHLORIDE 250 ML 250 MG IV ×2 (22:41→23:06)
--- NOTE | 2025-09-01 23:43 | PC.NURSE ---
[facility] called back stated they would be here in 30 minutes with O2
[2025-09-02 00:15] VITALS: BP 136/70; PULSE 94; RESP 24; TEMP 36.9; O2SAT 98
== END 2025-09-02 00:45 | disposition home or self-care (01) ==
PROVIDERS: Nurse Practitioner; Emergency Provider Student in an Organized Health Care Education/Training Program; PCP Internal Medicine
DX: J18.9 Pneumonia, unspecified organism (principal); R09.02 Hypoxemia; K83.8 Other specified diseases of biliary tract; K38.8 Other specified diseases of appendix; K86.89 Other specified diseases of pancreas; R10.13 Epigastric pain; R07.9 Chest pain, unspecified; R11.0 Nausea; R06.02 Shortness of breath
CPT/HCPCS: 36415; 71045; 71275; 74177; 80053; 83690; 83735; 84484; 85025; 85378; 87040; 87636; 93005; 96365; 96367; 96375; 99285; J0456; J2270; J2405; J2543; J7050; Q9967